=== PATIENT | male | born 1945 | race Caucasian/White ===

== ENCOUNTER 2018-10-22 21:01 | Emergency (ER) | payer OTHER, SELFPAY ==
[2018-10-22 21:05] VITALS: BP 191/107; PULSE 68; RESP 18; TEMP 36.8; O2SAT 100
[2018-10-22 21:38] VITALS: BP 174/99; PULSE 62; RESP 16; O2SAT 100
--- NOTE | 2018-10-23 06:53 | ED_ITS ---
HPI - URI/Sore Throat General Chief Complaint: Upper Respiratory Symptoms Stated Complaint: SOMETHING CAUGHT IN THROAT Time Seen by Provider: 10/22/18 21:03 Source: patient Mode of arrival: ambulatory Limitations: no limitations History of Present Illness HPI Narrative: 73-year-old male nonsmoker with benign medical history presents with a chief complaint of a suspected esophageal foreign body. He states he has a few times in the past had a piece of meat stuck in his throat and required surgery to ?fished out ?. He states he has had esophageal dilation twice in the past. He was eating chicken just prior to arrival when it got stuck and he and been unable to get any additional food or liquid down. He vomited a few times. His symptoms seem to of promptly resolved while walking into the department MD Complaint: sore throat Onset (ago): hour(s) Duration: constant and now resolved Severity: mild Relieving factors: nothing Exacerbating factors: nothing Able to tolerate fluids by mouth: No Associated symptoms: denies other symptoms Treatments prior to arrival: none Review of Systems Constitutional Denies chills, Denies fever(s), Denies lethargy and Denies weakness Eyes Denies change in vision, Denies eye discharge, Denies irritation and Denies loss of vision ENT Ears, Nose, Mouth, and Throat: Denies change in voice, Denies neck pain and Reports sore throat Cardiovascular Denies chest pain, Denies irregular heart rhythm, Denies lightheadedness, Denies palpitations, Denies dyspnea, Denies dyspnea on exertion and Denies orthopnea Respiratory Denies cough, Denies dyspnea, Denies dyspnea on exertion and Denies wheezing Gastrointestinal Gastrointestinal: Denies abdominal pain, Denies change in bowel habits, Denies diarrhea, Denies nausea and Denies vomiting Genitourinary Denies hematuria, Denies flank pain, Denies urinary incontinence and Denies urinary urgency Musculoskeletal Denies neck pain Integumentary/Breasts Denies pruritus, Denies erythema, Denies rash and Denies wounds Neurologic Denies confusion, Denies loss of vision and Denies weakness Psychiatric Denies anxiety, Denies confusion, Denies depression, Denies homicidal ideation and Denies suicidal ideation Endocrine Denies palpitations Hematologic/Lymphatic Denies easy bruising Allergic/Immunologic Denies wheezing PFSH Social History Smoking Status: Never smoker Social History Smoking Status: Never smoker Exam Narrative Exam Narrative: GEN: AOx3 and in mild distress EYES: Pupils are equal, round, and reactive to light and accommodation. Ext raoccular muscles are intact bilaterally. There is no subconjunctival hemorrhage or exudate. ENT: No obvious FB in throat on exam. No erythema or swelling. Managing secretions without difficulty CHEST: Lungs are clear to auscultation bilaterally and free of wheezes, rales, or rhonchi. Heart rate is regular rhythm, there are no murmurs, clicks, rubs, or gallops. There is no chest wall tenderness. ABD: Abdomen is soft and nontender. There is no guarding or rebound. Bowel sounds are normal in all 4 quadrants. There is no mass or organomegaly. EXT: Full painless ROM of all extremities with no loss of sensation or strength. SKIN: Warm, pink, and dry. No erythema or rash Initial Vital Signs Initial Vital Signs: Vital Signs Temperature 98.2 F 10/22/18 21:05 Pulse Rate 68 10/22/18 21:05 Respiratory Rate 18 10/22/18 21:05 Blood Pressure 191/107 H 10/22/18 21:05 Pulse Oximetry 100 10/22/18 21:05 Course Course Narrative: IV, glucagon ordered, but patient states his symptoms were completely resolved and he wished to go home Orders Ordered: Discontinued Medications Glucagon (Glucagen) 1 mg IV NOW ONE Stop: 10/22/18 21:17 Vital Signs - 8 hr 10/22/18 21:05 Temperature 98.2 F Pulse Rate 68 Respiratory Rate 18 Blood Pressure 191/107 H Pulse Oximetry 100 Discharge Plan Departure Patient Disposition: Home Clinical Impression: Esophageal foreign body Qualifiers: Encounter type: initial encounter Qualified Code(s): T18.108A - Unspecified foreign body in esophagus causing other injury, initial encounter Discharge Date/Time: 10/22/18 21:45 Interventions: ED Discharge Assessment Last Done: 10/22/18 21:38 Instructions: Steakhouse Syndrome Activity Restrictions/Additional Instructions: *You have been diagnosed with [esophageal foreign body resolved] *What to do: *Take medications as directed *Follow up with your primary care provider in 2-3 days, call for an appointment. Let them know you were seen in the Emergency Department and that we ask that you be seen in follow up *Return to ER if you should have any new, worsening or concerning symptoms Referrals: Todd Luna MD [Physician] -
== END 2018-10-22 21:45 | disposition home or self-care (01) ==
PROVIDERS: Emergency Provider Emergency Medicine
DX: T18.108A Unspecified foreign body in esophagus causing other injury, initial encounter (principal); Y93.89 Activity, other specified; Y92.89 Other specified places as the place of occurrence of the external cause; Y99.8 Other external cause status
CPT/HCPCS: 99282

== ENCOUNTER 2019-04-24 10:28 | Inpatient (IN) | payer OTHER, SELFPAY ==
[2019-04-24] VITALS (10 sets, daily range): BP systolic 135–188; BP diastolic 83–108; PULSE 64–80; RESP 14–18; TEMP 36.4–37.1; O2SAT 97–99; BMI 22.9
--- NOTE | 2019-04-24 10:59 | DI.CT.S_ITS ---
PROCEDURE: CT HEAD/BRAIN WO CON INDICATIONS: WEAKNESS TECHNIQUE: Noncontrast 4.5 mm thick angled axial sections acquired from the foramen magnum to the vertex, with coronal and sagittal reformats. For radiation dose reduction, the following was used: automated exposure control, adjustment of mA and/or kV according to patient size. COMPARISON: None. FINDINGS: Image quality: Diagnostic. CSF spaces: Basal cisterns are patent. No extra-axial fluid collections. Ventricles are prominent in size. Brain: No midline shift. No intracranial masses or hemorrhage. Fragoso-white matter interface is normal. Large confluent areas of low attenuation are seen within the periventricular and deep white matter of the supratentorial brain. Encephalomalacia involving the right basal ganglia is present. Skull and face: Calvarium and visualized facial bones are intact, without suspicious lesions. Sinuses: Visualized sinuses and mastoids are clear. IMPRESSION: 1. No acute intracranial hemorrhage. 2. Extensive chronic small vessel ischemic changes and mild parenchymal volume loss. Dictated by: Jamey Starr M.D. on 04/24/2019 at 10:15 Approved by: Jamey Starr M.D. on 04/24/2019 at 10:16
[2019-04-24 11:05] LABS: INR 1.1 (0.9-1.3); Prothrombin Time 13.1 SECONDS (10.1-12.7)
[2019-04-24 11:07] LABS: Add Manual Diff / Slide Review NO; Basophils Absolute Auto 0 /uL (0-100); Eosinophils Absolute Auto 100 /uL (0-450); Eosinophils Percent Auto 1.3 % (2-4); Hematocrit 42.8 % (41-53); Hemoglobin 14.9 g/dL (13.5-17.5); Lymphocytes Absolute Auto 800 /uL (1100-4500); Lymphocytes Percent Auto 18.5 % (25-40); Mean Corpuscular HGB Conc 34.7 % (30-36); Mean Corpuscular Hemoglobin 32.3 PG (26-34); Mean Corpuscular Volume 93.1 fL (80-100); Monocytes Absolute Auto 500 /uL (0-900); Monocytes Percent Auto 10.5 % (3-14); Neutrophils Absolute Auto 3100 /uL (1500-7000); Neutrophils Percent Auto 68.7 % (50-75); PTT Partial Thromboplastin Tim 28 SECONDS (26.4-36.2); Platelet Count 152 X10^3/uL (150-400); Red Cell Distribution Width 13.1 % (11.6-14.8); White Blood Cell Count 4.6 X10^3/uL (4.5-11.0)
[2019-04-24 11:09] LABS: Blood Urea Nitrogen 14 mg/dL (9-20); Calcium 8.9 mg/dL (8.4-10.2); Carbon Dioxide 32 mmol/L (22-32); Chloride 101 mmol/L (98-107); Estimated Glomerular Filt Rate > 60.0 mL/min (>60); Glucose 106 mg/dL (80-110); HEMOLYSIS < 15 (0-50); Potassium 4.2 mmol/L (3.4-5.1); Sodium 140 mmol/L (137-145)
[2019-04-24] MEDS: SODIUM CHLORIDE 0.9% 1,000 ML 150 ML IV ×2 (11:14→16:36)
[2019-04-24 11:20] LABS: Troponin I < 0.012 ng/mL (0.01-0.034)
--- NOTE | 2019-04-24 11:51 | ED.WEAKNESS ---
HPI - Weakness General Chief complaint: Weakness Stated complaint: Fall / Weakness Time Seen by Provider: 04/24/19 11:10 Source: patient and EMS Mode of arrival: EMS Limitations: no limitations History of Present Illness HPI Narrative: This is a 74-year-old male brought in for weakness. Patient had fall x2 last night. Daughter states and patient states that he seemed more weak last night. Had kind of some slow progression. Patient states he did notice sudden onset. He states his left leg does feel little bit heavier. He denies any weakness in his upper extremities. He denies any headache. He denies any injury from sliding. Denies hitting his head at any point. No chest pain, no shortness of breath, no nausea vomiting. Had some diarrhea about a month ago thought it was secondary to medications and stopped his omeprazole, tamsulosin and propranolol. Patient states he was taking propranolol he thinks for tremors. He has had normal bowel movements since. No recent rashes. He has a little bit of left facial droop in the upper and lower portion which family states occurred after he had significant swelling and shingles on that side several months ago. Patient has not had any changes to speech they haven't appreciate any slurred speech or difficulty getting his words out. He has had several episodes with increasingly worse short-term memory loss, he got lost several months ago, he has been noted to have a tremor and his daughter states he she has noticed and stumbling sometimes. And he has had fall about 2 months ago and maybe 1 in between. Has had head CT at some point after seeing Neurology and she believes they were told he may have had a prior stroke but they are unsure. He has had EGD for evaluation and were told that was okay on March 24. Daughter states there has been some discussion about Parkinson's disease and dementia. Patient lives with his daughter. Related Data Home Medications Medication Instructions Recorded Confirmed omeprazole 20 mg PO DAILY 04/24/19 04/24/19 propranolol 10 mg PO BID 04/24/19 04/24/19 tamsulosin 0.4 mg PO DAILY 04/24/19 04/24/19 Allergies Allergy/AdvReac Type Severity Reaction Status Date / Time antivenin,crotalidae Allergy Verified 04/24/19 10:48 polyvalent imm Review of Systems Review of Systems ROS Unobtainable: All systems reviewed & are unremarkable except as noted in HPI and below Patient History Medical History (Updated 04/24/19 @ 15:16 by Enedina Lord DO) GERD (gastroesophageal reflux disease) (Acute) Surgical History (Updated 04/24/19 @ 11:54 by Enedina Lord DO) History of esophagogastroduodenoscopy (EGD) (Acute) Social History household members: children Smoking Status: Former smoker alcohol intake: current Smoking Status: Former smoker Substance Use Type: does not use Exam Narrative Exam Narrative: GEN: well nourished, well appearing male, alert and oriented, patient appears to be in mild distress. Patient has flat affect. Answers questions appropriately but very slow to answer and short answers. HEENT: Atraumatic, pupils are equal round reactive to light, extraocular movements are intact, nares are clear, TMs are clear with no fluid, there is no conjunctival pallor. Throat is clear without any exudates, erythema, tonsillar enlargement or uvular deviation, patient does have some mild droop of the left upper face including the as well as lower face but when he smiles it appears to be equal in comparison to the right. HEART: Regular rate and rhythm without murmur, clicks, rubs. LUNGS:Lungs clear to auscultation, no wheezes, rales, crackles, chest moves symmetrically ABD:bowel sounds normal, soft, non-tender, no guarding, rebound, rigidity, no masses noted, no hepatosplenomegaly :No CVA tenderness BACK: No cervical, thoracic or lumbar vertebral point tenderness. Patient has decreased range of motion. 2+ dorsalis pedis bilaterally. Sensation intact bilateral lower extremities. MSCL: Non-tender, no muscle atrophy. NEURO:CN 2-12 intact, sensation normal. finger nose finger test normal, heel jacobson test normal on right, very mild difficulty on left, gait not tested. SKIN: no rash, no erythema noted. Initial Vital Signs Initial Vital Signs: Vital Signs Temperature 97.6 F 04/24/19 10:48 Pulse Rate 66 04/24/19 10:48 Respiratory Rate 14 04/24/19 10:48 Blood Pressure 185/95 H 04/24/19 10:48 Pulse Oximetry 99 04/24/19 10:48 Scores NIH Stroke Scale Level of Conciousness: Alert, keenly responsive Ask month/age: Answers both questions correctly. Open/close eyes, close hand: Performs both tasks correctly Best gaze horizontal: Normal Visual hilliard: No visual loss Facial palsy: Minor paralysis, flattened nasolabial fold, asymmetry on smiling (upper and lower face) Left arm drift: No drift for full 10 sec Right arm drift: No drift for full 10 sec Left leg drift: Drifts down, not to bed Right leg drift: No drift for full 10 sec Limb ataxia: Present in one limb (left foot) Sensory on face/arms/legs: Normal, no sensory loss Best language: No aphasia, normal Dysarthria: Normal Extinction or inattention: No abnormality Total NIH Stroke scale score: 3 Course Orders Ordered: ED Orders 04/24/19 10:37 EKG-12 Lead Routine 04/24/19 10:40 BNP [B Type Natriuretic Peptide] Stat Basic Metabolic Panel Stat Complete Blood Count AUTO DIFF Stat Partial Thromboplastin Time Stat Prothrombin Time INR Stat Troponin I Stat 04/24/19 10:59 CT head/brain wo con Stat 04/24/19 11:59 CT angio head and neck Stat 04/24/19 12:37 Urine Drug Screen, Rapid Stat Urine Microscopic Stat Sodium Chloride (Normal Saline 0.9%) 1,000 mls @ 150 mls/hr IV CONT ROHITH Last Admin: 04/24/19 16:36 Dose: 150 mls/hr Documented by: Infusion: 04/24/19 15:54 Dose: 0 mls/hr Documented by: Admin: 04/24/19 11:14 Dose: 150 mls/hr Documented by: PAUL Discontinued Medications Aspirin (Aspirin Chew) 324 mg PO NOW ONE Stop: 04/24/19 15:01 Last Admin: 04/24/19 15:57 Dose: 324 mg Documented by: IONA Vital Signs Vital signs: Vital Signs - 8 hr 04/24/19 11:15 04/24/19 11:30 04/24/19 12:30 Pulse Rate 66 65 64 Respiratory Rate 18 15 14 Blood Pressure [Left Arm] 176/92 H 170/90 H 168/88 H Pulse Oximetry 99 97 97 04/24/19 14:00 04/24/19 15:03 Pulse Rate 66 69 Respiratory Rate 18 16 Blood Pressure [Left Arm] 164/94 H 188/108 H Pulse Oximetry 99 99 MDM - Weakness Lab Data Attestation: I reviewed the patient's lab results. Result diagrams: 04/24/19 10:40 04/24/19 10:40 Labs: Lab Results 04/24/19 04/24/19 04/24/19 Range/Units 10:40 10:40 10:40 WBC 4.6 (4.5-11.0) X10^3/uL RBC 4.60 (4.5-5.9) X10^6/uL Hgb 14.9 (13.5-17.5) g/dL Hct 42.8 (41-53) % MCV 93.1 (80-100) fL MCH 32.3 (26-34) PG MCHC 34.7 (30-36) % RDW 13.1 (11.6-14.8) % Plt Count 152 (150-400) X10^3/uL Neut % (Auto) 68.7 (50-75) % Lymph % (Auto) 18.5 L (25-40) % [place] % (Auto) 10.5 (3-14) % Eos % (Auto) 1.3 L (2-4) % Baso % (Auto) 1.0 (0-2) % Neut # (Auto) 3100 (9339-7108) /uL Lymph # (Auto) 800 L (3651-6007) /uL [place] # (Auto) 500 (0-900) /uL Eos # (Auto) 100 (0-450) /uL Baso # (Auto) 0 (0-100) /uL PT 13.1 H (10.1-12.7) SECONDS INR 1.1 (0.9-1.3) APTT 28 (26.4-36.2) SECONDS Sodium 140 (137-145) mmol/L Potassium 4.2 (3.4-5.1) mmol/L Chloride 101 (98-107) mmol/L Carbon Dioxide 32 (22-32) mmol/L BUN 14 (9-20) mg/dL Creatinine 1.00 (0.66-1.25) mg/dL Estimated GFR > 60.0 (>60) mL/min BUN/Creatinine Ratio 14.0 (6-22) Glucose 106 (80-110) mg/dL Calcium 8.9 (8.4-10.2) mg/dL Troponin I < 0.012 (0.01-0.034) ng/mL B-Natriuretic Peptide (<100) Urine RBC (0-5/HPF) Urine WBC (0-5/HPF) Ur Squamous Epith Cells (0-5/HPF) Urine Bacteria (None) Urine Mucus (Negative) Ur Culture Indicated? U Opiates 300ng/mL cut (Negative) Ur Oxycodone Screen (Negative) Urine Methadone Screen (Negative) Ur Barbiturates Screen (Negative) U Tricyclic Antidepress (Negative) Ur Phencyclidine Scrn (Negative) Ur Amphetamines Screen (Negative) U Methamphetamines Scrn (Negative) Ur MDMA Scrn (Ecstasy) (Negative) U Benzodiazepines Scrn (Negative) Urine Cocaine Screen (Negative) U Marijuana (THC) Screen (Negative) 04/24/19 04/24/19 04/24/19 Range/Units 10:40 12:37 12:37 WBC (4.5-11.0) X10^3/uL RBC (4.5-5.9) X10^6/uL Hgb (13.5-17.5) g/dL Hct (41-53) % MCV (80-100) fL MCH (26-34) PG MCHC (30-36) % RDW (11.6-14.8) % Plt Count (150-400) X10^3/uL Neut % (Auto) (50-75) % Lymph % (Auto) (25-40) % [place] % (Auto) (3-14) % Eos % (Auto) (2-4) % Baso % (Auto) (0-2) % Neut # (Auto) (7695-0237) /uL Lymph # (Auto) (5436-0313) /uL [place] # (Auto) (0-900) /uL Eos # (Auto) (0-450) /uL Baso # (Auto) (0-100) /uL PT (10.1-12.7) SECONDS INR (0.9-1.3) APTT (26.4-36.2) SECONDS Sodium (137-145) mmol/L Potassium (3.4-5.1) mmol/L Chloride (98-107) mmol/L Carbon Dioxide (22-32) mmol/L BUN (9-20) mg/dL Creatinine (0.66-1.25) mg/dL Estimated GFR (>60) mL/min BUN/Creatinine Ratio (6-22) Glucose (80-110) mg/dL Calcium (8.4-10.2) mg/dL Troponin I (0.01-0.034) ng/mL B-Natriuretic Peptide < 100 (<100) Urine RBC 0-1/hpf (0-5/HPF) Urine WBC 0-1/hpf (0-5/HPF) Ur Squamous Epith Cells 0-1 /hpf (0-5/HPF) Urine Bacteria None seen (None) Urine Mucus 1+ H (Negative) Ur Culture Indicated? Cult not indicated U Opiates 300ng/mL cut Negative (Negative) Ur Oxycodone Screen Negative (Negative) Urine Methadone Screen Negative (Negative) Ur Barbiturates Screen Negative (Negative) U Tricyclic Antidepress Negative (Negative) Ur Phencyclidine Scrn Negative (Negative) Ur Amphetamines Screen Negative (Negative) U Methamphetamines Scrn Negative (Negative) Ur MDMA Scrn (Ecstasy) Negative (Negative) U Benzodiazepines Scrn Negative (Negative) Urine Cocaine Screen Negative (Negative) U Marijuana (THC) Screen Negative (Negative) Urine Dip Bedside Urine Glucose Negative Bedside Urine Bilirubin - Negative Bedside Urine Ketone - Negative Bedside Urine Occult Blood - Negative Bedside Urine Protein +/- 15 Bedside Urine Urobilinogen - Negative Bedside Urine Nitrite - Negative Bedside Urine Leukocytes - Negative Esterase Imaging Data CT scan - head: Radiologist Impression: [address] [address] [address] Scan Report Signed Patient: Tian Lobato R#: [id number] : [id number] Age/Sex: 74 / MDate of Service: 04/24/19 Loc: ED Accession Number: [id number] Procedure: CT head/brain wo con Ordering Provider: Enedina Lord D.O. PROCEDURE: CT HEAD/BRAIN WO CON INDICATIONS: WEAKNESS TECHNIQUE: Noncontrast 4.5 mm thick angled axial sections acquired from the foramen magnum to the vertex, with coronal and sagittal reformats. For radiation dose reduction, the following was used: automated exposure control, adjustment of mA and/or kV according to patient size. COMPARISON: None. FINDINGS: Image quality: Diagnostic. CSF spaces: Basal cisterns are patent. No extra-axial fluid collections. Ventricles are prominent in size. Brain: No midline shift. No intracranial masses or hemorrhage. Fragoso-white matter interface is normal. Large confluent areas of low attenuation are seen within the periventricular and deep white matter of the supratentorial brain. Encephalomalacia involving the right basal ganglia is present. Skull and face: Calvarium and visualized facial bones are intact, without suspicious lesions. Sinuses: Visualized sinuses and mastoids are clear. IMPRESSION: 1. No acute intracranial hemorrhage. 2. Extensive chronic small vessel ischemic changes and mild parenchymal volume loss. Dictated by: Jamey Starr M.D. on 04/24/2019 at 10:15 Approved by: Jamey Starr M.D. on 04/24/2019 at 10:16 ECG Data Attestation: I personally reviewed and interpreted this ECG as follows: Interpretation: Sinus rhythm rate of 67 P are 158 QRS of 90 and QTC of 410. No ST elevation depression noted. MDM Narrative Medical decision making narrative: Patient's CBC, coags and BMP and troponin show no major abnormalities. Urine does not show any obvious infection. Head CT showed no acute intracranial hemorrhage, extensive chronic small vessel ischemic changes. There's encephalomalacia involving the right basal ganglia present. Which patient's family had stated that they have been told that there were some changes before that may have been a stroke past imaging. CT of the head and neck show no acute process. Moderate chronic microvascular ischemic changes. No significant areas of stenosis and less than 50% stenosis of the ICAs bilaterally. When we attempt to stand or walk the patient he leans/falls significantly to the left. He has facial droop which is sounds chronic. Speaking with family and patient he has had symptoms for about 48 hours so as far outside the window for tPA or intervention. Spoke with Dr. jalloh and he accepts for observation for CVA. Patient given asa 324mg and MRI stroke ordered. Discharge Plan Departure Patient Disposition: Admitted as Observation Clinical Impression: CVA (cerebral vascular accident) Discharge Date/Time: 04/24/19 16:02 Admit Date/Time: 04/24/19 15:05 Admit Provider: Noble Saha
--- NOTE | 2019-04-24 11:59 | DI.CT.S_ITS ---
PROCEDURE: CT ANGIO HEAD AND NECK INDICATIONS: left ataxia, old TECHNIQUE: Pre-contrast 4.5 mm thick sections acquired from the foramen magnum to the vertex. After the administration of intravenous contrast, 1 mm thick sections acquired from the aortic arch through the [place] of [place]. Post-contrast 4.5 mm thick sections then re-acquired from the foramen magnum to the vertex. 3-dimensional [id number] (MIP) and/or volume rendering reformats were acquired of the central intracranial vasculature and neck separately. COMPARISON: [facility], CT, CT HEAD/BRAIN WO CON, 04/24/2019, 10:55. FINDINGS: Image quality: Excellent. BRAIN: The ventricular system and cortical sulci demonstrate atrophy, consistent for the patient's stated age. There are areas of hypodensity within the periventricular and subcortical white matter. There is no acute intra-or extra axial fluid collection. No acute hemorrhage, mass lesion or midline shift. Brainstem is unremarkable. Globes are symmetrical. Sinuses are aerated. Osseous structures are intact. HEAD CT ANGIOGRAPHY: Anterior circulation: Intracranial internal carotid arteries are normal in size and flow. The flow within the paired anterior cerebral arteries is normal and symmetric. The flow within the middle cerebral arteries is normal and symmetric. The anterior communicating artery is seen. No aneurysms are seen. Posterior circulation: Visualized portions of the vertebral arteries demonstrate normal caliber, and join to form a normal appearing basilar artery. Flow within the posterior cerebral arteries is normal and symmetric. No aneurysms are seen. NECK CT ANGIOGRAPHY: The origins of the left and right common and external carotid arteries demonstrate no areas of hemodynamically significant stenosis, vascular occlusion or aneurysmal dilation. Calcification is noted at the internal carotid origins bilaterally with less than 50% stenosis. Origins of the left and right vertebral arteries demonstrate no areas of hemodynamically significant stenosis, vascular occlusion or aneurysmal dilation. Aortic arch demonstrates conventional anatomy. Limited, visualized portions subclavian vasculature are unremarkable. IMPRESSION: 1. No acute intracranial process. 2. Moderate atrophy and chronic microvascular ischemic changes. 3. No areas of hemodynamically significant stenosis, vascular occlusion or aneurysmal dilation within the anterior or posterior circulation. 4. Less than 50% stenosis at the internal carotid arteries bilaterally. Any quantitative measurements of stenosis were performed using NASCET criteria. Dictated by: Farzaneh Tiwari M.D. on 04/24/2019 at 12:50 Approved by: Farzaneh Tiwari M.D. on 04/24/2019 at 13:21
[2019-04-24 12:38] LABS: Bacteria Urine None Seen
[2019-04-24 12:44] LABS: Ur Creatinine Normal (Normal); Ur Specific Gravity Normal (Normal); Urine Tetrahydrocannabinol Negative (Negative); Urine pH Normal (Normal)
[2019-04-24 12:45] LABS: UR Morphine/Opiate cutoff 300 Negative (Negative); Urine Amphetamines Negative (Negative); Urine Barbiturates Negative (Negative); Urine Benzodiazepines Negative (Negative); Urine Cocaine Negative (Negative); Urine MDMA Negative (Negative); Urine Methadone Negative (Negative); Urine Methamphetamines Negative (Negative); Urine Oxycodone Negative (Negative); Urine Phencyclidine Negative (Negative); Urine Tricyclic Antidepressant Negative (Negative)
[2019-04-24 12:47] LABS: RBC Urine 0-1/HPF (0-5/HPF); Squamous Epithelial Cell Urine 0-1 /HPF (0-5/HPF); WBC Urine 0-1/HPF (0-5/HPF)
[2019-04-24 12:48] LABS: Culture Indicated Urine Cult Not Indicated; Mucus Urine 1+ (Negative)
[2019-04-24 13:08] LABS: B Type Natriuretic Peptide < 100 (<100)
--- NOTE | 2019-04-24 14:24 | PC.NURSE ---
Patient was incontinent of urine and soaked his pants and bed. Lucina and I changed his bed sheets, cleaned him up, and put new dry clothes/briefs on him.
--- NOTE | 2019-04-24 15:12 | DI.MRI.S_ITS ---
PROCEDURE: MR STROKE Pre- and post-contrast brain MRI, non-contrast brain MR angiogram, pre- and postcontrast neck MR angiogram INDICATIONS: stroke TECHNIQUE: Brain: Noncontrast axial T1 spin echo, axial T2 fast spin echo, sagittal and axial FLAIR, coronal T2 fast spin echo, axial gradient echo, axial diffusion and ADC through the brain. After the administration of contrast, axial 3D VIBE of the cranial vasculature and brain. Brain MRA: Non-contrast 3-D time of flight MR angiogram, with multiple fwipenh-pvmheejqd-hgkuyxnulo (MIP) reformats performed. Neck MRA: Axial and sagittal TruFISP through the neck. Coronal dynamic MR angiogram during administration of contrast in the arterial and venous phases, with 3-dimenstional ishozgv-zgaehkwfk-ygssuvzsnz (MIP) reformats constructed from subtraction images. COMPARISON: None. FINDINGS: Image quality: Excellent. BRAIN: CSF spaces: Ventricles are normal in size and shape. Basal cisterns are patent. No extra-axial fluid collections. Brain: No intracranial bleeds or mass effects. Scattered small white matter changes, probably represent chronic microvascular ischemic disease, versus statistically less likely demyelination or other infectious, inflammatory, neurodegenerative etiology, technically nonspecific. Fragoso-white matter interface is normal. Diffusion weighted images show multiple areas of acute ischemia involving the anterior right frontal lobe Brainstem appears normal. Normal intravascular flow voids are present. No abnormal intracranial enhancement. Skull and face: Calvarial marrow signal is normal. Orbits appear normal. Sinuses: Sinuses and mastoids are clear. BRAIN MR ANGIOGRAM: Anterior circulation: Intracranial internal carotid arteries are normal in size and enhancement. The flow within the paired anterior cerebral arteries is normal and symmetric. The flow within the middle cerebral arteries is normal and symmetric. The anterior communicating artery is seen. No stenoses, occlusions, or aneurysms. Posterior circulation: The visualized portions of the vertebral arteries demonstrate normal caliber, and join to form a normal appearing basilar artery. The flow within the posterior cerebral arteries is normal and symmetric. No stenoses, occlusions, or aneurysms. NECK MR ANGIOGRAM: Carotids: Great vessels demonstrate a conventional anatomy as they arise from the aortic arch. The origins of the common carotid arteries appear patent. The calibers and courses of both common carotid arteries are normal. The bifurcation regions appear normal bilaterally. The internal carotid arteries demonstrate normal course and caliber. Posterior circulation: The origins of the vertebral arteries appear patent. More superior portions of both vertebral arteries demonstrate normal course and caliber, and join to form a normal appearing basilar artery. Miscellaneous: Subclavian arteries appear patent. Pre-contrast images through the neck show no soft tissue abnormalities. IMPRESSION: BRAIN MRI: Multifocal scattered small areas of acute ischemia involving the anterior right frontal lobe. Diffuse small white matter changes, probably represent chronic microvascular ischemic disease, versus statistically less likely demyelination or other infectious, inflammatory, neurodegenerative etiology, technically nonspecific. BRAIN MR ANGIOGRAM: No focal stenosis or occlusion NECK MR ANGIOGRAM: No hemodynamically significant ICA stenosis identified. Dictated by: Jero Osman M.D. on 04/24/2019 at 21:31 Approved by: Jero Osman M.D. on 04/24/2019 at 21:37
[2019-04-24] MEDS: ASPIRIN 81 MG CHEW TAB 324 MG PO (15:57)
--- NOTE | 2019-04-24 18:57 | P.HP_ITS ---
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 He states starting 3 weeks ago he noticed some blurry vision and went to see the eye doctor. 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 He denies any left eye pain. And states that his rash has almost resolved. Starting 2 weeks ago he noticed that he was becoming more clumsy and had some mild left-sided, primarily lower extremity weakness. Then 2 days ago he has been profoundly more weak, especially on the left side and he could not take care of himself any longer. He denies any fevers, chills, headache. He denies any trauma from falls including hitting his head. He has had no chest pain, shortness of breath, palpitations, or cough. He was started on proprano lol for tremors, however he developed diarrhea and has since stopped taking this. He states a few months ago he was driving and did not realize where he was. He ended up in the emergency room where they did an evaluation but did not find anything wrong at that time. In the ED, patient was hypertensive, but other vital signs were unremarkable. EKG shows normal sinus rhythm, rate 67, without evidence of active ischemia. CT head and CTA head and neck were unremarkable in the emergency room. Laboratory studies including CBC, coags, chemistries were all unremarkable. UA was negative for infection and urine drug screen was negative. Patient still had persistent symptoms of left-sided weakness, and he was admitted to Medicine for further evaluation of a likely stroke. Patient History Medical History (Updated 04/24/19 @ 15:16 by Enedina Lord DO) GERD (gastroesophageal reflux disease) (Acute) Surgical History (Updated 04/24/19 @ 11:54 by Enedina Lord DO) History of esophagogastroduodenoscopy (EGD) (Acute) Family & Social History Social History: household members children Prior Living Arrangements House Safety & Behavioral: Feels Safe in Current Yes Environment Been Physically Hurt or No Threatened By a Person Suicidal Ideation Description None Suicide Plan Description No Plan Tobacco & Substance use: Smoking Status Former smoker alcohol intake current alcohol intake frequency a few times a month Substance Use Type does not use Meds Home Medications and Allergies Home Medications Medication Instructions Recorded Confirmed Type omeprazole 20 mg PO DAILY 04/24/19 04/24/19 History propranolol 10 mg PO BID 04/24/19 04/24/19 History tamsulosin 0.4 mg PO DAILY 04/24/19 04/24/19 History Allergies Allergy/AdvReac Type Severity Reaction Status Date / Time antivenin,crotalidae Allergy Verified 04/24/19 10:48 polyvalent imm Review of Systems Review of Systems Narrative: All other systems reviewed with the patient and are negative unless otherwise stated. Exam Vital Signs (past 8 hours): - 04/24/19 11:15 04/24/19 11:30 04/24/19 12:30 Temperature Pulse Rate 66 65 64 Respiratory Rate 18 15 14 Blood Pressure Blood Pressure [Left Arm] 176/92 H 170/90 H 168/88 H Pulse Oximetry 99 97 97 04/24/19 14:00 04/24/19 15:03 04/24/19 16:00 Temperature Pulse Rate 66 69 73 Respiratory Rate 18 16 18 Blood Pressure Blood Pressure [Left Arm] 164/94 H 188/108 H 188/108 H Pulse Oximetry 99 99 98 04/24/19 16:15 Temperature 98.2 F Pulse Rate 80 Respiratory Rate 16 Blood Pressure 163/107 H Blood Pressure [Left Arm] Pulse Oximetry 98 Oxygen Delivery Method Room Air Oxygen Flow Rate 0 Narrative Exam Narrative: GENERAL APPEARANCE: Elderly male, tearful at the end of the interview when discussing surrogate decision maker. He is eating dinner, there is rice scattered over his blankets. SKIN: Inspection of the skin reveals no rashes, ulcerations or petechiae. HEENT: Minor rash surrounding his left eye, appears old and well healing. EOMI, PERRLA. Oral mucosa moist, no posterior pharyngeal erythema. NECK: Supple and symmetric. There was no thyroid enlargement, and no tenderness, or masses were felt. CHEST: Normal AP diameter and normal contour without any kyphoscoliosis. LUNGS: Auscultation of the lungs revealed no wheezes, rhonchi, or rales. CARDIOVASCULAR: There was a regular rate and rhythm without any murmurs, gallops, rubs. Peripheral pulses were 2+ and symmetric. ABDOMEN: Soft and nontender with normal bowel sounds. No ascites was noted. MUSCULOSKELETAL: There was no tenderness or effusions noted. Muscle tone was normal. EXTREMITIES: No cyanosis, clubbing or edema. NEUROLOGIC: Alert and oriented x 3. Mild cognitive impairment is evident. Neuro exam as documented below, stroke scale of 6. He does have a mild intention tremor on the right. Objective ECG Impression: Normal sinus rhythm, no evidence of active ischemia. Rate of 68. Imaging CT scan - head: Radiologist's impression: IMPRESSION: 1. No acute intracranial hemorrhage. 2. Extensive chronic small vessel ischemic changes and mild parenchymal volume loss. CTA head/neck: Radiologist's impression: 1. No acute intracranial process. 2. Moderate atrophy and chronic microvascular ischemic changes. 3. No areas of hemodynamically significant stenosis, vascular occlusion or aneurysmal dilation within the anterior or posterior circulation. 4. Less than 50% stenosis at the internal carotid arteries bilaterally. Labs Result Diagrams: 04/24/19 10:40 04/24/19 10:40 Labs: Laboratory Results - last 24 hr 04/24/19 04/24/19 04/24/19 10:40 10:40 10:40 WBC 4.6 RBC 4.60 Hgb 14.9 Hct 42.8 MCV 93.1 MCH 32.3 MCHC 34.7 RDW 13.1 Plt Count 152 Neut % (Auto) 68.7 Lymph % (Auto) 18.5 L [place] % (Auto) 10.5 Eos % (Auto) 1.3 L Baso % (Auto) 1.0 Neut # (Auto) 3100 Lymph # (Auto) 800 L [place] # (Auto) 500 Eos # (Auto) 100 Baso # (Auto) 0 PT 13.1 H INR 1.1 APTT 28 Sodium 140 Potassium 4.2 Chloride 101 Carbon Dioxide 32 BUN 14 Creatinine 1.00 Estimated GFR > 60.0 BUN/Creatinine Ratio 14.0 Glucose 106 Calcium 8.9 Troponin I < 0.012 B-Natriuretic Peptide Urine RBC Urine WBC Ur Squamous Epith Cells Urine Bacteria Urine Mucus Ur Culture Indicated? U Opiates 300ng/mL cut Ur Oxycodone Screen Urine Methadone Screen Ur Barbiturates Screen U Tricyclic Antidepress Ur Phencyclidine Scrn Ur Amphetamines Screen U Methamphetamines Scrn Ur MDMA Scrn (Ecstasy) U Benzodiazepines Scrn Urine Cocaine Screen U Marijuana (THC) Screen 04/24/19 04/24/19 04/24/19 10:40 12:37 12:37 WBC RBC Hgb Hct MCV MCH MCHC RDW Plt Count Neut % (Auto) Lymph % (Auto) [place] % (Auto) Eos % (Auto) Baso % (Auto) Neut # (Auto) Lymph # (Auto) [place] # (Auto) Eos # (Auto) Baso # (Auto) PT INR APTT Sodium Potassium Chloride Carbon Dioxide BUN Creatinine Estimated GFR BUN/Creatinine Ratio Glucose Calcium Troponin I B-Natriuretic Peptide < 100 Urine RBC 0-1/hpf Urine WBC 0-1/hpf Ur Squamous Epith Cells 0-1 /hpf Urine Bacteria None seen Urine Mucus 1+ H Ur Culture Indicated? 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 He is weak bilaterally but more so on the left, which he endorses over the past 2 days. Initial imaging negative, but MRI is pending. He is admitted to Medicine with likely CVA. 1. CVA, acute, present on admission -patient with symptoms starting 2 days ago acutely, but also had progressive imbalance starting 2 weeks ago. NIH stroke scale is 6. 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 head was negative, as was CTA of his head and neck. He has no known history of AFib and denies recent palpitations. EKG is normal sinus rhythm on admission. -MR stroke -continue neurological checks with NIH stroke scale -PT, OT, speech eval and treat -risk stratify with A1c, TSH, lipid panel -start ASA 81 mg daily, Lipitor 40 mg nightly. -continue telemetry 2. 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 His tremors mild on my exam. 3. BPH, chronic, without symptoms -continue home Flomax 4. GERD, chronic, stable, without symptoms -patient takes home omeprazole 20 mg, will continue Protonix 20 mg daily. Code: Discussed with patient, he wishes to be full code. He looks daughter is his surrogate decision maker if he is unable to make decisions. DVT: Heparin subcu Dispo: Admitted as inpatient as his stay is likely to exceed 2 midnights. Scores NIHSS Level of Conciousness: Alert, keenly responsive Ask month/age: Answers both questions correctly. Open/close eyes, close hand: Performs both tasks correctly Best gaze horizontal: Normal Visual hilliard: No visual loss Facial palsy: Minor paralysis, flattened nasolabial fold, asymmetry on smiling (complicated by recent zoster ophthalmaticus) Left arm drift: Drifts down, not to bed Right arm drift: No drift for full 10 sec Left leg drift: Some effort against gravity, cannot maintain, drifts down to bed Right leg drift: Some effort against gravity, cannot maintain, drifts down to bed Limb ataxia: Absent Sensory on face/arms/legs: Normal, no sensory loss Best language: No aphasia, normal Dysarthria: Normal Extinction or inattention: No abnormality Total NIH Stroke scale score: 6 Quality Stroke Contraindication Not Initiating IV-Tpa: Contraindicated Onset of Symptoms Date: 04/22/19 Symptom Onset Unknown: No VTE Deep Vein Thrombosis/Pulmonary Embolism Present on Admission: No
--- NOTE | 2019-04-24 19:23 | PC.NURSE ---
Patient is A&O x3, slow to answer most questions and has a bit of a flat affect. Patient was unable to help trans and a slidder board was used, pt tolerated well. Patient is very tearful upon arrival to floor and throughout nursing assessment. Pt reports he often walks dog at least once a day and works a lot outside, but has had increased falls the last few months, today being the worst of his weakness onset and fall. NIH screen done upon arrival and scored: 9. Patient has left sided facial droop, LE and LL ext. weakness. Pt is not using Left side of body but is able to slightly move LUE if asked. Unable to lift LLE off bed but was able to flex and extend foot. Pt was able to view NIH packet with nurse with no difficulty. VSS, 96% on RA. Call light w/in reach, bed in low pos. alarm active. Family at bedside visiting.
[2019-04-24] MEDS: HEPARIN 5,000 UNIT/ML VIAL 5000 UNIT SUBCUT (21:49)
[2019-04-24] MEDS: ATORVASTATIN 20 MG TABLET 40 MG PO (21:49)
[2019-04-25 00:10] VITALS: BMI 22.4
[2019-04-25] MEDS: SODIUM CHLORIDE 0.9% 1,000 ML 150 ML IV ×2 (03:08→10:25)
[2019-04-25 04:00] VITALS: BP 149/95; PULSE 62; RESP 18; TEMP 36.7; O2SAT 97
[2019-04-25 06:03] LABS: Add Manual Diff / Slide Review NO; Basophils Absolute Auto 0 /uL (0-100); Basophils Percent Auto 1.1 % (0-2); Eosinophils Absolute Auto 100 /uL (0-450); Eosinophils Percent Auto 2.9 % (2-4); Hemoglobin 13.9 g/dL (13.5-17.5); Lymphocytes Absolute Auto 900 /uL (1100-4500); Lymphocytes Percent Auto 25.6 % (25-40); Mean Corpuscular HGB Conc 34.8 % (30-36); Mean Corpuscular Hemoglobin 32.1 PG (26-34); Mean Corpuscular Volume 92.2 fL (80-100); Monocytes Absolute Auto 500 /uL (0-900); Monocytes Percent Auto 13.1 % (3-14); Neutrophils Absolute Auto 2000 /uL (1500-7000); Neutrophils Percent Auto 57.3 % (50-75); Platelet Count 141 X10^3/uL (150-400); Red Blood Cell Count 4.34 X10^6/uL (4.5-5.9); White Blood Cell Count 3.5 X10^3/uL (4.5-11.0)
[2019-04-25 06:08] LABS: Hemoglobin A1C% w Est Avg Glu 5.3 % (4.0-6.0)
[2019-04-25 06:12] LABS: BUN Creatinine Ratio 12.5 (6-22); Blood Urea Nitrogen 10 mg/dL (9-20); Calcium 8.2 mg/dL (8.4-10.2); Carbon Dioxide 27 mmol/L (22-32); Chloride 102 mmol/L (98-107); Cholesterol 154 mg/dL (140-199); Estimated Glomerular Filt Rate > 60.0 mL/min (>60); Glucose 99 mg/dL (80-110); HDL Cholesterol 35 mg/dL (40-60); HEMOLYSIS < 15 (0-50); LDL Cholesterol Calculated 106 mg/dL (<100); Magnesium 2.1 mg/dL (1.6-2.3); Potassium 3.4 mmol/L (3.4-5.1); Sodium 136 mmol/L (137-145); Triglycerides 67 mg/dL (35-150)
[2019-04-25] MEDS: PANTOPRAZOLE 20 MG TABLET PO (06:16)
[2019-04-25 06:41] LABS: TSH w/ Reflex to FT4 3.19 uIU/mL (0.47-4.68)
[2019-04-25 07:52] VITALS: BP 155/95; PULSE 66; RESP 16; TEMP 36.8; O2SAT 97
--- NOTE | 2019-04-25 09:34 | PC.NURSE ---
Addendum entered by Ana Paula Jorgensen R.N. 04/25/19 12:03: Patient was seen by [employer] SHARPSHOOTER, and she did not note any coughing or difficulty swallowing during her assessment. She recommended no changes to diet texture or liquids, but advised for meds to be given in carrier. Based on RN experience this morning, crushed in carrier will probably work best. Order entered for the same. Addendum entered by Ana Paula Jorgensen R.N. 04/25/19 10:09: Chelsey Goodman administered patient's meds this morning. She reported that patient had difficulty swallowing meds whole, and seemed to have a delayed cough after every sip of water. This narrative writer called JASMINE Green back and informed of the same. She said to make patient NPO for now and she will come in to see him early this afternoon. Will remove all food and fluids from patient's table and inform him of the plan for [employer] SHARPSHOOTER eval today. Original Note: Swallowing: Sitting 90 degrees in bed for meal. This narrative writer observed patient eating and drinking (granola w/ milk, yogurt, water/tea). No cough or other s/sx aspiration noted. Patient denies having any difficulty swallowing. This narrative writer spoke with JASMINE Green and informed of the same. Based on description of patient condition above, she will not see patient today but we can call and she will come in if patient condition changes.
[2019-04-25] MEDS: ASPIRIN EC 81 MG TABLET PO (09:57)
[2019-04-25] MEDS: TAMSULOSIN 0.4 MG CAPSULE PO (09:57)
[2019-04-25] MEDS: HEPARIN 5,000 UNIT/ML VIAL 5000 UNIT SUBCUT ×2 (09:57→20:42)
--- NOTE | 2019-04-25 10:46 | PT.IIE ---
Surgical History (Last Updated 04/24/19 @ 11:54 by Enedina Lord DO) History of esophagogastroduodenoscopy (EGD) (Acute) Medical History (Last Updated 04/24/19 @ 11:55 by Enedina Lord DO) GERD (gastroesophageal reflux disease) (Acute) Physical Therapy Inpatient Evaluation/Re-Eval M1 PT/OT-IP Prior Functional Status Start: 04/25/19 13:00 Freq: NEEDED Status: Active Protocol: Document 04/25/19 10:46 AB (Rec: 04/25/19 13:34 AB [id number]) Medical Review Prior Functional Status Medical History Reviewed Yes Communication requires increase time to answer questions and has difficulty following directions Mobility and Gait per daughter: pt is independent with all mobilities and ambulation without AD. pt also stated that he is still able to drive prior to hospitalization Social History Household Members children Living Arrangements House Number of Floors (Floors) 3 or More Floors Number of Stairs To Enter/Railing? has one step down without rails to enter; pt stays on the main level of the house Home Environment Standard Height Toilet,Tub/ Shower Home Equipment Front Wheel Walker,Hand Held Shower,Grab Bars In Shower M2 PT-IP Current Condition Start: 04/25/19 13:00 Freq: NEEDED Status: Active Protocol: Document 04/25/19 10:46 AB (Rec: 04/25/19 13:34 AB [id number]) Physical Therapy Current Condition Current Condition Evaluation Date 04/25/19 Treatment Diagnosis CVA L sided weakness; difficulty in walking Onset Date 05/21/18 Precautions Other Precautions Falls M3 PT-IP Subjective Start: 04/25/19 13:00 Freq: NEEDED Status: Active Protocol: Document 04/25/19 10:46 AB (Rec: 04/25/19 13:34 AB [id number]) Subjective Physical Therapy Visit Type Type Initial Evaluation Visit Start Time 10:46 Visit Stop Time 11:30 Total Visit Minutes 44 Number of STEEL SAMPLER Visits 0 Physical Therapy Visit Comments Patient Comments pt agreeable to do PT; daughter in room with pt Therapy Pain Assessment Pain Present Pain Present Denied Pain M4 PT-IP Mobility and Gait Start: 04/25/19 13:00 Freq: NEEDED Status: Active Protocol: Document 04/25/19 10:46 AB (Rec: 04/25/19 13:34 AB [id number]) PT-Bed Mobility Assessment Supine to Sit Supine to Sit Maximum Assistance,2 Person Assistance,Head of Bed Elevated Scooting Scooting to Edge of Bed Dependent PT-Transfer Assessment Sit to and From Stand Sit to and from Stand Maximum Assistance,2 Person Assistance,Use of Upper Extremities Equipment Transfer Assistive Device Gait Belt,Front Wheeled Walker Orthotic/Prosthetic Devices or Brace: No Transfers Transfer Destination Chair Transfer Technique Stand Step Pivot Transfer Ability Level of Assist Maximum Assistance,2 Person Assistance,Use of Upper Extremities Comments Mobility Comments completed supine to sit max A x 2 and max cues with HOB elevated. pt requires max A with sitting balance on EOB. has increase lateral flexion of head to the L. requires constant cues for midline awareness. pt completed sit to stand x 2 reps max A x 3 and max cues; increase trunk leaning to the L requiring max A x 2 for balance and another person to steady the FWW. pt completed step step pivot max A x 2-3 and max cues. requires A with weight shifting. positioned pt on the chair. Left pt with OT. PT-Balance Assessment Sitting Balance and Reactions Static Sitting Balance Ability Poor Dynamic Sitting Balance Ability Poor Standing Balance and Reactions Static Standing Balance Ability Poor Dynamic Standing Balance Ability Poor Device Used FWW M5 PT-IP Objective Assessments Start: 04/25/19 13:00 Freq: NEEDED Status: Active Protocol: Document 04/25/19 10:46 AB (Rec: 04/25/19 13:34 AB [id number]) Orientation Orientation/Cognition Level of Alertness Alert Orientation Name,Birthday,Month,Year,Place Comments alert with increase time needed to answer questions and is inconsistent with executions of instructions Gross Range of Motion Lower Extremity ROM Assessment Within Functional Limits Strength Lower Extremity Strength Assessment Bilaterally Impaired Comments Strength Comments RLE: 3+/5 LLE: 1/5 M6 PT-IP Treatment Start: 04/25/19 13:00 Freq: NEEDED Status: Active Protocol: Document 04/25/19 10:46 AB (Rec: 04/25/19 13:34 AB [id number]) Physical Therapy Treatment Education Education Provided Safety M7 PT-IP Assessment and Plan Start: 04/25/19 13:00 Freq: NEEDED Status: Active Protocol: Document 04/25/19 10:46 AB (Rec: 04/25/19 13:34 [id number]) PT Summary Assessment and Plan Potential Rehabilitation Potential Fair Status of Condition at Evaluation Evolving Summary Impairments Pain,ROM,Strength,Balance, Coordination,Sensation,Tone, Cognition,Bed Mobility, Transfers,Gait,Activity Tolerance Assessment Summary Pt requiring max A x 2 -3 with all mobilities and unable to ambulate at this time. pt also has difficulty in following directions. pt will benefit from either an acute rehab or SNF to improve strength and function. Goals Bed Mobility Goal Minimal Assistance Transfer Goal Maximal Assistance,Front Wheeled Walker Gait Goal Minimal Assistance,Front Wheel Walker Gait Distance 30 Other Goals improve sitting balance to F-/ min A Days to Meet Goals 10 Frequency of Treatment Frequency Of Treatment Twice a Day Treatment Plan Physical Therapy Treatment Plan Bed Mobility Training,Transfer Training,Gait Training, Therapeutic Exercise,Balance Retraining,Discharge Planning, Hot or Cold Pack,Neuromuscular Re-ed,Coordination Retraining ,Manual Therapy Other Recommendations and Next Treatment sitting balance; transfers; Focus ambulation when appropriate Recommendations To Nursing Amount of Assist Needed Mechanical Lift Discharge Recommendations PT Discharge Recommendations SNF Rehab,Acute Rehab
--- NOTE | 2019-04-25 11:40 | OT.IP.EVAL ---
Current Diagnoses Cerebral infarction, unspecified (04/24/19) Past Medical History (Last Updated 04/24/19 @ 11:55 by Enedina Lord DO) GERD (gastroesophageal reflux disease) (Acute) Surgical History (Last Updated 04/24/19 @ 11:54 by Enedina Lord DO) History of esophagogastroduodenoscopy (EGD) (Acute) Occupational Therapy Inpatient Evaluation/Re-Eval M1 PT/OT-IP Prior Functional Status Start: 04/25/19 13:00 Freq: NEEDED Status: Active Protocol: Document 04/25/19 14:02 CGR (Rec: 04/25/19 14:21 CGR [email or web address]) Medical Review Prior Functional Status Medical History Reviewed Yes Communication requires increase time to answer questions and has difficulty following directions Mobility and Gait per daughter: pt is independent with all mobilities and ambulation without AD. pt also stated that he is still able to drive prior to hospitalization Activities of Daily Living and IADL's Pt was Ind with all ADLs. Social History Household Members children Living Arrangements House Number of Floors (Floors) 3 or More Floors Number of Stairs To Enter/Railing? has one step down without rails to enter; pt stays on the main level of the house Home Environment Standard Height Toilet,Tub/ Shower Home Equipment Front Wheel Walker,Hand Held Shower,Grab Bars In Shower Employment Status Retired Additional Social History Comment Pt lives with the daugther, daughters fiance, grand children and 2 roommates. One of the roommates is an RN or retired RN. M1 PT/OT-IP Prior Functional Status Start: 04/25/19 13:29 Freq: NEEDED Status: Active Protocol: Document 04/25/19 14:02 CGR (Rec: 04/25/19 14:21 CGR [email or web address]) Medical Review Prior Functional Status Medical History Reviewed Yes Communication requires increase time to answer questions and has difficulty following directions Mobility and Gait per daughter: pt is independent with all mobilities and ambulation without AD. pt also stated that he is still able to drive prior to hospitalization Activities of Daily Living and IADL's Pt was Ind with all ADLs. Social History Household Members children Living Arrangements House Number of Floors (Floors) 3 or More Floors Number of Stairs To Enter/Railing? has one step down without rails to enter; pt stays on the main level of the house Home Environment Standard Height Toilet,Tub/ Shower Home Equipment Front Wheel Walker,Hand Held Shower,Grab Bars In Shower Employment Status Retired Additional Social History Comment Pt lives with the daugther, daughters fiance, grand children and 2 roommates. One of the roommates is an RN or retired RN. M2 OT-IP Current Condition Start: 04/25/19 13:29 Freq: Status: Active Protocol: Document 04/25/19 14:02 CGR (Rec: 04/25/19 14:21 CGR [email or web address]) Occupational Therapy Current Condition Current Condition Evaluation Date 04/25/19 Treatment Diagnosis Progressive L sided weakness. MRI shows multiple R sided infarct Diagnosis Onset Date 04/24/19 M3 OT- IP Subjective and Pain Start: 04/25/19 13:29 Freq: Status: Active Protocol: Document 04/25/19 14:02 CGR (Rec: 04/25/19 14:21 CGR [email or web address]) OT- Subjective Occupational Therapy Visit Type Type Initial Evaluation Visit Start Time 11:06 Visit Stop Time 11:40 Total Visit Minutes 34 Notes co-treat with P.T. OT Pain Assessment Pain When Pain Assessed At Rest Pain Present Pain Present Denied Pain M4 OT- IP ADL's Start: 04/25/19 13:29 Freq: Status: Active Protocol: Document 04/25/19 14:02 CGR (Rec: 04/25/19 14:21 CGR [email or web address]) OT [id number] Comments OT Self-Feeding Comments not meal time OT ADL-Grooming Comments OT Grooming Comments Not performed in this session OT ADL-Oral Care Comments Oral Care Comments Not performed in this session. OT ADL-Dressing Comments OT Dressing Comments Not performed in this session. OT ADL-Toileting Comments OT Toileting Comments Pt decliend need, Pt with brief donned OT ADL-Bathing Comments OT Bathing Comments Not performed in this session. M5 OT- IP IADL's Start: 04/25/19 13:29 Freq: Status: Active Protocol: Document 04/25/19 14:02 CGR (Rec: 04/25/19 14:21 CGR [email or web address]) OT-Instrumental Activities of Daily Living Deficits IADL Deficits Identified Deficits Home Safety Awareness Awareness of Need for Assistance at Home Decreased Awareness Ability to Problem Solve Emergency Unable to Problem Solve Situations M6 OT- IP Functional Cognition Start: 04/25/19 13:29 Freq: Status: Active Protocol: Document 04/25/19 14:02 CGR (Rec: 04/25/19 14:21 CGR [email or web address]) Cognitive Factors Limiting Selfcare Function Cognitive Ability Level of Alertness Alert,Confusional State Patient Orientation Name,Birthday,Month,Date,Year, Place,Situation Attention Span Ability Capable of Focused Attention, Unable to Sustain Attention Ability to Follow Commands Able to Follow One Step Commands with Increased Time, Able to Follow One Step Commands with Repetition Cognitive Comments Cognitive Assessment Comments Pt would benefit from formal cog assessment OT- Vision and Hearing OT- Hearing Assessment OT- Hearing Assessment WFL OT- Vision Assessment Visual Acuity Glasses All The Time Visual Attentiveness Impaired Occular Pursuits WFL Visual Vogel Impaired Diplopia Absent Visual Spacial Neglect Left Vision Assessment Comments Pt had difficulty following commands for vision testing. Pt has a possible L visual field cut but will require further assessment M7 OT- IP Mobility and Balance Start: 04/25/19 13:29 Freq: Status: Active Protocol: Document 04/25/19 14:02 CGR (Rec: 04/25/19 14:21 CGR [email or web address]) OT- Bed Mobility Assessment Rolling Type of Rolling Roll to Right Level of Assistance Maximum Assistance,2 Person Assistance,Head of Bed Elevated Supine to Sit Supine to Sit Assist Maximum Assistance,2 Person Assistance,Head of Bed Elevated Scooting Scooting to Edge of Bed Maximum Assistance,2 Person Assistance,Head of Bed Elevated,Bedrails OT-Transfer Assessment Sit to and From Stand Sit to and from Stand Maximum Assistance,2 Person Assistance Transfers Transfer Ability Maximum Assistance,2 Person Assistance Technique Transfer Destination Bed,Chair Transfer Technique Stand Step Pivot Devices Transfer Assistive Devices Bed Rail,Gait Belt,Front Wheeled Walker Comments Mobility Comments 3 person assist for sit to stand and transfer to chair. Pt with poor sitting balance but able to maintain standing once in standing. OT- Balance Assessment Sitting Balance and Reactions Static Sitting Balance Ability Poor M8 OT- IP Objective Assessments Start: 04/25/19 13:29 Freq: Status: Active Protocol: Document 04/25/19 14:02 CGR (Rec: 04/25/19 14:21 CGR [email or web address]) OT Gross Range of Motion Upper Extremity Range of Motion Assessment Within Functional Limits OT Strength Upper Extremity Strength Assessment Left Impaired Comments Strength Comments Pt has inconsistent movement to the LUE, grasp, wrist, and forearm movement but no active movement to elbow and shld. OT- Coordination Assessment Upper Extremity Finger to Nose Test Left UE Impaired Finger Tapping Test Left UE Impaired OT-Muscle Tone Assessment Muscle Tone WNL No Comments Muscle Tone Comments pt with mod spasticity to the LUE and min tone. OT Sensation Assessment Comments Summary Comments Pt states typical sensation to BLE. Edema Edema Absent M9 OT- IP Assessment and Plan Start: 04/25/19 13:29 Freq: Status: Active Protocol: Document 04/25/19 14:02 CGR (Rec: 04/25/19 14:21 CGR [email or web address]) OT Summary Assessment and Plan Potential Rehabilitation Potential Good Analytic Complexity at Evaluation High Summary OT Impairments Strength,Balance,Coordination, Tone,Functional Cognition, Functional Mobility,Self- Feeding,Grooming,Dressing, Toileting,Bathing,Toilet Transfers,Shower Transfers Progress Towards Goals Slow Progress due to Medical Issues,Slow Progress due to Cognition Assessment Summary Pt presents as a high complexity evaluation with significant declines noted to LUE strength, coordination, general endurance, cognition, sitting balance, vision, and standing balance. Pt will likely benefit from acute rehab given his declines. Recommend continuned OT services while hospitalized. Pt will likely benefit from co -treats d/t his high acuity level. Goals Self-Feeding Goal Independent Grooming Goal Independent Dressing Goal Independent Toileting Goal Independent Bathing Goal Independent Toilet Transfer Goal Independent Shower Transfer Goal Independent Days to Meet Goals 20 Frequency of Treatment Frequency Of Treatment Once a Day Treatment Plan OT Treatment Plan ADL Training,Functional Cognition Training,Functional Mobility,Neuromuscular Re- education,Therapeutic Exercises,Vision Retraining, Patient/Family Education, Discharge Planning Other Treatment Recommendations and Next Sitting balance. Treatment Focus Discharge Recommendations OT Discharge Recommendations Acute Rehab Home Equipment Needs TBD
--- NOTE | 2019-04-25 11:46 | PM.PN.1 ---
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 MRI stroke revealed multifocal scattered small areas of acute ischemia involving a large portion of the anterior right frontal lobe. He still has significant neurological deficits including left-sided weakness. It is unclear if his facial asymmetry is due to stroke or repeat since zoster infection. Patient denies any complaints today including pain, shortness of breath, nausea, vomiting, fever, chills. Exam Vital Signs (past 8 hours): - 04/25/19 04:00 04/25/19 07:52 Temperature 98.0 F 98.3 F Pulse Rate 62 66 Respiratory Rate 18 16 Blood Pressure 149/95 H 155/95 H Pulse Oximetry 97 97 Oxygen Delivery Method Room Air Oxygen Flow Rate 0 Narrative Exam Narrative: GENERAL APPEARANCE: Elderly male, slumped to the left, no acute distress. SKIN: Inspection of the skin reveals no rashes, ulcerations or petechiae. HEENT: Minor rash surrounding his left eye, appears old and well healing. EOMI, PERRLA. Oral mucosa moist, no posterior pharyngeal erythema. NECK: Supple and symmetric. There was no thyroid enlargement, and no tenderness, or masses were felt. CHEST: Normal AP diameter and normal contour without any kyphoscoliosis. LUNGS: Auscultation of the lungs revealed no wheezes, rhonchi, or rales. CARDIOVASCULAR: There was a regular rate and rhythm without any murmurs, gallops, rubs. Peripheral pulses were 2+ and symmetric. ABDOMEN: Soft and nontender with normal bowel sounds. No ascites was noted. MUSCULOSKELETAL: There was no tenderness or effusions noted. Muscle tone was normal. EXTREMITIES: No cyanosis, clubbing or edema. NEUROLOGIC: Alert and oriented x 3. Mild cognitive impairment. LUE +2-3/5 LLE +2/5 strength. RLE 4+/5. RUE +5/5. Significant stiffness in shoulders and hips as well. He does have a mild intention tremor on the right. Psych: flat affect, depressed, monotone speaking. Objective Labs Result Diagrams: 04/25/19 05:15 04/25/19 05:15 Labs: Laboratory Results - last 24 hr 04/24/19 04/24/19 04/24/19 10:40 12:37 12:37 WBC RBC Hgb Hct MCV MCH MCHC RDW Plt Count Neut % (Auto) Lymph % (Auto) Starr % (Auto) Eos % (Auto) Baso % (Auto) Neut # (Auto) Lymph # (Auto) Starr # (Auto) Eos # (Auto) Baso # (Auto) Sodium Potassium Chloride Carbon Dioxide BUN Creatinine Estimated GFR BUN/Creatinine Ratio Glucose Hemoglobin A1c Calcium Magnesium B-Natriuretic Peptide < 100 Triglycerides Cholesterol LDL Cholesterol, Calc HDL Cholesterol TSH Urine RBC 0-1/hpf Urine WBC 0-1/hpf Ur Squamous Epith Cells 0-1 /hpf Urine Bacteria None seen Urine Mucus 1+ H Ur Culture Indicated? Cult not indicated U Opiates 300ng/mL cut Negative Ur Oxycodone Screen Negative Urine Methadone Screen Negative Ur Barbiturates Screen Negative U Tricyclic Antidepress Negative Ur Phencyclidine Scrn Negative Ur Amphetamines Screen Negative U Methamphetamines Scrn Negative Ur MDMA Scrn (Ecstasy) Negative U Benzodiazepines Scrn Negative Urine Cocaine Screen Negative U Marijuana (THC) Screen Negative 04/25/19 04/25/19 04/25/19 05:15 05:15 05:15 WBC 3.5 L RBC 4.34 L Hgb 13.9 Hct 40.0 L MCV 92.2 MCH 32.1 MCHC 34.8 RDW 13.0 Plt Count 141 L Neut % (Auto) 57.3 Lymph % (Auto) 25.6 Starr % (Auto) 13.1 Eos % (Auto) 2.9 Baso % (Auto) 1.1 Neut # (Auto) 2000 Lymph # (Auto) 900 L Starr # (Auto) 500 Eos # (Auto) 100 Baso # (Auto) 0 Sodium 136 L Potassium 3.4 Chloride 102 Carbon Dioxide 27 BUN 10 Creatinine 0.80 Estimated GFR > 60.0 BUN/Creatinine Ratio 12.5 Glucose 99 Hemoglobin A1c 5.3 Calcium 8.2 L Magnesium 2.1 B-Natriuretic Peptide Triglycerides 67 Cholesterol 154 LDL Cholesterol, Calc 106 H HDL Cholesterol 35 L TSH Urine RBC Urine WBC Ur Squamous Epith Cells Urine Bacteria Urine Mucus Ur Culture Indicated? U Opiates 300ng/mL cut Ur Oxycodone Screen Urine Methadone Screen Ur Barbiturates Screen U Tricyclic Antidepress Ur Phencyclidine Scrn Ur Amphetamines Screen U Methamphetamines Scrn Ur MDMA Scrn (Ecstasy) U Benzodiazepines Scrn Urine Cocaine Screen U Marijuana (THC) Screen 04/25/19 05:15 WBC RBC Hgb Hct MCV MCH MCHC RDW Plt Count Neut % (Auto) Lymph % (Auto) Starr % (Auto) Eos % (Auto) Baso % (Auto) Neut # (Auto) Lymph # (Auto) Starr # (Auto) Eos # (Auto) Baso # (Auto) Sodium Potassium Chloride Carbon Dioxide BUN Creatinine Estimated GFR BUN/Creatinine Ratio Glucose Hemoglobin A1c Calcium Magnesium B-Natriuretic Peptide Triglycerides Cholesterol LDL Cholesterol, Calc HDL Cholesterol TSH 3.19 Urine RBC Urine WBC Ur Squamous Epith Cells Urine Bacteria Urine Mucus Ur Culture Indicated? 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 He is weak bilaterally but more so on the left, which he endorses over the past 2 days. Initial imaging negative, but MRI is pending. He is admitted to Medicine with likely CVA. 1. CVA, acute, present on admission -patient with symptoms starting 2 days ago acutely, but also had progressive imbalance starting 2 weeks ago. 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 head was negative, as was CTA of his head and neck. He has no known history of AFib and denies recent palpitations. EKG is normal sinus rhythm on admission. -MRI stroke revealed multifocal scattered small areas of acute ischemia involving a large portion of the anterior right frontal lobe. Concern for atrial fibrillation given appearance. -continue neurological checks with NIH stroke scale -PT, OT, speech eval and treat -A1c 5.3%, TC 154, LDL 106. TSH 3.19. -started on ASA 81 mg daily, Lipitor 40 mg nightly. -continue telemetry -obtain TTE, concern for afib and with extensiveness of infarcts concern there may be an atrial thrombus. 2. 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 His tremors mild on my exam. 3. BPH, chronic, without symptoms -continue home Flomax 4. GERD, chronic, stable, without symptoms -patient takes home omeprazole 20 mg, will continue Protonix 20 mg daily. 5. HTN, essential, present on admission - - will start lisinopril at low dose today given persistent HTN. Code: Discussed with patient, he wishes to be full code. He looks daughter is his surrogate decision maker if he is unable to make decisions. DVT: Heparin subcu Dispo: Admitted as inpatient as his stay is likely to exceed 2 midnights. Quality Stroke Contraindication Not Initiating IV-Tpa: Contraindicated Onset of Symptoms Date: 04/22/19 Symptom Onset Unknown: No VTE Deep Vein Thrombosis/Pulmonary Embolism Present on Admission: No
--- NOTE | 2019-04-25 11:49 | DI.ECHO.S_ITS ---
[facility]---------+ [facility] +---------+ : : [address] [place] : : : : [id number] : : : : Phone: [phone]+ Echocardiogram Report + + :Name: ISHAAN MCCAIN Study Date: 04/25/2019 Height: 69 in : :[facility] Exam Location: [place] Weight: 156 lb: : Gender: Male BSA: 1.9 m2 : :: 1945 Age: 74 yrs : :Reason For Study: CVA : : Performed By: Ema Radford : :Referring: SARAH MOSELEY : + + Interpretation Summary The left ventricle is normal in size, wall thickness, and systolic function without any focal wall motion abnormalities with the ejection fraction visually estimated to be 60-65%. The right ventricle is normal in size and function. Pulmonary artery pressures cannot be estimated because of the lack of a measurable TR jet velocity but the IVC suggests a CVP of around 3 mmHg. The left atrium is mildly dilated. There is no significant valvular heart disease. The aortic root and ascending aorta are mildly enlarged. Procedure: A two-dimensional transthoracic echocardiogram with color flow and Doppler was performed. The study quality was technically adequate. There is no prior echocardiogram noted for this patient. Patient was unaware, uncooperative, and had no mobility during exam causing difficulty in image acquisition. The patient was in normal sinus rhythm during the exam. The heart rate ranged between 54-66 bpm during the study. Left Ventricle: The left ventricle is normal in size, wall thickness, and systolic function without any focal wall motion abnormalities. The ejection fraction is estimated to be 60-65%. Diastolic function could not be accurately assessed due to contradictory data. Right Ventricle: The right ventricle is normal in size and function. Atria: The left atrium is mildly dilated. Right atrial size is normal. Chiari network (normal variant) is noted. There is no Doppler evidence for an interatrial shunt. Mitral Valve: The mitral valve leaflets appear borderline thickened, but open well. There is trace mitral regurgitation. Aortic Valve: The aortic valve is trileaflet. There is mild aortic valve sclerosis. The aortic valve opens well. There is no aortic valve stenosis. No aortic regurgitation is present. Tricuspid Valve: The tricuspid valve is normal in structure and function. There is trace tricuspid regurgitation. Pulmonary artery pressures cannot be estimated because of the lack of a measurable TR jet velocity but the IVC suggests a CVP of around 3 mmHg. Pulmonic Valve: The pulmonic valve is not well seen, but is grossly normal. There is trace pulmonic regurgitation. There is no significant valvular heart disease. Great Vessels: The aortic root is mildly dilated. The aortic root measures 4.0 cm in size (normal BSA to index). The ascending aorta is mildly enlarged. The aortic arch could not be visualized. The pulmonary artery is not well visualized, but is probably normal size. The IVC is of normal diameter and collapses greater than 50% with a sniff. This suggests a low right atrial pressure of 3 mm Hg. Pericardium/ Pleura There is no pericardial effusion. MMode/2D Measurements & Calculations LVIDd: 4.1 cm LVOT diam: 2.3 cm LVIDs: 2.8 cm Ao root diam: 4.0 cm FS: 32.5 % asc Aorta Diam: 3.3 cm EPSS: 0.74 cm IVSd: 1.0 cm LVPWd: 0.94 cm LV barr. diameter/BSA (cm/m^2): 2.2 LV sys. diameter/BSA (cm/m^2): 1.5 LA A2 area: 22.5 cm2 RA long axis: 4.7 cm LA A4 area: 19.0 cm2 RA area: 15.6 cm2 LA length (vol): 4.9 cm RA vol: 43.8 ml LA vol: 73.9 ml RA : 23.6 ml/m2 LA vol index: 39.8 ml/m2 TAPSE: 2.0 cm Doppler Measurements & Calculations Ao V2 max: 138.4 cm/sec LVOT Max Manjit: 101.6 cm/sec Ao V2 mean: 92.3 cm/sec LV V1 max P.1 mmHg Ao max P.7 mmHg LV V1 VTI: 22.5 cm Ao mean P.8 mmHg BRIANA(I,D): 3.5 cm2 Ao V2 VTI: 26.9 cm BRIANA(V,D): 3.0 cm2 sev ratio: 0.84 BRIANA indexed to BSA (cm^2/m^2): 1.9 MV E max manjit: 60.9 cm/sec PA V2 max: 72.3 cm/sec MV A max manjit: 65.3 cm/sec PA V2 mean: 49.2 cm/sec MV E/A: 0.93 PA mean P.1 mmHg Med Peak E' Manjit: 4.3 cm/sec PA pr(Accel): 25.8 mmHg E/E' med: 14.0 Lat Peak E' Manjit: 5.4 cm/sec E/E' lat: 11.3 E/e' average: 12.7 MV dec time: 0.30 sec [facility] 93.3 ml Reading Physician:PM
[2019-04-25 12:00] VITALS: BP 135/86; PULSE 79; RESP 16; TEMP 36.6; O2SAT 97
--- NOTE | 2019-04-25 12:19 | ST.IPCSEOM ---
Visit Care Team Role Provider Type Enedina Lord DO Emergency Provider Physician Specialty: Emergency Medicine Address: [address] [place] [address], [id number] Email: [email or web address] Noble Saha DO Admit Provider Physician Attending Provider Specialty: Internal Medicine Address: [address] [place] [address], [id number] Email: [email or web address] Past Medical History (Last Updated 04/24/19 @ 11:55 by Enedina Lord DO) GERD (gastroesophageal reflux disease) (Acute Medical) Speech-Language Pathology Swallow Evaluation RN CLINICAL RESEARCH Clinical Swallow Evaluation Start: 04/25/19 12:03 Freq: Status: Active Protocol: Document 04/25/19 12:03 TLC (Rec: 04/25/19 12:19 TLC [id number]) Clinical Swallow Evaluation Session Time Visit Start Time 11:45 Visit Stop Time 12:00 Total Visit Minutes [address] Saha Reason for Referral Coughing with meds/liquids Setting Assessment Location Acute Care Visit Type Note Type Initial Evaluation Next Note Type Next Note Type Treatment Note Patient Information History Patient was admitted for weakness and found to have small areas of acute ischemia in the right frontal lobe. Per nursing, patient consumed breakfast with out s/sx of aspiration, but began coughing during medication administration. Subjective Observations Patient was sitting up in chair in room with daughter present. He had a flat affect and inconsistently responded to me. When he did respond, his speech was intelligible and language was appropriate. Evaluation Liquids Trialed Ice Chips,Thin Solids Trialed Mechanical Soft Administration Type Self-Feeding Oral Impairment Mildly Impaired Oral Phase Comments Observed difficulty with motor planning for completing [facility] examination. Reduced lingual and mandibular range of motion making it difficult to visualize oral cavity. However, when presented with food, was observed to have increased movement and range of motion. Mastication of banana and lip seal for consumption of liquids through straw were functional. Pharyngeal Phase Comments Patient did not respond to two verbal cues for dry swallow. Unsure whether this was due to motor planning issues or difficulty with processing. Hyolaryngeal elevation was present on palpation during consumption of water. No signs of aspiration observed including coughing or throat clearing. Discussed use of carrier for medication, importance of upright positioning and taking meds one a time. Findings Impressions Patient presents as having slow processing speed with inconsistent responses to questions/commands and some difficulty following directions during [facility] exam, though this could be due to motor planning impairments . No signs of aphasia observed , as language was appropriate. Patient was unable to verbalize how he felt, but was oriented to place and year. He endorsed some mild confusion and memory loss at baseline. His daughter reports he was more responsive yesterday. Per MD reports, patient has had undiagnosed neurological impairments, potentially Parkinson's. Diet Recommendations Liquids Order Thin Diet Order Regular Medication Recommendations Whole in Carrier,One at a Time Additional Dietary Needs Chopped Food,1:1 Supervision Aspiration Precautions Recommended Precautions Upright at 90 Degrees,Small Bites/Sips Treatment Plan Placement Recommendations after Long-Term Facility Discharge Appropriate for Therapy Yes Therapy Recommendations Continue to monitor for safe swallowing, ongoing education as needed and ongoing assessment of speech/language/ cognition. Dysphagia Goals Given set-up assistance, Demetrio will consume the least restrictive diet safely without signs or symptoms of aspiration.
[2019-04-25 13:45] VITALS: BP 135/86; PULSE 79
[2019-04-25] MEDS: LISINOPRIL 5 MG TABLET PO (13:45)
--- NOTE | 2019-04-25 14:14 | CM.DANOTE ---
Addendum entered by DEBBI Sauceda 04/25/19 15:50: ADD: SW went back by pt's room to further discuss backup plan of SNF and facility preference with pt's Dtr but she was not bedside as she had to go strip picker her son. Plan: SW to follow in the morning to get back up plan SNF preference to make referral in case pt does not qualify for Acute Rehab. BF Original Note: Patient is a 74 year old male who was admitted on 04/24/19 for Fall/Weakness. Pt has [facility] AD[facility] and his PCP is not listed. EMR was reviewed. Per MD, pt with hx of neurological d.o. that is still being worked up by Neurologist in [place] and some new mild cognitive impairment. Pt's tests show CVA and persistent left sided weakness. Per MD, pt quite tearful and depressed about his new decrease in independence and cog impairment but currently declines antidepressant medications. Per PT/OT/ST, pt could benefit from rehab at d/c and determining Acute Inpt Rehab vs SNF. SW met bedside with pt and adult Dtr Melva and explained role and updated white board and they confirm that pt lives in [place] with his Dtr, grandson, and 2 roommates and is mostly independent with ADL's at baseline but recently pt's weakness and cog impairments have made his need for assist increase. Pt denies any hx of HH or SNF. SW discussed 2 possible options for rehab at d/c including SNF vs Acute Inpt Rehab. SW provided the SNF Choice List and also the [facility] Acute Inpt Rehab brochure at [facility] to review. SW discussed the difference between the two options and pt and Dtr will discuss further to determine preference but agreeable to SW making referral to [facility] Acute Rehab to determine if he meets criteria for their program. Dtr and pt aware that [facility] will need to auth rehab prior to acceptance. Echo arrived bedside and staff working on hoyering pt into bed for Echo and SW requested Dtr review the SNF list to determine preference in case Acute Rehab cannot accept. GUILLAUME called [facility] and [place] [facility] [place] with new referral and requested review and call back tomorrow Saturday if possible to determine if pt meets criteria for their program. SW faxed clinicals to Acute Rehab to review. Plan: SW to follow closely for review from Acute Rehab at [facility] to determine if they can accept and begin insurance auth. SW to follow for Dtr's SNF preference in case Acute Rehab not an option. If SNF, then [facility] needed and would benefit to start process tomorrow Saturday. DEBBI Sauceda Discharge Planning/Care Management CM Discharge Assessment Start: 04/25/19 14:09 Freq: Status: Active Protocol: Document 04/25/19 14:09 BF (Rec: 04/25/19 14:14 BF [id number]) Discharge Planning Assessment Assigned Mold Breaker DEBBI [facility] DPOA/Assigned Designee Name Dtr Melva Contact Information [phone] Advance Directives? No History Provided By Patient,Family Member,Medical Record Has Patient been admitted in last 30 No days? Prior Living Arrangements House Household Members children,other Type of transporation used prior to Relies on Others admit Comment Lives at home in [place] with Dtr, grandson, 2 roommates Independent with ADL's No Is patient alert and oriented? No: neurological do, mild cog impairment Needs Assistance With Managing Medications,Home Chores / Shopping Caregiver for Another No Patient/Family Preference [facility] Facility Comment SNF vs Acute Inpt Rehab Discharge Plan [facility] Facility Transportation Arrangement Provided by SNF facility or family pending on location of acceptance Referrals Initiated [facility] Additional Comment SNF and Acute Inpt Rehab If patient plan is SNF: Has PASSR been Yes completed? Medicare Choice List Provided Yes Whiteboard Updated in Patient Room with Yes name and ext. # of Mold Breaker Review Status In Process Please Provide Date Initial DC 04/25/19 Assessment Was Performed Next Review Type Continued Stay Review
[2019-04-25 16:10] VITALS: BP 136/82; PULSE 64; RESP 16; TEMP 36.8; O2SAT 97
--- NOTE | 2019-04-25 16:42 | PT.IPTN ---
Current Diagnoses Cerebral infarction, unspecified (04/24/19) Physical Therapy Treatment Note M2 PT-IP Current Condition Start: 04/25/19 13:00 Freq: NEEDED Status: Active Protocol: Document 04/25/19 10:46 AB (Rec: 04/25/19 13:34 AB [id number]) Physical Therapy Current Condition Current Condition Evaluation Date 04/25/19 Treatment Diagnosis CVA L sided weakness; difficulty in walking Onset Date 05/21/18 Precautions Other Precautions Falls M3 PT-IP Subjective Start: 04/25/19 13:00 Freq: NEEDED Status: Active Protocol: Document 04/25/19 16:42 AB (Rec: 04/25/19 18:06 AB [id number]) Subjective Physical Therapy Visit Type Type Treatment Note Visit Start Time 16:42 Visit Stop Time 17:04 Total Visit Minutes 22 Number of FOREIGN DIPLOMAT Visits 0 Physical Therapy Visit Comments Patient Comments pt agreeable to do PT M4 PT-IP Mobility and Gait Start: 04/25/19 13:00 Freq: NEEDED Status: Active Protocol: Document 04/25/19 10:46 AB (Rec: 04/25/19 13:34 AB [id number]) PT-Bed Mobility Assessment Supine to Sit Supine to Sit Maximum Assistance,2 Person Assistance,Head of Bed Elevated Scooting Scooting to Edge of Bed Dependent PT-Transfer Assessment Sit to and From Stand Sit to and from Stand Maximum Assistance,2 Person Assistance,Use of Upper Extremities Equipment Transfer Assistive Device Gait Belt,Front Wheeled Walker Orthotic/Prosthetic Devices or Brace: No Transfers Transfer Destination Chair Transfer Technique Stand Step Pivot Transfer Ability Level of Assist Maximum Assistance,2 Person Assistance,Use of Upper Extremities Comments Mobility Comments completed supine to sit max A x 2 and max cues with HOB elevated. pt requires max A with sitting balance on EOB. has increase lateral flexion of head to the L. requires constant cues for midline awareness. pt completed sit to stand x 2 reps max A x 3 and max cues; increase trunk leaning to the L requiring max A x 2 for balance and another person to steady the FWW. pt completed step step pivot max A x 2-3 and max cues. requires A with weight shifting. positioned pt on the chair. Left pt with OT. PT-Balance Assessment Sitting Balance and Reactions Static Sitting Balance Ability Poor Dynamic Sitting Balance Ability Poor Standing Balance and Reactions Static Standing Balance Ability Poor Dynamic Standing Balance Ability Poor Device Used FWW M5 PT-IP Objective Assessments Start: 04/25/19 13:00 Freq: NEEDED Status: Active Protocol: Document 04/25/19 10:46 AB (Rec: 04/25/19 13:34 AB [id number]) Orientation Orientation/Cognition Level of Alertness Alert Orientation Name,Birthday,Month,Year,Place Comments alert with increase time needed to answer questions and is inconsistent with executions of instructions Gross Range of Motion Lower Extremity ROM Assessment Within Functional Limits Strength Lower Extremity Strength Assessment Bilaterally Impaired Comments Strength Comments RLE: 3+/5 LLE: 1/5 M6 PT-IP Treatment Start: 04/25/19 13:00 Freq: NEEDED Status: Active Protocol: Document 04/25/19 16:42 AB (Rec: 04/25/19 18:06 AB [id number]) Physical Therapy Treatment Exercises Exercises Ankle Pumps,Quad Sets,Heel Slides Education Education Provided Safety Other Treatments Other Treatment Performed Activities conducted to increase R sided awareness: turning head to the R : object /color identification; reaching towards midline and to the R side. positioned pt in bed with NAC assisting as well. positioned pt for dinner. Left pt with nurse and NAC. M7 PT-IP Assessment and Plan Start: 04/25/19 13:00 Freq: NEEDED Status: Active Protocol: Document 04/25/19 16:42 AB (Rec: 04/25/19 18:06 AB [id number]) PT Summary Assessment and Plan Potential Rehabilitation Potential Fair Summary Progress Towards Goals Slow Progress due to Medical Issues Assessment Summary pt with R sided neglect and significant weakness on L side affecting mobility. pt will benefit from acute rehab/SNF to improve mobility and independence. Goals Bed Mobility Goal Minimal Assistance Transfer Goal Maximal Assistance,Front Wheeled Walker Gait Goal Minimal Assistance,Front Wheel Walker Gait Distance 30 Other Goals improve sitting balance to F-/ min A Days to Meet Goals 10 Frequency of Treatment Frequency Of Treatment Twice a Day Treatment Plan Physical Therapy Treatment Plan Bed Mobility Training,Transfer Training,Gait Training, Therapeutic Exercise,Balance Retraining,Discharge Planning, Hot or Cold Pack,Neuromuscular Re-ed,Coordination Retraining ,Manual Therapy Other Recommendations and Next Treatment sitting balance; transfers; Focus ambulation when appropriate Recommendations To Nursing Amount of Assist Needed Mechanical Lift Discharge Recommendations PT Discharge Recommendations SNF Rehab,Acute Rehab
[2019-04-25 20:00] VITALS: BP 127/71; PULSE 61; RESP 18; TEMP 36.6; O2SAT 98
[2019-04-25] MEDS: ATORVASTATIN 20 MG TABLET 40 MG PO (20:41)
[2019-04-26] VITALS (7 sets, daily range): BP systolic 113–156; BP diastolic 71–99; PULSE 61–71; RESP 16–19; TEMP 36.6–37.7; O2SAT 97–99
[2019-04-26] MEDS: SODIUM CHLORIDE 0.9% 1,000 ML 150 ML IV (00:47)
--- NOTE | 2019-04-26 03:02 | PC.NURSE ---
PHARMACIST'S AIDE note: used pillows to support both sides of patient and float patient, used the Taylor bed to tilt patient to the right side.
[2019-04-26 05:37] LABS: Add Manual Diff / Slide Review NO; Basophils Absolute Auto 0 /uL (0-100); Basophils Percent Auto 0.9 % (0-2); Eosinophils Absolute Auto 100 /uL (0-450); Eosinophils Percent Auto 2.1 % (2-4); Hematocrit 38.9 % (41-53); Hemoglobin 13.4 g/dL (13.5-17.5); Lymphocytes Absolute Auto 900 /uL (1100-4500); Lymphocytes Percent Auto 22.9 % (25-40); Mean Corpuscular HGB Conc 34.5 % (30-36); Mean Corpuscular Hemoglobin 32.1 PG (26-34); Mean Corpuscular Volume 92.9 fL (80-100); Monocytes Absolute Auto 400 /uL (0-900); Monocytes Percent Auto 10.4 % (3-14); Neutrophils Absolute Auto 2600 /uL (1500-7000); Neutrophils Percent Auto 63.7 % (50-75); Platelet Count 135 X10^3/uL (150-400); Red Blood Cell Count 4.19 X10^6/uL (4.5-5.9); Red Cell Distribution Width 13.1 % (11.6-14.8); White Blood Cell Count 4.1 X10^3/uL (4.5-11.0)
[2019-04-26 05:44] LABS: Blood Urea Nitrogen 8 mg/dL (9-20); Calcium 8.3 mg/dL (8.4-10.2); Carbon Dioxide 26 mmol/L (22-32); Chloride 105 mmol/L (98-107); Estimated Glomerular Filt Rate > 60.0 mL/min (>60); Glucose 100 mg/dL (80-110); HEMOLYSIS < 15 (0-50); Potassium 3.5 mmol/L (3.4-5.1); Sodium 136 mmol/L (137-145)
[2019-04-26] MEDS: PANTOPRAZOLE 20 MG TABLET PO (06:12)
[2019-04-26] MEDS: TAMSULOSIN 0.4 MG CAPSULE PO (08:43)
[2019-04-26] MEDS: ASPIRIN EC 81 MG TABLET PO (08:43)
[2019-04-26] MEDS: LISINOPRIL 5 MG TABLET PO (08:43)
[2019-04-26] MEDS: HEPARIN 5,000 UNIT/ML VIAL 5000 UNIT SUBCUT ×2 (08:43→20:32)
--- NOTE | 2019-04-26 09:01 | CM.DPC ---
Addendum entered by Rhoda Alvarado R.N. 04/26/19 16:11: [facility] contacted and left message with [place] ROD[place] Ring [phone] about getting authorization. LM with daughter to discuss SNF choice. CM department to follow up with [place] and patients Daughter in the AM 04/27/19 Rhoda Alvarado RN Original Note: DCP continued: EMR reviewed: CM/RN spoke with [facility] Re[facility] [phone] to check on referral placed on 04/25/2019. CM/RN was told that he looks good right now but they do need to see PT /OT notes from today 04/26/2019 and tomorrow 04/27/2019 that show improvement in function as well as OT notes that address ADL's. That way they can determine if he will be able to handle the three hours a day of therapy. [facility] also stated that they would like to see a Neurology consult if possible for the patient. CM/RN will relay message to team during AM rounds. CM/RN will also talk with patients daughter to determine Choice for SNF placement if [facility] cannot accept. RODNEY/RN will contact [facility] and start authorization for inpatient Rehab and SNF. Rhoda Alvarado RN.
--- NOTE | 2019-04-26 11:26 | PT.IPTN ---
Current Diagnoses Cerebral infarction, unspecified (04/24/19) Physical Therapy Treatment Note M2 PT-IP Current Condition Start: 04/25/19 13:00 Freq: NEEDED Status: Active Protocol: Document 04/25/19 10:46 AB (Rec: 04/25/19 13:34 AB [id number]) Physical Therapy Current Condition Current Condition Evaluation Date 04/25/19 Treatment Diagnosis CVA L sided weakness; difficulty in walking Onset Date 05/21/18 Precautions Other Precautions Falls M3 PT-IP Subjective Start: 04/25/19 13:00 Freq: NEEDED Status: Active Protocol: Document 04/26/19 11:26 CLB (Rec: 04/26/19 12:53 CLB [id number]) Subjective Physical Therapy Visit Type Type Treatment Note Visit Start Time 11:26 Visit Stop Time 12:08 Total Visit Minutes 42 Notes LUNCH WAGON OPERATOR present during tx. Number of KILN CAR REPAIRER Visits 1 Physical Therapy Visit Comments Patient Comments pt agreeable to do PT M4 PT-IP Mobility and Gait Start: 04/25/19 13:00 Freq: NEEDED Status: Active Protocol: Document 04/26/19 11:26 CLB (Rec: 04/26/19 12:53 CLB [id number]) PT-Bed Mobility Assessment Rolling Type of Rolling Log Rolling,Bilateral Level of Assist Maximal Assistance,1 Person Assistance Supine to Sit Supine to Sit Maximum Assistance,2 Person Assistance,Head of Bed Elevated Scooting Scooting to Edge of Bed Dependent PT-Transfer Assessment Comments Mobility Comments Pt able to assist with RUE during log roll, pt able to reach with RUE to grab bed rail and attempted to assist with rolling. Pt able to bend RLE but required max A bending LLE before log rolling side to side to change brief. Pt able to perform HS with RLE x10 but unable to perform HS with LLE without assist. Pt was able to reposition LUE by using his RUE when asked to do so. Pt able to lift RUE in shoulder flexion, pt able to reach across his body to touch items as requested of therapist. Pt required cues for midline posture during sitting on EOB and was able to lean forward to correct posterior lean but required Max A in sitting for left lateral lean. Pt able to sit on EOB ~5 minutes. Pt able to look to left with head turn but stopped at midline only moving eyes when asked to look to right side. Pt transferred to chair with keith lift due to lack of assist for safe transfer. Pt left in chair with pillows on left side to prevent left lateral lean, chair alarm on, call light within reach and LUNCH WAGON OPERATOR present in room. M5 PT-IP Objective Assessments Start: 04/25/19 13:00 Freq: NEEDED Status: Active Protocol: Document 04/25/19 10:46 AB (Rec: 04/25/19 13:34 AB [id number]) Orientation Orientation/Cognition Level of Alertness Alert Orientation Name,Birthday,Month,Year,Place Comments alert with increase time needed to answer questions and is inconsistent with executions of instructions Gross Range of Motion Lower Extremity ROM Assessment Within Functional Limits Strength Lower Extremity Strength Assessment Bilaterally Impaired Comments Strength Comments RLE: 3+/5 LLE: 1/5 M6 PT-IP Treatment Start: 04/25/19 13:00 Freq: NEEDED Status: Active Protocol: Document 04/26/19 11:26 CLB (Rec: 04/26/19 12:53 CLB [id number]) Physical Therapy Treatment Exercises Exercises Ankle Pumps,Heel Slides Education Education Provided Safety Other Treatments Other Treatment Performed Activities conducted to increase R sided awareness: turning head to the R : object /color identification; reaching towards midline and to the R side. M7 PT-IP Assessment and Plan Start: 04/25/19 13:00 Freq: NEEDED Status: Active Protocol: Document 04/26/19 11:26 CLB (Rec: 04/26/19 12:53 CLB [id number]) PT Summary Assessment and Plan Potential Rehabilitation Potential Fair Summary Impairments Pain,ROM,Strength,Balance, Coordination,Sensation,Tone, Cognition,Bed Mobility, Transfers,Gait,Activity Tolerance Progress Towards Goals Slow Progress due to Medical Issues Assessment Summary Pt with improved use of R side , pt able to use right hand to drink his tea and assisted LUE when cued to do so. (see mobility) Pt required Max A x2 for bed mobility and sitting on EOB. Pt will benefit from acute rehab/SNF to improve mobility and independence. Goals Bed Mobility Goal Minimal Assistance Transfer Goal Maximal Assistance,Front Wheeled Walker Gait Goal Minimal Assistance,Front Wheel Walker Gait Distance 30 Other Goals improve sitting balance to F-/ min A Days to Meet Goals 10 Frequency of Treatment Frequency Of Treatment Twice a Day Treatment Plan Physical Therapy Treatment Plan Bed Mobility Training,Transfer Training,Gait Training, Therapeutic Exercise,Balance Retraining,Discharge Planning, Hot or Cold Pack,Neuromuscular Re-ed,Coordination Retraining ,Manual Therapy Other Recommendations and Next Treatment sitting balance; transfers; Focus ambulation when appropriate Recommendations To Nursing Amount of Assist Needed Mechanical Lift Discharge Recommendations PT Discharge Recommendations SNF Rehab,Acute Rehab
--- NOTE | 2019-04-26 14:28 | PT.IPTN ---
Current Diagnoses Cerebral infarction, unspecified (04/24/19) Physical Therapy Treatment Note M2 PT-IP Current Condition Start: 04/25/19 13:00 Freq: NEEDED Status: Active Protocol: Document 04/25/19 10:46 AB (Rec: 04/25/19 13:34 AB [id number]) Physical Therapy Current Condition Current Condition Evaluation Date 04/25/19 Treatment Diagnosis CVA L sided weakness; difficulty in walking Onset Date 05/21/18 Precautions Other Precautions Falls M3 PT-IP Subjective Start: 04/25/19 13:00 Freq: NEEDED Status: Active Protocol: Document 04/26/19 14:28 CLB (Rec: 04/26/19 15:05 CLB [id number]) Subjective Physical Therapy Visit Type Type Treatment Note Visit Start Time 14:28 Visit Stop Time 14:52 Total Visit Minutes 24 Notes FORESTRY PILOT present during tx. Number of DIP FILLER Visits 2 Physical Therapy Visit Comments Patient Comments Pt states he needs to have a BM and want to go to the bathroom. M4 PT-IP Mobility and Gait Start: 04/25/19 13:00 Freq: NEEDED Status: Active Protocol: Document 04/26/19 14:28 CLB (Rec: 04/26/19 15:05 CLB [id number]) PT-Bed Mobility Assessment Rolling Type of Rolling Log Rolling,Bilateral Level of Assist Maximal Assistance,1 Person Assistance PT-Transfer Assessment Equipment Transfer Assistive Device Mechanical Lift Transfers Transfer Destination Bed,Bedside Commode Transfer Ability Level of Assist Maximum Assistance Comments Mobility Comments Pt transferred to BSC via mechanical lift. Pt required Max-Mod A for sitting balance while on BSC. Pt able to sit on BSC ~10 minutes with Max- Mod A and cues to place hand on bed beside him to assist with Balance. Pt able to hold up head in midline ~2 minutes before fatiguing and returned to lateral lean. Pt was Max A for log roll in bed to ulises brief and remove sling. Pt able to assist with placing right hand on bed rail and pulling. Pt left in bed with bed alarm on, call light within reach and all needs within reach. M5 PT-IP Objective Assessments Start: 04/25/19 13:00 Freq: NEEDED Status: Active Protocol: Document 04/25/19 10:46 AB (Rec: 04/25/19 13:34 AB [id number]) Orientation Orientation/Cognition Level of Alertness Alert Orientation Name,Birthday,Month,Year,Place Comments alert with increase time needed to answer questions and is inconsistent with executions of instructions Gross Range of Motion Lower Extremity ROM Assessment Within Functional Limits Strength Lower Extremity Strength Assessment Bilaterally Impaired Comments Strength Comments RLE: 3+/5 LLE: 1/5 M6 PT-IP Treatment Start: 04/25/19 13:00 Freq: NEEDED Status: Active Protocol: Document 04/26/19 14:28 CLB (Rec: 04/26/19 15:05 CLB [id number]) Physical Therapy Treatment Exercises Exercises Ankle Pumps,Quad Sets,Heel Slides M7 PT-IP Assessment and Plan Start: 04/25/19 13:00 Freq: NEEDED Status: Active Protocol: Document 04/26/19 14:28 CLB (Rec: 04/26/19 15:05 CLB [id number]) PT Summary Assessment and Plan Summary Impairments Pain,ROM,Strength,Balance, Coordination,Sensation,Tone, Cognition,Bed Mobility, Transfers,Gait,Activity Tolerance Progress Towards Goals Slow Progress due to Medical Issues Assessment Summary Pt transferred by mechanical lift to [facility] where pt sat ~10 minutes requiring cues for midline posture and cues for hand placement to assist pt with balance. (see mobility). Pt very sleepy this afternoon and was falling asleep during end of tx. Pt will benefit from acute rehab/SNF to improve mobility and independence. Goals Bed Mobility Goal Minimal Assistance Transfer Goal Maximal Assistance,Front Wheeled Walker Gait Goal Minimal Assistance,Front Wheel Walker Gait Distance 30 Other Goals improve sitting balance to F-/ min A Days to Meet Goals 10 Frequency of Treatment Frequency Of Treatment Twice a Day Treatment Plan Physical Therapy Treatment Plan Bed Mobility Training,Transfer Training,Gait Training, Therapeutic Exercise,Balance Retraining,Discharge Planning, Hot or Cold Pack,Neuromuscular Re-ed,Coordination Retraining ,Manual Therapy Other Recommendations and Next Treatment sitting balance; transfers; Focus ambulation when appropriate Recommendations To Nursing Amount of Assist Needed Mechanical Lift Discharge Recommendations PT Discharge Recommendations SNF Rehab,Acute Rehab
--- NOTE | 2019-04-26 14:49 | P.PN_ITS ---
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 MRI stroke revealed multifocal scattered small areas of acute ischemia involving a large portion of the anterior right frontal lobe. He still has significant neurological deficits including left-sided weakness. It is unclear if his facial asymmetry is due to stroke or repeat since zoster infection. Patient denies any complaints today including pain, shortness of breath, nausea, vomiting, fever, chills. Exam Vital Signs (past 8 hours): - 04/26/19 08:00 04/26/19 12:00 Temperature 98.7 F 97.8 F Pulse Rate 68 64 Respiratory Rate 18 18 Blood Pressure 154/99 H 119/71 Pulse Oximetry 97 98 Oxygen Delivery Method Room Air Oxygen Flow Rate 0 Narrative Exam Narrative: GENERAL APPEARANCE: Elderly male, slumped to the left, no acute distress. SKIN: Inspection of the skin reveals no rashes, ulcerations or petechiae. HEENT: Minor rash surrounding his left eye, appears old and well healing. EOMI, PERRLA. Oral mucosa moist, no posterior pharyngeal erythema. NECK: Supple and symmetric. There was no thyroid enlargement, and no tenderness, or masses were felt. CHEST: Normal AP diameter and normal contour without any kyphoscoliosis. LUNGS: Auscultation of the lungs revealed no wheezes, rhonchi, or rales. CARDIOVASCULAR: There was a regular rate and rhythm without any murmurs, gallops, rubs. Peripheral pulses were 2+ and symmetric. ABDOMEN: Soft and nontender with normal bowel sounds. No ascites was noted. MUSCULOSKELETAL: There was no tenderness or effusions noted. Muscle tone was normal. EXTREMITIES: No cyanosis, clubbing or edema. NEUROLOGIC: Alert and oriented x 3. Mild cognitive impairment. LUE +2-3/5 LLE +2/5 strength. RLE 4+/5. RUE +5/5. Significant stiffness in shoulders and hips as well. He does have a mild intention tremor on the right. Psych: flat affect, depressed, monotone speaking. Objective Labs Result Diagrams: 04/26/19 05:00 04/26/19 05:00 Labs: Laboratory Results - last 24 hr 04/26/19 04/26/19 05:00 05:00 WBC 4.1 L RBC 4.19 L Hgb 13.4 L Hct 38.9 L MCV 92.9 MCH 32.1 MCHC 34.5 RDW 13.1 Plt Count 135 L Neut % (Auto) 63.7 Lymph % (Auto) 22.9 L [place] % (Auto) 10.4 Eos % (Auto) 2.1 Baso % (Auto) 0.9 Neut # (Auto) 2600 Lymph # (Auto) 900 L [place] # (Auto) 400 Eos # (Auto) 100 Baso # (Auto) 0 Sodium 136 L Potassium 3.5 Chloride 105 Carbon Dioxide 26 BUN 8 L Creatinine 0.80 Estimated GFR > 60.0 BUN/Creatinine Ratio 10.0 Glucose 100 Calcium 8.3 L Magnesium 2.0 Assessment & Plan Assessment & Plan narrative: Tian Lobato is a 74-year-old male with past medical history of BPH, 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 He is weak bilaterally but more so on the left, which he endorses over the 2 days prior to admission. Initial imaging negative, but MRI showing acute infarct. He is admitted to Medicine with CVA. 1. CVA, acute, present on admission -patient with symptoms starting 2 days ago acutely, but also had progressive imbalance starting 2 weeks ago. 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 head was negative, as was CTA of his head and neck. He has no known history of AFib and denies recent palpitations. EKG is normal sinus rhythm on admission. -MRI stroke revealed multifocal scattered small areas of acute ischemia involving a large portion of the anterior right frontal lobe. Concern for atrial fibrillation given appearance. -continue neurological checks with NIH stroke scale -PT, OT, speech eval and treat -A1c 5.3%, TC 154, LDL 106. TSH 3.19. -started on ASA 81 mg daily, Lipitor 40 mg nightly. -continue telemetry, no evidence of afib so far (he does have possible short runs of NSVT vs afib but this is difficult to see given these appear to be in times of signficant artifact). If no afib, consider referral for holter as outpatient. -TTE unremarkable, normal ventricular function without wall motion abnormalities. LA dilitation present. No thrombus. 2. 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 -patient has not been taking his propranolol for tremor due to diarrhea. His tremors are mild on my exam and will continue to hold.. 3. BPH, chronic, without symptoms -continue home Flomax 4. GERD, chronic, stable, without symptoms -patient takes home omeprazole 20 mg, will continue Protonix 20 mg daily. 5. HTN, essential, present on admission - - started on low dose lisinopril with improvement in BP today. Code: Discussed with patient, he wishes to be full code. He looks daughter is his surrogate decision maker if he is unable to make decisions. DVT: Heparin subcu Dispo: Admitted as inpatient. He is pending SNF rehab vs acute rehab placement to which he can go once accepted. Quality Stroke Contraindication Not Initiating IV-Tpa: Contraindicated Onset of Symptoms Date: 04/22/19 Symptom Onset Unknown: No VTE Deep Vein Thrombosis/Pulmonary Embolism Present on Admission: No
[2019-04-26] MEDS: ATORVASTATIN 20 MG TABLET 40 MG PO (20:32)
[2019-04-26] MEDS: SODIUM CHLORIDE 0.9% FLUSH 10 ML IV (20:33)
[2019-04-27] VITALS (8 sets, daily range): BP systolic 111–164; BP diastolic 69–94; PULSE 65–81; RESP 16–20; TEMP 36.2–37.7; O2SAT 94–97
--- NOTE | 2019-04-27 00:01 | PC.NURSE ---
PARK RANGER Note: Using Taylor bed, tilted patient 5 degrees to right side.
[2019-04-27] MEDS: ACETAMINOPHEN 325 MG TABLET 650 MG PO ×2 (00:10→08:26)
--- NOTE | 2019-04-27 03:13 | PC.NURSE ---
FISH CLEANER MACHINE TENDER position note: put pillows underneath both sides of patient to float his coccyx. Relieving pressure off bottom and heels. Patient in a supine position. Call light within reach, bed alarm on.
[2019-04-27 05:25] LABS: Add Manual Diff / Slide Review NO; Basophils Absolute Auto 0 /uL (0-100); Basophils Percent Auto 0.9 % (0-2); Eosinophils Absolute Auto 100 /uL (0-450); Eosinophils Percent Auto 1.8 % (2-4); Hematocrit 38.1 % (41-53); Hemoglobin 13.5 g/dL (13.5-17.5); Lymphocytes Absolute Auto 1000 /uL (1100-4500); Lymphocytes Percent Auto 24.1 % (25-40); Mean Corpuscular HGB Conc 35.5 % (30-36); Mean Corpuscular Hemoglobin 32.4 PG (26-34); Mean Corpuscular Volume 91.4 fL (80-100); Monocytes Absolute Auto 400 /uL (0-900); Monocytes Percent Auto 9.9 % (3-14); Neutrophils Absolute Auto 2600 /uL (1500-7000); Neutrophils Percent Auto 63.3 % (50-75); Platelet Count 143 X10^3/uL (150-400); Red Blood Cell Count 4.17 X10^6/uL (4.5-5.9); Red Cell Distribution Width 12.8 % (11.6-14.8); White Blood Cell Count 4.1 X10^3/uL (4.5-11.0)
[2019-04-27 05:48] LABS: Blood Urea Nitrogen 9 mg/dL (9-20); Calcium 8.4 mg/dL (8.4-10.2); Carbon Dioxide 26 mmol/L (22-32); Chloride 104 mmol/L (98-107); Estimated Glomerular Filt Rate > 60.0 mL/min (>60); Glucose 98 mg/dL (80-110); HEMOLYSIS < 15 (0-50); Potassium 3.4 mmol/L (3.4-5.1); Sodium 136 mmol/L (137-145)
[2019-04-27] MEDS: PANTOPRAZOLE 20 MG TABLET PO (06:44)
[2019-04-27] MEDS: TAMSULOSIN 0.4 MG CAPSULE PO (08:26)
[2019-04-27] MEDS: HEPARIN 5,000 UNIT/ML VIAL 5000 UNIT SUBCUT ×2 (08:26→21:17)
[2019-04-27] MEDS: ASPIRIN EC 81 MG TABLET PO (08:26)
[2019-04-27] MEDS: LISINOPRIL 5 MG TABLET PO (08:26)
--- NOTE | 2019-04-27 08:55 | OT.IP.TRT ---
Current Diagnoses Cerebral infarction, unspecified (04/24/19) Occupational Therapy Treatment Note M2 OT-IP Current Condition Start: 04/25/19 13:29 Freq: Status: Active Protocol: Document 04/25/19 14:02 [facility] (Rec: 04/25/19 14:21 [facility] [email or web address]) Occupational Therapy Current Condition Current Condition Evaluation Date 04/25/19 Treatment Diagnosis Progressive L sided weakness. MRI shows multiple R sided infarct Diagnosis Onset Date 04/24/19 M3 OT- IP Subjective and Pain Start: 04/25/19 13:29 Freq: Status: Active Protocol: Document 04/27/19 10:16 [facility] (Rec: 04/27/19 11:04 [facility] [email or web address]) OT- Subjective Occupational Therapy Visit Type Type Treatment Note Visit Start Time 08:55 Visit Stop Time 10:05 Total Visit Minutes 70 Occupational Therapy Visit Comments Patient Comments Pt agreeable to do therapy and at times emotional. Patient/Caregiver Goals Pt wanting to get better and motivated to try to go to acute rehab. OT Pain Assessment Pain When Pain Assessed At Rest Pain Present Pain Present Denied Pain M4 OT- IP ADL's Start: 04/25/19 13:29 Freq: Status: Active Protocol: Document 04/27/19 10:16 [facility] (Rec: 04/27/19 11:04 [facility] [email or web address]) OT SFF-[id number]-[id number] General Evaluation Self-Feeding Ability Minimal Assistance,Total Assistance Areas Needing Assistance Opening Containers Devices Self-Feeding Devices Adapted Utensil,Nonslip Pad Comments OT Self-Feeding Comments Pt needing assist for set-up. Pt total assist to help incorporate left hand to hold bowls of food. Called the kitchen to request larger handled utensils to increase ease from hand to mouth with right hand. At times pt would stop in between trying to get the spoon to his mouth and when asked why he stopped, pt would states having trouble to control his movements or agreed having trouble to initiate his movements. OT ADL-Grooming General Evaluation Grooming Ability Minimal Assistance,Total Assistance Areas Needing Assistance Retrieving/Set-up of Grooming Items,Face Washing Comments OT Grooming Comments Having to place wash cloth in left hand and needing [place] assist to help wash his hands and face. Wash cloth in right hand , needing tactile cues to touch his left ear so able to reach with right hand to wash his left ear. OT ADL-Oral Care Comments Oral Care Comments Not performed in this session. OT ADL-Dressing General Eval Upper Body Dressing Ability Maximum Assistance Lower Body Dressing Ability Total Assistance Comments OT Dressing Comments Total assist for all LB dressing needs. UB dressing pt able to assist to help lift LUE up with right hand to help to initiate to get into the sleeve on the the right arm. Pt needing initial tactile and placement on right hand on left hand to initiate to help get the sleeve on the gown up and off his left arm. OT ADL-Toileting Comments OT Toileting Comments Pt needing brief change and dependent for all toileting needs while in bed. OT ADL-Bathing Comments OT Bathing Comments Aid assist to sponge bath pt in bed, pt assist to wash his face. M5 OT- IP IADL's Start: 04/25/19 13:29 Freq: Status: Active Protocol: Document 04/25/19 14:02 [facility] (Rec: 04/25/19 14:21 [facility] [email or web address]) OT-Instrumental Activities of Daily Living Deficits IADL Deficits Identified Deficits Home Safety Awareness Awareness of Need for Assistance at Home Decreased Awareness Ability to Problem Solve Emergency Unable to Problem Solve Situations M6 OT- IP Functional Cognition Start: 04/25/19 13:29 Freq: Status: Active Protocol: Document 04/27/19 10:16 [facility] (Rec: 04/27/19 11:04 [facility] [email or web address]) Cognitive Factors Limiting Selfcare Function Cognitive Ability Level of Alertness Alert,Drowsy Attention Span Ability Capable of Focused Attention, Capable of Sustained Attention Ability to Follow Commands Able to Follow One Step Commands with Increased Time, Able to Follow One Step Commands with Repetition Problem Solving Ability Unable to Identify Errors, Needs Assist to Identify Solutions Cognitive Comments Cognitive Assessment Comments Pt has difficulty to initiate his movements. When COMMERCIAL ARTIST suggested pt to have a neck pillow able to tell nursing aid who to call, where to look , and what color the pillow was. Pt not able to initiate conversation and needing to be asked questions, but able to answer appropriately. OT- Vision and Hearing OT- Vision Assessment Vision Assessment Comments Pt able to scan to the left to read name tag on therapist. However when trying to scan to for the water bottle located on the left unable to see. Pt able to accurately scan and turn his eyes to the right to count how many boxes of cereal and banana were on the counter. Pt still tends to keep his neck turned and flexed to the left. M7 OT- IP Mobility and Balance Start: 04/25/19 13:29 Freq: Status: Active Protocol: Document 04/27/19 10:16 [facility] (Rec: 04/27/19 11:04 [facility] [email or web address]) OT- Bed Mobility Assessment Rolling Type of Rolling Log Rolling Level of Assistance Maximum Assistance,1 Person Assistance,Head of Bed Elevated Supine to Sit Supine to Sit Assist Maximum Assistance,2 Person Assistance,Head of Bed Elevated Scooting Scooting to Edge of Bed Maximum Assistance,2 Person Assistance OT-Transfer Assessment Sit to and From Stand Sit to and from Stand Maximum Assistance,2 Person Assistance Transfers Transfer Ability Maximum Assistance,2 Person Assistance Technique Transfer Destination Bed,Chair Transfer Technique Squat Pivot Comments Mobility Comments Pt poor sitting balance and needing MAX A x1 for LUE control and MODX1 for his trunk. Pt needing MAX A X 2 to stand , once standing pt able to get weight through his LLE with assist for balance and to block his left knee. Pt not able to take a step at this time. Therefore able to squat pivot pt to the right and pt able to assist to hold to armrest of the recliner during the transfer. OT- Balance Assessment Sitting Balance and Reactions Static Sitting Balance Ability Poor Dynamic Sitting Balance Ability Poor Standing Balance and Reactions Static Standing Balance Ability Poor M8 OT- IP Objective Assessments Start: 04/25/19 13:29 Freq: Status: Active Protocol: Document 04/27/19 10:16 [facility] (Rec: 04/27/19 11:04 [facility] [email or web address]) OT Strength Upper Extremity Strength Assessment Left Impaired Comments Strength Comments Today, pt only noted trace movement with LUE. However when therapist able to position LUE on the side of the bed while sitting able to feel weight bearing through his LUE. OT-Muscle Tone Assessment Muscle Tone WNL No Comments Muscle Tone Comments pt with mod spasticity to the LUE and min tone. M9 OT- IP Assessment and Plan Start: 04/25/19 13:29 Freq: Status: Active Protocol: Document 04/27/19 10:16 [facility] (Rec: 04/27/19 11:04 [facility] [email or web address]) OT Summary Assessment and Plan Potential Rehabilitation Potential Good Analytic Complexity at Evaluation High Summary OT Impairments Strength,Balance,Coordination, Tone,Functional Cognition, Functional Mobility,Self- Feeding,Grooming,Dressing, Toileting,Bathing,Toilet Transfers,Shower Transfers Progress Towards Goals Slow Progress due to Medical Issues,Slow Progress due to Cognition Assessment Summary Pt slow to process and intiate but very cooperative to participate in therapy today. Pt appears to have move active movement especially during automatic movements. Pt would benefit from acute rehab to work on visual deficits, sitting/standing balance, incorporation use of LUE/ LLE for ADl, IADl , and functional mobility needs. Goals Self-Feeding Goal Independent Grooming Goal Independent Dressing Goal Independent Toileting Goal Independent Bathing Goal Independent Toilet Transfer Goal Independent Shower Transfer Goal Independent Days to Meet Goals 19 Frequency of Treatment Frequency Of Treatment Once a Day Treatment Plan OT Treatment Plan ADL Training,Functional Cognition Training,Functional Mobility,Neuromuscular Re- education,Therapeutic Exercises,Vision Retraining, Patient/Family Education, Discharge Planning Other Treatment Recommendations and Next Incorporation of LUE for Treatment Focus sitting balance and grooming and eating needs. Cogn. assessment. Discharge Recommendations OT Discharge Recommendations Acute Rehab Home Equipment Needs TBD
--- NOTE | 2019-04-27 08:55 | OT.IP.TRT ---
Current Diagnoses Cerebral infarction, unspecified (04/24/19) Occupational Therapy Treatment Note M2 OT-IP Current Condition Start: 04/25/19 13:29 Freq: Status: Active Protocol: Document 04/25/19 14:02 [facility] (Rec: 04/25/19 14:21 [facility]GR [email or web address]) Occupational Therapy Current Condition Current Condition Evaluation Date 04/25/19 Treatment Diagnosis Progressive L sided weakness. MRI shows multiple R sided infarct Diagnosis Onset Date 04/24/19 M3 OT- IP Subjective and Pain Start: 04/25/19 13:29 Freq: Status: Active Protocol: Document 04/27/19 10:16 [facility] (Rec: 04/27/19 11:04 [facility] [email or web address]) OT- Subjective Occupational Therapy Visit Type Type Treatment Note Visit Start Time 08:55 Visit Stop Time 10:05 Total Visit Minutes 70 Occupational Therapy Visit Comments Patient Comments Pt agreeable to do therapy and at times emotional. Patient/Caregiver Goals Pt wanting to get better and motivated to try to go to acute rehab. OT Pain Assessment Pain When Pain Assessed At Rest Pain Present Pain Present Denied Pain M4 OT- IP ADL's Start: 04/25/19 13:29 Freq: Status: Active Protocol: Document 04/27/19 10:16 [facility] (Rec: 04/27/19 11:04 [facility] [email or web address]) OT [id number] General Evaluation Self-Feeding Ability Minimal Assistance,Total Assistance Areas Needing Assistance Opening Containers Devices Self-Feeding Devices Adapted Utensil,Nonslip Pad Comments OT Self-Feeding Comments Pt needing assist for set-up. Pt total assist to help incorporate left hand to hold bowls of food. Called the kitchen to request larger handled utensils to increase ease from hand to mouth with right hand. At times pt would stop in between trying to get the spoon to his mouth and when asked why he stopped, pt would states having trouble to control his movement or agreed having trouble to initiate his movements. OT ADL-Grooming General Evaluation Grooming Ability Minimal Assistance,Total Assistance Areas Needing Assistance Retrieving/Set-up of Grooming Items,Face Washing Comments OT Grooming Comments Having to place wash cloth in left hand and needing [place] assist to help wash his hands and face. Wash cloth in right hand , needing tactile cues to wash his left ear. OT ADL-Oral Care Comments Oral Care Comments Not performed in this session. OT ADL-Dressing General Eval Upper Body Dressing Ability Maximum Assistance Lower Body Dressing Ability Total Assistance Comments OT Dressing Comments Total assist for all LB dressing needs. UB dressing pt able to assist to help lift LUE up with right hand to help to initiate to get into the sleeve on the the right arm. Pt needing initial tactile and placement on right hand on left hand to initiate to help get the sleeve on the gown up and off his left arm. OT ADL-Toileting Comments OT Toileting Comments Pt needing brief change and dependent for all toileting needs while in bed. OT ADL-Bathing Comments OT Bathing Comments Aid assist to sponge bath pt in bed, pt assist to wash his face. M5 OT- IP IADL's Start: 04/25/19 13:29 Freq: Status: Active Protocol: Document 04/25/19 14:02 [facility] (Rec: 04/25/19 14:21 [facility] [email or web address]) OT-Instrumental Activities of Daily Living Deficits IADL Deficits Identified Deficits Home Safety Awareness Awareness of Need for Assistance at Home Decreased Awareness Ability to Problem Solve Emergency Unable to Problem Solve Situations M6 OT- IP Functional Cognition Start: 04/25/19 13:29 Freq: Status: Active Protocol: Document 04/27/19 10:16 [facility] (Rec: 04/27/19 11:04 [facility] [email or web address]) Cognitive Factors Limiting Selfcare Function Cognitive Ability Level of Alertness Alert,Drowsy Attention Span Ability Capable of Focused Attention, Capable of Sustained Attention Ability to Follow Commands Able to Follow One Step Commands with Increased Time, Able to Follow One Step Commands with Repetition Problem Solving Ability Unable to Identify Errors, Needs Assist to Identify Solutions Cognitive Comments Cognitive Assessment Comments Pt has difficulty to initiate his movements. When MIDDLE SCHOOL DIRECTOR suggested pt to have a neck pillow able to tell nursing aid who to call, where to look , and what color the pillow was. OT- Vision and Hearing OT- Vision Assessment Vision Assessment Comments Pt able to scan to the left to read name tag on therapist. However when trying to scan to for the water bottle located on the left unable to see. Pt able to accurately scan and turn his eyes to the right to count how many boxes of cereal and banana were on the counter. Pt still tends to keep his neck turned and flexed to the left. M7 OT- IP Mobility and Balance Start: 04/25/19 13:29 Freq: Status: Active Protocol: Document 04/27/19 10:16 [facility] (Rec: 04/27/19 11:04 [facility] [email or web address]) OT- Bed Mobility Assessment Rolling Type of Rolling Log Rolling Level of Assistance Maximum Assistance,1 Person Assistance,Head of Bed Elevated Supine to Sit Supine to Sit Assist Maximum Assistance,2 Person Assistance,Head of Bed Elevated Scooting Scooting to Edge of Bed Maximum Assistance,2 Person Assistance OT-Transfer Assessment Sit to and From Stand Sit to and from Stand Maximum Assistance,2 Person Assistance Transfers Transfer Ability Maximum Assistance,2 Person Assistance Technique Transfer Destination Bed,Chair Transfer Technique Squat Pivot Comments Mobility Comments Pt poor sitting balance and needing MAX A x1 for LUE control and MODX1 for his trunk. Pt needing MAX A X 2 to stand , once standing pt able to get weight through his LLE with assist for balance and to block his left knee. Pt not able to take a step at this time. therefore able to squat pivot pt to the right and pt able to assist to hold to armrest of the recliner during the transfer. OT- Balance Assessment Sitting Balance and Reactions Static Sitting Balance Ability Poor Dynamic Sitting Balance Ability Poor Standing Balance and Reactions Static Standing Balance Ability Poor M8 OT- IP Objective Assessments Start: 04/25/19 13:29 Freq: Status: Active Protocol: Document 04/27/19 10:16 [facility] (Rec: 04/27/19 11:04 [facility] [email or web address]) OT Strength Upper Extremity Strength Assessment Left Impaired Comments Strength Comments Today, pt only noted trace movement with LUE. However when therapist able to position LUE while sitting able to feel weight through his LUE. OT-Muscle Tone Assessment Muscle Tone WNL No Comments Muscle Tone Comments pt with mod spasticity to the LUE and min tone. M9 OT- IP Assessment and Plan Start: 04/25/19 13:29 Freq: Status: Active Protocol: Document 04/27/19 10:16 [facility] (Rec: 04/27/19 11:04 [facility] [email or web address]) OT Summary Assessment and Plan Potential Rehabilitation Potential Good Analytic Complexity at Evaluation High Summary OT Impairments Strength,Balance,Coordination, Tone,Functional Cognition, Functional Mobility,Self- Feeding,Grooming,Dressing, Toileting,Bathing,Toilet Transfers,Shower Transfers Progress Towards Goals Slow Progress due to Medical Issues,Slow Progress due to Cognition Assessment Summary Pt slow to process and initiate but very cooperative to participate in therapy today. Pt appears to have move active movement especially during automatic movements. Pt would benefit from acute rehab to work on visual deficits, sitting/standing balance, incorporation use of LUE/ LLE for fro ADl, IADl , and functional mobility needs. Goals Self-Feeding Goal Independent Grooming Goal Independent Dressing Goal Independent Toileting Goal Independent Bathing Goal Independent Toilet Transfer Goal Independent Shower Transfer Goal Independent Days to Meet Goals 19 Frequency of Treatmentt twice Treatment Plan OT Treatment Plan ADL Training,Functional Cognition Training,Functional Mobility,Neuromuscular Re- education,Therapeutic Exercises,Vision Retraining, Patient/Family Education, Discharge Planning Other Treatment Recommendations and Next Incorporation of LUE for Treatment Focus sitting balance and grooming and eating needs. Cogn. assessment. Discharge Recommendations OT Discharge Recommendations Acute Rehab Home Equipment Needs TBD
--- NOTE | 2019-04-27 09:20 | PT.IPTN ---
Current Diagnoses Cerebral infarction, unspecified (04/24/19) Physical Therapy Treatment Note M2 PT-IP Current Condition Start: 04/25/19 13:00 Freq: NEEDED Status: Active Protocol: Document 04/25/19 10:46 AB (Rec: 04/25/19 13:34 AB [id number]) Physical Therapy Current Condition Current Condition Evaluation Date 04/25/19 Treatment Diagnosis CVA L sided weakness; difficulty in walking Onset Date 05/21/18 Precautions Other Precautions Falls M3 PT-IP Subjective Start: 04/25/19 13:00 Freq: NEEDED Status: Active Protocol: Document 04/27/19 09:20 CLB (Rec: 04/27/19 11:12 CLB [id number]) Subjective Physical Therapy Visit Type Type Treatment Note Visit Start Time 09:20 Visit Stop Time 10:04 Total Visit Minutes 44 Notes Co-treat with OT. Number of INSURANCE CLAIMS REPRESENTATIVE Visits 3 Physical Therapy Visit Comments Patient Comments Pt agreeable to do therapy. Patient Goals To get better and go to acute rehab. M4 PT-IP Mobility and Gait Start: 04/25/19 13:00 Freq: NEEDED Status: Active Protocol: Document 04/27/19 09:20 CLB (Rec: 04/27/19 11:12 CLB [id number]) PT-Bed Mobility Assessment Rolling Type of Rolling Log Rolling,Bilateral Level of Assist Maximal Assistance,1 Person Assistance Supine to Sit Supine to Sit Maximum Assistance,2 Person Assistance Scooting Scooting to Edge of Bed Dependent PT-Transfer Assessment Sit to and From Stand Sit to and from Stand Maximum Assistance,2 Person Assistance Equipment Transfer Assistive Device Gait Belt Orthotic/Prosthetic Devices or Brace: No Transfers Transfer Destination Chair Transfer Technique Squat Pivot Transfer Ability Level of Assist Maximum Assistance,2 Person Assistance Comments Mobility Comments Pt required Max A with log roll and able to reach with RUE for bed rail after cues. Pt had difficulty with HS of RLE and required AA with HS of LLE. Pt was able to use RUE to assist LUE into arm of gown . Pt required Max A x2 for supine to sit and scooting to EOB, pt then sat for sitting balance ~3 minutes with Max A and cues to reach and lean with RUE on bed and assist with LUE. Pt required assist with balance due to left lateral and anterior lean with cues to look out window and from side to side. Pt required Max A x2 for sit-stand from raised bed and was able to bear weight through LLE as therapist guarded knee. Pt was unable to initiate step with RLE for stand pivot transfer and pt was assisted back to EOB. Pt was able to reach back for bed with RUE with cueing and required Max A x2 to sit. Pt required Max A x2 for squat pivot transfer but with cues was able to reach with right hand to arm of chair to assist with guidance to chair. Left pt in chair with all needs within reach. M5 PT-IP Objective Assessments Start: 04/25/19 13:00 Freq: NEEDED Status: Active Protocol: Document 04/25/19 10:46 AB (Rec: 04/25/19 13:34 AB [id number]) Orientation Orientation/Cognition Level of Alertness Alert Orientation Name,Birthday,Month,Year,Place Comments alert with increase time needed to answer questions and is inconsistent with executions of instructions Gross Range of Motion Lower Extremity ROM Assessment Within Functional Limits Strength Lower Extremity Strength Assessment Bilaterally Impaired Comments Strength Comments RLE: 3+/5 LLE: 1/5 M6 PT-IP Treatment Start: 04/25/19 13:00 Freq: NEEDED Status: Active Protocol: Document 04/27/19 09:20 CLB (Rec: 04/27/19 11:12 CLB [id number]) Physical Therapy Treatment Exercises Exercises Ankle Pumps,Heel Slides Other Treatments Other Treatment Performed Activities conducted to increase R sided awareness: turning head to the R : object /color identification; reaching towards midline and to the R side. Today pt was able to turn head to right and left when asked. M7 PT-IP Assessment and Plan Start: 04/25/19 13:00 Freq: NEEDED Status: Active Protocol: Document 04/27/19 09:20 CLB (Rec: 04/27/19 11:12 CLB [id number]) PT Summary Assessment and Plan Summary Impairments Pain,ROM,Strength,Balance, Coordination,Sensation,Tone, Cognition,Bed Mobility, Transfers,Gait,Activity Tolerance Progress Towards Goals Slow Progress due to Medical Issues Assessment Summary Pt continues to require Max A x2 for all mobility and transfers. Pt has difficulty with motor planning and requires extra time to complete tasks. Pt able to use RUE to assist with log roll, sitting balance and transfer when cued. (see mobility section) Pt would benefit from acute rehab to gain functional mobility. Goals Bed Mobility Goal Minimal Assistance Transfer Goal Maximal Assistance,Front Wheeled Walker Gait Goal Minimal Assistance,Front Wheel Walker Gait Distance 30 Other Goals improve sitting balance to F-/ min A Days to Meet Goals 10 Frequency of Treatment Frequency Of Treatment Twice a Day Treatment Plan Physical Therapy Treatment Plan Bed Mobility Training,Transfer Training,Gait Training, Therapeutic Exercise,Balance Retraining,Discharge Planning, Hot or Cold Pack,Neuromuscular Re-ed,Coordination Retraining ,Manual Therapy Other Recommendations and Next Treatment sitting balance; transfers; Focus ambulation when appropriate Recommendations To Nursing Amount of Assist Needed Mechanical Lift Discharge Recommendations PT Discharge Recommendations SNF Rehab,Acute Rehab Other Discharge Recommendations Acute Rehab
--- NOTE | 2019-04-27 10:30 | ST.IPDYTX ---
TRACK VEHICLE REPAIRER Dysphagia Treatment TRACK VEHICLE REPAIRER Dysphagia Treatment Start: 04/25/19 12:03 Freq: Status: Active Protocol: Document 04/27/19 14:34 TLC (Rec: 04/27/19 14:36 TLC [id number]) Dysphagia Treatment Session Time Visit Start Time 10:15 Visit Stop Time 10:30 Total Visit Minutes 15 Visit Information Visit Number 2 Setting Assessment Location Acute Care Visit Type Note Type Treatment Note Next Note Type Next Note Type Treatment Note Patient Information Identification Type Name Subjective Observations Patient reclined in chair in room following PT/OT session. Eyes closed, but awoke to my voice. No family present in room. Treatment Liquids Trialed Thin Administration Type Self-Feeding Oral Strategies Upright at 90 degrees,Lingual Sweep,Alternate Liquids/Solids Treatment Activities Verbal education regarding use of tongue sweep and liquid wash for left sided pocketing as noted by OT due to left neglect. Patient continues to present with motor planning/initiation difficulty. For example, when asked to swallow saliva on command, he was unable to do so, but had no difficulty swallowing reflexively when presented with water. When asked to take a sip of water, he needed extra verbal and tactile cueing to fruit or nut picker his arm and reach for the cup. He recounted having difficulty with meds this morning stating sometimes his mouth gets dry. He reports no difficulty taking meds with water. No solids trialed due to fatigue. Assessment Patient Response to Treatment Good Rehab Potential Good Assessment of Improvement Patient demonstrates signs of motor planning impairment. When asked about this, patient states his neurologist has told him the command center of his brain isn't working properly. Patient has undiagnosed neurological impairment. His speech and language are appropriate, though responses are inconsistent. At the end of the session, patient was able to verbally recall recommendations for implementing tongue sweep in left cheek during meals indicating good short term recall. A cognitive screen may be indicated for further evaluation. Diet Recommendations Recommendations Continue Current Diet Medication Recommendations One at a Time Comments with water/juice for swallow initiation Additional Dietary Needs 1:1 Supervision,Encourage to Self-Feed,Reminders to Use Strategies Aspiration Precautions Recommended Precautions Upright at 90 Degrees, Alternate Liquids/Solids,Small Bites/Sips,Lingual Sweep Treatment Plan Placement Recommendation after Discharge Inpatient Rehab Facility Appropriate for Continued Therapy Yes Therapy Recommendations Consider cognitive screen, ongoing dysphagia management including assessment of recall and compliance with strategies discussed today. Dysphagia Goals Given set-up assistance, Demetrio will implement compensatory strategies and consume the least restrictive diet safely without signs or symptoms of aspiration.
--- NOTE | 2019-04-27 11:33 | CM.DPC ---
Addendum entered by DEBBI Sauceda 04/27/19 14:24: ADD: SW called Trupti at [facility] and she states that she just got confirmation that pt is Denied for Acute Rehab but approved for SNF. Trupti at [facility] plans to call Dtr to update and aware that pt likely ready for d/c tomorrow. SW called Melva at [facility] and updated that [facility] via voicemail. SW made referral to [facility] for review as Dtr had mentioned it may be easier to have rehab in town near their home while waiting to confirm SNF preference when Dtr calls or arrives. PASRR needed for SNF, due to triage needs unable to complete today. Plan: SW to follow closely to further discuss d/c plan with pt and Dtr present to inform them [facility] denied Acute rehab but approved SNF and confirm [facility] is their preference. [facility] currently reviewing. DEBBI Sauceda Addendum entered by DEBBI Sauceda 04/27/19 14:00: ADD: Return call from Melva at [facility] stating that she is somewhat doubtful their physician will accept but she is hoping to get an answer by end of SW shift today so appropriate plans can be set up for the pt. SW still waiting for approval/denial from [facility] regarding Acute Rehab. GUILLAUME attempted to meet with pt and Dtr bedside to set up back up plan of SNF and pt sleeping and not alert enough to be in charge of d/c planning discussion and Dtr not bedside. GUILLAUME called Dtr and left msg requesting call back or if bedside this afternoon to discuss update on Acute Rehab vs SNF preference for backup. BF Original Note: [facility]CP SNF vs Acute Inpt Rehab Per MD, pt remaining stable and will need rehab at d/c. Per PT/OT, pt has made some progress and was able to stand today and still feel pt would benefit from Acute Inpt Rehab at d/c. GUILLAUME called [facility] and Trupti Loomis is his assigned CM for determining rehab auth. GUILLAUME faxed updated clinicals from pt's stay including PT/OT note from this morning and requested review for Acute Inpt Rehab. Trupti states she will send it to their review team for Acute Rehab and is hopeful to get an answer in the next hour or two and states that if he does not qualify for Acute Rehab then he definitely meets criteria for SNF auth. SW called [facility] ([phone]) and left msg requesting review of faxed updated PT/OT notes from yesterday and this morning to determine if they can accept and updated them that [facility] is reviewing for Acute Rehab auth. SW requested call back after review. Plan: SW to follow closely for Acute Rehab [facility] and [facility] review to determine if Acute Rehab an option at d/c. Pt will be auth'd for SNF if Acute Rehab not an option. SW to follow with updating family after lunch when hopefully known if Acute Rehab an option. DEBBI Sauceda
--- NOTE | 2019-04-27 14:35 | PT.IPTN ---
Current Diagnoses Cerebral infarction, unspecified (04/24/19) Physical Therapy Treatment Note M2 PT-IP Current Condition Start: 04/25/19 13:00 Freq: NEEDED Status: Active Protocol: Document 04/25/19 10:46 AB (Rec: 04/25/19 13:34 AB [id number]) Physical Therapy Current Condition Current Condition Evaluation Date 04/25/19 Treatment Diagnosis CVA L sided weakness; difficulty in walking Onset Date 05/21/18 Precautions Other Precautions Falls M3 PT-IP Subjective Start: 04/25/19 13:00 Freq: NEEDED Status: Active Protocol: Document 04/27/19 14:35 CLB (Rec: 04/27/19 15:24 CLB [id number]) Subjective Physical Therapy Visit Type Type Treatment Note Visit Start Time 14:35 Visit Stop Time 15:01 Total Visit Minutes 26 Number of NARCOTICS AGENT Visits 4 Physical Therapy Visit Comments Patient Comments Pt agreeable to do therapy. M4 PT-IP Mobility and Gait Start: 04/25/19 13:00 Freq: NEEDED Status: Active Protocol: Document 04/27/19 14:35 CLB (Rec: 04/27/19 15:24 CLB [id number]) PT-Bed Mobility Assessment Sit to Supine Sit to Supine Maximum Assistance,2 Person Assistance Scooting Scooting to Edge of Bed Dependent PT-Transfer Assessment Sit to and From Stand Sit to and from Stand Maximum Assistance,2 Person Assistance Equipment Transfer Assistive Device Gait Belt,Platform Walker Orthotic/Prosthetic Devices or Brace: No Transfers Transfer Destination Bed,Chair Transfer Technique Squat Pivot Transfer Ability Level of Assist Maximum Assistance,2 Person Assistance Comments Mobility Comments Pt moved in chair to in front of counter for use of mirror. Pt used Lana walker to assist pt in standing. Pt required Max A x2 to sit-stand and Max A x3 with guarding of bilateral knees in standing due to knees buckling. Pt was able to stand for 2 1/2 minutes with cues for midline posture and holding head up as well as looking right and left. Pt required Max A x2 stand to sit. Pt transferred from chair to bed with squat pivot transfer x2 and Max A x2 sit-supine. Pt left in bed with call light by right hand and bed alarm on. Informed nursing pt was in need of brief change. M5 PT-IP Objective Assessments Start: 01/04/20 13:00 Freq: NEEDED Status: Active Protocol: Document 04/25/19 10:46 AB (Rec: 04/25/19 13:34 AB [id number]) Orientation Orientation/Cognition Level of Alertness Alert Orientation Name,Birthday,Month,Year,Place Comments alert with increase time needed to answer questions and is inconsistent with executions of instructions Gross Range of Motion Lower Extremity ROM Assessment Within Functional Limits Strength Lower Extremity Strength Assessment Bilaterally Impaired Comments Strength Comments RLE: 3+/5 LLE: 1/5 M6 PT-IP Treatment Start: 04/25/19 13:00 Freq: NEEDED Status: Active Protocol: Document 04/27/19 09:20 CLB (Rec: 04/27/19 11:12 CLB [id number]) Physical Therapy Treatment Exercises Exercises Ankle Pumps,Heel Slides Other Treatments Other Treatment Performed Activities conducted to increase R sided awareness: turning head to the R : object /color identification; reaching towards midline and to the R side. Today pt was able to turn head to right and left when asked. M7 PT-IP Assessment and Plan Start: 04/25/19 13:00 Freq: NEEDED Status: Active Protocol: Document 04/27/19 14:35 CLB (Rec: 04/27/19 15:24 CLB [id number]) PT Summary Assessment and Plan Summary Impairments Pain,ROM,Strength,Balance, Coordination,Sensation,Tone, Cognition,Bed Mobility, Transfers,Gait,Activity Tolerance Progress Towards Goals Slow Progress due to Medical Issues Assessment Summary Pt with increased difficulty with right sided weakness of RLE and required tactile cues to move RUE when verbal cues could not be followed. Pt continues to require Max A x2 for all transfers and bed mobility. Goals Bed Mobility Goal Minimal Assistance Transfer Goal Maximal Assistance,Front Wheeled Walker Gait Goal Minimal Assistance,Front Wheel Walker Gait Distance 30 Other Goals improve sitting balance to F-/ min A Days to Meet Goals 10 Frequency of Treatment Frequency Of Treatment Twice a Day Treatment Plan Physical Therapy Treatment Plan Bed Mobility Training,Transfer Training,Gait Training, Therapeutic Exercise,Balance Retraining,Discharge Planning, Hot or Cold Pack,Neuromuscular Re-ed,Coordination Retraining ,Manual Therapy Other Recommendations and Next Treatment sitting balance; transfers; Focus ambulation when appropriate Recommendations To Nursing Amount of Assist Needed Mechanical Lift Discharge Recommendations PT Discharge Recommendations SNF Rehab,Acute Rehab Other Discharge Recommendations Acute Rehab
--- NOTE | 2019-04-27 15:00 | OT.IP.TRT ---
Current Diagnoses Cerebral infarction, unspecified (04/24/19) Occupational Therapy Treatment Note M2 OT-IP Current Condition Start: 04/25/19 13:29 Freq: Status: Active Protocol: Document 04/25/19 14:02 CGR (Rec: 04/25/19 14:21 CGR [id number]) Occupational Therapy Current Condition Current Condition Evaluation Date 04/25/19 Treatment Diagnosis Progressive L sided weakness. MRI shows multiple R sided infarct Diagnosis Onset Date 04/24/19 M3 OT- IP Subjective and Pain Start: 04/25/19 13:29 Freq: Status: Active Protocol: Document 04/27/19 15:38 [facility] (Rec: 04/27/19 15:50 [facility] [id number]) OT- Subjective Occupational Therapy Visit Type Type Treatment Note Visit Start Time 14:20 Visit Stop Time 15:00 Total Visit Minutes 40 Occupational Therapy Visit Comments Patient Comments Pt decreased affect but agreeable to do therapy. OT Pain Assessment Pain When Pain Assessed At Rest Pain Present Pain Present Denied Pain M4 OT- IP ADL's Start: 04/25/19 13:29 Freq: Status: Active Protocol: Document 04/27/19 15:38 [facility] (Rec: 04/27/19 15:50 [facility] [id number]) OT [id number]-[id number] Comments OT Self-Feeding Comments Pt states noted increased ease to use larger handled utensil to eat with. Pt still needing cues for initiation and recommend 1:1 assist as pt tires not able to feed himself and needing assist. In addition pt needing cue to check his mouth for pocketing needs and to be sure pt sitting upright to 90 degrees while eating. M5 OT- IP IADL's Start: 04/25/19 13:29 Freq: Status: Active Protocol: Document 04/25/19 14:02 CGR (Rec: 04/25/19 14:21 CGR [id number]) OT-Instrumental Activities of Daily Living Deficits IADL Deficits Identified Deficits Home Safety Awareness Awareness of Need for Assistance at Home Decreased Awareness Ability to Problem Solve Emergency Unable to Problem Solve Situations M6 OT- IP Functional Cognition Start: 04/25/19 13:29 Freq: Status: Active Protocol: Document 04/27/19 10:16 [facility] (Rec: 04/27/19 11:04 [facility] [id number]) Cognitive Factors Limiting Selfcare Function Cognitive Ability Level of Alertness Alert,Drowsy Attention Span Ability Capable of Focused Attention, Capable of Sustained Attention Ability to Follow Commands Able to Follow One Step Commands with Increased Time, Able to Follow One Step Commands with Repetition Problem Solving Ability Unable to Identify Errors, Needs Assist to Identify Solutions Cognitive Comments Cognitive Assessment Comments Pt has difficulty to initiate his movements. When BUILDINGS AND GROUNDS DIRECTOR suggested pt to have a neck pillow able to tell nursing aid who to call, where to look , and what color the pillow was. OT- Vision and Hearing OT- Vision Assessment Vision Assessment Comments Pt able to scan to the left to read name tag on therapist. However when trying to scan to for the water bottle located on the left unable to see. Pt able to accurately scan and turn his eyes to the right to count how many boxes of cereal and banana were on the counter. Pt still tends to keep his neck turned and flexed to the left. M7 OT- IP Mobility and Balance Start: 04/25/19 13:29 Freq: Status: Active Protocol: Document 04/27/19 15:38 [facility] (Rec: 04/27/19 15:50 [facility] [id number]) OT- Bed Mobility Assessment Scooting Scooting to Edge of Bed Maximum Assistance,2 Person Assistance OT-Transfer Assessment Sit to and From Stand Sit to and from Stand Maximum Assistance,2 Person Assistance Transfers Transfer Ability Maximum Assistance,2 Person Assistance Technique Transfer Destination Bed,Chair Transfer Technique Squat Pivot Comments Mobility Comments MAX A X3 to elizabeth walker in front of the mirror to work on trunk control and weight bearing on his legs. Pt needing MAX A X 3 assist to block his legs, assist to help move LUE , and to keep his head up.. Pt able to stand for 2-1/2 minutes with MAX A X 3. MAX A X 2 to squat pivot back to the bed from the recliner. M8 OT- IP Objective Assessments Start: 04/25/19 13:29 Freq: Status: Active Protocol: Document 04/27/19 10:16 [facility] (Rec: 04/27/19 11:04 [facility] [id number]) OT Strength Upper Extremity Strength Assessment Left Impaired Comments Strength Comments Today, pt only noted trace movement with LUE. However when therapist able to position LUE while sitting able to feel weight through his LUE. OT-Muscle Tone Assessment Muscle Tone WNL No Comments Muscle Tone Comments pt with mod spasticity to the LUE and min tone. M9 OT- IP Assessment and Plan Start: 04/25/19 13:29 Freq: Status: Active Protocol: Document 04/27/19 15:38 [facility] (Rec: 04/27/19 15:50 [facility] [id number]) OT Summary Assessment and Plan Potential Rehabilitation Potential Fair Analytic Complexity at Evaluation High Summary OT Impairments Strength,Balance,Coordination, Tone,Functional Cognition, Functional Mobility,Self- Feeding,Grooming,Dressing, Toileting,Bathing,Toilet Transfers,Shower Transfers Progress Towards Goals Slow Progress due to Activity Tolerance,Slow Progress due to Cognition Assessment Summary Pt noted this afternoon needing more assist to initiate movement with RUE and needing tactile cues to help him to initiate to reach out for a tissue. Pt has flat affect, needing encouragement during therapy session. At this time, as pt tiring easily may not be able to tolerate acute rehab physically , however from a mental stand point would strongly benefit from acute rehab if able to increase amount of time seen over the week. Goals Self-Feeding Goal Standby Assistance Grooming Goal Standby Assistance Dressing Goal Moderate Assistance Toileting Goal Moderate Assistance Bathing Goal Moderate Assistance Toilet Transfer Goal Minimal Assistance Shower Transfer Goal Moderate Assistance Days to Meet Goals 18 Frequency of Treatment Frequency Of Treatment Once a Day Treatment Plan OT Treatment Plan ADL Training,Functional Cognition Training,Functional Mobility,Neuromuscular Re- education,Therapeutic Exercises,Vision Retraining, Patient/Family Education, Discharge Planning Other Treatment Recommendations and Next Incorporation of LUE for Treatment Focus sitting balance and grooming and eating needs. Cogn. assessment. Discharge Recommendations OT Discharge Recommendations SNF Rehab,Acute Rehab Home Equipment Needs TBD
--- NOTE | 2019-04-27 18:40 | P.PN_ITS ---
Subjective Subjective Date Patient Seen: 04/27/19 Interval history: Patient is a 74-year-old male who was admitted to the hospital for progressive neurological condition found to have an acute stroke. Patient is awaiting rehab transfer. We are waiting confirmation from [facility] regarding transfer. Exam Vital Signs (past 8 hours): - 04/27/19 12:00 04/27/19 16:03 Temperature 97.8 F 99.3 F Pulse Rate 65 65 Respiratory Rate 16 20 Blood Pressure 150/84 H 111/69 Pulse Oximetry 94 95 Oxygen Delivery Method Room Air Oxygen Flow Rate 0 Narrative Exam Narrative: Pleasant male resting comfortably in no obvious distress Lungs: Clear to auscultation Cardiac exam: Regular rate rhythm normal S1-S2 Abdomen: Soft nontender nondistended Extremities: No edema Objective Labs Result Diagrams: 04/27/19 05:05 04/27/19 05:05 Labs: Laboratory Results - last 24 hr 04/27/19 04/27/19 05:05 05:05 WBC 4.1 L RBC 4.17 L Hgb 13.5 Hct 38.1 L MCV 91.4 MCH 32.4 MCHC 35.5 RDW 12.8 Plt Count 143 L Neut % (Auto) 63.3 Lymph % (Auto) 24.1 L [place] % (Auto) 9.9 Eos % (Auto) 1.8 L Baso % (Auto) 0.9 Neut # (Auto) 2600 Lymph # (Auto) 1000 L Charlotte # (Auto) 400 Eos # (Auto) 100 Baso # (Auto) 0 Sodium 136 L Potassium 3.4 Chloride 104 Carbon Dioxide 26 BUN 9 Creatinine 0.90 Estimated GFR > 60.0 BUN/Creatinine Ratio 10.0 Glucose 98 Calcium 8.4 Magnesium 2.0 Assessment & Plan Assessment & Plan narrative: CVA, acute, present on admission -patient with symptoms starting 2 days ago acutely, but also had progressive imbalance starting 2 weeks ago. 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 head was negative, as was CTA of his head and neck. He has no known history of AFib and denies recent palpitations. EKG is normal sinus rhythm on admission. -MRI stroke revealed multifocal scattered small areas of acute ischemia involving a large portion of the anterior right frontal lobe. Concern for atrial fibrillation given appearance. -continue neurological checks with NIH stroke scale -PT, OT, speech eval and treat - -started on ASA 81 mg daily, Lipitor 40 mg nightly. -continue telemetry, no evidence of afib so far (he does have possible short runs of NSVT vs afib but this is difficult to see given these appear to be in times of signficant artifact). If no afib, consider referral for holter as outpatient. -TTE unremarkable, normal ventricular function without wall motion abnorma lities. LA dilitation present. No thrombus. -given no etiology of stress patient would benefit from an outpatient event monitor looking for intermittent paroxysmal atrial fibrillation 2. 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 -patient has not been taking his propranolol for tremor due to diarrhea. His tremors are mild on my exam and will continue to hold.. 3. BPH, chronic, without symptoms -continue home Flomax 4. GERD, chronic, stable, without symptoms -patient takes home omeprazole 20 mg, will continue Protonix 20 mg daily. 5. HTN, essential, present on admission - - started on low dose lisinopril with improvement in BP today. Code: Discussed with patient, he wishes to be full code. He looks daughter is his surrogate decision maker if he is unable to make decisions. Awaiting placement at acute rehab in the morning DVT: Heparin subcu Dispo: Admitted as inpatient. He is pending SNF rehab vs acute rehab placement to which he can go once accepted. Quality Quality Stroke Contraindication Not Initiating IV-Tpa: Contraindicated Onset of Symptoms Date: 04/22/19 Symptom Onset Unknown: No VTE Deep Vein Thrombosis/Pulmonary Embolism Present on Admission: No
[2019-04-27] MEDS: ATORVASTATIN 20 MG TABLET 40 MG PO (21:17)
--- NOTE | 2019-04-27 22:57 | PC.NURSE ---
SHIFT Neuro status very difficult to assess. Complete about half of the NIH scale before refusing to open his eyes or answer any more questions. When pt. verbalizes, his speech is clear and coherent. However, much of the time he is verbally unresponsive. Sometimes he follows commands, other times he stares at me without responding, still other times I can barely get him to open his eyes. Left biltateral extremities completely flaccid. Right side weak. Visual field intact EXCEPT does not follow object to left.Rapid neuro decline as compared to admission, or even yesterday. Flat affect. Denies pain. Dinner set up, pt. fed self with right hand. Repositioned [id number] by SUPERVISOR PLATE PASTING throughout shift.
[2019-04-28 03:00] VITALS: BP 162/90; PULSE 69; RESP 18; TEMP 36.8; O2SAT 95
[2019-04-28] MEDS: TAMSULOSIN 0.4 MG CAPSULE PO (09:56)
[2019-04-28] MEDS: LISINOPRIL 5 MG TABLET PO (09:56)
[2019-04-28] MEDS: HEPARIN 5,000 UNIT/ML VIAL 5000 UNIT SUBCUT (09:56)
[2019-04-28] MEDS: ASPIRIN EC 81 MG TABLET PO (09:56)
--- NOTE | 2019-04-28 10:23 | ST.IPDYTX ---
COMMISSIONED FIRE OFFICER Dysphagia Treatment COMMISSIONED FIRE OFFICER Dysphagia Treatment Start: 04/25/19 12:03 Freq: Status: Active Protocol: Document 04/28/19 10:13 TLC (Rec: 04/28/19 10:22 TLC [id number]) Dysphagia Treatment Session Time Visit Start Time 09:45 Visit Stop Time 10:05 Total Visit Minutes 20 Visit Information Visit Number 3 Setting Assessment Location Acute Care Visit Type Note Type Treatment Note Next Note Type Next Note Type Treatment Note Patient Information Identification Type Name Subjective Observations Patient sitting up in bed with breakfast tray present, self- feeding yogurt, fruit, eggs and jordanian muffin. No family present in room. Treatment Liquids Trialed Thin Solids Trialed Regular Administration Type Self-Feeding Oral Strategies Upright at 90 degrees,Lingual Sweep,Alternate Liquids/Solids Treatment Activities Patient did not recall our conversation yesterday, but once reminded, was able to independently implement tongue sweep and liquid wash to clear mild oral residue. Patient requires extra time for meals due to suspected motor planning/difficulty with initiation. He was observed to pause mid-bite needing a verbal cue to swallow. He asked for a kleenex and held it up to his nose for 2+ minutes, but did not blow his nose despite prompts. He consumed a regular diet and thin liquids without overt signs of aspiration; however, 1:1 supervision with cues/ prompts is recommended due to motor planning difficulty. Assessment Patient Response to Treatment Good Rehab Potential Fair Assessment of Improvement Ongoing difficulty with motor planning for purposeful movements such as eating, blowing nose. Responses to questions are inconsistent, but appropriate when given with no evidence of comprehension deficits. Diet Recommendations Recommendations Continue Current Diet Medication Recommendations One at a Time Comments with water/juice for swallow initiation Additional Dietary Needs 1:1 Supervision,Encourage to Self-Feed,Reminders to Use Strategies Aspiration Precautions Recommended Precautions Upright at 90 Degrees, Alternate Liquids/Solids,Small Bites/Sips,Lingual Sweep Treatment Plan Placement Recommendation after Discharge [facility] Facility Appropriate for Continued Therapy Yes Therapy Recommendations Consider cognitive screen, ongoing dysphagia management including assessment of recall and compliance with strategies discussed today. Dysphagia Goals Given set-up assistance, Demetrio will implement compensatory strategies and consume the least restrictive diet safely without signs or symptoms of aspiration.
[2019-04-28 10:30] VITALS: BP 125/77; PULSE 68; RESP 18; TEMP 36.6; O2SAT 96
--- NOTE | 2019-04-28 11:48 | CM.DANOTE ---
DCP/continued: Reviewed chart. Patient denied for inpatient rehabilitation services. However, [facility] has authorized a SNF. Spoke with Dr. Stuart in AM rounds and she anticipates that patient will be medically stable for discharge today. Placed call to September at [facility] and she confirms that they do have bed. Also contacted [facility] and they confirm that patient has been approved for SNF level. Placed call to daughter Melva to discuss plan. She too aware and agreeable for patient to go to [facility]. She is aware that inpatient acute rehabilitation denied. Asked BOTTOM SPRAYER/Radha to finalize discharge. PASRR completed and medical necessity form for ambulance signed by TOOL GRINDER SET UP OPERATOR GEAR and provider. P: [facility] today. supervisor production managing scheduled for 3:00pm via non urgent ambulance. Radha to fax orders to [facility] and scan both PASRR and ambulance form. DEBBI Ronquillo
[2019-04-28 11:58] VITALS: BMI 22.3
--- NOTE | 2019-04-28 12:03 | DIET.PN ---
Dietary Progress Note Assessment: 74y M admitted for acute stroke c inability to use L side bilaterally referred to nutrition r/t stress and being recently . HT: 177.8cm WT: 70.5kg UBW: 68kg on 10/22/18 per [facility] records BMI: 22.3 Nutrition Diagnosis: risk of inadequate oral intake r/t dx (stroke resulting in motor planning difficulty) aeb SLT assessment reccs 1:1 cueing for self feeding, pt BMI is borderline low for age (22.3), pt in need of acute rehabbing at outside facility. Interventions: 1. Recc 1:1 cueing while self feeding meals r/t motor planning difficulty (per SLT report) 2. Recc ONS ensure once daily to support intake r/t borderline BMI, difficulty self feeding. Diet Order: heart healthy- regular/thin EER: 2000kcal, 70g Pro (1g/kg per elder), 2.1 L fluids Monitoring/Evaluations: Pt going to SNF today.
--- NOTE | 2019-04-28 12:07 | OT.IP.TRT ---
Current Diagnoses Cerebral infarction, unspecified (04/24/19) Occupational Therapy Treatment Note M2 OT-IP Current Condition Start: 04/25/19 13:29 Freq: Status: Active Protocol: Document 04/25/19 14:02 CGR (Rec: 04/25/19 14:21 CGR [email or web address]) Occupational Therapy Current Condition Current Condition Evaluation Date 04/25/19 Treatment Diagnosis Progressive L sided weakness. MRI shows multiple R sided infarct Diagnosis Onset Date 04/24/19 M3 OT- IP Subjective and Pain Start: 04/25/19 13:29 Freq: Status: Active Protocol: Document 04/28/19 12:55 CCC (Rec: 04/28/19 13:19 CCC [email or web address]) OT- Subjective Occupational Therapy Visit Type Type Treatment Note Visit Start Time 12:07 Visit Stop Time 12:52 Total Visit Minutes 70 Notes Pt also seen from 900-925 for self feeding. Occupational Therapy Visit Comments Patient Comments Pt when asked nodding that he needed to be changed. M4 OT- IP ADL's Start: 04/25/19 13:29 Freq: Status: Active Protocol: Document 04/28/19 12:55 CCC (Rec: 04/28/19 13:19 CCC [email or web address]) OT [id number]-[id number] General Evaluation Self-Feeding Ability Minimal Assistance,Total Assistance Areas Needing Assistance Loading Utensil,Opening Containers Devices Self-Feeding Devices Adapted Utensil,Nonslip Pad Comments OT Self-Feeding Comments Today pt needing assist to help load the utensil for right hand. Pt not able to assist with LUE for any needs for self feeding unless therapist giving him 100%. OT ADL-Grooming Comments OT Grooming Comments Pt able to wash his face after set-up of wash cloth placed in his right hand. OT ADL-Dressing General Eval Lower Body Dressing Ability Total Assistance Areas Needing Assistance Underpants/Brief,Socks OT ADL-Toileting General Evaluation Toileting Ability Total Assistance Areas Needing Assistance Manage Clothing,Perform Perineal Hygiene M5 OT- IP IADL's Start: 04/25/19 13:29 Freq: Status: Active Protocol: Document 04/25/19 14:02 CGR (Rec: 04/25/19 14:21 CGR [email or web address]) OT-Instrumental Activities of Daily Living Deficits IADL Deficits Identified Deficits Home Safety Awareness Awareness of Need for Assistance at Home Decreased Awareness Ability to Problem Solve Emergency Unable to Problem Solve Situations M6 OT- IP Functional Cognition Start: 04/25/19 13:29 Freq: Status: Active Protocol: Document 04/28/19 12:55 [facility] (Rec: 04/28/19 13:19 [facility] [email or web address]) Cognitive Factors Limiting Selfcare Function Cognitive Ability Level of Alertness Drowsy Patient Orientation Name Attention Span Ability Unable to Focus,Unable to Sustain Attention Ability to Follow Commands Able to Follow One Step Commands with Increased Time, Able to Follow One Step Commands with Repetition Problem Solving Ability Unable to Identify Errors, Needs Assist to Identify Solutions Cognitive Comments Cognitive Assessment Comments Pt very drowsy today. Nursing aid states pt not alert now and agreed best for pt not to eat at this time if not able stay awake. M7 OT- IP Mobility and Balance Start: 04/25/19 13:29 Freq: Status: Active Protocol: Document 04/28/19 12:55 [facility] (Rec: 04/28/19 13:19 [facility] [email or web address]) OT- Bed Mobility Assessment Rolling Type of Rolling Log Rolling Level of Assistance Maximum Assistance,2 Person Assistance Supine to Sit Supine to Sit Assist Maximum Assistance,2 Person Assistance,Head of Bed Elevated Scooting Scooting to Edge of Bed Maximum Assistance,2 Person Assistance OT-Transfer Assessment Transfers Transfer Ability Maximum Assistance,2 Person Assistance Technique Transfer Destination Bed,Chair Transfer Technique Squat Pivot Comments Mobility Comments MAX A X 2 squat pivot transfer to the right with FAMILY MANAGER. OT- Balance Assessment Sitting Balance and Reactions Static Sitting Balance Ability Poor Dynamic Sitting Balance Ability Poor Comments Other Balance Tests/Deviations/Treatment Worked on trunk control and : sitting balance and MAX A X1 for left UE management for weight bearing and FAMILY MANAGER also needing to assist for balance. Pt able to self adjust himself in small increments but having to have FAMILY MANAGER assist for balance. M8 OT- IP Objective Assessments Start: 04/25/19 13:29 Freq: Status: Active Protocol: Document 04/27/19 10:16 [facility] (Rec: 04/27/19 11:04 [facility] [email or web address]) OT Strength Upper Extremity Strength Assessment Left Impaired Comments Strength Comments Today, pt only noted trace movement with LUE. However when therapist able to position LUE while sitting able to feel weight through his LUE. OT-Muscle Tone Assessment Muscle Tone WNL No Comments Muscle Tone Comments pt with mod spasticity to the LUE and min tone. M9 OT- IP Assessment and Plan Start: 04/25/19 13:29 Freq: Status: Active Protocol: Document 04/28/19 12:55 [facility] (Rec: 04/28/19 13:19 [facility] [email or web address]) OT Summary Assessment and Plan Potential Rehabilitation Potential Fair Analytic Complexity at Evaluation High Summary OT Impairments Strength,Balance,Coordination, Tone,Functional Cognition, Functional Mobility,Self- Feeding,Grooming,Dressing, Toileting,Bathing,Toilet Transfers,Shower Transfers Progress Towards Goals Slow Progress due to Activity Tolerance,Slow Progress due to Cognition Assessment Summary Pt to be going to skilled rehab today. Goals Self-Feeding Goal Standby Assistance Grooming Goal Standby Assistance Dressing Goal Moderate Assistance Toileting Goal Moderate Assistance Bathing Goal Moderate Assistance Toilet Transfer Goal Minimal Assistance Shower Transfer Goal Moderate Assistance Days to Meet Goals 17 Frequency of Treatment Frequency Of Treatment Once a Day Treatment Plan OT Treatment Plan ADL Training,Functional Cognition Training,Functional Mobility,Neuromuscular Re- education,Therapeutic Exercises,Vision Retraining, Patient/Family Education, Discharge Planning Discharge Recommendations OT Discharge Recommendations SNF Rehab Home Equipment Needs TBD
--- NOTE | 2019-04-28 12:07 | PT.IPTN ---
Current Diagnoses Cerebral infarction, unspecified (04/24/19) Physical Therapy Treatment Note M2 PT-IP Current Condition Start: 04/25/19 13:00 Freq: NEEDED Status: Active Protocol: Document 04/25/19 10:46 AB (Rec: 04/25/19 13:34 AB [id number]) Physical Therapy Current Condition Current Condition Evaluation Date 04/25/19 Treatment Diagnosis CVA L sided weakness; difficulty in walking Onset Date 05/21/18 Precautions Other Precautions Falls M3 PT-IP Subjective Start: 04/25/19 13:00 Freq: NEEDED Status: Active Protocol: Document 04/28/19 12:07 CLB (Rec: 04/28/19 15:16 CLB [id number]) Subjective Physical Therapy Visit Type Type Treatment Note Visit Start Time 12:07 Visit Stop Time 12:52 Total Visit Minutes 45 Notes Co-treat with OT Number of PLODDER OPERATOR Visits 5 Physical Therapy Visit Comments Patient Comments Pt agreeable to do therapy. M4 PT-IP Mobility and Gait Start: 04/25/19 13:00 Freq: NEEDED Status: Active Protocol: Document 04/28/19 12:07 CLB (Rec: 04/28/19 15:16 CLB [id number]) PT-Bed Mobility Assessment Rolling Type of Rolling Log Rolling,Bilateral Level of Assist Maximal Assistance,2 Person Assistance Supine to Sit Supine to Sit Maximum Assistance,2 Person Assistance Scooting Scooting to Edge of Bed Dependent PT-Transfer Assessment Transfers Transfer Destination Bed,Chair Transfer Technique Squat Pivot Transfer Ability Level of Assist Maximum Assistance,2 Person Assistance Comments Mobility Comments Pt required Max A for log roll for breif change. Pt was able to reach ith right arm and hold rail with right hand to assist with roll to left. Pt sat on EOB with cues for midline posture with verbal and tactile cues. Pt had difficulty today raising head to look up and remained in flexed position until actively assisted into neutral position. Pt was able to move right hand upon cuing to place it on bed next to him. Pt required assist with LUE to position on bed. OT positioned behind pt to stretch shoulders and assist with upright posture. Pt was then transferred with squat pivot transfer to chair Max A x2. Left pt in chair with call light and all needs within reach. M5 PT-IP Objective Assessments Start: 04/25/19 13:00 Freq: NEEDED Status: Active Protocol: Document 04/25/19 10:46 AB (Rec: 04/25/19 13:34 AB [id number]) Orientation Orientation/Cognition Level of Alertness Alert Orientation Name,Birthday,Month,Year,Place Comments alert with increase time needed to answer questions and is inconsistent with executions of instructions Gross Range of Motion Lower Extremity ROM Assessment Within Functional Limits Strength Lower Extremity Strength Assessment Bilaterally Impaired Comments Strength Comments RLE: 3+/5 LLE: 1/5 M6 PT-IP Treatment Start: 04/25/19 13:00 Freq: NEEDED Status: Active Protocol: Document 04/28/19 12:07 CLB (Rec: 04/28/19 15:16 CLB [id number]) Physical Therapy Treatment Exercises Exercises Heel Slides M7 PT-IP Assessment and Plan Start: 04/25/19 13:00 Freq: NEEDED Status: Active Protocol: Document 04/28/19 12:07 CLB (Rec: 04/28/19 15:16 CLB [id number]) PT Summary Assessment and Plan Summary Progress Towards Goals Slow Progress due to Medical Issues Assessment Summary Pt with decreased activity tolerance today. Pt was unable to lift head with cues and head remained in flexed position. Pt required Max A x2 for sitting on EOB and for squat pivot transfer to chair. Goals Bed Mobility Goal Minimal Assistance Transfer Goal Maximal Assistance,Front Wheeled Walker Gait Goal Minimal Assistance,Front Wheel Walker Gait Distance 30 Other Goals improve sitting balance to F-/ min A Days to Meet Goals 10 Frequency of Treatment Frequency Of Treatment Twice a Day Treatment Plan Physical Therapy Treatment Plan Bed Mobility Training,Transfer Training,Gait Training, Therapeutic Exercise,Balance Retraining,Discharge Planning, Hot or Cold Pack,Neuromuscular Re-ed,Coordination Retraining ,Manual Therapy Other Recommendations and Next Treatment sitting balance; transfers; Focus ambulation when appropriate Recommendations To Nursing Amount of Assist Needed Mechanical Lift Discharge Recommendations PT Discharge Recommendations SNF Rehab,Acute Rehab Other Discharge Recommendations Acute Rehab
[2019-04-28 12:50] VITALS: BP 125/77; PULSE 68; RESP 18; TEMP 36.6; O2SAT 96
--- NOTE | 2019-04-28 15:23 | PC.NURSE ---
Day shift: Pt left unit at approx 1515 via BLS on transport stretcher. Pt Guillaume lifted into place. Paperwork for SNF with BLS people. Pt's brief changed prior to transfer.
--- NOTE | 2019-04-28 18:09 | P.DS_ITS ---
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 He states starting 3 weeks ago he noticed some blurry vision and went to see the eye doctor. 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 He denies any left eye pain. And states that his rash has almost resolved. Starting 2 weeks ago he noticed that he was becoming more clumsy and had some mild left-sided, primarily lower extremity weakness. Then 2 days ago he has been profoundly more weak, especially on the left side and he could not take care of himself any longer. He denies any fevers, chills, headache. He denies any trauma from falls including hitting his head. He has had no chest pain, shortness of breath, palpitations, or cough. He was started on propranolol for tremors, however he developed diarrhea and has since stopped taking this. He states a few months ago he was driving and did not realize wher e he was. He ended up in the emergency room where they did an evaluation but did not find anything wrong at that time. In the ED, patient was hypertensive, but other vital signs were unremarkable. EKG shows normal sinus rhythm, rate 67, without evidence of active ischemia. CT head and CTA head and neck were unremarkable in the emergency room. Laboratory studies including CBC, coags, chemistries were all unremarkable. UA was negative for infection and urine drug screen was negative. Patient still had persistent symptoms of left-sided weakness, and he was admitted to Medicine for further evaluation of a likely stroke. Discharge Providers Provider Date of admission: 04/24/19 15:05 Discharge Date: 04/28/19 Consults: 04/24/19 17:12 Consult to Dietitian, Adult Routine Comment: Reason For Exam: acute stress; recently 04/24/19 19:37 Consult to Occupational Therapy Evaluate & Treat Comment: Physician Instructions: Evaluate and treat Consult to Physical Therapy Evaluate & Treat Comment: Physician Instructions: Evaluate and Treat 01/03/20 19:44 Consult to Speech Therapy Evaluate & Treat Comment: CVA, recent zoster infection Physician Instructions: Evaluate and treat Discharge provider: Katlyn Stuart MD Summary Hospital Course Discharge Diagnosis: 1. 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 Hypertension 3. BPH 4. GERD 5. Progressive neurological illness etiology unclear 6. 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 He underwent MRI of the brain which showed multiple infarcts involving the right frontal area. MRI findings are as foll ows; Multifocal scattered small areas of acute ischemia involving the anterior right frontal lobe. Diffuse small white matter changes, probably represent chronic microvascular ischemic disease, versus statistically less likely demyelination or other infectious, inflammatory, neurodegenerative etiology, technically nonspecific. Patient had an echocardiogram which showed no evidence of embolic focus Patient was seen and evaluated by PT and OT. He was significantly debilitated given his left arm and left leg weakness. He required significant assistance with PT and OT. He was initially evaluated for possible rehab stay. However was felt that the patient would be more appropriate for subacute rehab. The patient was started on an aspirin, statin, there was concern raised regarding possible atrial fibrillation however there was no evidence of AFib on telemetry. Patient was deemed appropriate for discharge. Arrangements were made for him to discharge to [facility] for ongoing rehabilitation. Status at Discharge Cognitive/behavioral status at discharge: confused Functional status at discharge: uses cane/walker Overall status at discharge: patient is not back to baseline Time Spent with Patient Time spent: Less than 30 minutes Time spent discussing smoking cessation with patient: 3 to 10 minutes Exam Vital Signs (past 8 hours): - 04/28/19 10:30 04/28/19 12:50 Temperature 97.8 F 97.8 F Pulse Rate 68 68 Respiratory Rate 18 18 Blood Pressure 125/77 125/77 Pulse Oximetry 96 96 Oxygen Delivery Method Room Air Oxygen Flow Rate 0 Narrative Exam Narrative: Pleasant male lying in bed minimally responsive but awake and alert HEENT normocephalic atraumatic, sclerae anicteric, oropharynx is clear neck is supple Lungs: Clear to auscultation Cardiac exam: Regular rate and rhythm normal S1-S2 Abdomen: Soft nontender nondistended Extremities: No edema Neuro exam: Patient is slow to respond he does not follow commands when asked to raise his eyebrows are stick out his tongue. He has flaccid paresis in the left upper extremity, he does not move lower the left or right lower extremity his reflexes are decreased. His sensation appears to be intact Objective Labs Result Diagrams: 04/27/19 05:05 04/27/19 05:05 Discharge Plan Discharge Plan Patient Disposition: SNF Transfer to: [facility] Discharge orders & Medications Prescriptions: New atorvastatin [Lipitor] 20 mg Tablet 40 mg PO BEDTIME 30 Days RF: 0 aspirin 81 mg Tablet,Delayed Release (Dr/Ec) 81 mg PO DAILY 30 Days RF: 0 lisinopril 5 mg Tablet 5 mg PO DAILY 30 Days RF: 0 Continued omeprazole 20 mg Capsule,Delayed Release(Dr/Ec) 20 mg PO DAILY RF: 0 propranolol 10 mg Tablet 10 mg PO BID RF: 0 tamsulosin 0.4 mg Capsule 0.4 mg PO DAILY RF: 0 Diet/Activity/Treatments Diet: Low-sodium and Low-cholesterol Liquid consistency: Normal/Thin Food texture: Regular Activity: as tolerated Special Rehabilitation Services Reason for rehabilitation: Therapy following stroke Rehab type: Physical therapy, Occupational therapy and Speech therapy Visit Report/Discharge Packet Visit Report Forms: Patient Portal/API Discharges patient from system. Discharge Date/Time: 04/28/19 15:20 Quality Stroke Contraindication Not Initiating IV-Tpa: Contraindicated Onset of Symptoms Date: 04/22/19 Symptom Onset Unknown: No VTE Deep Vein Thrombosis/Pulmonary Embolism Present on Admission: No
== END 2019-04-28 15:20 | DRG 65 ==
LOC: ED 11:10 → AC 15:15
PROVIDERS: Admitting Provider Internal Medicine; Emergency Provider Emergency Medicine; Visit Provider Internal Medicine
DX: I63.9 Cerebral infarction, unspecified (principal); G81.94 Hemiplegia, unspecified affecting left nondominant side; B02.21 Postherpetic geniculate ganglionitis; F03.90 Unspecified dementia, unspecified severity, without behavioral disturbance, psychotic disturbance, mood disturbance, and anxiety; R29.706 NIHSS score 6; R29.90 Unspecified symptoms and signs involving the nervous system; N40.0 Benign prostatic hyperplasia without lower urinary tract symptoms; K21.9 Gastro-esophageal reflux disease without esophagitis; I10 Essential (primary) hypertension; R25.1 Tremor, unspecified; W19.XXXA Unspecified fall, initial encounter; Z87.891 Personal history of nicotine dependence; Z86.19 Personal history of other infectious and parasitic diseases
CPT/HCPCS: 36415; 70450; 70496; 70498; 70548; 70553; 80048; 80061; 80305; 81003; 81015; 83036; 83735; 83880; 84443; 84484; 85025; 85610; 85730; 92526; 92610; 93005; 93306; 94762; 96360; 96361; 97110; 97162; 97167; 97530; 97535; 99285; J1644; Q9967

== ENCOUNTER 2019-05-20 16:24 | Emergency (ER) | payer OTHER, SELFPAY ==
--- NOTE | 2019-05-20 16:36 | DI.CT.S_ITS ---
PROCEDURE: CT HEAD/BRAIN WO CON INDICATIONS: fall/anticoagulants TECHNIQUE: Noncontrast 4.5 mm thick angled axial sections acquired from the foramen magnum to the vertex, with coronal and sagittal reformats. For radiation dose reduction, the following was used: automated exposure control, adjustment of mA and/or kV according to patient size. COMPARISON: [facility], CT, CT HEAD/BRAIN WO CON, 04/24/2019, 10:55. FINDINGS: Image quality: Excellent. CSF spaces: Basal cisterns are patent. No extra-axial fluid collections. Ventricles are normal in size and shape. Brain: No midline shift. No intracranial masses or hemorrhage. No new area of hypodensity in a large vascular distribution. Extensive periventricular hypodensity consistent with chronic microvascular ischemic change is similar to the prior exam. Small infarcts in the right frontal lobe seen on recent MRI. Skull and face: Calvarium and visualized facial bones are intact, without suspicious lesions. Sinuses: Visualized sinuses and mastoids are clear. IMPRESSION: 1. No acute intracranial hemorrhage. 2. No new infarct in the short-term interval. Extensive chronic microvascular ischemic disease appear similar to recent head CT. Recent MRI demonstrates infarcts in the right frontal lobe. If new focal neurologic symptoms repeat MRI could be performed for further evaluation. Comment: Findings were discussed with Brien Vora at the time of dictation. Dictated by: Brayden Chairez M.D. on 05/20/2019 at 17:32 Approved by: Brayden Chairez M.D. on 05/20/2019 at 17:39
--- NOTE | 2019-05-20 16:37 | DI.CT.S_ITS ---
PROCEDURE: CT CERVICAL SPINE WO CON INDICATIONS: fall TECHNIQUE: Noncontrast 3 mm thick sections acquired from the skull base to the T4 level. Sagittal and coronal reformats were then constructed. For radiation dose reduction, the following was used: automated exposure control, adjustment of mA and/or kV according to patient size. COMPARISON: None. FINDINGS: Image quality: Excellent. Bones: No fractures or dislocations. Visualized superior ribs are intact. Moderate degenerative change in the cervical spine. Osteopenia. Soft tissues: Prevertebral soft tissues are normal in thickness. No paravertebral hematomas. No apical pneumothoraces. Moderate bilateral ICA atherosclerotic calcification. Thyroid gland is unremarkable. IMPRESSION: No acute osseous abnormality. Moderate degenerative change in the cervical spine. Moderate calcified atherosclerotic plaque in the bilateral carotid bulbs. Dictated by: Brayden Chairez M.D. on 05/20/2019 at 17:39 Approved by: Brayden Chairez M.D. on 05/20/2019 at 17:43
--- NOTE | 2019-05-20 18:00 | ED.TRAUMA ---
HPI - Trauma General Chief Complaint: Trauma Stated Complaint: GLF, laceration to his head Time Seen by Provider: 05/20/19 18:00 Source: patient and family Mode of arrival: Wheelchair Limitations: physical limitation History of Present Illness HPI narrative: This is a 74-year-old male who comes to the emergency department after falling from his wheelchair. Patient states that he was reaching for his remote and fell forward landing on his wrists and forehead. Patient denies any loss of consciousness denies any headache. He does have an abrasion on the left side of his forehead. He describes some mild pain in his right wrist. He also describes some pain in his left elbow but states that that was present before and he thinks it is secondary to his recent stroke and not being able to move his arm regularly. Patient has not had any other prior trauma. Patient denies any neck pain, no nausea or vomiting. He denies any other pain or injury elsewhere. 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 He is on aspirin. He was on other thinners recently but these were DC to after he was discharged from the hospital. Patient denies other complaints at this time. Related Data Home Medications Medication Instructions Recorded Confirmed omeprazole 20 mg PO DAILY 04/24/19 04/24/19 propranolol 10 mg PO BID 04/24/19 04/24/19 tamsulosin 0.4 mg PO DAILY 04/24/19 04/24/19 Previous Rx's Medication Instructions Recorded aspirin 81 mg PO DAILY 30 Days tab 04/28/19 atorvastatin [Lipitor] 40 mg PO BEDTIME 30 Days tab 04/28/19 lisinopril 5 mg PO DAILY 30 Days tab 04/28/19 Allergies Allergy/AdvReac Type Severity Reaction Status Date / Time antivenin,crotalidae Allergy Verified 04/24/19 10:48 polyvalent imm Review of Systems Review of Systems ROS Unobtainable: All systems reviewed & are unremarkable except as noted in HPI and below Patient History Medical History GERD (gastroesophageal reflux disease) (Acute) Surgical History History of esophagogastroduodenoscopy (EGD) (Acute) Social History household members: children and other Smoking Status: Former smoker alcohol intake: current Smoking Status: Former smoker alcohol intake frequency: a few times a month Substance Use Type: does not use Exam Narrative Exam Narrative: GEN: Patient appears in mild distress. Alert and oriented. HEAD: Patient has a 2 x 4 cm abrasion on the left forehead/scalp, no raccoon/Smith sign. NECK: Nontender, painless range of motion, trachea midline Negative for Nexus criteria, there is no line tenderness, distracting injury, altered mental status, no new neuro deficit, recent EtOH. EYES: PERRLA, EOMI ENT: External inspection normal, trachea is midline, TM's are normal no hemotypanum, Nares are clear, no septal hematoma, no dental or oral injury, airway is normal and with normal occlusion, No bony tenderness RESP: Chest is nontender and has symmetric movement, no ecchymosis, breath sounds are normal no crackles, wheezes or rales CVS: Heart sounds are normal, no murmur noted, No JVD. ABG/GI: Nontender, soft, normal bowel sounds, no distention, no organomegaly, pelvic rock is negative NEURO: Oriented AOx3, neuro is grossly intact on right, patient has hemiparesis on the left upper and lower extremity, sensation is intact, cranial nerves II through XII are intact, GCS is 15 PSYCH: Normal mood and affect SKIN: Intact, warm and dry, no crepitus and without decubitus BACK: No CVA tenderness, no vertebral tenderness, no step-off's, no crepitus EXT: Atraumatic, wrist is non-tender to touch with full range of motion, normal sensation, left elbow is non-tender, no pain with passive ROM, no ecchymosis, erythema or other skin changes, hips are nontender, no pedal edema, normal color and temperature, normal range of motion of extremities with normal tendon exam, 2+ pulses in all four extremities Initial Vital Signs Initial Vital Signs: Vital Signs Pulse Rate 61 05/20/19 18:23 Respiratory Rate 16 05/20/19 18:23 Blood Pressure 135/84 05/20/19 18:23 Pulse Oximetry 94 05/20/19 18:23 Scores GCS Scottie coma scale eye opening: Spontaneous Scottie coma scale verbal response: Orientated [place] coma scale motor response: Obey commands Scottie coma scale total score: 15 Course Orders Ordered: ED Orders 05/20/19 16:36 CT head/brain wo con Stat 05/20/19 16:37 CT cervical spine wo con Stat Vital Signs Vital signs: Vital Signs - 8 hr 05/20/19 18:23 Pulse Rate 61 Respiratory Rate 16 Blood Pressure [Left Arm] 135/84 Pulse Oximetry 94 MDM - Trauma Imaging Data CT scan - head: Radiologist's Impression: no acute intracranial hemorrhage. No new infar[place] [address] CT Scan Report Signed Patient: Tian Lobato JMR#: [id number] : 7Acct:[id number] Age/Sex: 74 / MDate of Service: 05/20/19 Loc: ED Accession Number: [id number] Procedure: CT head/brain wo con Ordering Provider: Brien Vora MD PROCEDURE: CT HEAD/BRAIN WO CON INDICATIONS: fall/anticoagulants TECHNIQUE: Noncontrast 4.5 mm thick angled axial sections acquired from the foramen magnum to the vertex, with coronal and sagittal reformats. For radiation dose reduction, the following was used: automated exposure control, adjustment of mA and/or kV according to patient size. COMPARISON: [facility], CT, CT HEAD/BRAIN WO CON, 04/24/2019, 10:55. FINDINGS: Image quality: Excellent. CSF spaces: Basal cisterns are patent. No extra-axial fluid collections. Ventricles are normal in size and shape. Brain: No midline shift. No intracranial masses or hemorrhage. No new area of hypodensity in a large vascular distribution. Extensive periventricular hypodensity consistent with chronic microvascular ischemic change is similar to the prior exam. Small infarcts in the right frontal lobe seen on recent MRI. Skull and face: Calvarium and visualized facial bones are intact, without suspicious lesions. Sinuses: Visualized sinuses and mastoids are clear. IMPRESSION: 1. No acute intracranial hemorrhage. 2. No new infarct in the short-term interval. Extensive chronic microvascular ischemic disease appear similar to recent head CT. Recent MRI demonstrates infarcts in the right frontal lobe. If new focal neurologic symptoms repeat MRI could be performed for further evaluation. Comment: Findings were discussed with Brien Vora at the time of dictation. Dictated by: Brayden Chairez M.D. on 05/20/2019 at 17:32 Approved by: Brayden Chairez M.D. on 05/20/2019 at 17:39 CT - cervical spine: Radiologist's Impression: [address] [address] [address] Scan Report Signed Patient: Tian Lobato JMR#: [id number] : 7Acct:[id number] Age/Sex: 74 / MDate of Service: 05/20/19 Loc: ED Accession Number: [id number] Procedure: CT cervical spine wo con Ordering Provider: Brien Vora MD PROCEDURE: CT CERVICAL SPINE WO CON INDICATIONS: fall TECHNIQUE: Noncontrast 3 mm thick sections acquired from the skull base to the T4 level. Sagittal and coronal reformats were then constructed. For radiation dose reduction, the following was used: automated exposure control, adjustment of mA and/or kV according to patient size. COMPARISON: None. FINDINGS: Image quality: Excellent. Bones: No fractures or dislocations. Visualized superior ribs are intact. Moderate degenerative change in the cervical spine. Osteopenia. Soft tissues: Prevertebral soft tissues are normal in thickness. No paravertebral hematomas. No apical pneumothoraces. Moderate bilateral ICA atherosclerotic calcification. Thyroid gland is unremarkable. IMPRESSION: No acute osseous abnormality. Moderate degenerative change in the cervical spine. Moderate calcified atherosclerotic plaque in the bilateral carotid bulbs. Dictated by: Brayden Chairez M.D. on 05/20/2019 at 17:39 Approved by: Brayden Chairez M.D. on 05/20/2019 at 17:43 [facility] Narrative Medical decision making narrative: Patient had ground level fall from his wheelchair. Patient recalls event without loss of consciousness. Patient does have an abrasion on the forehead. He does take aspirin 81 mg daily. Was called as modified trauma. Initially there was some confusion if patient may be on additional thinners but after receiving a for complete medication list appears he is only taking aspirin. Head CT and C-spine were ordered and are found to be negative. Patient denies any pain. He does not have any new neurologic deficits, patient does have a left-sided hemiparesis from recent stroke no new deficits. Discharge Plan Departure Patient Disposition: Home Clinical Impression: Abrasion of scalp, Fall Discharge Date/Time: 05/20/19 18:50 Instructions: DI for Abrasion Activity Restrictions/Additional Instructions: Follow-up with primary care in the next 2-3 days for any additional questions. You may continue home medications as prescribed. Wound Care: Keep wound(s) clean and dry. Wash daily with soap and water only. Do not use over the counter products (alcohol or peroxide)on the wounds unless instructed by a physician. If wound condition worsens (increased/expanding redness, developing fluid blisters, or worsening pain), either contact your doctor for an urgent re-assessment , or return to the Emergency Department. Return to the Emergency Department for any new or worsening symptoms. Return if fever greater than 100.4 Fahrenheit, increased swelling, increasing pain or worsening symptoms such as increased discharge or spreading redness. New altered mental status, confusion, new weakness, numbness, difficulty with speech, sudden severe headaches, persistent vomiting or other new or concerning symptoms. Prescriptions: No Action omeprazole 20 mg Capsule,Delayed Release(Dr/Ec) 20 mg PO DAILY RF: 0 propranolol 10 mg Tablet 10 mg PO BID RF: 0 tamsulosin 0.4 mg Capsule 0.4 mg PO DAILY RF: 0 atorvastatin [Lipitor] 20 mg Tablet 40 mg PO BEDTIME 30 Days RF: 0 aspirin 81 mg Tablet,Delayed Release (Dr/Ec) 81 mg PO DAILY 30 Days RF: 0 lisinopril 5 mg Tablet 5 mg PO DAILY 30 Days RF: 0
[2019-05-20 18:23] VITALS: BP 135/84; PULSE 61; RESP 16; O2SAT 94
--- NOTE | 2019-05-20 20:25 | PC.NURSE ---
[facility] called to have discharge packet faxed to them [phone]
== END 2019-05-20 18:50 | disposition home or self-care (01) ==
PROVIDERS: Emergency Provider Emergency Medicine
DX: S00.01XA Abrasion of scalp, initial encounter (principal); W18.30XA Fall on same level, unspecified, initial encounter; Z79.82 Long term (current) use of aspirin
CPT/HCPCS: 70450; 72125; 99284

== ENCOUNTER → 2019-09-18 07:27 | Outpatient (ROUT) | payer OTHER, SELFPAY ==
[2019-09-18 08:02] LABS: Add Manual Diff / Slide Review NO; Basophils Absolute Auto 0 /uL (0-100); Eosinophils Absolute Auto 400 /uL (0-450); Hematocrit 36.5 % (41-53); Hemoglobin 13.1 g/dL (13.5-17.5); Lymphocytes Absolute Auto 1100 /uL (1100-4500); Lymphocytes Percent Auto 22.4 % (25-40); Mean Corpuscular Hemoglobin 33.9 PG (26-34); Mean Corpuscular Volume 94.3 fL (80-100); Monocytes Absolute Auto 500 /uL (0-900); Monocytes Percent Auto 9.7 % (3-14); Neutrophils Absolute Auto 2800 /uL (1500-7000); Neutrophils Percent Auto 58.9 % (50-75); Platelet Count 170 X10^3/uL (150-400); Red Blood Cell Count 3.87 X10^6/uL (4.5-5.9); Red Cell Distribution Width 13.6 % (11.6-14.8); White Blood Cell Count 4.8 X10^3/uL (4.5-11.0)
[2019-09-18 08:26] LABS: Alanine Aminotransferase 25 IU/L (<50); Albumin 3.6 g/dL (3.5-5.0); Albumin Globulin Ratio 1.2 (1.0-2.8); Alkaline Phosphatase 74 U/L (38-126); Aspartate Aminotransferase 23 IU/L (17-59); BUN Creatinine Ratio 17.5 (6-22); Bilirubin Total 0.7 mg/dL (0.2-1.3); Blood Urea Nitrogen 14 mg/dL (9-20); Calcium 9.4 mg/dL (8.4-10.2); Carbon Dioxide 31 mmol/L (22-32); Chloride 102 mmol/L (98-107); Estimated Glomerular Filt Rate > 60.0 mL/min (>60); Glucose 91 mg/dL (80-110); HEMOLYSIS < 15 (0-50); Potassium 3.7 mmol/L (3.4-5.1); Sodium 139 mmol/L (137-145); Total Protein 6.6 g/dL (6.3-8.2)
[2019-09-18 09:10] LABS: Vitamin B12 365 pg/mL (239-931)
== END ==
PROVIDERS: Visit Provider Nurse Practitioner Family
DX: I10 Essential (primary) hypertension (principal); R41.89 Other symptoms and signs involving cognitive functions and awareness
CPT/HCPCS: 36415; 80053; 82607; 85025

== ENCOUNTER 2019-10-11 05:00 | Emergency (ER) | payer OTHER, SELFPAY ==
[2019-10-11] VITALS (11 sets, daily range): BP systolic 136–193; BP diastolic 81–111; PULSE 86–103; RESP 13–21; TEMP 37; O2SAT 86–98
--- NOTE | 2019-10-11 05:12 | DI.CT.S_ITS ---
PROCEDURE: CT HEAD/BRAIN WO CON INDICATIONS: altered, persistent seizure TECHNIQUE: Noncontrast 4.5 mm thick angled axial sections acquired from the foramen magnum to the vertex, with coronal and sagittal reformats. For radiation dose reduction, the following was used: automated exposure control, adjustment of mA and/or kV according to patient size. COMPARISON: [facility], CT, CT HEAD/BRAIN WO CON, 05/20/2019, 17:17. FINDINGS: Image quality: Diagnostic. CSF spaces: Basal cisterns are patent. No extra-axial fluid collections. Ventricles are normal in size and shape. Brain: No midline shift. No intracranial masses or hemorrhage. Fragoso-white matter interface is normal. Encephalomalacia involving the right frontal lobe is identified, which is new since the previous examination. Additional areas of confluent low attenuation are seen within the periventricular and deep white matter of the supratentorial brain. An old area of ischemia involving the right basal ganglia with associated encephalomalacia is evident, unchanged. Skull and face: Calvarium and visualized facial bones are intact, without suspicious lesions. Sinuses: Visualized sinuses and mastoids are clear. IMPRESSION: 1. No acute intracranial hemorrhage. 2. Right frontal lobe encephalomalacia suggestive of a previous area of ischemia/infarction, which is new since the prior study. 3. Extensive chronic small vessel ischemic changes are similar to the previous study. Note: The preliminary report provided by [facility] is concordant with the final report. Dictated by: Jamey Starr M.D. on 10/11/2019 at 7:54 Approved by: Jamey Starr M.D. on 10/11/2019 at 7:55
--- NOTE | 2019-10-11 05:17 | ED_ITS ---
HPI - Altered Mental Status <Milan Mujica DO - Last Filed: 10/12/19 02:27> General Chief Complaint: Seizure Stated Complaint: seizure Time Seen by Provider: 10/11/19 05:02 Source: EMS Mode of arrival: EMS Limitations: no limitations History of Present Illness HPI narrative: 74-year-old male former smoker with history of seizure, GERD, Parkinson's presents by EMS for what sounds like persisting seizure-like activity. He was last seen at his baseline about 2 hours ago and found by staff to be seizing. He was demonstrating left sided seizure like activity for 10 minutes without resolution and EMS arrived to find him the same. IV was placed and he was given Versed with some improvement. He did vomit once and there is some suspicion of aspiration. Patient is DNR with limited intervention. He's had no recent trauma or fever per nursing staff. No change in medications, diet, or activity. After versed he had oxygen levels decrease to 80s and was placed on nasal cannula. MD complaint: altered mental status Onset (ago): minute(s) Timing confirmed by: caregiver Severity: severe Consistency of symptoms: constant Context: seizure disorder Treatments prior to arrival: glucose and oxygen Related Data Home Medications Medication Instructions Recorded Confirmed omeprazole 20 mg PO DAILY 04/24/19 04/24/19 propranolol 10 mg PO BID 04/24/19 04/24/19 tamsulosin 0.4 mg PO DAILY 04/24/19 04/24/19 Previous Rx's Medication Instructions Recorded levetiracetam [Keppra] 500 mg PO Q12H #30 tab 10/11/19 Allergies Allergy/AdvReac Type Severity Reaction Status Date / Time antivenin,crotalidae Allergy Verified 04/24/19 10:48 polyvalent imm Review of Systems <Milan Mujica DO - Last Filed: 10/12/19 02:27> Review of Systems ROS Unobtainable: Unobtainable due to mental status/LOC Patient History <Milan Mujica DO - Last Filed: 10/12/19 02:27> Medical History GERD (gastroesophageal reflux disease) (Acute) Surgical History History of esophagogastroduodenoscopy (EGD) (Acute) Social History household members: children and other Smoking Status: Former smoker alcohol intake: current Smoking Status: Former smoker alcohol intake frequency: a few times a month Substance Use Type: does not use Exam <Milan Mujica DO - Last Filed: 10/12/19 02:27> Narrative Exam Narrative: GENERAL: [74] year old patient appears stated age. Well- nourished, well-developed patient, in severe distress. Unresponsive, vomit on shirt. HEAD: Atraumatic. Normocephalic. EYES: Pupils equal round and reactive. Largely fixed gaze to left with some nystagmus ENT: Nose without bleeding, purulent drainage. Throat without erythema, tonsillar hypertrophy or exudate. Airway patent. NECK: Trachea midline. Non tender CARDIOVASCULAR: Regular rate and rhythm without murmurs, gallops, or rubs. RESPIRATORY: Clear to auscultation. Breath sounds equal bilaterally. No wheezes, rales, or rhonchi. GASTROINTESTINAL: Abdomen soft, non-tender, nondistended. EXTREMITIES: No edema or joint tenderness. BACK: Nontender without deformity or crepitance. No flank tenderness. NEURO: Unresponsive. Left facial droop. SKIN: No rash or erythema of visible areas Initial Vital Signs Initial Vital Signs: Vital Signs Temperature 98.6 F 10/11/19 05:02 Pulse Rate 103 H 10/11/19 05:02 Respiratory Rate 10/11/19 05:02 Blood Pressure 136/81 10/11/19 05:02 Pulse Oximetry 86 L 10/11/19 05:02 <Brien Vora MD - Last Filed: 10/12/19 07:57> Initial Vital Signs Initial Vital Signs: Vital Signs Temperature 98.6 F 10/11/19 05:02 Pulse Rate 103 H 10/11/19 05:02 Respiratory Rate 10/11/19 05:02 Blood Pressure 136/81 10/11/19 05:02 Pulse Oximetry 86 L 10/11/19 05:02 Scores <Milan Mujica DO - Last Filed: 10/12/19 02:27> GCS Scottie coma scale eye opening: None [place] coma scale verbal response: None [place] coma scale motor response: None [place] coma scale total score: 3 NIH Stroke Scale Level of Conciousness: Responds only with reflex motor or autonomic effects, unresponsive Ask month/age: Answers neither question correctly, aphasic, stuporous, coma Open/close eyes, close hand: Performs neither task correctly Best gaze horizontal: Forced deviation or total gaze paresis not overcome Visual hilliard: Bilateral hemianopia, blind Facial palsy: Partial paralysis, total or near total paralysis of lower face Left arm drift: No movement Right arm drift: No movement Left leg drift: No movement Right leg drift: No movement Limb ataxia: Amputation, joint fusion Sensory on face/arms/legs: Severe to total sensory loss, not aware of touch, coma, quadriplegic Best language: Mute, global aphasia Dysarthria: Severe, unintelligible Extinction or inattention: Profound cristina-inattention. Does not recognize own hand, one side Total NIH Stroke scale score: 39 Course <Milan Mujica DO - Last Filed: 10/12/19 02:27> Orders Ordered: Discontinued Medications Sodium Chloride (Normal Saline 0.9%) 1,000 mls @ 150 mls/hr IV CONT ROHITH Last Admin: 10/11/19 06:26 Dose: 150 mls/hr Documented by: HANH Levetiracetam 1,000 mg/ Sodium (Chloride) 110 mls @ 440 mls/hr IV NOW ONE Stop: 10/11/19 08:37 Last Infusion: 10/11/19 09:35 Dose: 0 mls/hr Documented by: Admin: 10/11/19 09:07 Dose: 440 mls/hr Documented by: GREG Reevaluation(s) Reevaluation #1: patient very slowly improving alertness. Eyes now open, will respond. Guarding airway without trouble. Vital Signs Vital signs: Vital Signs - 8 hr 10/11/19 05:02 10/11/19 06:18 Temperature 98.6 F Pulse Rate 103 H 86 Respiratory Rate 19 21 Blood Pressure 136/81 Blood Pressure [Right Arm] 141/87 H Pulse Oximetry 86 L 90 L <Brien Vora MD - Last Filed: 10/12/19 07:57> Orders Ordered: Discontinued Medications Sodium Chloride (Normal Saline 0.9%) 1,000 mls @ 150 mls/hr IV CONT ROHITH Last Admin: 06/21/20 06:26 Dose: 150 mls/hr Documented by: HANH Levetiracetam 1,000 mg/ Sodium (Chloride) 110 mls @ 440 mls/hr IV NOW ONE Stop: 10/11/19 08:37 Last Infusion: 10/11/19 09:35 Dose: 0 mls/hr Documented by: Admin: 10/11/19 09:07 Dose: 440 mls/hr Documented by: GREG Vital Signs Vital signs: Vital Signs - 8 hr 10/11/19 05:02 10/11/19 06:18 Temperature 98.6 F Pulse Rate 103 H 86 Respiratory Rate 19 21 Blood Pressure 136/81 Blood Pressure [Right Arm] 141/87 H Pulse Oximetry 86 L 90 L MDM - Altered Mental Status <Milan Mujica DO - Last Filed: 10/12/19 02:27> Lab Data Result diagrams: 10/11/19 05:15 10/11/19 05:15 Labs: Lab Results 10/11/19 10/11/19 10/11/19 Range/Units 05:15 05:15 05:15 WBC 10.9 (4.5-11.0) X10^3/uL RBC 4.63 (4.5-5.9) X10^6/uL Hgb 15.3 (13.5-17.5) g/dL Hct 43.9 (41-53) % MCV 94.9 (80-100) fL MCH 33.1 (26-34) PG MCHC 34.9 (30-36) % RDW 13.0 (11.6-14.8) % Plt Count 192 (150-400) X10^3/uL Neut % (Auto) 85.0 H (50-75) % Lymph % (Auto) 8.0 L (25-40) % [place] % (Auto) 5.7 (3-14) % Eos % (Auto) 0.6 L (2-4) % Baso % (Auto) 0.7 (0-2) % Neut # (Auto) 9200 H (7259-2481) /uL Lymph # (Auto) 900 L (2059-8876) /uL [place] # (Auto) 600 (0-900) /uL Eos # (Auto) 100 (0-450) /uL Baso # (Auto) 100 (0-100) /uL PT 12.8 H (10.1-12.7) SECONDS INR 1.1 (0.9-1.3) APTT 28 (26.4-36.2) SECONDS Sodium 139 (137-145) mmol/L Potassium 4.2 (3.4-5.1) mmol/L Chloride 103 (98-107) mmol/L Carbon Dioxide 28 (22-32) mmol/L BUN 13 (9-20) mg/dL Creatinine 0.70 (0.66-1.25) mg/dL Estimated GFR > 60.0 (>60) mL/min BUN/Creatinine Ratio 18.6 (6-22) Glucose 114 H (80-110) mg/dL Lactate (0.7-2.1) mmol/L Calcium 10.0 (8.4-10.2) mg/dL Total Bilirubin 1.0 (0.2-1.3) mg/dL AST 28 (17-59) IU/L ALT 26 (<50) IU/L Alkaline Phosphatase 100 (38-126) U/L Total Protein 7.7 (6.3-8.2) g/dL Albumin 4.5 (3.5-5.0) g/dL Globulin 3.2 (1.7-4.1) g/dL Albumin/Globulin Ratio 1.4 (1.0-2.8) TSH (0.47-4.68) uIU/mL Prolactin 23.6 H (3.7-17.9) ng/mL Urine Color Urine Appearance Urine pH (4.5-8.0) Ur Specific [place] (1.000-1.035) Urine Protein (Negative) Urine Glucose (UA) (Negative) g/dL Urine Ketones (NEGATIVE) Urine Occult Blood (Negative) Urine Nitrate (Negative) Urine Bilirubin (NEGATIVE) Urine Urobilinogen (0.2) E.U./dL Ur Leukocyte Esterase (NEGATIVE) Urine RBC (0-5/HPF) Urine WBC (0-5/HPF) Urine Bacteria (None) Urine Mucus (Negative) Ur Culture Indicated? Salicylates < 1.0 (<20) mg/dL U Opiates 300ng/mL cut (Negative) Ur Oxycodone Screen (Negative) Urine Methadone Screen (Negative) Acetaminophen < 10 L (10-30) ug/mL Ur Barbiturates Screen (Negative) U Tricyclic Antidepress (Negative) Ur Phencyclidine Scrn (Negative) Ur Amphetamines Screen (Negative) U Methamphetamines Scrn (Negative) Ur MDMA Scrn (Ecstasy) (Negative) U Benzodiazepines Scrn (Negative) Urine Cocaine Screen (Negative) U Marijuana (THC) Screen (Negative) Ethyl Alcohol < 10 ( - 10) mg/dL 10/11/19 10/11/19 10/11/19 Range/Units 05:15 05:30 05:30 WBC (4.5-11.0) X10^3/uL RBC (4.5-5.9) X10^6/uL Hgb (13.5-17.5) g/dL Hct (41-53) % MCV (80-100) fL MCH (26-34) PG MCHC (30-36) % RDW (11.6-14.8) % Plt Count (150-400) X10^3/uL Neut % (Auto) (50-75) % Lymph % (Auto) (25-40) % [place] % (Auto) (3-14) % Eos % (Auto) (2-4) % Baso % (Auto) (0-2) % Neut # (Auto) (2479-1746) /uL Lymph # (Auto) (5443-3737) /uL [place] # (Auto) (0-900) /uL Eos # (Auto) (0-450) /uL Baso # (Auto) (0-100) /uL PT (10.1-12.7) SECONDS INR (0.9-1.3) APTT (26.4-36.2) SECONDS Sodium (137-145) mmol/L Potassium (3.4-5.1) mmol/L Chloride (98-107) mmol/L Carbon Dioxide (22-32) mmol/L BUN (9-20) mg/dL Creatinine (0.66-1.25) mg/dL Estimated GFR (>60) mL/min BUN/Creatinine Ratio (6-22) Glucose (80-110) mg/dL Lactate (0.7-2.1) mmol/L Calcium (8.4-10.2) mg/dL Total Bilirubin (0.2-1.3) mg/dL AST (17-59) IU/L ALT (<50) IU/L Alkaline Phosphatase (38-126) U/L Total Protein (6.3-8.2) g/dL Albumin (3.5-5.0) g/dL Globulin (1.7-4.1) g/dL Albumin/Globulin Ratio (1.0-2.8) TSH 5.28 H (0.47-4.68) uIU/mL Prolactin (3.7-17.9) ng/mL Urine Color Yellow Urine Appearance Clear Urine pH 6.5 (4.5-8.0) Ur Specific [place] 1.020 (1.000-1.035) Urine Protein 1+ H (Negative) Urine Glucose (UA) Negative (Negative) g/dL Urine Ketones 1+ H (NEGATIVE) Urine Occult Blood 1+ H (Negative) Urine Nitrate Negative (Negative) Urine Bilirubin Negative (NEGATIVE) Urine Urobilinogen 0.2 (0.2) E.U./dL Ur Leukocyte Esterase Negative (NEGATIVE) Urine RBC 1-5/hpf (0-5/HPF) Urine WBC 0-1/hpf (0-5/HPF) Urine Bacteria None seen (None) Urine Mucus 1+ H (Negative) Ur Culture Indicated? Cult not indicated Salicylates (<20) mg/dL U Opiates 300ng/mL cut Negative (Negative) Ur Oxycodone Screen Negative (Negative) Urine Methadone Screen Negative (Negative) Acetaminophen (10-30) ug/mL Ur Barbiturates Screen Negative (Negative) U Tricyclic Antidepress Negative (Negative) Ur Phencyclidine Scrn Negative (Negative) Ur Amphetamines Screen Negative (Negative) U Methamphetamines Scrn Negative (Negative) Ur MDMA Scrn (Ecstasy) Negative (Negative) U Benzodiazepines Scrn Positive H (Negative) Urine Cocaine Screen Negative (Negative) U Marijuana (THC) Screen Negative (Negative) Ethyl Alcohol ( - 10) mg/dL 10/11/19 Range/Units 05:35 WBC (4.5-11.0) X10^3/uL RBC (4.5-5.9) X10^6/uL Hgb (13.5-17.5) g/dL Hct (41-53) % MCV (80-100) fL MCH (26-34) PG MCHC (30-36) % RDW (11.6-14.8) % Plt Count (150-400) X10^3/uL Neut % (Auto) (50-75) % Lymph % (Auto) (25-40) % [place] % (Auto) (3-14) % Eos % (Auto) (2-4) % Baso % (Auto) (0-2) % Neut # (Auto) (1827-2964) /uL Lymph # (Auto) (6832-9510) /uL [place] # (Auto) (0-900) /uL Eos # (Auto) (0-450) /uL Baso # (Auto) (0-100) /uL PT (10.1-12.7) SECONDS INR (0.9-1.3) APTT (26.4-36.2) SECONDS Sodium (137-145) mmol/L Potassium (3.4-5.1) mmol/L Chloride (98-107) mmol/L Carbon Dioxide (22-32) mmol/L BUN (9-20) mg/dL Creatinine (0.66-1.25) mg/dL Estimated GFR (>60) mL/min BUN/Creatinine Ratio (6-22) Glucose (80-110) mg/dL Lactate 1.5 (0.7-2.1) mmol/L Calcium (8.4-10.2) mg/dL Total Bilirubin (0.2-1.3) mg/dL AST (17-59) IU/L ALT (<50) IU/L Alkaline Phosphatase (38-126) U/L Total Protein (6.3-8.2) g/dL Albumin (3.5-5.0) g/dL Globulin (1.7-4.1) g/dL Albumin/Globulin Ratio (1.0-2.8) TSH (0.47-4.68) uIU/mL Prolactin (3.7-17.9) ng/mL Urine Color Urine Appearance Urine pH (4.5-8.0) Ur Specific [place] (1.000-1.035) Urine Protein (Negative) Urine Glucose (UA) (Negative) g/dL Urine Ketones (NEGATIVE) Urine Occult Blood (Negative) Urine Nitrate (Negative) Urine Bilirubin (NEGATIVE) Urine Urobilinogen (0.2) E.U./dL Ur Leukocyte Esterase (NEGATIVE) Urine RBC (0-5/HPF) Urine WBC (0-5/HPF) Urine Bacteria (None) Urine Mucus (Negative) Ur Culture Indicated? Salicylates (<20) mg/dL U Opiates 300ng/mL cut (Negative) Ur Oxycodone Screen (Negative) Urine Methadone Screen (Negative) Acetaminophen (10-30) ug/mL Ur Barbiturates Screen (Negative) U Tricyclic Antidepress (Negative) Ur Phencyclidine Scrn (Negative) Ur Amphetamines Screen (Negative) U Methamphetamines Scrn (Negative) Ur MDMA Scrn (Ecstasy) (Negative) U Benzodiazepines Scrn (Negative) Urine Cocaine Screen (Negative) U Marijuana (THC) Screen (Negative) Ethyl Alcohol ( - 10) mg/dL Point of Care Testing Glucose POC [address] scan - head: Radiologist's Impression: No acute intracranial abnormality <Brien Vora MD - Last Filed: 10/12/19 07:57> Lab Data Labs: Lab Results 10/11/19 10/11/19 10/11/19 Range/Units 05:15 05:15 05:15 WBC 10.9 (4.5-11.0) X10^3/uL RBC 4.63 (4.5-5.9) X10^6/uL Hgb 15.3 (13.5-17.5) g/dL Hct 43.9 (41-53) % MCV 94.9 (80-100) fL MCH 33.1 (26-34) PG MCHC 34.9 (30-36) % RDW 13.0 (11.6-14.8) % Plt Count 192 (150-400) X10^3/uL Neut % (Auto) 85.0 H (50-75) % Lymph % (Auto) 8.0 L (25-40) % [place] % (Auto) 5.7 (3-14) % Eos % (Auto) 0.6 L (2-4) % Baso % (Auto) 0.7 (0-2) % Neut # (Auto) 9200 H (4170-3604) /uL Lymph # (Auto) 900 L (0630-2365) /uL [place] # (Auto) 600 (0-900) /uL Eos # (Auto) 100 (0-450) /uL Baso # (Auto) 100 (0-100) /uL PT 12.8 H (10.1-12.7) SECONDS INR 1.1 (0.9-1.3) APTT 28 (26.4-36.2) SECONDS Sodium 139 (137-145) mmol/L Potassium 4.2 (3.4-5.1) mmol/L Chloride 103 (98-107) mmol/L Carbon Dioxide 28 (22-32) mmol/L BUN 13 (9-20) mg/dL Creatinine 0.70 (0.66-1.25) mg/dL Estimated GFR > 60.0 (>60) mL/min BUN/Creatinine Ratio 18.6 (6-22) Glucose 114 H (80-110) mg/dL Lactate (0.7-2.1) mmol/L Calcium 10.0 (8.4-10.2) mg/dL Total Bilirubin 1.0 (0.2-1.3) mg/dL AST 28 (17-59) IU/L ALT 26 (<50) IU/L Alkaline Phosphatase 100 (38-126) U/L Total Protein 7.7 (6.3-8.2) g/dL Albumin 4.5 (3.5-5.0) g/dL Globulin 3.2 (1.7-4.1) g/dL Albumin/Globulin Ratio 1.4 (1.0-2.8) TSH (0.47-4.68) uIU/mL Prolactin 23.6 H (3.7-17.9) ng/mL Urine Color Urine Appearance Urine pH (4.5-8.0) Ur Specific [place] (1.000-1.035) Urine Protein (Negative) Urine Glucose (UA) (Negative) g/dL Urine Ketones (NEGATIVE) Urine Occult Blood (Negative) Urine Nitrate (Negative) Urine Bilirubin (NEGATIVE) Urine Urobilinogen (0.2) E.U./dL Ur Leukocyte Esterase (NEGATIVE) Urine RBC (0-5/HPF) Urine WBC (0-5/HPF) Urine Bacteria (None) Urine Mucus (Negative) Ur Culture Indicated? Salicylates < 1.0 (<20) mg/dL U Opiates 300ng/mL cut (Negative) Ur Oxycodone Screen (Negative) Urine Methadone Screen (Negative) Acetaminophen < 10 L (10-30) ug/mL Ur Barbiturates Screen (Negative) U Tricyclic Antidepress (Negative) Ur Phencyclidine Scrn (Negative) Ur Amphetamines Screen (Negative) U Methamphetamines Scrn (Negative) Ur MDMA Scrn (Ecstasy) (Negative) U Benzodiazepines Scrn (Negative) Urine Cocaine Screen (Negative) U Marijuana (THC) Screen (Negative) Ethyl Alcohol < 10 ( - 10) mg/dL 10/11/19 10/11/19 10/11/19 Range/Units 05:15 05:30 05:30 WBC (4.5-11.0) X10^3/uL RBC (4.5-5.9) X10^6/uL Hgb (13.5-17.5) g/dL Hct (41-53) % MCV (80-100) fL MCH (26-34) PG MCHC (30-36) % RDW (11.6-14.8) % Plt Count (150-400) X10^3/uL Neut % (Auto) (50-75) % Lymph % (Auto) (25-40) % [place] % (Auto) (3-14) % Eos % (Auto) (2-4) % Baso % (Auto) (0-2) % Neut # (Auto) (6906-7129) /uL Lymph # (Auto) (0541-0924) /uL [place] # (Auto) (0-900) /uL Eos # (Auto) (0-450) /uL Baso # (Auto) (0-100) /uL PT (10.1-12.7) SECONDS INR (0.9-1.3) APTT (26.4-36.2) SECONDS Sodium (137-145) mmol/L Potassium (3.4-5.1) mmol/L Chloride (98-107) mmol/L Carbon Dioxide (22-32) mmol/L BUN (9-20) mg/dL Creatinine (0.66-1.25) mg/dL Estimated GFR (>60) mL/min BUN/Creatinine Ratio (6-22) Glucose (80-110) mg/dL Lactate (0.7-2.1) mmol/L Calcium (8.4-10.2) mg/dL Total Bilirubin (0.2-1.3) mg/dL AST (17-59) IU/L ALT (<50) IU/L Alkaline Phosphatase (38-126) U/L Total Protein (6.3-8.2) g/dL Albumin (3.5-5.0) g/dL Globulin (1.7-4.1) g/dL Albumin/Globulin Ratio (1.0-2.8) TSH 5.28 H (0.47-4.68) uIU/mL Prolactin (3.7-17.9) ng/mL Urine Color Yellow Urine Appearance Clear Urine pH 6.5 (4.5-8.0) Ur Specific [place] 1.020 (1.000-1.035) Urine Protein 1+ H (Negative) Urine Glucose (UA) Negative (Negative) g/dL Urine Ketones 1+ H (NEGATIVE) Urine Occult Blood 1+ H (Negative) Urine Nitrate Negative (Negative) Urine Bilirubin Negative (NEGATIVE) Urine Urobilinogen 0.2 (0.2) E.U./dL Ur Leukocyte Esterase Negative (NEGATIVE) Urine RBC 1-5/hpf (0-5/HPF) Urine WBC 0-1/hpf (0-5/HPF) Urine Bacteria None seen (None) Urine Mucus 1+ H (Negative) Ur Culture Indicated? Cult not indicated Salicylates (<20) mg/dL U Opiates 300ng/mL cut Negative (Negative) Ur Oxycodone Screen Negative (Negative) Urine Methadone Screen Negative (Negative) Acetaminophen (10-30) ug/mL Ur Barbiturates Screen Negative (Negative) U Tricyclic Antidepress Negative (Negative) Ur Phencyclidine Scrn Negative (Negative) Ur Amphetamines Screen Negative (Negative) U Methamphetamines Scrn Negative (Negative) Ur MDMA Scrn (Ecstasy) Negative (Negative) U Benzodiazepines Scrn Positive H (Negative) Urine Cocaine Screen Negative (Negative) U Marijuana (THC) Screen Negative (Negative) Ethyl Alcohol ( - 10) mg/dL 10/11/19 Range/Units 05:35 WBC (4.5-11.0) X10^3/uL RBC (4.5-5.9) X10^6/uL Hgb (13.5-17.5) g/dL Hct (41-53) % MCV (80-100) fL MCH (26-34) PG MCHC (30-36) % RDW (11.6-14.8) % Plt Count (150-400) X10^3/uL Neut % (Auto) (50-75) % Lymph % (Auto) (25-40) % [place] % (Auto) (3-14) % Eos % (Auto) (2-4) % Baso % (Auto) (0-2) % Neut # (Auto) (3142-4432) /uL Lymph # (Auto) (1371-1828) /uL [place] # (Auto) (0-900) /uL Eos # (Auto) (0-450) /uL Baso # (Auto) (0-100) /uL PT (10.1-12.7) SECONDS INR (0.9-1.3) APTT (26.4-36.2) SECONDS Sodium (137-145) mmol/L Potassium (3.4-5.1) mmol/L Chloride (98-107) mmol/L Carbon Dioxide (22-32) mmol/L BUN (9-20) mg/dL Creatinine (0.66-1.25) mg/dL Estimated GFR (>60) mL/min BUN/Creatinine Ratio (6-22) Glucose (80-110) mg/dL Lactate 1.5 (0.7-2.1) mmol/L Calcium (8.4-10.2) mg/dL Total Bilirubin (0.2-1.3) mg/dL AST (17-59) IU/L ALT (<50) IU/L Alkaline Phosphatase (38-126) U/L Total Protein (6.3-8.2) g/dL Albumin (3.5-5.0) g/dL Globulin (1.7-4.1) g/dL Albumin/Globulin Ratio (1.0-2.8) TSH (0.47-4.68) uIU/mL Prolactin (3.7-17.9) ng/mL Urine Color Urine Appearance Urine pH (4.5-8.0) Ur Specific [place] (1.000-1.035) Urine Protein (Negative) Urine Glucose (UA) (Negative) g/dL Urine Ketones (NEGATIVE) Urine Occult Blood (Negative) Urine Nitrate (Negative) Urine Bilirubin (NEGATIVE) Urine Urobilinogen (0.2) E.U./dL Ur Leukocyte Esterase (NEGATIVE) Urine RBC (0-5/HPF) Urine WBC (0-5/HPF) Urine Bacteria (None) Urine Mucus (Negative) Ur Culture Indicated? Salicylates (<20) mg/dL U Opiates 300ng/mL cut (Negative) Ur Oxycodone Screen (Negative) Urine Methadone Screen (Negative) Acetaminophen (10-30) ug/mL Ur Barbiturates Screen (Negative) U Tricyclic Antidepress (Negative) Ur Phencyclidine Scrn (Negative) Ur Amphetamines Screen (Negative) U Methamphetamines Scrn (Negative) Ur MDMA Scrn (Ecstasy) (Negative) U Benzodiazepines Scrn (Negative) Urine Cocaine Screen (Negative) U Marijuana (THC) Screen (Negative) Ethyl Alcohol ( - 10) mg/dL Point of Care Testing Glucose POC 105 Discharge Plan Departure Patient Disposition: Home Clinical Impression: Generalized seizure Discharge Date/Time: 10/11/19 12:10 Instructions: DI for Seizure Disorder -- Adult Activity Restrictions/Additional Instructions: *You have been diagnosed with [breakthrough seizure] *What to do: *Take medications as directed *Follow up with your primary care provider in 2-3 days, call for an appointment. Let them know you were seen in the Emergency Department and that we ask that you be seen in follow up *Return to ER if you should have any new, worsening or concerning symptoms For 4 year seizures take Keppra 500 mg twice a day. Prescriptions: New levetiracetam [Keppra] 500 mg tablet 500 mg PO Q12H Qty: 30 RF: 1 No Action omeprazole 20 mg Capsule,Delayed Release(Dr/Ec) 20 mg PO DAILY RF: 0 propranolol 10 mg Tablet 10 mg PO BID RF: 0 tamsulosin 0.4 mg Capsule 0.4 mg PO DAILY RF: 0 <Brien Vora MD - Last Filed: 10/12/19 07:57> [facility]: Report was received from at 0710. Dr. Mujica states that the patient is a do not resuscitate limited interventions. Dr. Mujica mention that the patient was seen node and minimally responsive and thought that this was all secondary to a postictal state. At this time the patient is awake and asking for something to drink. Review of the patient's record reveals an INR of 1.1 a glucose of 114, normal electrolytes lactate 1.5, normal liver function tests, prolactin is elevated 23.6, TSH elevated at 5.28, normal urinalysis normal CT of the his head which does not reveal any acute hemorrhage and in normal chest x-ray. The plan is to discharge the patient back to his residence and [facility]. 0837: The patient is here with his son. His son is unaware that he has had seizures before. To his knowledge this is the 1st seizure that he has had. His son states that he is not on any anticonvulsant medications to his knowledge. Review of the patient's medical records reveals that the patient is on baclofen 10 mg half a tablet b.i.d. for muscle spasms gabapentin 100 mg q.a.m.. There are no other recorded anticonvulsants. The son states that he is more sleepy than normal. He he states that normally he is awake and able to talk and c onverse. The patient however was asking for water to drink and has been answering questions. He has a little bit a quivering of his lips. The patient has dry blood on his lips and has a bite chet to the right tip of his tongue consistent with a seizure. Pupils are equal round and reactive. Lungs are clear and symmetrical. Heart is regular rhythm and rate without murmur. Abdomen is soft and nontender. In the field the patient received 5 mg of Versed. The patient will be administered a loading dose of Keppra 1 g IV and then the patient will be placed on oral Keppra to prevent seizures. The plan is to discharge the patient back to his residence.
[2019-10-11 05:23] LABS: Add Manual Diff / Slide Review NO; Basophils Absolute Auto 100 /uL (0-100); Basophils Percent Auto 0.7 % (0-2); Eosinophils Absolute Auto 100 /uL (0-450); Eosinophils Percent Auto 0.6 % (2-4); Hematocrit 43.9 % (41-53); Hemoglobin 15.3 g/dL (13.5-17.5); Lymphocytes Absolute Auto 900 /uL (1100-4500); Mean Corpuscular HGB Conc 34.9 % (30-36); Mean Corpuscular Hemoglobin 33.1 PG (26-34); Mean Corpuscular Volume 94.9 fL (80-100); Monocytes Absolute Auto 600 /uL (0-900); Monocytes Percent Auto 5.7 % (3-14); Neutrophils Absolute Auto 9200 /uL (1500-7000); Platelet Count 192 X10^3/uL (150-400); Red Blood Cell Count 4.63 X10^6/uL (4.5-5.9); White Blood Cell Count 10.9 X10^3/uL (4.5-11.0)
[2019-10-11 05:25] LABS: INR 1.1 (0.9-1.3); Prothrombin Time 12.8 SECONDS (10.1-12.7)
[2019-10-11 05:28] LABS: PTT Partial Thromboplastin Tim 28 SECONDS (26.4-36.2)
[2019-10-11 05:30] LABS: Acetaminophen < 10 ug/mL (10-30); Alanine Aminotransferase 26 IU/L (<50); Albumin 4.5 g/dL (3.5-5.0); Albumin Globulin Ratio 1.4 (1.0-2.8); Alkaline Phosphatase 100 U/L (38-126); Aspartate Aminotransferase 28 IU/L (17-59); BUN Creatinine Ratio 18.6 (6-22); Blood Urea Nitrogen 13 mg/dL (9-20); Carbon Dioxide 28 mmol/L (22-32); Chloride 103 mmol/L (98-107); Estimated Glomerular Filt Rate > 60.0 mL/min (>60); Ethanol (ETOH) < 10 mg/dL; Globulin 3.2 g/dL (1.7-4.1); Glucose 114 mg/dL (80-110); HEMOLYSIS 18 (0-50); Potassium 4.2 mmol/L (3.4-5.1); Salicylate < 1.0 mg/dL (<20); Sodium 139 mmol/L (137-145); Total Protein 7.7 g/dL (6.3-8.2)
[2019-10-11 05:37] LABS: Bacteria Urine None Seen
[2019-10-11 05:39] LABS: Appearance Urine UA CLEAR; Bilirubin Urine UA NEGATIVE (NEGATIVE); Color Urine UA YELLOW; Glucose Urine UA NEGATIVE (Negative); Ketones Urine UA 1+ (NEGATIVE); Leukocyte Esterase Urine UA NEGATIVE (NEGATIVE); Nitrite Urine UA NEGATIVE (Negative); Occult Blood Urine UA 1+ (Negative); Protein Urine UA 1+ (Negative); Urobilinogen Urine UA 0.2 E.U./dL (0.2); pH Urine UA 6.5 (4.5-8.0)
[2019-10-11 05:46] LABS: Prolactin 23.6 ng/mL (3.7-17.9)
[2019-10-11 05:47] LABS: Ur Creatinine 20 (Normal); Urine pH 6.5 (Normal)
[2019-10-11 05:48] LABS: UR Morphine/Opiate cutoff 300 Negative (Negative); Urine Amphetamines Negative (Negative); Urine Barbiturates Negative (Negative); Urine Benzodiazepines Positive (Negative); Urine Cocaine Negative (Negative); Urine MDMA Negative (Negative); Urine Methadone Negative (Negative); Urine Methamphetamines Negative (Negative); Urine Oxycodone Negative (Negative); Urine Phencyclidine Negative (Negative); Urine Tetrahydrocannabinol Negative (Negative); Urine Tricyclic Antidepressant Negative (Negative)
[2019-10-11 05:52] LABS: Lactate (Lactic Acid) 1.5 mmol/L (0.7-2.1)
[2019-10-11 06:04] LABS: Culture Indicated Urine Cult Not Indicated; Mucus Urine 1+ (Negative); RBC Urine 1-5/HPF (0-5/HPF); WBC Urine 0-1/HPF (0-5/HPF)
[2019-10-11 06:08] LABS: Thyroid Stimulating Hormone 5.28 uIU/mL (0.47-4.68)
--- NOTE | 2019-10-11 06:13 | PC.NURSE ---
Pt is now waking up. When asked how he is doing, pt stated, sleepy.
[2019-10-11] MEDS: SODIUM CHLORIDE 0.9% 1,000 ML 150 ML IV (06:26)
--- NOTE | 2019-10-11 06:35 | DI.RAD.S_ITS ---
PROCEDURE: XR CHEST 1V INDICATIONS: hypoxia, possible aspiration TECHNIQUE: One view of the chest was acquired. COMPARISON: None. FINDINGS: Surgical changes and devices: None. Lungs and pleura: The vague areas of increased density within the medial right lung base and the infrahilar region on the left is evident. There is no effusion or pneumothorax appreciated. Mediastinum: Mediastinal contours appear normal. Heart size is normal. Bones and chest wall: No suspicious bony lesions. Overlying soft tissues appear unremarkable. IMPRESSION: Mild bibasilar airspace disease may represent atelectasis or pneumonia. Superimposed aspiration is difficult to exclude. Dictated by: Jamey Starr M.D. on 10/11/2019 at 7:56 Approved by: Jamey Starr M.D. on 10/11/2019 at 7:57
[2019-10-11] MEDS: levETIRAcetam 1,000 MG in SODIUM CHLORIDE 0.9% 100 ML 440 ML IV (09:07)
== END 2019-10-11 12:10 | disposition home or self-care (01) ==
PROVIDERS: Emergency Provider Emergency Medicine
DX: R56.9 Unspecified convulsions (principal); K21.9 Gastro-esophageal reflux disease without esophagitis; G20 Parkinson's disease; R11.10 Vomiting, unspecified
CPT/HCPCS: 36415; 51701; 70450; 71045; 80053; 80305; 80320; 80329; 81001; 82962; 83605; 84146; 84443; 85025; 85610; 85730; 93005; 96365; 99285; G0480; J1953

== ENCOUNTER 2019-10-12 18:34 | Inpatient (IN) | payer OTHER, SELFPAY ==
[2019-10-12] VITALS (7 sets, daily range): BP systolic 161–178; BP diastolic 96–112; PULSE 71–79; RESP 16–22; TEMP 37.5–38.5; O2SAT 93–95
--- NOTE | 2019-10-12 18:46 | ED_ITS ---
HPI - General Adult General Chief complaint: Fever Stated complaint: altered mental status, fever to 103 Time Seen by Provider: 10/12/19 18:40 Source: family and EMS Mode of arrival: EMS Limitations: altered mental status History of Present Illness HPI narrative: Patient is a 74-year-old male. 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 Comes from [facility] living. Is on anticoagulation. Was seen here in the emergency department approximately 36 hours ago after having what appeared to be seizure-like activity. He does have a history of seizures but at that time was not on any anti seizure medications. Was given Keppra. Was discharged home. According to that note was concerned about potential aspiration. She reported by EMS that they were called secondary to altered mental status and also a fever. There was no reported seizure-like activity during this time. Unable to get any HPI from the patient. Related Data Home Medications Medication Instructions Recorded Confirmed omeprazole 20 mg PO DAILY 04/24/19 04/24/19 propranolol 10 mg PO BID 04/24/19 04/24/19 tamsulosin 0.4 mg PO DAILY 04/24/19 04/24/19 Previous Rx's Medication Instructions Recorded levetiracetam [Keppra] 500 mg PO Q12H #30 tab 10/11/19 Allergies Allergy/AdvReac Type Severity Reaction Status Date / Time antivenin,crotalidae Allergy Verified 10/12/19 19:41 polyvalent imm Review of Systems Review of Systems ROS Unobtainable: Unobtainable due to mental status/LOC Patient History Medical History BPH (benign prostatic hyperplasia) (Acute) CVA (cerebral vascular accident) (Inactive) Generalized seizure (Inactive) GERD (gastroesophageal reflux disease) (Acute) Paroxysmal atrial fibrillation (Acute) Surgical History History of esophagogastroduodenoscopy (EGD) (Acute) Social History household members: children and other Smoking Status: Former smoker alcohol intake: current Smoking Status: Former smoker alcohol intake frequency: a few times a month Substance Use Type: does not use Exam Initial Vital Signs Initial Vital Signs: Vital Signs Temperature 101.2 F H 10/12/19 18:36 Pulse Rate 76 10/12/19 18:36 Respiratory Rate 20 10/12/19 18:36 Blood Pressure 174/104 H 10/12/19 18:36 Pulse Oximetry 93 10/12/19 18:36 Const General: comfortable and diaphoretic Limitations: altered mental status [facility] Head: normal to inspection and normocephalic Nose: external nose normal Eyes Pupils: PERRL Resp Effort & Inspection: normal respiratory effort Auscultation: clear to auscultation bilaterally Cardio Rate: regular rate Rhythm: regular rhythm Pulses: radial pulses present GI Inspection: non-distended Palpation: soft Skin General: no rashes or lesions noted Lesions: no lesions Rashes: no rashes Neuro General: patient awake Other: The patient can squeeze with his right hand. Does make the effort doing a thumbs up maneuver with his right hand. Has minimal if any movement/squeeze with his left hand however his daughter bedside states this is potentially baseline for him. He does wiggle toes on both of his feet. Unable to lift his legs up off the bed. Extrem General: normal to inspection and capillary refill normal Psych Appearance: well kempt Scores GCS Scottie coma scale eye opening: Spontaneous Scottie coma scale verbal response: None Scottie coma scale motor response: Obey commands [place] coma scale total score: 11 Course Orders Ordered: ED Orders 10/12/19 18:50 Ammonia (NH3) Stat Blood Culture Stat Complete Blood Count AUTO DIFF Stat Ethanol (ETOH) Stat Lactate (Lactic Acid) Stat Lipase Stat Procalcitonin Stat Prolactin Stat 10/12/19 19:04 CT head/brain wo con Stat 10/12/19 19:05 XR chest 1V Stat Acetaminophen (Tylenol) 650 mg FL Q4HR PRN PRN Reason: Fever/Mild Pain (1-3) Bisacodyl (Dulcolax) 10 mg FL DAILY PRN PRN Reason: Constipation Last Admin: 10/12/19 22:29 Dose: 10 mg Documented by: CWHITE Enoxaparin Sodium (Lovenox) 40 mg SUBCUT DAILY ROHITH Sodium Chloride (Normal Saline 0.9%) 1,000 mls @ 150 mls/hr IV CONT ROHITH Last Admin: 10/12/19 22:10 Dose: 100 mls/hr Documented by: JULIANTE Piperacillin/Tazobactam/Dextrose (Zosyn) 3.375 gm in 50 mls @ 100 mls/hr IV Q6H [facility] Levetiracetam 500 mg/ Sodium (Chloride) 105 mls @ 420 mls/hr IV Q12HR [facility] Last Infusion: 10/12/19 23:42 Dose: 0 mls/hr Documented by: Admin: 10/12/19 22:48 Dose: 420 mls/hr Documented by: ADELA Lorazepam (Ativan) 1 mg IV PRN PRN PRN Reason: Seizure Activity Metoprolol Tartrate (Lopressor) 5 mg IV Q6H [facility] Last Admin: 10/12/19 22:10 Dose: 5 mg Documented by: ADELA Naloxone HCl (Narcan) 0.2 mg IV Q2MIN PRN PRN Reason: Opiate Reversal Ondansetron HCl (Zofran) 4 mg IV Q8HR PRN PRN Reason: Nausea And Vomiting Pantoprazole Sodium (Protonix) 20 mg IV DAILY [facility] Propranolol HCl (Inderal) 10 mg PO BID [facility] Last Admin: 10/12/19 22:16 Dose: Not Given Documented by: ADELA Tamsulosin HCl (Flomax) 0.4 mg PO DAILY [facility] Discontinued Medications Acetaminophen (Tylenol) 650 mg FL NOW ONE Stop: 10/12/19 19:14 Last Admin: 10/12/19 19:40 Dose: 650 mg Documented by: IONA Sodium Chloride (Normal Saline 0.9%) 1,000 mls @ 100 mls/hr IV CONT [facility] Last Infusion: 10/12/19 21:00 Dose: 0 mls/hr Documented by: Admin: 10/12/19 19:41 Dose: 100 mls/hr Documented by: IONA Piperacillin/Tazobactam/Dextrose (Zosyn) 4.5 gm in 100 mls @ 200 mls/hr IV NOW ONE Stop: 10/12/19 20:02 Last Infusion: 10/12/19 20:32 Dose: 0 mls/hr Documented by: Admin: 10/12/19 19:40 Dose: 200 mls/hr Documented by: IONA Labetalol HCl (Trandate) 10 mg IV Q4HR PRN PRN Reason: Hypertension Vital Signs Vital signs: Vital Signs - 8 hr 10/12/19 18:36 10/12/19 18:57 10/12/19 19:34 Temperature 101.2 F H Pulse Rate 76 79 74 Respiratory Rate 20 22 20 Blood Pressure 174/104 H Blood Pressure [Right Arm] 177/112 H 178/108 H Pulse Oximetry 93 93 95 10/12/19 19:40 Temperature 101.3 F H Pulse Rate Respiratory Rate Blood Pressure Blood Pressure [Right Arm] Pulse Oximetry Medical Decision Making Lab Data Lab results reviewed: Yes I reviewed the patient's lab results. Result diagrams: 10/12/19 18:50 10/12/19 18:50 Labs: Lab Results 10/12/19 10/12/19 10/12/19 Range/Units 18:50 18:50 18:50 WBC 9.6 (4.5-11.0) X10^3/uL RBC 4.13 L (4.5-5.9) X10^6/uL Hgb 13.9 (13.5-17.5) g/dL Hct 38.6 L (41-53) % MCV 93.6 (80-100) fL MCH 33.6 (26-34) PG MCHC 35.9 (30-36) % RDW 13.0 (11.6-14.8) % Plt Count 173 (150-400) X10^3/uL Neut % (Auto) 85.2 H (50-75) % Lymph % (Auto) 8.5 L (25-40) % Dodge % (Auto) 6.1 (3-14) % Eos % (Auto) 0.0 L (2-4) % Baso % (Auto) 0.2 (0-2) % Neut # (Auto) 8200 H (4719-4116) /uL Lymph # (Auto) 800 L (6727-9840) /uL Dodge # (Auto) 600 (0-900) /uL Eos # (Auto) 0 (0-450) /uL Baso # (Auto) 0 (0-100) /uL Sodium (137-145) mmol/L Potassium (3.4-5.1) mmol/L Chloride (98-107) mmol/L Carbon Dioxide (22-32) mmol/L BUN (9-20) mg/dL Creatinine (0.66-1.25) mg/dL Estimated GFR (>60) mL/min BUN/Creatinine Ratio (6-22) Glucose (80-110) mg/dL Lactate 1.1 (0.7-2.1) mmol/L Calcium (8.4-10.2) mg/dL Ammonia (9-30) umol/L Lipase (23-300) U/L Procalcitonin 7.62 H (<0.5) ng/mL Prolactin (3.7-17.9) ng/mL Ethyl Alcohol ( - 10) mg/dL 10/12/19 10/12/19 10/12/19 Range/Units 18:50 18:50 18:50 WBC (4.5-11.0) X10^3/uL RBC (4.5-5.9) X10^6/uL Hgb (13.5-17.5) g/dL Hct (41-53) % MCV (80-100) fL MCH (26-34) PG MCHC (30-36) % RDW (11.6-14.8) % Plt Count (150-400) X10^3/uL Neut % (Auto) (50-75) % Lymph % (Auto) (25-40) % Dodge % (Auto) (3-14) % Eos % (Auto) (2-4) % Baso % (Auto) (0-2) % Neut # (Auto) (9389-0714) /uL Lymph # (Auto) (7105-9260) /uL Dodge # (Auto) (0-900) /uL Eos # (Auto) (0-450) /uL Baso # (Auto) (0-100) /uL Sodium 137 (137-145) mmol/L Potassium 3.6 (3.4-5.1) mmol/L Chloride 103 (98-107) mmol/L Carbon Dioxide 24 (22-32) mmol/L BUN 24 H (9-20) mg/dL Creatinine 0.75 (0.66-1.25) mg/dL Estimated GFR > 60.0 (>60) mL/min BUN/Creatinine Ratio 32.0 H (6-22) Glucose 132 H (80-110) mg/dL Lactate (0.7-2.1) mmol/L Calcium 10.0 (8.4-10.2) mg/dL Ammonia 9 (9-30) umol/L Lipase 26 (23-300) U/L Procalcitonin (<0.5) ng/mL Prolactin 13.6 (3.7-17.9) ng/mL Ethyl Alcohol < 10 ( - 10) mg/dL Imaging Data CT scan - head: Radiologist's Impression: [address] [address] [address] Scan Report Signed Patient: Tian Lobato FOSTERR#: [id number] : [id number]:[id number] Age/Sex: 74 / MDate of Service: 10/12/19 Loc: ED Accession Number: [id number] Procedure: CT head/brain wo con Ordering Provider: Dereje Camp D.O. PROCEDURE: CT HEAD/BRAIN WO CON INDICATIONS: Altered mental status TECHNIQUE: Noncontrast 4.5 mm thick angled axial sections acquired from the foramen magnum to the vertex, with coronal and sagittal reformats. For radiation dose reduction, the following was used: automated exposure control, adjustment of mA and/or kV according to patient size. COMPARISON: [facility], CT, CT HEAD/BRAIN WO CON, 10/11/2019, 5:22. FINDINGS: Image quality: Excellent. CSF spaces: Basal cisterns are patent. No extra-axial fluid collections. The ventricles are symmetric in size and shape. Brain: No intracranial bleeds or masses. There is cerebral volume loss for age, with resultant ventricular and sulcal prominence. There are periventricular and deep white matter chronic small vessel ischemic changes. There is intracranial internal carotid artery atherosclerosis. Skull and face: Calvarium and visualized facial bones appear intact, without suspicious lesions. Sinuses: Visualized sinuses and mastoids are clear. IMPRESSION: 1. No acute intracranial process. No interval change. 2. Moderate to severe atrophy and chronic microvascular ischemic changes. Dictated by: Farzaneh Tiwari M.D. on 10/12/2019 at 19:44 Approved by: Farzaneh Tiwari M.D. on 10/12/2019 at 19:46 Chest x-ray: Radiologist's Impression: [address] [address] XRay Report Signed Patient: Joy Lobatoyessica MONCADA#: [id number] : 7Acct:[id number] Age/Sex: 74 / MDate of Service: 10/12/19 Loc: ED Accession Number: [id number] Procedure: XR chest 1V Ordering Provider: Dereje Camp D.O. PROCEDURE: XR CHEST 1V INDICATIONS: Evaluate for pneumonia TECHNIQUE: One view of the chest was acquired. COMPARISON: [facility], , XR CHEST 1V, 10/11/2019, 7:00. FINDINGS: Surgical changes and devices: None. Lungs and pleura: Lungs are clear. No pleural effusions or pneumothorax. Mediastinum: Mediastinal contours appear normal. Heart size is normal. Bones and chest wall: No suspicious bony lesions. Overlying soft tissues appear unremarkable. IMPRESSION: No acute pulmonary process. Dictated by: Farzaneh Tiwari M.D. on 10/12/2019 at 19:54 Approved by: Farzaneh Tiwari M.D. on 10/12/2019 at 19:55 MDM Narrative Medical decision making narrative: Patient is febrile, normal white blood cell count however does have an elevated procalcitonin. Do have suspicion for aspiration pneumonia given the reports from his note during his prior ED stay. Was given antibiotics. Had a discussion with the patient's daughter who is his power traffic law attorney at bedside. States the patient would be okay with CT scans to evaluate for potential causes and also okay with antibiotics and fluids. She did agree that he would not want any cardiopulmonary resuscitation. Patient did not speak during his time here in the ER. He was following commands would squeeze with his right upper extremity. Discussed the case with BRYON Estrella the [facility] provider. Will admit for further evaluation and treatment. Discussed admission with the patient's daughter. She expressed understanding and agreement. Discharge Plan Departure Patient Disposition: Admitted As Inpatient Clinical Impression: Altered mental status Qualifiers: Altered mental status type: unspecified Qualified Code(s): R41.82 - Altered mental status, unspecified Fever Qualifiers: Fever type: unspecified Qualified Code(s): R50.9 - Fever, unspecified Discharge Date/Time: 10/12/19 21:00 Admit Date/Time: 10/12/19 20:16 Admit Provider: Noble Estrella
--- NOTE | 2019-10-12 18:52 | PC.NURSE ---
patient in room with daughter Melva at bedside talking to Dr. Rich. Pt is unable to verbalize questions. He is diaphoretic. He responds to verbal commands and can shake his yes or no. He has left sided weakness. He is able to move his eyes around the room and tracts appropriately.
--- NOTE | 2019-10-12 19:04 | DI.CT.S_ITS ---
PROCEDURE: CT HEAD/BRAIN WO CON INDICATIONS: Altered mental status TECHNIQUE: Noncontrast 4.5 mm thick angled axial sections acquired from the foramen magnum to the vertex, with coronal and sagittal reformats. For radiation dose reduction, the following was used: automated exposure control, adjustment of mA and/or kV according to patient size. COMPARISON: [facility], CT, CT HEAD/BRAIN WO CON, 10/11/2019, 5:22. FINDINGS: Image quality: Excellent. CSF spaces: Basal cisterns are patent. No extra-axial fluid collections. The ventricles are symmetric in size and shape. Brain: No intracranial bleeds or masses. There is cerebral volume loss for age, with resultant ventricular and sulcal prominence. There are periventricular and deep white matter chronic small vessel ischemic changes. There is intracranial internal carotid artery atherosclerosis. Skull and face: Calvarium and visualized facial bones appear intact, without suspicious lesions. Sinuses: Visualized sinuses and mastoids are clear. IMPRESSION: 1. No acute intracranial process. No interval change. 2. Moderate to severe atrophy and chronic microvascular ischemic changes. Dictated by: Farzaneh Tiwari M.D. on 10/12/2019 at 19:44 Approved by: Farzaneh Tiwari M.D. on 10/12/2019 at 19:46
--- NOTE | 2019-10-12 19:05 | DI.RAD.S_ITS ---
PROCEDURE: XR CHEST 1V INDICATIONS: Evaluate for pneumonia TECHNIQUE: One view of the chest was acquired. COMPARISON: [facility], CR, XR CHEST 1V, 10/11/2019, 7:00. FINDINGS: Surgical changes and devices: None. Lungs and pleura: Lungs are clear. No pleural effusions or pneumothorax. Mediastinum: Mediastinal contours appear normal. Heart size is normal. Bones and chest wall: No suspicious bony lesions. Overlying soft tissues appear unremarkable. IMPRESSION: No acute pulmonary process. Dictated by: Farzaneh Tiwari M.D. on 10/12/2019 at 19:54 Approved by: Farzaneh Tiwari M.D. on 10/12/2019 at 19:55
[2019-10-12 19:14] LABS: Add Manual Diff / Slide Review NO; Basophils Absolute Auto 0 /uL (0-100); Basophils Percent Auto 0.2 % (0-2); Eosinophils Absolute Auto 0 /uL (0-450); Hematocrit 38.6 % (41-53); Hemoglobin 13.9 g/dL (13.5-17.5); Lymphocytes Absolute Auto 800 /uL (1100-4500); Lymphocytes Percent Auto 8.5 % (25-40); Mean Corpuscular HGB Conc 35.9 % (30-36); Mean Corpuscular Hemoglobin 33.6 PG (26-34); Mean Corpuscular Volume 93.6 fL (80-100); Monocytes Absolute Auto 600 /uL (0-900); Monocytes Percent Auto 6.1 % (3-14); Neutrophils Absolute Auto 8200 /uL (1500-7000); Neutrophils Percent Auto 85.2 % (50-75); Platelet Count 173 X10^3/uL (150-400); Red Blood Cell Count 4.13 X10^6/uL (4.5-5.9); White Blood Cell Count 9.6 X10^3/uL (4.5-11.0)
[2019-10-12 19:20] LABS: Ammonia (NH3) 9 umol/L (9-30); Lactate (Lactic Acid) 1.1 mmol/L (0.7-2.1)
[2019-10-12 19:21] LABS: Ethanol (ETOH) < 10 mg/dL; Lipase 26 U/L (23-300)
--- NOTE | 2019-10-12 19:35 | PC.NURSE ---
patient was swabbed for covid and began to cough. He had vomit on his chin and gurgles were heard. His 02 sat dropped to 85%. His mouth was suctioned and he was cleaned up. His 02 saturation raised up to 93 on room air immediately.
[2019-10-12 19:38] LABS: Prolactin 13.6 ng/mL (3.7-17.9)
[2019-10-12 19:40] LABS: Procalcitonin 7.62 ng/mL (<0.5)
[2019-10-12] MEDS: ACETAMINOPHEN 650 MG SUPP PR (19:40)
[2019-10-12] MEDS: PIPERACILLIN-TAZO 4.5 GM/100 ML FROZ.PIGGY IV (19:40)
[2019-10-12] MEDS: SODIUM CHLORIDE 0.9% 1,000 ML 100 ML IV ×2 (19:41→22:10)
--- NOTE | 2019-10-12 19:57 | PC.NURSE ---
condom cath placed to obtain urine sample. Pt tolerated well
--- NOTE | 2019-10-12 20:50 | PC.NURSE ---
Pt is unable to answer safety questions. Daughter stated he verbalized feelings of safety at senior living facility.
--- NOTE | 2019-10-12 21:00 | P.HP_ITS ---
History of Present Illness History of Present Illness Date Patient Seen: 10/12/19 Time Patient Seen: 21:20 Chief complaint: altered mental status, fever to 103 Narrative: Mr. Tian Lobato is a 74-year-old male with a history significant for atrial fibrillation, right frontal CVA (05/11/2019), CVA and progressive neurological disorder consistent Parkinson's and history of [place] syndrome presents to the emergency department via EMS from half-way facility with the patient is residing post stroke for altered mental status and fever. The patient was seen in the ER on 10/11/2019 for witnessed persistent seizure activity at which time he did vomit and that was noticed there was suspicion for aspiration. This appears to have been a first-time seizure with no prior record seizure disorder or anticonvulsant medication. Patient was star trip on Keppra. The patient returned to baseline mentation which is conversant and discharged back to his care facility. Today the patient was to be altered, nonverbal and febrile and return to the ER for further evaluation. The patient is unable to provide subjective information and is found to be not is baseline per the daughter at the bedside in the emergency department. Upon arrival to the ER the patient is febrile with temperature of 11.3?, heart rate 71, blood pressure 175/102, respirations 16 saturating 95% on room air. A chest x-rays obtained which finds no acute cardiopulmonary processes. A CT of the head is obtained which finds no acute intracranial processes, no interval changes from CT 1 day ago, moderate to severe atrophy with chronic microvascular ischemic changes. Patient has a white count of 9.6 with increased neutrophils at 85.2%, hemoglobin of 13.9 hematocrit of 38.6 and platelets 172. Has lactic acid 1.1, ammonia of 9, lipase of 26 and a procalcitonin elevated at 7.62 and a normal prolactin at 13.6. While in the ED the patient had emesis with Covert swab followed by transient desaturation to 85% improved with suctioning. While in the ER the patient received Tylenol 650 mg p.r. in Zosyn 3.375 g IV following blood cultures. The patient is admitted to medicine service for altered mental status and aspiration pneumonia. Patient History Medical History (Updated 10/12/19 @ 21:11 by GUSTAVO Eisenberg) BPH (benign prostatic hyperplasia) (Acute) CVA (cerebral vascular accident) (Inactive) Generalized seizure (Inactive) GERD (gastroesophageal reflux disease) (Acute) Paroxysmal atrial fibrillation (Acute) Surgical History History of esophagogastroduodenoscopy (EGD) (Acute) Family & Social History Social History: household members children,other Safety & Behavioral: Feels Safe in Current Yes Environment Been Physically Hurt or No Threatened By a Person Tobacco & Substance use: Smoking Status Former smoker alcohol intake current alcohol intake frequency a few times a month Substance Use Type does not use Meds Home Medications and Allergies Home Medications Medication Instructions Recorded Confirmed Type omeprazole 20 mg PO DAILY 04/24/19 04/24/19 History propranolol 10 mg PO BID 04/24/19 04/24/19 History tamsulosin 0.4 mg PO DAILY 04/24/19 04/24/19 History levetiracetam [Keppra] 500 mg PO Q12H #30 tab 10/11/19 Rx Allergies Allergy/AdvReac Type Severity Reaction Status Date / Time antivenin,crotalidae Allergy Verified 10/12/19 19:41 polyvalent imm Review of Systems Review of Systems Narrative: The patient is nonverbal and unable to contribute to the medical record. ROS: Yes unobtainable due to mental status Exam Vital Signs (past 8 hours): - 10/12/19 18:36 10/12/19 18:57 10/12/19 19:34 Temperature 101.2 F H Pulse Rate 76 79 74 Respiratory Rate 20 22 20 Blood Pressure 174/104 H Blood Pressure [Right Arm] 177/112 H 178/108 H Pulse Oximetry 93 93 95 10/12/19 19:40 10/12/19 20:37 Temperature 101.3 F H Pulse Rate 71 Respiratory Rate 16 Blood Pressure Blood Pressure [Right Arm] 175/102 H Pulse Oximetry 95 Oxygen Delivery Method Room Air Narrative Exam Narrative: GENERAL APPEARANCE: well developed, cachectic appearing male who is nonverbal but respond to simple questions with head nod. HEENT: Left facial droop, PERRLA, conjunctiva clear, gaze tracts bilaterally without nystagmus, mucous membranes are moist and pink NECK/THYROID: Decreased range of motion, no JVD, no carotid bruit, no thyromegaly, trachea midline. LYMPH NODES: no cervical or supraclavicular lymphadenopathy. SKIN: [place], warm and dry, poor skin turgor, no visible lesions or rashes. HEART: regular rate and rhythm, S1-S2, no murmur, no rubs or gallops, 1+ dorsalis pedis pulses no edema LUNGS: Breath sounds with left basilar crackles, no coarseness or wheezing, no cough present CHEST: Symmetrical movement, no accessory muscle use, shallow tidal volume. ABDOMEN: Soft, no distention, no abdominal tenderness, no organomegaly, no flank or suprapubic tenderness, active bowel tones. EXTREMITIES: Left hemiparesis, non rhythmic twitching movements of the left arm, minimal movement of estremities 1/5 only on the right hand, left foot drop, decreased ROM left arm. NEUROLOGIC: Awake, non verbal, will barely nod head in response to questions, non rhythmic twitching possible spasticity of left arm, no nystagmus. PSYCH: unable to assess. Objective Labs Result Diagrams: 10/12/19 18:50 Labs: Laboratory Results - last 24 hr 10/12/19 10/12/19 10/12/19 18:50 18:50 18:50 WBC 9.6 RBC 4.13 L Hgb 13.9 Hct 38.6 L MCV 93.6 MCH 33.6 MCHC 35.9 RDW 13.0 Plt Count 173 Neut % (Auto) 85.2 H Lymph % (Auto) 8.5 L [place] % (Auto) 6.1 Eos % (Auto) 0.0 L Baso % (Auto) 0.2 Neut # (Auto) 8200 H Lymph # (Auto) 800 L [place] # (Auto) 600 Eos # (Auto) 0 Baso # (Auto) 0 Lactate 1.1 Ammonia Lipase Procalcitonin 7.62 H Prolactin Ethyl Alcohol 10/12/19 10/12/19 18:50 18:50 WBC RBC Hgb Hct MCV MCH MCHC RDW Plt Count Neut % (Auto) Lymph % (Auto) [place] % (Auto) Eos % (Auto) Baso % (Auto) Neut # (Auto) Lymph # (Auto) [place] # (Auto) Eos # (Auto) Baso # (Auto) Lactate Ammonia 9 Lipase 26 Procalcitonin Prolactin 13.6 Ethyl Alcohol < 10 Assessment & Plan Assessment & Plan narrative: 1. Metabolic encephalopathy, present on admission, active. -Patient founded a half-way facility with altered mental status and fever, he had a witnessed seizure yesterday, none in evidence today. -CT of the head finds no acute intracranial processes and no interval change from exam yesterday. Notes made of moderate to severe atrophy and chronic microvascular ischemic changes. -altered mental status appears multifactorial related to infection from aspiration pneumonia as well as dehydration. -Will treat underlying etiologies as below. 2. Left lower lobe aspiration pneumonia, present on admission, active. -patient had a persistent seizure yesterday during which time he vomited and concern was expressed related to aspiration at that time but no further complications noted the patient was returned to the half-way facility. -patient is found be febrile today with temperature 101.3?, white count of 9.6 with elevated neutrophils 85.2%. Procalcitonin elevated at 7.62 and a lactic acid of 1.1. Chest x-ray is unremarkable in the setting of dehydration. -in the ER the patient is given Tylenol 650 mg p.r. for fever -ordered Zosyn 3.375 g IV every 6 hours, 1st dose administered in the ER. -will follow-up procalcitonin and CBC. 3. Acute dehydration, present on admission, active. -on exam the patient appears dry with poor skin turgor and dry skin. -patient with an increased BUN at 24 with a creatinine 0.75 and a BUN creatinine ratio of 32.0. -in the ER the patient was receiving normal saline 100 cc/hour. Will increase normal saline to 150 cc/hour. 4. Seizure disorder, present on admission, stable. -patient had a witnessed seizure and was started on Keppra in the ER yesterday, he was discharged on Keppra 500 mg p.o. twice daily. -patient is currently not not able to take p.o. meds, will continue Keppra 500 mg IV every 12 hours. 5. Paroxysmal atrial fibrillation, in sinus rhythm, chronic, chronic, stable. -patient with regular heart rhythm and denies chest pain with had not. -patient is taking propranolol 10 mg by mouth twice daily. -ordered metoprolol 5 mg IV every 6 hours until taking oral medications. 6. BPH, chronic, stable Will continue tamsulosin 0.4 mg the patient is again taking PO's. Isolation: Droplet pending COVID-19 screening VTE prophylaxis: Bilateral SCDs, enoxaparin IV fluids: Normal saline 150 cc/hour. Diet: NPO, pending speech evaluation Code status: DO NOT RESUSCITATE/LIMITED INTERVENTIONS, patient's daughter is surrogate decision maker and agrees to IV fluids and antibiotics. The patient is admitted to the hospital with metabolic encephalopathy secondary to aspiration pneumonia and dehydration with a newly diagnosed seizure disorder requiring administration of IV anticonvulsants. The patient is admitted as an inpatient with expected length of stay to be greater than 2 midnights. COVID-19 COVID-19 status: Result pending Result date/Date tested (Pos, Neg/Pending): 10/12/19
[2019-10-12] MEDS: METOPROLOL TARTRATE 5 MG/5 ML INJ IV (22:10)
[2019-10-12] MEDS: BISACODYL 10 MG SUPP PR (22:29)
[2019-10-12] MEDS: levETIRAcetam 500 MG in SODIUM CHLORIDE 0.9% 100 ML 420 ML IV (22:48)
[2019-10-12 22:57] LABS: Blood Urea Nitrogen 24 mg/dL (9-20); Carbon Dioxide 24 mmol/L (22-32); Chloride 103 mmol/L (98-107); Estimated Glomerular Filt Rate > 60.0 mL/min (>60); Glucose 132 mg/dL (80-110); HEMOLYSIS < 15 (0-50); Potassium 3.6 mmol/L (3.4-5.1); Sodium 137 mmol/L (137-145)
[2019-10-13] VITALS (12 sets, daily range): BP systolic 138–190; BP diastolic 81–105; PULSE 58–79; RESP 13–19; TEMP 36.8–37.7; O2SAT 94–96
[2019-10-13] MEDS: levETIRAcetam 500 MG in SODIUM CHLORIDE 0.9% 100 ML 420 ML IV ×2 (00:38→12:02)
[2019-10-13] MEDS: PIPERACILLIN-TAZO 3.375 GM/50 ML FROZ.PIGGY IV ×4 (02:06→19:16)
[2019-10-13] MEDS: METOPROLOL TARTRATE 5 MG/5 ML INJ IV (03:17)
[2019-10-13 04:57] LABS: Add Manual Diff / Slide Review NO; Basophils Absolute Auto 0 /uL (0-100); Basophils Percent Auto 0.4 % (0-2); Eosinophils Absolute Auto 0 /uL (0-450); Eosinophils Percent Auto 0.1 % (2-4); Hematocrit 36.8 % (41-53); Hemoglobin 12.9 g/dL (13.5-17.5); Lymphocytes Absolute Auto 1200 /uL (1100-4500); Lymphocytes Percent Auto 12.1 % (25-40); Mean Corpuscular HGB Conc 35.1 % (30-36); Mean Corpuscular Hemoglobin 33.1 PG (26-34); Mean Corpuscular Volume 94.4 fL (80-100); Monocytes Absolute Auto 900 /uL (0-900); Monocytes Percent Auto 9.7 % (3-14); Neutrophils Absolute Auto 7400 /uL (1500-7000); Neutrophils Percent Auto 77.7 % (50-75); Platelet Count 168 X10^3/uL (150-400); White Blood Cell Count 9.6 X10^3/uL (4.5-11.0)
[2019-10-13 05:03] LABS: Blood Urea Nitrogen 27 mg/dL (9-20); Calcium 9.4 mg/dL (8.4-10.2); Carbon Dioxide 27 mmol/L (22-32); Chloride 104 mmol/L (98-107); Estimated Glomerular Filt Rate > 60.0 mL/min (>60); Glucose 112 mg/dL (80-110); HEMOLYSIS < 15 (0-50); Magnesium 2.2 mg/dL (1.6-2.3); Potassium 3.4 mmol/L (3.4-5.1); Sodium 138 mmol/L (137-145)
--- NOTE | 2019-10-13 05:15 | PC.NURSE ---
Pt non verbal but nods or shakes head to questions. Pt has no complaints and denies pain. Condom cath in place to receive UA as ordered. Removed at 0500 after pt voided. SR on tele.
[2019-10-13] MEDS: POTASSIUM CHLORIDE 40 MEQ in SODIUM CHLORIDE 0.9% 500 ML 130 ML IV (05:58)
[2019-10-13 06:36] LABS: Procalcitonin 7.18 ng/mL (<0.5)
[2019-10-13] MEDS: PANTOPRAZOLE 40 MG VIAL 20 MG IV (07:50)
[2019-10-13] MEDS: ENOXAPARIN 40 MG/0.4 ML SYRINGE SUBCUT (07:51)
[2019-10-13] MEDS: TAMSULOSIN 0.4 MG CAPSULE PO (09:15)
[2019-10-13] MEDS: PROPRANOLOL 10 MG TABLET PO ×2 (09:15→20:54)
--- NOTE | 2019-10-13 10:53 | PT.IIE ---
Surgical History (Last Reviewed 10/12/19 @ 21:01 by GUSTAVO Eisenberg) History of esophagogastroduodenoscopy (EGD) (Acute) Medical History (Last Updated 10/13/19 @ 09:45 by Jero Gibson RN) BPH (benign prostatic hyperplasia) (Acute) CVA (cerebral vascular accident) (Inactive) Degenerative disease of nervous system (Acute) Dementia without behavioral disturbance (Acute) Dysphagia, oropharyngeal (Acute) Generalized seizure (Inactive) GERD (gastroesophageal reflux disease) (Acute) Hemiplegia affecting left nondominant side (Acute) Major depressive disorder with single episode (Acute) Paroxysmal atrial fibrillation (Acute) Postherpetic geniculate ganglionitis (Acute) Tremor (Acute) Physical Therapy Inpatient Evaluation/Re-Eval M1 PT/OT-IP Prior Functional Status Start: 10/13/19 10:43 Freq: NEEDED Status: Active Protocol: Document 10/13/19 10:43 [facility] (Rec: 10/13/19 10:53 [facility] [id number]) Medical Review Prior Functional Status Medical History Reviewed Yes Mobility and Gait Pt is transfered by keith lift . Activities of Daily Living and IADL's requires assist for dressing, bathing, and grooming. He gets hoyered to his w/c for meals d/t aspiration risk and can feed himself. Prior Functional Level (Other details) All info per call to [facility] after treating pt as pt answered some questions w/yes/ no when asked but was not able to give clear history. Social History Household Members children,other Living Arrangements Skilled Nurse Facility M2 PT-IP Current Condition Start: 10/13/19 10:43 Freq: NEEDED Status: Active Protocol: Document 10/13/19 10:43 [facility] (Rec: 10/13/19 10:53 [facility] [id number]) Physical Therapy Current Condition Current Condition Evaluation Date 10/13/19 Treatment Diagnosis aspiration PNA, seizure disorder M3 PT-IP Subjective Start: 10/13/19 10:43 Freq: NEEDED Status: Active Protocol: Document 10/13/19 10:43 [facility] (Rec: 10/13/19 10:53 [facility] [id number]) Subjective Physical Therapy Visit Type Type Initial Evaluation Visit Start Time 10:12 Visit Stop Time 10:40 Total Visit Minutes 28 Number of CAR REPAIR SUPERVISOR Visits 0 Physical Therapy Visit Comments Patient Comments Pt agreeable to get up M4 PT-IP Mobility and Gait Start: 10/13/19 10:43 Freq: NEEDED Status: Active Protocol: Document 10/13/19 10:43 [facility] (Rec: 10/13/19 10:53 [facility] [id number]) PT-Bed Mobility Assessment Supine to Sit Supine to Sit Maximum Assistance,Head of Bed Elevated Scooting Scooting to Edge of Bed Dependent PT-Transfer Assessment Transfers Transfer Destination Chair Transfer Technique Mechanical Lift Comments Mobility Comments Pt did supine to sit where he helped some with R LE to get to EOB and then required max A to get seated EOB and dependent for scootign to EOB and max A required to sit EOB even with attempted set up for RUE helping to stabilize. He sat EOB max A about 5 min then was set up in keith with PT and RN and transfered to chair and left in reclined position with pillows B sides to help keep him upright and a pillow under his kneew ith call light in lap. PT-Balance Assessment Sitting Balance and Reactions Static Sitting Balance Ability Poor Dynamic Sitting Balance Ability Poor M5 PT-IP Objective Assessments Start: 10/13/19 10:43 Freq: NEEDED Status: Active Protocol: Document 10/13/19 10:43 [facility] (Rec: 10/13/19 10:53 [facility] [id number]) Orientation Orientation/Cognition Level of Alertness Confusional State Language Function Ability Expressive Aphasia Safety Awareness Decreased Safety Awareness Strength Upper Extremity Strength Assessment Bilaterally Impaired Shoulder R grossly 3/5 UE ; L no movement able Lower Extremity Strength Assessment Bilaterally Impaired Hip R grossly 3/5 LE ; L no movement able Muscle Tone Muscle Tone WNL Yes M7 PT-IP Assessment and Plan Start: 10/13/19 10:43 Freq: NEEDED Status: Active Protocol: Document 10/13/19 10:43 [facility] (Rec: 10/13/19 10:53 [facility] [id number]) PT Summary Assessment and Plan Potential Rehabilitation Potential Poor Status of Condition at Evaluation Evolving Summary Impairments ROM,Strength,Balance,Bed Mobility,Transfers,Gait, Activity Tolerance Assessment Summary Pt presents with aspiration PNA and seizure disorder and was agreeable to get up. He was unable to give a full histroy and was unable to assist much with supine to sit and was dependent for scooting to EOB and max A to sit EOB. He required keith lift to get to chair and after discussing with SNF pt lives at, he does not require PT as he is at his baseline. DC PT. Frequency of Treatment Frequency Of Treatment Discharge Recommendations To Nursing Amount of Assist Needed Mechanical Lift Discharge Recommendations PT Discharge Recommendations Home with Assistance Other Discharge Recommendations Return to [facility] with assistance
[2019-10-13] MEDS: SODIUM CHLORIDE 0.9% 1,000 ML 100 ML IV (11:18)
--- NOTE | 2019-10-13 11:59 | CM.DANOTE ---
Discharge Planning/Care Management DCP: assessment: case received, EMR reviewed. Discussed in Team Rounds. (held outside the pt's room as he is on Specialized precautions. COVID-19 test is pending /taken 10/11) Pt is a 74 year old male who admitted last night to care of hospitalist team. 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 Hospitalist GUSTAVO Estrella put in a palliative care consult to Caryl Black and have followed up with an email to her as advised by Tomas Chaudhary. Dr. Saha is here today and will be following pt through Sunday 10/15. He stated he would like to hold off for now on the palliative consult as he has reviewed pt's POLST form, which has very clear Limited Intervention directives as well as DNAR orders and he wishes to have a better sense of the overall case. Have spoken now with Neha/liaison officer for [facility]. 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 They will need to assess pt closer to d/c as per their protocol and may need updated COVID dependent on when pt will be ready for d/c. His baseline abilities are limited: see template below. He has aphasia and some cognitive impairment at baseline. POA is daughter Melva Lobato/[place]: [phone] and paperwork for same is faxed over by [facility] and placed into hard copy chart/red folder Copy of POLST is also there. Have left a vm now for Melva to introduce self and DCP team role and request for a callback to the [phone] line. P: DCP team will be following as POC unfolds to assist with d/c issues and options. CM Discharge Assessment Start: 10/13/19 11:56 Freq: Status: Active Protocol: Document 10/13/19 11:56 ITV (Rec: 10/13/19 11:59 ITV [id number]) Discharge Planning Assessment Advance Directives? Yes Advance Directives on File Yes History Provided By Medical Record Prior Living Arrangements Assisted Living Type of transporation used prior to Relies on Others admit Facility Name Admitted From: [facility] Independent with ADL's No Is patient alert and oriented? No DME Already Rented / Owned Wheelchair,Other Comment is a keith lift transfer at [facility]. is hoyered into a w/c for activity and meals as is unsafe to eat unless upright. Review Status In Process
[2019-10-13] MEDS: lisinopriL 5 MG TABLET PO (12:02)
--- NOTE | 2019-10-13 12:08 | PM.PN.1 ---
Subjective Subjective Date Patient Seen: 10/13/19 Time Patient Seen: 08:45 Interval history: Mr. 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 He was febrile last night to 101. His blood pressure is slightly elevated today and he will be restarted on his home medications. He was started on Zosyn for concern for possible aspiration after seizure episode. His chest x-ray was negative on admission. He appears to be improving and did speak with the nurse today, but he did not answer any of my questions with verbal responses on my exam. He nods no when asked if he has any discomfort or pain. Exam Vital Signs (past 8 hours): - 10/13/19 08:00 10/13/19 11:28 Temperature 99.2 F 99.2 F Pulse Rate 69 58 L Respiratory Rate 13 16 Blood Pressure 176/99 H 177/105 H Pulse Oximetry 94 96 Oxygen Delivery Method Room Air Oxygen Flow Rate 0 Narrative Exam Narrative: GENERAL APPEARANCE: well developed, cachectic appearing male who is nonverbal but respond to simple questions with head nod. HEENT: Left facial droop, PERRLA, conjunctiva clear, gaze tracts bilaterally without nystagmus, mucous membranes are moist and pink NECK/THYROID: Decreased range of motion, no JVD, no carotid bruit, no thyromegaly, trachea midline. LYMPH NODES: no cervical or supraclavicular lymphadenopathy. SKIN: [place], warm and dry, poor skin turgor, no visible lesions or rashes. HEART: regular rate and rhythm, S1-S2, no murmur, no rubs or gallops, 1+ dorsalis pedis pulses no edema LUNGS: Breath sounds with left basilar crackles, no coarseness or wheezing, no cough present CHEST: Symmetrical movement, no accessory muscle use, shallow tidal volume. ABDOMEN: Soft, no distention, no abdominal tenderness, no organomegaly, no flank or suprapubic tenderness, active bowel tones. 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 NEUROLOGIC: Awake, did not speak but nurse reports he did to her, leans to the left, non rhythmic twitching possible spasticity of left arm, no nystagmus. PSYCH: unable to assess. Objective Labs Result Diagrams: 10/13/19 04:25 10/13/19 04:25 Labs: Laboratory Results - last 24 hr 10/12/19 10/12/19 10/12/19 18:50 18:50 18:50 WBC 9.6 RBC 4.13 L Hgb 13.9 Hct 38.6 L MCV 93.6 MCH 33.6 MCHC 35.9 RDW 13.0 Plt Count 173 Neut % (Auto) 85.2 H Lymph % (Auto) 8.5 L [place] % (Auto) 6.1 Eos % (Auto) 0.0 L Baso % (Auto) 0.2 Neut # (Auto) 8200 H Lymph # (Auto) 800 L [place] # (Auto) 600 Eos # (Auto) 0 Baso # (Auto) 0 Sodium Potassium Chloride Carbon Dioxide BUN Creatinine Estimated GFR BUN/Creatinine Ratio Glucose Lactate 1.1 Calcium Magnesium Ammonia Lipase Procalcitonin 7.62 H Prolactin Nasal Screen MRSA (PCR) Ethyl Alcohol 10/12/19 10/12/19 10/12/19 18:50 18:50 18:50 WBC RBC Hgb Hct MCV MCH MCHC RDW Plt Count Neut % (Auto) Lymph % (Auto) [place] % (Auto) Eos % (Auto) Baso % (Auto) Neut # (Auto) Lymph # (Auto) [place] # (Auto) Eos # (Auto) Baso # (Auto) Sodium 137 Potassium 3.6 Chloride 103 Carbon Dioxide 24 BUN 24 H Creatinine 0.75 Estimated GFR > 60.0 BUN/Creatinine Ratio 32.0 H Glucose 132 H Lactate Calcium 10.0 Magnesium Ammonia 9 Lipase 26 Procalcitonin Prolactin 13.6 Nasal Screen MRSA (PCR) Ethyl Alcohol < 10 10/12/19 10/13/19 10/13/19 21:45 04:25 04:25 WBC 9.6 RBC 3.90 L Hgb 12.9 L Hct 36.8 L MCV 94.4 MCH 33.1 MCHC 35.1 RDW 13.0 Plt Count 168 Neut % (Auto) 77.7 H Lymph % (Auto) 12.1 L [place] % (Auto) 9.7 Eos % (Auto) 0.1 L Baso % (Auto) 0.4 Neut # (Auto) 7400 H Lymph # (Auto) 1200 [place] # (Auto) 900 Eos # (Auto) 0 Baso # (Auto) 0 Sodium 138 Potassium 3.4 Chloride 104 Carbon Dioxide 27 BUN 27 H Creatinine 0.90 Estimated GFR > 60.0 BUN/Creatinine Ratio 30.0 H Glucose 112 H Lactate Calcium 9.4 Magnesium 2.2 Ammonia Lipase Procalcitonin Prolactin Nasal Screen MRSA (PCR) Negative for mrsa Ethyl Alcohol 10/13/19 04:25 WBC RBC Hgb Hct MCV MCH MCHC RDW Plt Count Neut % (Auto) Lymph % (Auto) [place] % (Auto) Eos % (Auto) Baso % (Auto) Neut # (Auto) Lymph # (Auto) [place] # (Auto) Eos # (Auto) Baso # (Auto) Sodium Potassium Chloride Carbon Dioxide BUN Creatinine Estimated GFR BUN/Creatinine Ratio Glucose Lactate Calcium Magnesium Ammonia Lipase Procalcitonin 7.18 H Prolactin Nasal Screen MRSA (PCR) Ethyl Alcohol Assessment & Plan Assessment & Plan narrative: Mr. 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 1. Metabolic encephalopathy, present on admission, active. -Patient founded a senior living facility with altered mental status and fever, he had a witnessed seizure yesterday, none in evidence today. -CT of the head finds no acute intracranial processes and no interval change from exam yesterday. Notes made of moderate to severe atrophy and chronic microvascular ischemic changes. -altered mental status appears multifactorial related to infection from aspiration pneumonia as well as dehydration and may be more lethargic after anti-epileptic medication was started. -Will treat underlying etiologies as below. 2. Likely aspiration aspiration pneumonia, present on admission, active. -patient had a persistent seizure yesterday during which time he vomited and concern was expressed related to aspiration at that time but no further complications noted the patient was returned to the senior living facility. -patient is found be febrile today with temperature 101.3?, white count of 9.6 with elevated neutrophils 85.2%. Procalcitonin elevated at 7.62 and a lactic acid of 1.1. Chest x-ray is unremarkable in the setting of dehydration. -in the ER the patient is given Tylenol 650 mg p.r. for fever, will continue as needed. -ordered Zosyn 3.375 g IV every 6 hours, 1st dose administered in the ER. -continue to follow CBC, procalcitonin -Patient is on a modified diet currently per speech therapy. 3. Acute dehydration, present on admission, active. -on exam the patient appears dry with poor skin turgor and dry skin. -patient with an increased BUN at 24 with a creatinine 0.75 and a BUN creatinine ratio of 32.0. -patient now hypertensive after fluid 4. Seizure disorder, present on admission, stable. -patient had a witnessed seizure and was started on Keppra in the ER yesterday, he was discharged on Keppra 500 mg p.o. twice daily. -patient is currently not not able to take p.o. meds, will continue Keppra 500 mg IV every 12 hours. 5. Paroxysmal atrial fibrillation, in sinus rhythm, chronic, chronic, stable. -patient with regular heart rhythm and denies chest pain with had not. -patient is taking propranolol 10 mg by mouth twice daily. -continue home lisinopril 5 mg starting today. 6. BPH, chronic, stable Will continue tamsulosin 0.4 mg the patient is again taking PO's. 7. oral thrushj - clotrimazole troches, if unable to tolerate switch to diflucan. Isolation: Droplet pending COVID-19 screening VTE prophylaxis: Bilateral SCDs, enoxaparin IV fluids: Decrease to 50 cc today. Diet: Diet per speech therapy. Code status: DO NOT RESUSCITATE/LIMITED INTERVENTIONS, patient's daughter is surrogate decision maker and agrees to IV fluids and antibiotics. Dispo: anticipate dischage in the next 1-2 days if he continues to improve. COVID-19 COVID-19 status: Result pending Quality VTE Deep Vein Thrombosis/Pulmonary Embolism Present on Admission: No
--- NOTE | 2019-10-13 12:56 | ST.IPCSEOM ---
Visit Care Team Role Provider Type GUSTAVO Vargas Primary Care Provider Non-Staff Specialty: Medical Address: [address] [place] [address], [id number] Fax: Email: GUSTAVO Glass Other Providers Advanced Switchboard Inspector Specialty: Family Practice Address: [address] [place] [address], [phone] Email: [email or web address] DO Emergency Provider Physician Referring Provider Specialty: Emergency Medicine Address: [address] [place] [address], [id number] Email: [email or web address] Admit Provider Physician Attending Provider Specialty: Internal Medicine Address: [address] [place] [address], [id number] Email: [email or web address] Past Medical History (Last Updated 10/13/19 @ 09:45 by Jero Gibson RN) BPH (benign prostatic hyperplasia) (Acute Medical) CVA (cerebral vascular accident) (Inactive Medical) Right frontal lobe Degenerative disease of nervous system (Acute Medical) Dementia without behavioral disturbance (Acute Medical) Dysphagia, oropharyngeal (Acute Medical) Generalized seizure (Inactive Medical) GERD (gastroesophageal reflux disease) (Acute Medical) Hemiplegia affecting left nondominant side (Acute Medical) Major depressive disorder with single episode (Acute Medical) Paroxysmal atrial fibrillation (Acute Medical) Postherpetic geniculate ganglionitis (Acute Medical) Tremor (Acute Medical) Speech-Language Pathology Swallow Evaluation MANAGING EDITOR Clinical Swallow Evaluation Start: 10/13/19 12:29 Freq: Status: Active Protocol: Document 10/13/19 12:30 LNK (Rec: 10/13/19 12:55 LNK [id number]) Clinical Swallow Evaluation Session Time Visit Start Time 08:45 Visit Stop Time 09:30 Total Visit Minutes 45 Visit Information Visit Number [address] Saha Reason for Referral swallow evaluation Setting Assessment Location Acute Care Visit Type Note Type Initial Evaluation Next Note Type Next Note Type Re-Evaluation Patient Information History Mr. 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 He presented to the emergency department via EMS from assisted living facility for altered mental status and fever. He was febrile on admission to [facility]. His blood pressure is slightly elevated today and he will be restarted on his home medications. He was started on Zosyn for concern for possible aspiration after seizure episode. His chest x-ray was negative on admission. Subjective Observations Pt was in bed awake. His head was turned to his left and he has difficulty moving his head. Pt was positioned for swallow evaluation. Evaluation Liquids Trialed Ice Chips,Thin Solids Trialed Puree Administration Type Tea Spoon,Straw,Dependent Feeding Oral Phase Comments OM skills observed to be limited in ROM and volitional movements were minimal. Reflexively, when presented with a spoon he was able to open his mouth and clear a spoon without difficulty. OM exam noted Thrush throughout his mouth. Pt was able to adequately chew ice cubes; however he was unable to swallow his medication whole in carrier. AP propulsion appeared to be minimal for any texture. Pureed/applesauce was swallowed without obvious oral stasis. Pharyngeal Phase Comments With large bolus size, pt was observed to cough several times. Additionally, with thin liquids via straw, he was observed to cough. Cough was immediate with O2 sats remaining at 98% on room air. Hyolaryngeal elevation was prompt with good ROM. Unable to determine wet voicing otr not. Pt was able to whisper yeah x1 clearly. Findings Dysphagia Type oral/pharyngeal Rehabilitation Potential Good Impressions Pt presented with oral dysphagia secondary to thrush. When asked if his mouth hurts, he nodded. He was able to swallow thin liquids in small amounts as well as chew ice chips. Puree texture was safely swallowed. He was unable to swallow medications in a carrier. Suspect difficulty with A-P propulsion of advanced textures. Larger bolus size with solids and liquids resulted in choke/ cough. Recommend puree solids and thin liquids/ice chips be presented in small amounts ( spoon only). Medications to be crushed in a carrier. ST to follow while inpatient status. Diet Recommendations Liquids Order Ice Chips Only Diet Order Dysphagia Blenderized Medication Recommendations Crushed in Carrier Additional Dietary Needs Single Sips,No Straws,1:1 Assistance Aspiration Precautions Recommended Precautions Upright at 90 Degrees,Small Bites/Sips,Liquids from Spoon Treatment Plan Placement Recommendations after Residential Facility Discharge Appropriate for Therapy Yes Therapy Recommendations Dysphagia therapy with diet advance as tolerated Dysphagia Goals Pt will safely tolerate the least restrictive diet to meet hydration and nutritional needs without s/sx aspiration
--- NOTE | 2019-10-13 13:06 | OT.IP.EVAL ---
Past Medical History (Last Updated 10/13/19 @ 09:45 by Jero Gibson RN) BPH (benign prostatic hyperplasia) (Acute) CVA (cerebral vascular accident) (Inactive) Degenerative disease of nervous system (Acute) Dementia without behavioral disturbance (Acute) Dysphagia, oropharyngeal (Acute) Generalized seizure (Inactive) GERD (gastroesophageal reflux disease) (Acute) Hemiplegia affecting left nondominant side (Acute) Major depressive disorder with single episode (Acute) Paroxysmal atrial fibrillation (Acute) Postherpetic geniculate ganglionitis (Acute) Tremor (Acute) Surgical History (Last Reviewed 10/12/19 @ 21:01 by GUSTAVO Eisenberg) History of esophagogastroduodenoscopy (EGD) (Acute) Occupational Therapy Inpatient Evaluation/Re-Eval M1 PT/OT-IP Prior Functional Status Start: 10/13/19 10:43 Freq: NEEDED Status: Active Protocol: Document 10/13/19 10:43 [facility] (Rec: 10/13/19 10:53 [facility] [id number]) Medical Review Prior Functional Status Medical History Reviewed Yes Mobility and Gait Pt is transfered by keith lift . Activities of Daily Living and IADL's requires assist for dressing, bathing, and grooming. He gets hoyered to his w/c for meals d/t aspiration risk and can feed himself. Prior Functional Level (Other details) All info per call to [facility] after treating pt as pt answered some questions w/yes/ no when asked but was not able to give clear history. Social History Household Members children,other Living Arrangements Skilled Nurse Facility M3 OT- IP Subjective and Pain Start: 10/13/19 13:14 Freq: Status: Active Protocol: Document 10/13/19 14:34 [facility] (Rec: 10/13/19 14:53 [facility] [id number]) OT- Subjective Occupational Therapy Visit Type Type Initial Evaluation Visit Start Time 12:23 Visit Stop Time 13:06 Total Visit Minutes 43 Occupational Therapy Visit Comments Patient Comments Pt's nurse just leaving and lunch try in the room and OT eval mainly to access self- feeding needs. Patient/Caregiver Goals Pt did not state. OT Pain Assessment Pain When Pain Assessed At Rest Pain Present Pain Present Denied Pain M4 OT- IP ADL's Start: 10/13/19 13:14 Freq: Status: Active Protocol: Document 10/13/19 14:34 [facility] (Rec: 10/13/19 14:53 [facility] [id number]) OT PTP-Btdf-Lzuzous General Evaluation Self-Feeding Ability Maximum Assistance Areas Needing Assistance Bringing Utensil to Mouth, Cutting Food,Drinking From Cup /Glass,Loading Utensil,Opening Containers Devices Self-Feeding Devices Adapted Utensil,Nonslip Pad Comments OT Self-Feeding Comments Pt not able to properly use right hand to scoop his food onto the spoon and bring to his mouth. Pt at times having trouble to guide the water bottle to his mouth. Pt needing cues to slow due , swallow, needing 1:1 assist for self feeding at this time due to weakness, decreased safety awareness , and initiation. OT ADL-Grooming General Evaluation Grooming Ability Total Assistance Comments OT Grooming Comments Per Assistive Living pt was dependent. OT ADL-Oral Care Comments Oral Care Comments Per Assistive Living pt was dependent. OT ADL-Dressing Comments OT Dressing Comments Per Assistive Living pt was dependent. OT ADL-Toileting Comments OT Toileting Comments Per Assistive Living pt was dependent. OT ADL-Bathing Comments OT Bathing Comments Per Assistive Living pt was dependent. M5 OT- IP IADL's Start: 10/13/19 13:14 Freq: Status: Active Protocol: Document 10/13/19 14:34 [facility] (Rec: 10/13/19 14:53 [facility] [id number]) OT-Instrumental Activities of Daily Living Medication Management Medication Management Caregiver Administers Money Management Money Management Caregiver Provides Assistance Meal Preparation Meal Preparation Caregiver Provides Assist Sales And Marketing Associate Sales And Marketing Associate Caregiver Provides Assist Driving Driving Caregiver Provides Assist M6 OT- IP Functional Cognition Start: 10/13/19 13:14 Freq: Status: Active Protocol: Document 10/13/19 14:34 [facility] (Rec: 10/13/19 14:53 [facility] [id number]) Cognitive Factors Limiting Selfcare Function Cognitive Ability Level of Alertness Alert,Drowsy Patient Orientation Name Attention Span Ability Capable of Focused Attention, Unable to Sustain Attention Ability to Follow Commands Able to Follow One Step Commands with Increased Time, Able to Follow One Step Commands with Repetition Memory Description Short Term Impaired Safety Awareness Underestimates Need for Assistance Problem Solving Ability Unable to Identify Errors, Needs Assist to Identify Solutions Cognitive Comments Cognitive Assessment Comments Pt needing simple concrete cues to follow during meal time. Pt having trouble to initiate to swallow at times and holding water in his mouth . Pt at times needing extra time to respond to questions. Pt however able to recognize his daughter outside of the room. M7 OT- IP Mobility and Balance Start: 10/13/19 13:14 Freq: Status: Active Protocol: Document 10/13/19 14:34 [facility] (Rec: 10/13/19 14:53 [facility] [id number]) OT-Transfer Assessment Transfers Transfer Ability Total Assistance Comments Mobility Comments Per facility, pt use of keith lift for all mobility needs. OT- Balance Assessment Sitting Balance and Reactions Static Sitting Balance Ability Poor Dynamic Sitting Balance Ability Poor M8 OT- IP Objective Assessments Start: 10/13/19 13:14 Freq: Status: Active Protocol: Document 10/13/19 14:34 [facility] (Rec: 10/13/19 14:53 [facility] [id number]) OT Gross Range of Motion Upper Extremity Range of Motion Assessment Bilaterally Impaired OT Strength Upper Extremity Strength Assessment Bilaterally Impaired Comments Strength Comments LUE 0/5, RUE 3/5 M9 OT- IP Assessment and Plan Start: 10/13/19 13:14 Freq: Status: Active Protocol: Document 10/13/19 14:34 [facility] (Rec: 10/13/19 14:53 [facility] [id number]) OT Summary Assessment and Plan Potential Rehabilitation Potential Fair Analytic Complexity at Evaluation Low Summary OT Impairments Strength,Balance,Coordination, Functional Cognition, Functional Mobility,Self- Feeding Progress Towards Goals Slow Progress due to Medical Issues,Slow Progress due to Activity Tolerance Assessment Summary Pt low complexity and here due to recent aspiration PNA and prior was mostly dependent for all needs except for self feeding. Assistive Living used a keith lift for all transfers for the pt. Staff at [facility] states he could eat after set-up and used regular utensil, regular plate with occasional need for scoop plate. At this time pt needs 1:1 assist for self -feeding and can benefit from OT to work on towards increasing his independence to try to get back to be able to feed himself again independent after set-up. Goals Self-Feeding Goal Standby Assistance Days to Meet Goals 15 Frequency of Treatment Frequency Of Treatment Once a Day Treatment Plan OT Treatment Plan ADL Training,Functional Cognition Training,Patient/ Family Education,Discharge Planning Discharge Recommendations OT Discharge Recommendations Home with 24/7 Assist,Home Health Other Discharge Recommendations Home back to [facility] and home health. Transportation Needs at Discharge Wheelchair/Cabulance
[2019-10-13] MEDS: CLOTRIMAZOLE TROCHE 10 MG PO ×3 (13:13→21:26)
[2019-10-13 15:11] LABS: COVID19 -Nasal RAPID Negative (Negative)
[2019-10-13 15:14] LABS: Bacteria Urine None Seen
[2019-10-13 15:15] LABS: Appearance Urine UA CLEAR; Bilirubin Urine UA NEGATIVE (NEGATIVE); Color Urine UA YELLOW; Glucose Urine UA NEGATIVE (Negative); Ketones Urine UA NEGATIVE (NEGATIVE); Leukocyte Esterase Urine UA NEGATIVE (NEGATIVE); Nitrite Urine UA NEGATIVE (Negative); Occult Blood Urine UA TRACE-LYSED (Negative); Protein Urine UA 1+ (Negative); Urobilinogen Urine UA 0.2 E.U./dL (0.2); pH Urine UA 5.5 (4.5-8.0)
[2019-10-13 15:21] LABS: Culture Indicated Urine Cult Not Indicated; RBC Urine 0-1/HPF (0-5/HPF); WBC Urine 0-1/HPF (0-5/HPF)
[2019-10-13] MEDS: HYDRALAZINE 10 MG TABLET PO (15:56)
[2019-10-13] MEDS: SODIUM CHLORIDE 0.9% FLUSH 10 ML IV (21:07)
[2019-10-14] MEDS: levETIRAcetam 500 MG in SODIUM CHLORIDE 0.9% 100 ML 420 ML IV (00:30)
--- NOTE | 2019-10-14 01:49 | PC.NURSE ---
Sawmill Hand Note: 0025: Awake, resting in bed. Turned and repositioned. Vital signs stable. IVs in place in rt forearm and rt forearm. Remains on heart monitor. Pt is able to readily nod yes or no with his head but verbal response is delayed. He is alert, oriented at this time.
[2019-10-14] MEDS: PIPERACILLIN-TAZO 3.375 GM/50 ML FROZ.PIGGY IV ×2 (02:10→08:12)
[2019-10-14 03:32] VITALS: BP 171/92; PULSE 56; RESP 18; O2SAT 94
[2019-10-14] MEDS: SODIUM CHLORIDE 0.9% 1,000 ML 50 ML IV (05:13)
[2019-10-14] MEDS: CLOTRIMAZOLE TROCHE 10 MG PO ×2 (05:13→09:56)
--- NOTE | 2019-10-14 06:10 | PC.NURSE ---
SAMPLE MAKER HAND note: patient was turned. We floated patient's backside between two pillows.
[2019-10-14 08:00] VITALS: BP 170/89; PULSE 50; RESP 17; TEMP 37.2; O2SAT 94
[2019-10-14] MEDS: TAMSULOSIN 0.4 MG CAPSULE PO (08:12)
[2019-10-14] MEDS: lisinopriL 5 MG TABLET PO (08:12)
[2019-10-14] MEDS: ENOXAPARIN 40 MG/0.4 ML SYRINGE SUBCUT (08:13)
[2019-10-14] MEDS: PANTOPRAZOLE 40 MG VIAL 20 MG IV (08:13)
[2019-10-14] MEDS: PROPRANOLOL 10 MG TABLET PO (09:56)
--- NOTE | 2019-10-14 10:13 | CM.DPC ---
Addendum entered by Ml Hall R.N. 10/14/19 13:04: Have discharge orders on patient. Dr. Saha will put in recommendations on discharge summary for patient to have P.T, O.T, and speech therapy at facility. Printed out med list, and had him sign, and have scripts. Faxed over med sheets, prescriptions, DC summary, COVID results, and included H&P. relay shop supervisor time is 1445. Addendum entered by Ml Hall R.N. 10/14/19 12:41: Melva came by to see patient. Confirmed that they can accept patient back today. She received COVID results. They can order picker/assembler patient at 1445. Gave phone number and name of nurse for report, and gave to RN Jero. Will let Dr. Saha know, that he can put in orders. Spoke to patient's daughter, Melva, and she will be here shortly to see patient before he goes back to [facility]. [facility] will pick him up in his own wheel-chair. Addendum entered by Ml Hall R.N. 10/14/19 10:39: Faxed over COVID results from 10-11, to [facility], per Melva's request. Original Note: DCP Cont: Discussed patient during team rounds. He is more alert today, he is a hoier at baseline, as is noted. Dr. Saha stated that patient could possibly go today. Went ahead and called Melva at [facility], and gave her an updated. She was inquiring upon his last COVID. He has his COVID done on 10/11, at 1900, which was negative. Stated, this should be ok, if he goes today. She is planning on coming over at approximately noon to evaluate him. Updated nurse, James. P: DCP to follow. Will collaborate with Melva from [facility] today. If accepted, will send over signed med orders, and will update patient's daughter, Melva. Ml Hall RN/Mixer Blender
--- NOTE | 2019-10-14 11:37 | ST.IPDYTX ---
Visit Care Team Role Provider Type GUSTAVO Vargas Primary Care Provider Non-Staff Specialty: Medical Address: [address] [place] [address], [phone] Fax: Email: GUSTAVO Glass Other Providers Advanced Sales And Service Associate Specialty: Family Practice Address: [address] [place] [address], [id number] Email: [email or web address] DO Emergency Provider Physician Referring Provider Specialty: Emergency Medicine Address: [address] [place] [address], [id number] Email: [email or web address] Admit Provider Physician Attending Provider Specialty: Internal Medicine Address: [address] [place] [address], [id number] Email: [email or web address] [email or web address] REPRESENTATIVE Dysphagia Treatment SALES SOLUTIONS REPRESENTATIVE Dysphagia Treatment Start: 10/13/19 12:29 Freq: Status: Active Protocol: Document 10/14/19 10:24 [facility] (Rec: 10/14/19 10:30 [facility] [id number]) Dysphagia Treatment Session Time Visit Start Time 09:35 Visit Stop Time 10:17 Total Visit Minutes 42 Setting Assessment Location Acute Care Visit Type Note Type Treatment Note Next Note Type Next Note Type Treatment Note Patient Information Identification Type Name,ID Card Subjective Observations The pt was awake and reclined in his chair, listing somewhat to right side upon SALES SOLUTIONS REPRESENTATIVE arrival. He was minimally but appropriately conversant throughout the treatment. When asked what first name he preferred to be called, the pt became weepy as he provided different names he is called by different people. Per Nsg, the pt has been occasionally emotional, apparently missing seeing family. He was repositioned to center and upright to chair. Per Nsg, he has tolerated meds whole in carrier and occasional sips of thin water from cup without overt s/sx of aspiration. Treatment Liquids Trialed Thin Solids Trialed Puree,Dysphagia Mechanical Administration Type Tea Spoon,Cup Single Sip, Controlled Cup Sip,Self- Feeding,Dependent Feeding Oral Strategies Upright at 90 degrees,Double Swallow,Controlled Bite/Sip Size Pharyngeal Strategies Sitting Upright (90 deg), Double Swallow,Small Bites and Sips,Alternate Liquids/Solids Treatment Activities Oral exam - Pt continues with oral thrush, being treated medicinally. Pt denied pain in mouth or with oral intake. Assessed pt's swallow with thin liquid by tsp and controlled cup sips, applesauce with and without cracker added, diced fruit one piece at a time, and small tablet whole in applesauce. Oral Phase: Good oral acceptance from spoon and cup. Slow but rotary mastication. Slow bolus prep, a/p propulsion, and swallow trigger, particularly with solids. Suspect escape of solids to pharynx prior to swallow. No oral stasis observed. Pharyngeal Phase: Immediate strong cough with thin liquids from cup in 3/4 trials. No overt s/sx of aspiration with tsp trials of thin liquid, all solid trials, and tablet in applesauce. Wet vocal quality observed x1 after swallow of diced fruit. Pt inconsistently followed instructions for double swallow. He denied difficulty to perform volitional swallow but exhibited either no laryngeal activation or shallow laryngeal pumping when promted to dry swallow. Suspect pharyngeal residue is present post-swallow. Pt benefited from double swallow when able to perform. No other overt s/sx of aspiration were observed. Pt requested water sips after solids, which appeared to help clear pharyngeal residue. Assessment Patient Response to Treatment Good Rehab Potential Good Assessment of Improvement The pt exhibits mildly improved swallow function and safety. Able to tolerate dysphagia mechanical texture and small tablets whole in carrier without overt s/sx of aspiration. Frequent coughing occurred with cup sips of thin liquid; however, no overt s/ sx of aspiration were observed with thin liquid via tsp. The pt continues with generalized weakness, resulting in slowed oral motor movements and swallow trigger and reduced control of liquid boluses >tsp. Suspect early escape to pharynx prior to swallow trigger, as well as pharyngeal residue, which increase the pt's risk of aspiration. Recommend continuing with small amounts of thin liquid at a time; upgrade diet to dysphagia mechanical texture and meds as tolerated in carrier. The pt was able to self-feed cup sips with very slow movements. Will require 1 :1 assistance for liquids via tsp. Encourage self-feeding of solids, with assistance provided as needed. Diet Recommendations Recommendations Upgrade Diet Order Liquids Order Thin Diet Order Dysphagia Mechanical Comments Liquids by tsp only. Meds as tolerated in carrier Additional Dietary Needs No Straws,1:1 Supervision,1:1 Assistance,Encourage to Self- Feed Aspiration Precautions Recommended Precautions Upright at 90 Degrees, Alternate Liquids/Solids,Small Bites/Sips,Double Swallow Treatment Plan Placement Recommendation after Discharge Longterm Facility Appropriate for Continued Therapy Yes: Continue through hospital stay Therapy Recommendations Ongoing assessment with diet modifications as indicated. Training of compensatory swallow strategies. Pt education of aspiration risks/ precautions. Dysphagia Goals 1. Pt will perform safe swallow strategies with v/v cues as needed to reduce risk of aspiration. 2. Pt will tolerate least restrictive diet to meet his nutrition and hydration needs.
[2019-10-14 12:00] VITALS: BP 125/80; PULSE 56; RESP 17; TEMP 37.1; O2SAT 97
--- NOTE | 2019-10-14 12:42 | DIET.PN ---
Dietary Progress Note Request by nursing for cold yogurt smoothie for pt to consume c spoon per SLT to help c px associated c mouth thrush.
--- NOTE | 2019-10-14 12:44 | PM.DS.1 ---
History of Present Illness History of Present Illness Date Patient Seen: 10/14/19 Time Patient Seen: 12:44 Chief complaint: altered mental status, fever to 103 Narrative: As per GUSTAVO Eisenberg: Mr. 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 The patient was seen in the ER on 10/11/2019 for witnessed persistent seizure activity at which time he did vomit and that was noticed there was suspicion for aspiration. This appears to have been a first-time seizure with no prior record seizure disorder or anticonvulsant medication. Patient was started on Keppra. The patient returned to baseline mentation which is conversant and discharged back to his care facility. Today the patient was to be altered, nonverbal and febrile and return to the ER for further evaluation. The patient is unable to provide subjective information and is found to be not is baseline per the daughter at the bedside in the emergency department. Upon arrival to the ER the patient is febrile with temperature of 11.3?, heart rate 71, blood pressure 175/102, respirations 16 saturating 95% on room air. A chest x-rays obtained which finds no acute cardiopulmonary processes. A CT of the head is obtained which finds no acute intracranial processes, no interval changes from CT 1 day ago, moderate to severe atrophy with chronic microvascular ischemic changes. Patient has a white count of 9.6 with increased neutrophils at 85.2%, hemoglobin of 13.9 hematocrit of 38.6 and platelets 172. Has lactic acid 1.1, ammonia of 9, lipase of 26 and a procalcitonin elevated at 7.62 and a normal prolactin at 13.6. While in the ED the patient had emesis with Covert swab followed by transient desaturation to 85% improved with suctioning. While in the ER the patient received Tylenol 650 mg p.r. in Zosyn 3.375 g IV following blood cultures. The patient is admitted to medicine service for altered mental status and aspiration pneumonia. Discharge Providers Provider Date of admission: 10/12/19 20:16 Discharge Date: 10/14/19 Primary care physician: GUSTAVO Vargas Consults: 10/12/19 20:45 Consult to Discharge Planning Routine Comment: Consult to Occupational Therapy Evaluate & Treat Comment: AMS, aspiration, hx cva, hemiperesis Physician Instructions: Evaluate and treat 10/12/19 20:46 Consult to Physical Therapy Evaluate & Treat Comment: AMS, aspiration, hx cva, hemiperesis Physician Instructions: Evaluate and Treat 10/12/19 20:49 Consult to Speech Therapy Evaluate & Treat Comment: Physician Instructions: Evaluate and treat 10/12/19 21:07 Consult to Speech Therapy Evaluate & Treat Comment: AMS, aspiration post seizure, history CVA Physician Instructions: Evaluate and treat 10/13/19 05:11 Consult to Palliative Care Routine Comment: Consulting Provider: Caryl Black Discharge provider: Noble Saha DO Summary Hospital Course Discharge Diagnosis: Please see hospital course by problem list noted below. Hospital Course: Mr. 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 He was admitted with a metabolic encephalopathy secondary to likely aspiration pneumonia. He improved with antibiotics. He was initially NPO, but improved with speech therapy as his mental status improved with antibiotics. He should continue speech therapy as an outpatient and should have continued swallow evaluations. He is stable for discharge back to his assisted living facility today. 1. Metabolic encephalopathy, present on admission, resolved. -Patient found at assisted living facility with altered mental status and fever, he had a witnessed seizure day prior to admission, no seizures while admitted. -CT of the head found no acute intracranial processes and no interval change. Notes made of moderate to severe atrophy and chronic microvascular ischemic changes. -altered mental status appears multifactorial related to infection from aspiration pneumonia as well as dehydration and may be more lethargic after anti-epileptic medication was started. -patient on day of discharge had seemingly returned to baseline after treatments noted below. 2. Likely aspiration aspiration pneumonia, present on admission, active. -patient had a persistent seizure during which time he vomited and concern was expressed related to aspiration at that time but no further complications noted the patient was returned to the long-term facility. -patient was found be febrile with temperature 101.3?, white count of 9.6 with elevated neutrophils 85.2%. Procalcitonin elevated at 7.62 and a lactic acid of 1.1. Chest x-ray is unremarkable in the setting of dehydration. -ordered Zosyn 3.375 g IV every 6 hours, 1st dose administered in the ER and was continued until discharge. He should complete 5 additional days of augmentin as an outpatient. -Patient is on a modified diet currently per speech therapy, continue speech therapy as an outpatient. 3. Acute dehydration, present on admission, resolved. -patient was adequately rehydrated with IVF. He can now tolerate oral intake. 4. Seizure disorder, present on admission, stable. -patient had a witnessed seizure and was started on Keppra in the ER as noted above, he was discharged on Keppra 500 mg p.o. twice daily. No evidence of seizure while here and will continue this as an outpatient. 5. Paroxysmal atrial fibrillation, in sinus rhythm, chronic, chronic, stable. -patient with regular heart rhythm and denies chest pain. -patient is taking propranolol 10 mg by mouth twice daily. -continue home lisinopril 5 mg. May need to adjust as an outpatient. 6. BPH, chronic, stable Will continue tamsulosin 0.4 mg the patient is again taking PO's. 7. oral thrush - continue clotrimazole troches for an additional 10 days. Time Spent with Patient Time spent: Greater than 30 minutes Exam Vital Signs (past 8 hours): - 10/14/19 08:00 10/14/19 12:00 Temperature 99.0 F 98.8 F Pulse Rate 50 L 56 L Respiratory Rate 17 17 Blood Pressure 170/89 H 125/80 Pulse Oximetry 94 97 Oxygen Delivery Method Room Air Oxygen Flow Rate 0 Narrative Exam Narrative: GENERAL APPEARANCE: well developed, chronically ill appearing male, sitting upright in bedside chair. HEENT: Left facial droop, PERRLA, conjunctiva clear, without nystagmus, mucous membranes are moist and pink NECK/THYROID: Decreased range of motion, no JVD, no carotid bruit, no thyromegaly, trachea midline. LYMPH NODES: no cervical or supraclavicular lymphadenopathy. SKIN: [place], warm and dry, poor skin turgor, no visible lesions or rashes. HEART: regular rate and rhythm, S1-S2, no murmur, no rubs or gallops. LUNGS: Breath sounds clear to auscultation bilaterally, no coarseness or wheezing, no cough present CHEST: Symmetrical movement, no accessory muscle use, shallow tidal volume. ABDOMEN: Soft, no distention, no abdominal tenderness, no organomegaly, no flank or suprapubic tenderness, active bowel tones. EXTREMITIES: Left hemiparesis, non rhythmic twitching movements of the left arm, improved orientation & mobility specialist strength in right hand, left foot drop, decreased ROM left arm. NEUROLOGIC: Awake, oriented to person and place, sensation intact to light touch bilaterally, motor deficits as noted above. Objective Labs Result Diagrams: 10/13/19 04:25 10/13/19 04:25 Labs: Laboratory Results - last 24 hr 10/12/19 10/12/19 10/13/19 19:06 19:06 14:50 Urine Color Yellow Urine Appearance Clear Urine pH 5.5 Ur Specific [place] 1.020 Urine Protein 1+ H Urine Glucose (UA) Negative Urine Ketones Negative Urine Occult Blood Trace-lysed Urine Nitrate Negative Urine Bilirubin Negative Urine Urobilinogen 0.2 Ur Leukocyte Esterase Negative Urine RBC 0-1/hpf Urine WBC 0-1/hpf Urine Bacteria None seen Ur Culture Indicated? Cult not indicated COVID-19 PCR Cancelled Negative Discharge Plan Discharge Plan Patient Disposition: Assisted Living Transfer to: [facility] Discharge comment: You were admitted to the hospital with a change in mental status, likely due to a pneumonia. You improved with antibiotics and will continue another 5 days of antibiotics at your assisted living facility. You had some difficulty with swallowing possibly due to thrush. You should continue to have continued speech evaluations and diet is as listed below. Discharge orders & Medications Discharge Orders: Discharge (Order); Ordered 10/14/19 Ordered By: Noble Saha Prescriptions: New clotrimazole 10 mg Trey 10 mg PO 5XD 10 Days Qty: 50 RF: 0 amoxicillin-pot clavulanate 875-125 mg tablet 1 tab PO BID 7 Days Qty: 14 RF: 0 Continued atorvastatin 40 mg tablet 40 mg PO BEDTIME RF: 0 acetaminophen 325 mg Tablet 650 mg PO BID RF: 0 acetaminophen 325 mg Tablet 650 mg PO Q4H PRN (Reason: pain) RF: 0 acetaminophen 650 mg Suppository 650 mg ID Q4H PRN (Reason: fever) RF: 0 baclofen 10 mg tablet 5 mg PO BID RF: 0 aspirin 81 mg Tablet,Chewable 81 mg PO DAILY RF: 0 lisinopril 5 mg tablet 5 mg PO Q12H RF: 0 gabapentin 100 mg capsule 100 mg PO DAILY RF: 0 escitalopram oxalate 10 mg tablet 10 mg PO DAILY RF: 0 lidocaine HCl [Aspercreme (lidocaine)] 4 % Cream 1 applic TOPICAL BID RF: 0 omeprazole 20 mg Capsule,Delayed Release(Dr/Ec) 20 mg PO DAILY RF: 0 propranolol 10 mg Tablet 10 mg PO BID RF: 0 tamsulosin 0.4 mg Capsule 0.4 mg PO DAILY RF: 0 levetiracetam [Keppra] 500 mg tablet 500 mg PO Q12H Qty: 30 RF: 1 Follow up/Referrals: Karen Hallman ARNP [Primary Care Provider] - Discharge Health Status Health Concerns: Aspiration pneumonia dysphagia, oral thrush. Precautions: [place] Diet/Activity/Treatments Diet: Diet as Tolerated Liquid consistency: Normal/Thin Diet comment: Dysphagia mechanical diet per speech recommendations. Activity: As tolerated Special Rehabilitation Services Rehab type: Physical therapy, Occupational therapy and Speech therapy Visit Report/Discharge Packet Visit Report Forms: Patient Portal/API, Stroke Signs & Symptoms Discharge Data Primary Care Provider: Karen Hallman Quality VTE Deep Vein Thrombosis/Pulmonary Embolism Present on Admission: No
--- NOTE | 2019-10-14 13:56 | PC.NURSE ---
Addendum entered by Jero Gibson R.N. 10/14/19 14:51: Hoyered up to pt's own w/c with 2PA. Pt left with [facility] staff in no acute distress with dc packet. There were no belongings in room with pt. Addendum entered by Jero Gibson R.N. 10/14/19 14:40: 1415- Reviewed dc packet with pt and daughter. Provided dc teaching regarding dx, medications, plan of care. They verbalize understanding. Original Note: Report called to Sarah nurse at [facility] [phone]. Plan is for pt to dc back at 1636. Daughter in visiting at bedside updated on plan.
== END 2019-10-14 14:51 | DRG 177 ==
LOC: ED 19:12 → AC 20:17 → ICU 21:27
PROVIDERS: Internal Medicine; Admitting Provider Nurse Practitioner Adult Health; Emergency Provider Emergency Medicine; PCP Nurse Practitioner Family; Referring Provider Emergency Medicine; Visit Provider Nurse Practitioner Adult Health
DX: J69.0 Pneumonitis due to inhalation of food and vomit (principal); G93.41 Metabolic encephalopathy; R40.2212 Coma scale, best verbal response, none, at arrival to emergency department; B37.0 Candidal stomatitis; I69.954 Hemiplegia and hemiparesis following unspecified cerebrovascular disease affecting left non-dominant side; E86.0 Dehydration; G40.909 Epilepsy, unspecified, not intractable, without status epilepticus; I48.0 Paroxysmal atrial fibrillation; R40.2362 Coma scale, best motor response, obeys commands, at arrival to emergency department; R40.2142 Coma scale, eyes open, spontaneous, at arrival to emergency department; G20 Parkinson's disease; N40.0 Benign prostatic hyperplasia without lower urinary tract symptoms; K21.9 Gastro-esophageal reflux disease without esophagitis; Z87.891 Personal history of nicotine dependence; Z66 Do not resuscitate; Z03.818 Encounter for observation for suspected exposure to other biological agents ruled out; R11.10 Vomiting, unspecified
CPT/HCPCS: 36415; 51701; 70450; 71045; 80048; 80053; 80305; 80320; 80329; 81001; 82140; 82962; 83605; 83690; 83735; 84145; 84146; 84443; 85025; 85610; 85730; 87040; 87635; 87797; 92526; 92610; 93005; 94762; 96365; 97162; 97165; 99285; C9113; G0480; J1650; J1953; J2543; J3480

== ENCOUNTER → 2019-10-19 07:05 | Outpatient (ROUT) | payer OTHER, SELFPAY ==
[2019-10-19 07:51] LABS: Add Manual Diff / Slide Review NO; Basophils Absolute Auto 0 /uL (0-100); Basophils Percent Auto 0.5 % (0-2); Eosinophils Absolute Auto 500 /uL (0-450); Hematocrit 37.7 % (41-53); Hemoglobin 13.4 g/dL (13.5-17.5); Lymphocytes Absolute Auto 1300 /uL (1100-4500); Lymphocytes Percent Auto 21.6 % (25-40); Mean Corpuscular HGB Conc 35.6 % (30-36); Mean Corpuscular Hemoglobin 33.2 PG (26-34); Mean Corpuscular Volume 93.2 fL (80-100); Monocytes Absolute Auto 500 /uL (0-900); Monocytes Percent Auto 8.8 % (3-14); Neutrophils Absolute Auto 3600 /uL (1500-7000); Neutrophils Percent Auto 61.1 % (50-75); Platelet Count 218 X10^3/uL (150-400); Red Blood Cell Count 4.04 X10^6/uL (4.5-5.9); Red Cell Distribution Width 12.8 % (11.6-14.8); White Blood Cell Count 5.9 X10^3/uL (4.5-11.0)
[2019-10-19 08:11] LABS: BUN Creatinine Ratio 21.1 (6-22); Blood Urea Nitrogen 15 mg/dL (9-20); Carbon Dioxide 34 mmol/L (22-32); Chloride 103 mmol/L (98-107); Estimated Glomerular Filt Rate > 60.0 mL/min (>60); Glucose 94 mg/dL (80-110); HEMOLYSIS < 15 (0-50); Potassium 2.9 mmol/L (3.4-5.1); Sodium 139 mmol/L (137-145)
== END ==
PROVIDERS: PCP Nurse Practitioner Family; Visit Provider Nurse Practitioner Family
DX: J69.0 Pneumonitis due to inhalation of food and vomit (principal)
CPT/HCPCS: 36415; 80048; 85025

== ENCOUNTER → 2019-10-23 09:43 | Outpatient (ROUT) | payer OTHER, SELFPAY ==
[2019-10-23 10:34] LABS: HEMOLYSIS < 15 (0-50); Potassium 3.3 mmol/L (3.4-5.1)
== END ==
PROVIDERS: PCP Nurse Practitioner Family; Visit Provider Nurse Practitioner Family
DX: E87.6 Hypokalemia (principal)
CPT/HCPCS: 36415; 84132

== ENCOUNTER → 2019-11-02 07:11 | Outpatient (ROUT) | payer OTHER, SELFPAY ==
[2019-11-02 07:57] LABS: HEMOLYSIS < 15 (0-50); Potassium 3.7 mmol/L (3.4-5.1)
== END ==
PROVIDERS: PCP Nurse Practitioner Family; Visit Provider Registered Nurse
DX: E87.6 Hypokalemia (principal)
CPT/HCPCS: 36415; 84132

== ENCOUNTER → 2019-11-16 06:57 | Outpatient (ROUT) | payer OTHER, SELFPAY ==
[2019-11-16 07:21] LABS: Add Manual Diff / Slide Review NO; Basophils Absolute Auto 0 /uL (0-100); Basophils Percent Auto 0.7 % (0-2); Eosinophils Absolute Auto 200 /uL (0-450); Eosinophils Percent Auto 3.5 % (2-4); Hematocrit 37.7 % (41-53); Hemoglobin 13.2 g/dL (13.5-17.5); Lymphocytes Absolute Auto 1400 /uL (1100-4500); Lymphocytes Percent Auto 24.7 % (25-40); Mean Corpuscular Hemoglobin 32.4 PG (26-34); Mean Corpuscular Volume 92.6 fL (80-100); Monocytes Absolute Auto 500 /uL (0-900); Monocytes Percent Auto 8.8 % (3-14); Neutrophils Absolute Auto 3500 /uL (1500-7000); Neutrophils Percent Auto 62.3 % (50-75); Platelet Count 161 X10^3/uL (150-400); Red Blood Cell Count 4.07 X10^6/uL (4.5-5.9); White Blood Cell Count 5.6 X10^3/uL (4.5-11.0)
[2019-11-16 07:34] LABS: BUN Creatinine Ratio 23.6 (6-22); Blood Urea Nitrogen 17 mg/dL (9-20); Calcium 9.4 mg/dL (8.4-10.2); Carbon Dioxide 28 mmol/L (22-32); Chloride 103 mmol/L (98-107); Estimated Glomerular Filt Rate > 60.0 mL/min (>60); Glucose 97 mg/dL (80-110); HEMOLYSIS < 15 (0-50); Potassium 3.4 mmol/L (3.4-5.1); Sodium 137 mmol/L (137-145)
== END ==
PROVIDERS: PCP Nurse Practitioner Family; Visit Provider Nurse Practitioner Family
DX: R53.83 Other fatigue (principal); E87.6 Hypokalemia
CPT/HCPCS: 36415; 80048; 85025

== ENCOUNTER → 2019-11-18 07:20 | Outpatient (ROUT) | payer OTHER, SELFPAY ==
[2019-11-18 07:52] LABS: Add Manual Diff / Slide Review NO; Basophils Absolute Auto 100 /uL (0-100); Eosinophils Absolute Auto 300 /uL (0-450); Eosinophils Percent Auto 6.5 % (2-4); Hematocrit 36.5 % (41-53); Hemoglobin 12.7 g/dL (13.5-17.5); Lymphocytes Absolute Auto 1200 /uL (1100-4500); Lymphocytes Percent Auto 22.8 % (25-40); Mean Corpuscular HGB Conc 34.7 % (30-36); Mean Corpuscular Hemoglobin 32.6 PG (26-34); Monocytes Absolute Auto 500 /uL (0-900); Monocytes Percent Auto 10.1 % (3-14); Neutrophils Absolute Auto 3100 /uL (1500-7000); Neutrophils Percent Auto 59.6 % (50-75); Platelet Count 169 X10^3/uL (150-400); Red Blood Cell Count 3.88 X10^6/uL (4.5-5.9); Red Cell Distribution Width 13.3 % (11.6-14.8); White Blood Cell Count 5.3 X10^3/uL (4.5-11.0)
[2019-11-18 08:07] LABS: Alanine Aminotransferase 25 IU/L (<50); Albumin 3.7 g/dL (3.5-5.0); Albumin Globulin Ratio 1.2 (1.0-2.8); Alkaline Phosphatase 84 U/L (38-126); Aspartate Aminotransferase 21 IU/L (17-59); BUN Creatinine Ratio 24.1 (6-22); Bilirubin Total 0.8 mg/dL (0.2-1.3); Blood Urea Nitrogen 20 mg/dL (9-20); Calcium 9.4 mg/dL (8.4-10.2); Carbon Dioxide 31 mmol/L (22-32); Chloride 102 mmol/L (98-107); Estimated Glomerular Filt Rate > 60.0 mL/min (>60); Glucose 96 mg/dL (80-110); HEMOLYSIS < 15 (0-50); Potassium 3.7 mmol/L (3.4-5.1); Sodium 137 mmol/L (137-145); Total Protein 6.7 g/dL (6.3-8.2)
[2019-11-18 08:19] LABS: Prolactin 14.7 ng/mL (3.7-17.9)
== END ==
PROVIDERS: PCP Nurse Practitioner Family; Visit Provider Nurse Practitioner Family
DX: R56.9 Unspecified convulsions (principal)
CPT/HCPCS: 36415; 80053; 84146; 85025

== ENCOUNTER → 2020-06-08 07:31 | Outpatient (ROUT) | payer OTHER, SELFPAY ==
[2020-06-08 08:27] LABS: Add Manual Diff / Slide Review NO; Basophils Absolute Auto 100 /uL (0-100); Basophils Percent Auto 1.4 % (0-2); Eosinophils Absolute Auto 200 /uL (0-450); Eosinophils Percent Auto 4.8 % (2-4); Hematocrit 36.9 % (41-53); Hemoglobin 12.5 g/dL (13.5-17.5); Lymphocytes Absolute Auto 1200 /uL (1100-4500); Lymphocytes Percent Auto 30.1 % (25-40); Mean Corpuscular HGB Conc 33.9 % (30-36); Mean Corpuscular Volume 94.4 fL (80-100); Monocytes Absolute Auto 400 /uL (0-900); Monocytes Percent Auto 9.6 % (3-14); Neutrophils Absolute Auto 2200 /uL (1500-7000); Neutrophils Percent Auto 54.1 % (50-75); Platelet Count 190 X10^3/uL (150-400); Red Blood Cell Count 3.91 X10^6/uL (4.5-5.9); White Blood Cell Count 4.1 X10^3/uL (4.5-11.0)
[2020-06-08 08:49] LABS: BUN Creatinine Ratio 14.3 (6-22); Blood Urea Nitrogen 11 mg/dL (9-20); Calcium 8.6 mg/dL (8.4-10.2); Carbon Dioxide 34 mmol/L (22-32); Chloride 102 mmol/L (98-107); Estimated Glomerular Filt Rate > 60.0 mL/min (>60); Glucose 89 mg/dL (80-110); HEMOLYSIS < 15 (0-50); Potassium 3.8 mmol/L (3.4-5.1); Sodium 138 mmol/L (137-145)
== END ==
PROVIDERS: PCP Nurse Practitioner Family; Visit Provider Nurse Practitioner Family
DX: G20 Parkinson's disease (principal); Z79.899 Other long term (current) drug therapy
CPT/HCPCS: 36415; 80048; 85025

== ENCOUNTER 2020-07-22 23:43 | Observation (INO) | payer OTHER, SELFPAY ==
[2020-07-22 23:45] VITALS: BP 146/94; PULSE 90; RESP 18; TEMP 37.3; O2SAT 94; BMI 20.7
--- NOTE | 2020-07-22 23:53 | DI.RAD.S_ITS ---
PROCEDURE: XR CHEST 1V INDICATIONS: neck/shoulder pain TECHNIQUE: One view of the chest was acquired. COMPARISON: [facility], CR, XR CHEST 1V, 10/12/2019, 18:58. FINDINGS: Surgical changes and devices: None. Lungs and pleura: Lungs are clear. No pleural effusions or pneumothorax. Mediastinum: Mediastinal contours appear normal. Heart size is normal. Bones and chest wall: No suspicious bony lesions. Overlying soft tissues appear unremarkable. IMPRESSION: No acute cardiopulmonary abnormality. Dictated by: Chaitanya Gatica M.D. on 07/22/2020 at 23:31 Approved by: Chaitanya Gatica M.D. on 07/22/2020 at 23:32
[2020-07-23] VITALS (17 sets, daily range): BP systolic 127–175; BP diastolic 82–105; PULSE 63–87; RESP 13–23; TEMP 36.7–36.9; O2SAT 95–97; BMI 20.7
[2020-07-23 00:26] LABS: Add Manual Diff / Slide Review NO; Basophils Absolute Auto 100 /uL (0-100); Basophils Percent Auto 1.5 % (0-2); Eosinophils Absolute Auto 200 /uL (0-450); Eosinophils Percent Auto 4.1 % (2-4); Hematocrit 41.5 % (41-53); Hemoglobin 13.7 g/dL (13.5-17.5); Lymphocytes Absolute Auto 1500 /uL (1100-4500); Lymphocytes Percent Auto 31.5 % (25-40); Mean Corpuscular HGB Conc 32.9 % (30-36); Mean Corpuscular Hemoglobin 31.5 PG (26-34); Mean Corpuscular Volume 95.6 fL (80-100); Monocytes Absolute Auto 400 /uL (0-900); Monocytes Percent Auto 8.7 % (3-14); Neutrophils Absolute Auto 2500 /uL (1500-7000); Neutrophils Percent Auto 54.2 % (50-75); Platelet Count 221 X10^3/uL (150-400); Red Blood Cell Count 4.34 X10^6/uL (4.5-5.9); Red Cell Distribution Width 13.4 % (11.6-14.8); White Blood Cell Count 4.6 X10^3/uL (4.5-11.0)
[2020-07-23 00:27] LABS: INR 1.3 (0.9-1.3); Prothrombin Time 15.3 SECONDS (10.1-12.7)
[2020-07-23 00:30] LABS: PTT Partial Thromboplastin Tim 31 SECONDS (26.4-36.2)
[2020-07-23 00:31] LABS: Alanine Aminotransferase 19 IU/L (<50); Albumin Globulin Ratio 1.3 (1.0-2.8); Alkaline Phosphatase 101 U/L (38-126); Aspartate Aminotransferase 22 IU/L (17-59); BUN Creatinine Ratio 18.3 (6-22); Bilirubin Total 0.3 mg/dL (0.2-1.3); Blood Urea Nitrogen 15 mg/dL (9-20); Calcium 9.2 mg/dL (8.4-10.2); Carbon Dioxide 23 mmol/L (22-32); Chloride 105 mmol/L (98-107); Creatine Kinase 69 U/L (55-170); Estimated Glomerular Filt Rate > 60.0 mL/min (>60); Globulin 3.2 g/dL (1.7-4.1); Glucose 105 mg/dL (80-110); HEMOLYSIS < 15 (0-50); Lipase 412 U/L (23-300); Potassium 3.8 mmol/L (3.4-5.1); Sodium 140 mmol/L (137-145); Total Protein 7.2 g/dL (6.3-8.2)
[2020-07-23 00:41] LABS: NT-proBNP (BNP-Adult 18+) 39 pg/mL (<125)
[2020-07-23 00:43] LABS: Troponin I < 0.012 ng/mL (0.01-0.034)
[2020-07-23] MEDS: SODIUM CHLORIDE 0.9% 1,000 ML 150 ML IV (01:00)
--- NOTE | 2020-07-23 01:32 | ED.EXTPRO ---
HPI - Extremity Problem General Chief complaint: Extremity Problem,Nontraumatic Stated complaint: Neck/shoulder pain Time Seen by Provider: 07/22/20 23:52 Source: patient and EMS Mode of arrival: EMS Limitations: no limitations History of Present Illness HPI Narrative: This is a 75-year-old male who comes to the emergency department for neck/shoulder pain. Patient states he felt like there was a spasm in his neck into his trapezius area. He states that has since resolved. He relates that he recently carried a large iron safe up a hill. He states this safe was transferred to an airplane and had been sold the [place]. Patient currently lives at a care facility and does not live independently. Patient denies any trauma. He states this was a week ago and may have caused his symptoms. He does note that there is a small wound on his right anterior chest. He states that the area got pain sure there was a small pimple or lesion that initially started it. He denies any fevers or chills. He denies any chest pain or pressure. He denies any pain in his neck or back at this time. He denies any nausea, no vomiting, no other GI or urinary symptoms. He denies any numbness, tingling or weakness down his extremities. 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 Hypertension and dyslipidemia. Per report from EMS at the care facility patient contacted them that he was hurting, they state that he threw his head back and was shaking his arms and legs but was alert and conversant with them throughout the entire episode. Patient's symptoms had resolved when EMS was present. He has been asymptomatic since. Related Data Home Medications Medication Instructions Recorded Confirmed omeprazole 20 mg PO DAILY 04/24/19 10/13/19 propranolol 10 mg PO BID 04/24/19 10/13/19 tamsulosin 0.4 mg PO DAILY 04/24/19 10/13/19 acetaminophen 650 mg PO BID 10/13/19 10/13/19 acetaminophen 650 mg PO Q4H PRN 10/13/19 10/13/19 acetaminophen 650 mg MA Q4H PRN 10/13/19 10/13/19 aspirin 81 mg PO DAILY 10/13/19 10/13/19 atorvastatin 40 mg PO BEDTIME 10/13/19 10/13/19 baclofen 5 mg PO BID 10/13/19 10/13/19 escitalopram oxalate 10 mg PO DAILY 10/13/19 10/13/19 gabapentin 100 mg PO DAILY 10/13/19 10/13/19 lidocaine HCl [Aspercreme 1 applic TOPICAL BID 10/13/19 10/13/19 (lidocaine HCl)] lisinopril 5 mg PO Q12H 10/13/19 10/13/19 Previous Rx's Medication Instructions Recorded levetiracetam [Keppra] 500 mg PO Q12H #30 tab 10/11/19 Allergies Allergy/AdvReac Type Severity Reaction Status Date / Time antivenin,crotalidae Allergy Verified 10/12/19 19:41 polyvalent imm Review of Systems Review of Systems ROS Unobtainable: All systems reviewed & are unremarkable except as noted in HPI and below 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 HEENT: Atraumatic, pupils are equal round reactive to light, extraocular movements are intact, nares are clear, Throat is clear without any exudates, erythema, tonsillar enlargement or uvular deviation, no cervical tenderness. No spasm, full range of motion. HEART: Regular rate and rhythm without murmur, clicks, rubs. No carotid bruits, pulses are equal in upper and lower extremities LUNGS:Lungs clear to auscultation, no wheezes, rales, crackles, chest moves symmetrically ABD:bowel sounds normal, soft, non-tender, no guarding, rebound, rigidity, no masses noted, no hepatosplenomegaly, no bruit or pulsatile mass. :No CVA tenderness MSCL: Non-tender, no edema bilateral lower extremities. 2+ pulses b/l lower extremities. NEURO:CN 2-12 intact, sensation normal Initial Vital Signs Initial Vital Signs: Vital Signs Temperature 99.1 F 07/22/20 23:45 Pulse Rate 90 07/22/20 23:45 Respiratory Rate 18 07/22/20 23:45 Blood Pressure 146/94 H 07/22/20 23:45 Pulse Oximetry 94 07/22/20 23:45 Course Orders Ordered: ED Orders 07/22/20 23:52 NT-proBNP (BNP-Adult 18+) Stat Partial Thromboplastin Time Stat Prothrombin Time INR Stat 07/22/20 23:53 XR chest 1V Stat Complete Blood Count AUTO DIFF Stat Comprehensive Metabolic Panel Stat Lipase Stat Troponin & CK Cardiac Panel Stat EKG-12 Lead Stat 07/23/20 02:21 EKG-12 Lead Stat 07/23/20 02:25 Wound Culture and Gram Stain Stat 07/23/20 02:27 Troponin I Stat 07/23/20 03:38 COVID19 - ADMIT (SPEECH THERAPY DIRECTOR swab/PCR) Stat Al Hydrox/Mg Hydrox/Simethicone (Mag Hydrox/Alum/Simeth 30 Ml Udc) 30 ml PO Q6HR PRN PRN Reason: Dyspepsia Sodium Chloride (Normal Saline 0.9%) 1,000 mls @ 150 mls/hr IV CONT ROHITH Last Admin: 07/23/20 01:00 Dose: 150 mls/hr Documented by: KGALLAG Ibuprofen (Ibuprofen 600 Mg Tablet) 600 mg PO Q6HR PRN PRN Reason: Fever/Mild Pain (1-3) Morphine Sulfate (Morphine 2 Mg/Ml Inj) 2 mg IV Q5MIN PRN PRN Reason: Chest Pain Naloxone HCl (Naloxone 0.4 Mg/Ml Vial) 0.2 mg IV Q2MIN PRN PRN Reason: Opiate Reversal Nitroglycerin (Nitroglycerin 0.4 Mg Sl Tab) 0.4 mg SL [id number] PRN PRN Reason: Chest Pain Sennosides (Sennosides 8.6 Mg Tablet) 17.2 mg PO BEDTIME [facility] Sodium Chloride (Sodium Chloride 0.9% Flush) 10 ml IV PRN PRN PRN Reason: Flush Sodium Chloride (Sodium Chloride 0.9% Flush) 10 ml IV BID ROHITH Discontinued Medications Aspirin (Aspirin 81 Mg Chew Tab) 324 mg PO NOW ONE Stop: 07/23/20 03:17 Last Admin: 07/23/20 03:40 Dose: 324 mg Documented by: DINAH Trimethoprim/Sulfamethoxazole (Trimeth/Sulfa 160/800 (Ds) Tablet) 1 tab PO NOW ONE Stop: 07/23/20 02:22 Last Admin: 07/23/20 02:25 Dose: 1 tab Documented by: DINAH Consultations Consultation #1: Dr. Melton, discussed patient's troponin has trended upwards. It is not positive but is 3 times greater normal. No acute EKG changes patient is currently asymptomatic. He was given aspirin here in the department. All plan for CR troponins, echo and if patient has increasing troponin dry eyes, become symptomatic he request for call back. If troponin does not continue to increase or there are no major changes he would recommend discharge on follow-up outpatient. We discussed that it is unclear if patient is physically capable of stress testing, he might be a candidate for chemical but was unclear what the current goals of care are and patient has multiple medical co-morbidities. Consultation #2: . Her reviewed patient's chart and we discussed plan for this evening. She agrees with plan from Cardiology. She does have contact information for patient's GEOVANNI Rosas his daughter at [phone] and [phone]. Patient also has a sister Xenia her number is [phone]. Staff had attempted to contact family with no callback. Consultation #3: BRYON Cheng, accepts for observation with telemetry for possible chest pain observation. Patient troponin is rising although not positive and he has not had continued symptoms with no new EKG changes. Vitals stable and physical exam reveals small 1cm skin lesion with discharge and placed on oral antibiotics. Vital Signs Vital signs: Vital Signs - 8 hr 07/22/20 23:45 07/23/20 00:00 07/23/20 00:15 Temperature 99.1 F Pulse Rate 90 87 80 Respiratory Rate 18 18 16 Blood Pressure 146/94 H 140/91 H 146/94 H Pulse Oximetry 94 95 95 07/23/20 00:30 07/23/20 01:00 07/23/20 01:30 Temperature Pulse Rate 78 73 81 Respiratory Rate 16 16 16 Blood Pressure 143/90 H 146/86 H 174/87 H Pulse Oximetry 96 96 96 07/23/20 02:00 07/23/20 02:30 07/23/20 03:00 Temperature Pulse Rate 71 73 71 Respiratory Rate 16 20 14 Blood Pressure 157/89 H 175/92 H 163/92 H Pulse Oximetry 96 96 96 07/23/20 03:30 07/23/20 04:00 Temperature Pulse Rate 73 70 Respiratory Rate 13 19 Blood Pressure 155/89 H 167/86 H Pulse Oximetry 97 95 MDM - Extremity (Nontraumatic) Lab Data Attestation: I reviewed the patient's lab results. Result diagrams: 07/23/20 00:10 07/23/20 00:10 Labs: Lab Results 07/23/20 07/23/20 07/23/20 Range/Units 00:10 00:10 00:10 WBC 4.6 (4.5-11.0) X10^3/uL RBC 4.34 L (4.5-5.9) X10^6/uL Hgb 13.7 (13.5-17.5) g/dL Hct 41.5 (41-53) % MCV 95.6 (80-100) fL MCH 31.5 (26-34) PG MCHC 32.9 (30-36) % RDW 13.4 (11.6-14.8) % Plt Count 221 (150-400) X10^3/uL Neut % (Auto) 54.2 (50-75) % Lymph % (Auto) 31.5 (25-40) % Caroline % (Auto) 8.7 (3-14) % Eos % (Auto) 4.1 H (2-4) % Baso % (Auto) 1.5 (0-2) % Neut # (Auto) 2500 (6399-8820) /uL Lymph # (Auto) 1500 (3431-7354) /uL Caroline # (Auto) 400 (0-900) /uL Eos # (Auto) 200 (0-450) /uL Baso # (Auto) 100 (0-100) /uL PT 15.3 H (10.1-12.7) SECONDS INR 1.3 (0.9-1.3) APTT 31 (26.4-36.2) SECONDS Sodium (137-145) mmol/L Potassium (3.4-5.1) mmol/L Chloride (98-107) mmol/L Carbon Dioxide (22-32) mmol/L BUN (9-20) mg/dL Creatinine (0.66-1.25) mg/dL Estimated GFR (>60) mL/min BUN/Creatinine Ratio (6-22) Glucose (80-110) mg/dL Calcium (8.4-10.2) mg/dL Total Bilirubin (0.2-1.3) mg/dL AST (17-59) IU/L ALT (<50) IU/L Alkaline Phosphatase (38-126) U/L Total Creatine Kinase (55-170) U/L CK-MB (CK-2) CK-MB (CK-2) Rel Index Troponin I (0.01-0.034) ng/mL NT-Pro-B Natriuret Pep 39 (<125) pg/mL Total Protein (6.3-8.2) g/dL Albumin (3.5-5.0) g/dL Globulin (1.7-4.1) g/dL Albumin/Globulin Ratio (1.0-2.8) Lipase (23-300) U/L SARS-CoV-2 (PCR) (Negative) 07/23/20 07/23/20 07/23/20 Range/Units 00:10 02:27 03:38 WBC (4.5-11.0) X10^3/uL RBC (4.5-5.9) X10^6/uL Hgb (13.5-17.5) g/dL Hct (41-53) % MCV (80-100) fL MCH (26-34) PG MCHC (30-36) % RDW (11.6-14.8) % Plt Count (150-400) X10^3/uL Neut % (Auto) (50-75) % Lymph % (Auto) (25-40) % Caroline % (Auto) (3-14) % Eos % (Auto) (2-4) % Baso % (Auto) (0-2) % Neut # (Auto) (3428-6940) /uL Lymph # (Auto) (3551-9735) /uL Caroline # (Auto) (0-900) /uL Eos # (Auto) (0-450) /uL Baso # (Auto) (0-100) /uL PT (10.1-12.7) SECONDS INR (0.9-1.3) APTT (26.4-36.2) SECONDS Sodium 140 (137-145) mmol/L Potassium 3.8 (3.4-5.1) mmol/L Chloride 105 (98-107) mmol/L Carbon Dioxide 23 (22-32) mmol/L BUN 15 (9-20) mg/dL Creatinine 0.82 (0.66-1.25) mg/dL Estimated GFR > 60.0 (>60) mL/min BUN/Creatinine Ratio 18.3 (6-22) Glucose 105 (80-110) mg/dL Calcium 9.2 (8.4-10.2) mg/dL Total Bilirubin 0.3 (0.2-1.3) mg/dL AST 22 (17-59) IU/L ALT 19 (<50) IU/L Alkaline Phosphatase 101 (38-126) U/L Total Creatine Kinase 69 (55-170) U/L CK-MB (CK-2) TNP CK-MB (CK-2) Rel Index TNP Troponin I < 0.012 0.039 H (0.01-0.034) ng/mL NT-Pro-B Natriuret Pep (<125) pg/mL Total Protein 7.2 (6.3-8.2) g/dL Albumin 4.0 (3.5-5.0) g/dL Globulin 3.2 (1.7-4.1) g/dL Albumin/Globulin Ratio 1.3 (1.0-2.8) Lipase 412 H (23-300) U/L SARS-CoV-2 (PCR) Negative (Negative) Imaging Data Chest x-ray: Radiologist's Impression: [address] [id number] ReportSigned Patient: Tian Rosas ANTWAN#: [id number]: 1945cct:[id number]/Sex: 75 / MDate of Service: 07/22/20Loc: EDAccession Number: [id number] Procedure: XR chest 1V Ordering Provider: Enedina Lord D.O. PROCEDURE: XR CHEST 1V INDICATIONS: neck/shoulder pain TECHNIQUE: One view of the chest was acquired. COMPARISON: [facility], CR, XR CHEST 1V, 10/12/2019, 18:58. FINDINGS: Surgical changes and devices: None. Lungs and pleura: Lungs are clear. No pleural effusions or pneumothorax. Mediastinum: Mediastinal contours appear normal. Heart size is normal. Bones and chest wall: No suspicious bony lesions. Overlying soft tissues appear unremarkable. IMPRESSION: No acute cardiopulmonary abnormality. Dictated by: Chaitanya Gatica M.D. on 07/22/2020 at 23:31 Approved by: Chaitanya Gatica M.D. on 07/22/2020 at 23:32 ECG Data Attestation EKG: I personally reviewed and interpreted this ECG as follows: Prior ECG tracings: available for review Interpretation: Sinus rhythm rate 83 MA 156 QRS 82 and QTC of 470. No acute ST-elevation depression noted. Patient has prior for comparison from 10/11/19 which appears similar. EKG#2. NSR, rate of 69, MA interval of 162, QRS 88 QTC of 426. No acute ST changes appreciated. Patient's EKG appears similar to prior from earlier this evening. [facility] Narrative Medical decision making narrative: 75-year-old male with complaint of neck pain patient is asymptomatic upon arrival. He has not had any additional symptoms while here. Initial EKG troponin were negative. Patient's other lab work does not reveal a cause of his symptoms this evening. His troponin on repeat was trending upwards and in the indeterminate range. Patient's chest x-ray was negative. He has had stable vitals in the department. He does have a small lesion on his anterior chest that had some purulent drainage. This was cleansed patient was put on oral antibiotic but is an unlikely cause of his symptoms today. Patient case was discussed with cardiology who recommends serial enzymes and echo. They do not recommend Lovenox for anticoagulation beyond aspirin at this time. Patient is currently on Eliquis. His pulsed form is DNR with limited intervention. I did discuss case with his physician Dr. Beckford and family had attempted but unsuccessful contact. Daughter Melva is POA per Dr. Beckford. Patient remains asymptomatic in department and accepted by hospitalist for observation tele. Discharge Plan Departure Patient Disposition: Admitted as Observation Clinical Impression: Atypical chest pain Admit Date/Time: 07/23/20 04:46 Admit Provider: Lydia Cheng
[2020-07-23] MEDS: TRIMETH/SULFA 160/800 (DS) TABLET 1 TAB PO (02:25)
[2020-07-23 03:08] LABS: Troponin I 0.039 ng/mL (0.01-0.034)
[2020-07-23] MEDS: ASPIRIN 81 MG CHEW TAB 324 MG PO (03:40)
[2020-07-23 04:27] LABS: COVID19 - ADMIT (NP swab/PCR) Negative (Negative)
--- NOTE | 2020-07-23 05:08 | P.HP_ITS ---
History of Present Illness History of Present Illness Date Patient Seen: 07/23/20 Time Patient Seen: 05:28 Chief complaint: Neck/shoulder pain Narrative: Patient is a 75-year-old male Tian Lobato who presented to the ED with a chief compliant of neck pain radiating into the right shoulder. Per report from EMS at the care facility patient contacted them that he was hurting, EMS was advised by the facility staff that they witnessed the patient throwing his head back, shaking his arms and legs but was alert and conversant with them throughout the entire episode. Patient's symptoms had resolved when EMS arrived at the facility. The patient has been asymptomatic ever since. Patient states he felt like there was a spasm in his neck into his trapezius area. His symptoms has resolved by the time he was in the ED, and now on the floor for admit. He related a story to Dr. Lord in the ED that he recently carried a large iron safe up a hill. He states this safe was transferred to an airplane and had been sold the [employer] as a reason for his right neck and shoulder pain . Patient currently lives at a care facility and does not live in [facility]. Patient denies any trauma. He does note that there is a small wound on his right upper anterior chest and had been draining prior and that the area got painful and thinks there was a small pimple or lesion that initially started it. ED ordered culture and Gram stain from lesion. He denies any fevers, nausea, vomiting, urinary urgency, frequency, dysuria, incontinence, bodyaches, chills, chest pain, pressure, or shortness of breath. He denies any pain in his neck or back at this time. He denies any numbness, tingling or weakness down his extremities. Patient is a poor historian. 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 Patient's vitals upon admit temp 99.1?, BP 167/86, HR 70, RR 19, 95% O2 saturation on room air. Patient's labs: CBC and CMP were within normal limits, troponin #1-0.012, #2-0.039, lipase 412, chest x-ray showed no acute cardiopulmonary abnormalities. Patient's last echo 04/25/2019 ejection fraction 60-65%, CVP approximately around through 3 mmHg, aortic root mildly dilated. Last MRI 04/24/2019. Patient admitted for chest pain rule out AR. EKG:Sinus rhythm rate 83 IN 156 QRS 82 and QTC of 470. No acute ST-elevation depression noted. Patient has prior for comparison from 10/11/19 which appears similar. EKG#2. NSR, rate of 69, IN interval of 162, QRS 88 QTC of 426. No acute ST changes appreciated. Patient's EKG appears similar to prior from earlier this evening. ED Consultation; Dr. Lord #1: Dr. Melton, discussed patient's troponin has trended upwards. It is not positive but is 3 times greater normal. No acute EKG changes patient is currently asymptomatic. He was given aspirin here in the department. All plan for CR troponins, echo and if patient has increasing troponin dry eyes, become symptomatic he request for call back. If troponin does not continue to increase or there are no major changes he would recommend discharge on follow-up outpatient. We discussed that it is unclear if patient is physically capable of stress testing, he might be a candidate for chemical but was unclear what the current goals of care are and patient has multiple medical co-morbidities. Consultation #2: . Her reviewed patient's chart and we discussed plan for this evening. She agrees with plan from Cardiology. She does have contact information for patient's GEOVANNI Lobato his daughter at [phone] and [phone]. Patient also has a sister Xenia her number is [phone]. Staff had attempted to contact family with no callback. 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 Paroxysmal atrial fibrillation Postherpetic geniculate ganglionitis Tremor Surgical History History of esophagogastroduodenoscopy (EGD) Family & Social History Social History: household members children,other lives in a residential facility Safety & Behavioral: Feels Safe in Current Yes Environment Been Physically Hurt or No Threatened By a Person Tobacco & Substance use: Smoking Status Former smoker alcohol intake current alcohol intake frequency a few times a month Substance Use Type does not use Meds Home Medications and Allergies Home Medications Medication Instructions Recorded Confirmed Type acetaminophen 650 mg PO BID 10/13/19 07/23/20 History aspirin 81 mg PO DAILY 10/13/19 07/23/20 History atorvastatin 40 mg PO BEDTIME 10/13/19 07/23/20 History lidocaine HCl [Aspercreme 1 applic TOPICAL BID 10/13/19 07/23/20 History (lidocaine HCl)] apixaban [Eliquis] 5 mg PO BID 07/23/20 07/23/20 History carbidopa-levodopa 1 tab PO TID 07/23/20 07/23/20 History ceramides 1,3,6-II [CeraVe] 1 applic TOPICAL BID 07/23/20 07/23/20 History diphenhydramine HCl 25 mg PO Q6H PRN 07/23/20 07/23/20 History donepezil 10 mg PO DAILY 07/23/20 07/23/20 History ketoconazole 1 applic TOPICAL 2XW PRN 07/23/20 07/23/20 History lorazepam 0.5 mg PO DAILY PRN 07/23/20 07/23/20 History Allergies Allergy/AdvReac Type Severity Reaction Status Date / Time antivenin,crotalidae Allergy Verified 10/12/19 19:41 polyvalent imm Review of Systems Review of Systems ROS: Yes All systems reviewed with the patient and are negative except as otherwise documented and unobtainable due to mental status (Patient did deny any pain or discomfort, consider patient a poor historian.) Exam Vital Signs (past 8 hours): - 07/22/20 23:45 07/23/20 00:00 07/23/20 00:15 Temperature 99.1 F Pulse Rate 90 87 80 Respiratory Rate 18 18 16 Blood Pressure 146/94 H 140/91 H 146/94 H Pulse Oximetry 94 95 95 07/23/20 00:30 07/23/20 01:00 07/23/20 01:30 Temperature Pulse Rate 78 73 81 Respiratory Rate 16 16 16 Blood Pressure 143/90 H 146/86 H 174/87 H Pulse Oximetry 96 96 96 07/23/20 02:00 07/23/20 02:30 07/23/20 03:00 Temperature Pulse Rate 71 73 71 Respiratory Rate 16 20 14 Blood Pressure 157/89 H 175/92 H 163/92 H Pulse Oximetry 96 96 96 07/23/20 03:30 07/23/20 04:00 Temperature Pulse Rate 73 70 Respiratory Rate 13 19 Blood Pressure 155/89 H 167/86 H Pulse Oximetry 97 95 Oxygen Delivery Method Room Air Narrative Exam Narrative: General: Patient is a well-developed, average-nourished male in no distress at this time. HEENT: Normocephalic, atraumatic, extraocular muscles intact, oral pharynx is clear and mucous membranes are moist. Neck is supple and symmetric, trachea is midline, no adenopathy, no thyroid enlargement, nontender, no masses palpated. Negative for JVD Chest: Normal AP diameter and contour without kyphoscoliosis, no nasal flaring, retractions, or tachypneic labored Lungs: Auscultation of all lung hilliard are clear without adventitious sounds, wheezes, rhonchi, or rales. Cardio: regular rate and rhythm without murmur, rubs, or gallops, no carotid bruit, no cardiac pulsations present. Abdomen: Soft nontender, negative for organomegaly, or masses. Bowel sounds are present in all 4 quadrants without guarding or rebound, no CVA tenderness. Musculoskeletal: Muscle strength and tone are equal within normal limits, no deformity, crepitus, effusions, cyanosis, clubbing or edema present. Full range of motion intact radial and pedal pulses are normal. Skin: small wound to upper right anterior chest, dressing intact without erythema, inflammation, warmth or signs of infection. Neuro: Alert and orientated x3, strength is +5/5 in all extremities, sensation to touch intact, no gross deficits noted of cranial nerves. Psych: Patient has a well-kept appearance, flat affect, patient a poor historian, unsure of patient's cognitive baseline. Objective Labs Result Diagrams: 07/23/20 00:10 07/23/20 00:10 Labs: Laboratory Results - last 24 hr 07/23/20 07/23/20 07/23/20 00:10 00:10 00:10 WBC 4.6 RBC 4.34 L Hgb 13.7 Hct 41.5 MCV 95.6 MCH 31.5 MCHC 32.9 RDW 13.4 Plt Count 221 Neut % (Auto) 54.2 Lymph % (Auto) 31.5 [place] % (Auto) 8.7 Eos % (Auto) 4.1 H Baso % (Auto) 1.5 Neut # (Auto) 2500 Lymph # (Auto) 1500 [place] # (Auto) 400 Eos # (Auto) 200 Baso # (Auto) 100 PT 15.3 H INR 1.3 APTT 31 Sodium Potassium Chloride Carbon Dioxide BUN Creatinine Estimated GFR BUN/Creatinine Ratio Glucose Calcium Total Bilirubin AST ALT Alkaline Phosphatase Total Creatine Kinase CK-MB (CK-2) CK-MB (CK-2) Rel Index Troponin I NT-Pro-B Natriuret Pep 39 Total Protein Albumin Globulin Albumin/Globulin Ratio Lipase SARS-CoV-2 (PCR) 07/23/20 07/23/20 07/23/20 00:10 02:27 03:38 WBC RBC Hgb Hct MCV MCH MCHC RDW Plt Count Neut % (Auto) Lymph % (Auto) [place] % (Auto) Eos % (Auto) Baso % (Auto) Neut # (Auto) Lymph # (Auto) [place] # (Auto) Eos # (Auto) Baso # (Auto) PT INR APTT Sodium 140 Potassium 3.8 Chloride 105 Carbon Dioxide 23 BUN 15 Creatinine 0.82 Estimated GFR > 60.0 BUN/Creatinine Ratio 18.3 Glucose 105 Calcium 9.2 Total Bilirubin 0.3 AST 22 ALT 19 Alkaline Phosphatase 101 Total Creatine Kinase 69 CK-MB (CK-2) TNP CK-MB (CK-2) Rel Index TNP Troponin I < 0.012 0.039 H NT-Pro-B Natriuret Pep Total Protein 7.2 Albumin 4.0 Globulin 3.2 Albumin/Globulin Ratio 1.3 Lipase 412 H SARS-CoV-2 (PCR) Negative Assessment & Plan Assessment & Plan narrative: 1. atypical chest pain,acute, not present on admission, stable -Monitor for hypertensive emergencies with acute end-organ damage, ventricular tachycardia, unstable SVT, hypertension, angina or AR, heart failure, renal function. 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 Patient's vitals upon admit temp 99.1?, BP 167/86, HR 70, RR 19, 95% O2 saturation on room air. Patient's labs: CBC and CMP were within normal limits, troponin #1-0.012, #2-0.039, lipase 412, chest x-ray showed no acute cardiopulmonary abnormalities. Patient's last echo 04/25/2019 ejection fraction 60-65%, CVP approximately around through 3 mmHg, aortic root mildly dilated. Last MRI 04/24/2019. Patient admitted for chest pain rule out AR. EKG:Sinus rhythm rate 83 IN 156 QRS 82 and QTC of 470. No acute ST-elevation depression noted. Patient has prior for comparison from 10/11/19 which appears similar. EKG#2. NSR, rate of 69, IN interval of 162, QRS 88 QTC of 426. No acute ST ch anges appreciated. Patient's EKG appears similar to prior from earlier this evening. -Fabian Vasc score: 3 (5.9%), heart score:5 -ED Consultation; Dr. Lord #1: Dr. Melton, discussed patient's troponin has trended upwards. It is not positive but is 3 times greater normal. No acute EKG changes patient is currently asymptomatic. He was given aspirin here in the department. All plan for CR troponins, echo and if patient has increasing troponin dry eyes, become symptomatic he request for call back. If troponin does not continue to increase or there are no major changes he would recommend discharge on follow-up outpatient. We discussed that it is unclear if patient is physically capable of stress testing, he might be a candidate for chemical but was unclear what the current goals of care are and patient has multiple medical co-morbidities. Consultation #2: . Her reviewed patient's chart and we discussed plan for this evening. She agrees with plan from Cardiology. She does have contact information for patient's JOEA Melva Lobato his daughter at [phone] and [phone]. Patient also has a sister Xenia her number is [phone]. Staff had attempted to contact family with no callback -Continuous tele monitoring and order echo for tomorrow, vital signs q.4 hours, intake and output monitored Q shift, weight measure daily, diet:heart healthy, IV:Hep Lock -Serial troponins 1 Q 6 hours x3, proBNP, CBC, electrolytes, UA and chest x-ray (Completed) -sublingual nitro glycerin 0.4 mg as needed for chest pain, aspirin 325 mg -In the event of persistent unrelenting chest pain: Order CTA or V/Q scan or CT. Metoprolol 5 mg IV or Cardizem 5 mg to 10 mg IV Q 15 minutes, Beta-constantino, nitrates, MS, will not provide DVT/VTE prophylaxis or Plavix-per Dr. Summers c ardiology recommendation. -notify Cardiology for consult if troponins continue to increase - Goals: reducing blood pressure over 24-48 hours, not more than 25-30% in the 1st 24 hours. O2 to keep O2 sats greater than 92% potassium > 4 and Mag > 2 2. Wound, right upper anterior chest, acute, present on admission -culture taken in ER-results pending 3. Seizure disorder, not present on admission, stable. - will continue Keppra 4. Paroxysmal atrial fibrillation, in sinus rhythm, chronic, not present on admission, stable. -patient with regular heart rhythm and denies chest pain with had not. -continue patients propranolol. 5.. BPH, chronic, stable, not present on admission -continue tamsulosin 0.4 mg the patient is again taking PO's. COVID PCR: Negative VTE prophylaxis: Bilateral SCDs only, no medication per Dr. Summers food technology teacher Surrogate decision maker: Daughter Melva Lobato Code status: DO NOT RESUSCITATE/LIMITED INTERVENTIONS, patient's daughter is surrogate decision maker and agrees to IV fluids and antibiotics. Scores GCS [place] coma scale eye opening: Spontaneous [place] coma scale verbal response: Orientated [place]ie coma scale motor response: Obey commands [place] coma scale total score: 15 CHADS-VASc Congestive heart failure: no Hypertension: yes Age 75 years or older: no Diabetes mellitus: no Stroke, TIA, or TE: yes Vascular disease: no Age 65 to 74 years: yes Sex category (female): Male CHADS-VASc Score: 4 Wells' Criteria for PE Clinical signs and symptoms of DVT: No PE is #1 Dx or equally likely: No Heart rate > 100: No Immobilization at least 3 days or surg in previous 4 weeks: No History of PE or DVT: No Hemoptysis: No Malignancy w/Treatment within 6 months or palliative: No Wells' PE Score total: 0
--- NOTE | 2020-07-23 05:09 | DI.ECHO.S_ITS ---
[facility] +---------+ : : [address] : [address] [address] : : : : [id number] : : : : Phone: [phone] Echocardiogram Report + + :Name: ISHAAN MCCAIN Study Date: 07/23/2020 Height: 69 in : :[facility] ReadingLocation: Weight: 140 lb : : Gender: Male BSA: 1.8 m2 : :: 1945 Age: 75 yrs BP: 168/103 mmHg: :Reason For Study: CHEST PAIN, ELEVATED TROPONIN : :Ordering Physician: DENILSON, : :LISSETTE Performed By: Elmira Chaudhary : :Referring: LISSETTE OREILLY : + + Interpretation Summary Normal sinus rhythm. Elevated blood pressure. Left ventricle demonstrates normal size and mild concentric left ventricular hypertrophy. Normal wall motion and left ventricular systolic function. Ejection fraction is 60-65%. Normal chamber sizes. No valvular abnormalities. Compared to prior study April 25, 2019 no significant changes have occurred. Procedure: A two-dimensional transthoracic echocardiogram with color flow and Doppler was performed. The study quality was technically adequate. There is no prior echocardiogram noted for this patient. The patient was in sinus bradycardia with heart rates between 59-65 bpm during the exam. Left Ventricle: The left ventricle is normal in size. There is mild concentric left ventricular hypertrophy. The ejection fraction is estimated to be 60-65%. Diastolic parameters suggest a relaxation abnormality of the left ventricle, consistent with probable normal filling pressures. Right Ventricle: The right ventricle is normal in size and function. Atria: The left atrial size is normal. Right atrial size is normal. There is no Doppler evidence for an interatrial shunt. Mitral Valve: The mitral valve is normal in structure and function. There is trace mitral regurgitation. Aortic Valve: The aortic valve is trileaflet. The aortic valve is mildly calcified. There is no aortic valve stenosis. No aortic regurgitation is present. Tricuspid Valve: The tricuspid valve is normal in structure and function. There is trace tricuspid regurgitation. Pulmonary artery pressures cannot be estimated because of the lack of a measurable TR jet velocity but the IVC suggests a CVP of around 3 mmHg. Pulmonic Valve: The pulmonic valve leaflets are thin and pliable; valve motion is normal. There is no pulmonic valvular regurgitation. Great Vessels: The aortic root is normal size. The ascending aorta is mildly enlarged. The IVC is of normal diameter and collapses greater than 50% with a sniff. This suggests a low right atrial pressure of 3 mm Hg. Pericardium/ Pleura There is no pericardial effusion. There is no pleural effusion. MMode/2D Measurements & Calculations LVIDd: 3.9 cm LVOT diam: 2.1 cm LVIDs: 2.5 cm Ao root diam: 3.8 cm FS: 35.3 % asc Aorta Diam: 3.6 cm EPSS: 0.81 cm IVSd: 1.3 cm LVPWd: 1.1 cm LV barr. diameter/BSA (cm/m^2): 2.2 LV sys. diameter/BSA (cm/m^2): 1.4 LA A2 area: 18.2 cm2 RA long axis: 4.9 cm LA A4 area: 15.4 cm2 RA area: 14.3 cm2 LA length (vol): 4.9 cm RA vol: 36.0 ml LA vol: 48.0 ml RA : 20.3 ml/m2 LA vol index: 27.1 ml/m2 IVC diam: 1.4 cm RVD1 (basal): 3.8 cm TAPSE: 2.4 cm Doppler Measurements & Calculations Ao V2 max: 146.6 cm/sec LVOT Max Manjit: 93.5 cm/sec Ao V2 mean: 103.1 cm/sec LV V1 max P.5 mmHg Ao max P.6 mmHg LV V1 VTI: 20.4 cm Ao mean P.7 mmHg BRIANA(I,D): 2.4 cm2 Ao V2 VTI: 28.2 cm BRIANA(V,D): 2.1 cm2 sev ratio: 0.72 BRIANA indexed to BSA (cm^2/m^2): 1.4 MV E max manjit: 53.3 cm/sec PA V2 max: 89.7 cm/sec MV A max manjit: 75.1 cm/sec PA V2 mean: 56.5 cm/sec MV E/A: 0.71 PA mean P.5 mmHg Med Peak E' Manjit: 3.9 cm/sec PA pr(Accel): 24.2 mmHg E/E' med: 13.7 Lat Peak E' Manjit: 4.1 cm/sec E/E' lat: 13.1 E/e' average: 13.4 MV dec time: 0.33 sec SV(LVOT): 67.7 ml Electronically signed by: Anuja Wade M.D. on Reading Physician:07/23/2020 06:59 PM
[2020-07-23 05:43] LABS: Amylase 95 U/L (30-110); Magnesium 2.1 mg/dL (1.6-2.3)
[2020-07-23 06:31] LABS: Cholesterol 120 mg/dL (140-199); HDL Cholesterol 37 mg/dL (40-60); LDL Cholesterol Calculated 69 mg/dL (<100); Triglycerides 70 mg/dL (35-150)
[2020-07-23 06:41] LABS: NT-proBNP (BNP-Adult 18+) 46 pg/mL (<125); Troponin I 0.063 ng/mL (0.01-0.034)
[2020-07-23] MEDS: PROPRANOLOL 10 MG TABLET 5 MG PO (06:48)
--- NOTE | 2020-07-23 07:05 | PC.ADMIT ---
0530 patient admitted to room 224 per stretcher from ER. States he came in because he was having neck pain. Is oriented except to age, day of week/month. Is slightly [place]IE[place] and states he has a hearing aid but does not have it with. States he wears glasses but does not have them with. Breath sounds CTA with RA sat of 95%. HRR but has elevated BP of 168/103 so BODY SHOP FLOORPERSON was informed and Propranolol ordered and given. Telemetry reading was SR. Denies nausea. States he is incontinent of B&B. Slightly pink in bilateral groins but no open areas noted. Has dressing to open area with surrounding redness (entire area is approx dime size) which was cultured in ER and gram stain is showing gm + cocci and gm + rods; B[employer] SHOP FLOORPERSON made aware and patient placed on contact isolation. 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 Reports he is nonambulatory but does sit up in chair. Attempted to help patient sit up in bed but has difficulty maintaining upright position. Also has difficulty turning in bed without assistance. Denies pain at present time. Bilateral calf SCD's were applied. Fall risk score is high (patient reports falling out of wheelchair about 3 weeks ago) and bed alarm is activated. Oriented to call light and bed controls. [address] Admission Note: The patient,Tian Rosas,75 y/o, was given written information regarding hospital policies, unit procedures and contact persons. Patient's smoking status: Former smoker. Vital Signs - 8 hr 07/22/20 23:45 07/23/20 00:00 07/23/20 00:15 Temperature 99.1 F Pulse Rate 90 87 80 Respiratory Rate 18 18 16 Blood Pressure 146/94 H 140/91 H 146/94 H Pulse Oximetry 94 95 95 07/23/20 00:30 07/23/20 01:00 07/23/20 01:30 Temperature Pulse Rate 78 73 81 Respiratory Rate 16 16 16 Blood Pressure 143/90 H 146/86 H 174/87 H Pulse Oximetry 96 96 96 07/23/20 02:00 07/23/20 02:30 07/23/20 03:00 Temperature Pulse Rate 71 73 71 Respiratory Rate 16 20 14 Blood Pressure 157/89 H 175/92 H 163/92 H Pulse Oximetry 96 96 96 07/23/20 03:30 07/23/20 04:00 07/23/20 04:30 Temperature Pulse Rate 73 70 72 Respiratory Rate 13 19 23 Blood Pressure 155/89 H 167/86 H 168/88 H Pulse Oximetry 97 95 96 07/23/20 05:00 07/23/20 05:30 07/23/20 05:47 Temperature 98.4 F Pulse Rate 69 63 Respiratory Rate 14 18 Blood Pressure 174/97 H 168/103 H Pulse Oximetry 96 95 97
[2020-07-23] MEDS: ASPIRIN 81 MG CHEW TAB PO (09:00)
[2020-07-23] MEDS: CARBIDOPA-LEVODOPA 25/100 TABLET 1 EACH PO ×2 (09:00→14:30)
[2020-07-23] MEDS: APIXABAN 5 MG TABLET PO (09:00)
[2020-07-23] MEDS: SODIUM CHLORIDE 0.9% FLUSH 10 ML IV (09:00)
--- NOTE | 2020-07-23 12:35 | PT-IP ANOTE ---
PT eval received. EMR reviewed: pt is a resident of [facility] and is a keith lift transfer to w/c and needs assistance with all tasks. talked to Nurse regarding d/c. OT informed hospitalist during rounds and agreed to d/c eval orders.
--- NOTE | 2020-07-23 12:36 | OT.IPNOTE ---
Chart reviewed after receiving OT eval orders. Pts baseline per chart is needing assist to dependent for all self care except eating. Per nursing, pt is feeding self at this time. No further OT needs as pt is at his baseline for ADLs. Notified MD of plan to d/c order without full eval.
[2020-07-23 13:02] LABS: Troponin I 0.032 ng/mL (0.01-0.034)
--- NOTE | 2020-07-23 13:25 | PM.DS.1 ---
History of Present Illness History of Present Illness Date Patient Seen: 07/23/20 Time Patient Seen: 13:25 Chief complaint: Neck/shoulder pain Narrative: Per Lydia Cheng, SERVICE DELIVERY MANAGEMENT CONSULTANT-: Patient is a 75-year-old male Tian Lobato who presented to the ED with a chief compliant of neck pain radiating into the right shoulder. Per report from EMS at the care facility patient contacted them that he was hurting, EMS was advised by the facility staff that they witnessed the patient throwing his head back, shaking his arms and legs but was alert and conversant with them throughout the entire episode. Patient's symptoms had resolved when EMS arrived at the facility. The patient has been asymptomatic ever since. Patient states he felt like there was a spasm in his neck into his trapezius area. His symptoms has resolved by the time he was in the ED, and now on the floor for admit. He related a story to Dr. Lord in the ED that he recently carried a large iron safe up a hill. He states this safe was transferred to an airplane and had been sold the [employer] as a reason for his right neck and shoulder pain . Patient currently lives at a care facility and does not live independently. Patient denies any trauma. He does note that there is a small wound on his right upper anterior chest and had been draining prior and that the area got painful and thinks there was a small pimple or lesion that initially started it. ED ordered culture and Gram stain from lesion. He denies any fevers, nausea, vomiting, urinary urgency, frequency, dysuria, incontinence, bodyaches, chills, chest pain, pressure, or shortness of breath. He denies any pain in his neck or back at this time. He denies any numbness, tingling or weakness down his extremities. Patient is a poor historian. 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 Patient's vitals upon admit temp 99.1?, BP 167/86, HR 70, RR 19, 95% O2 saturation on room air. Patient's labs: CBC and CMP were within normal limits, troponin #1-0.012, #2-0.039, lipase 412, chest x-ray showed no acute cardiopulmonary abnormalities. Patient's last echo 04/25/2019 ejection fraction 60-65%, CVP approximately around through 3 mmHg, aortic root mildly dilated. Last MRI 04/24/2019. Patient admitted for chest pain rule out TX. EKG:Sinus rhythm rate 83 [place] 156 QRS 82 and QTC of 470. No acute ST-elevation depression noted. Patient has prior for comparison from 10/11/19 which appears similar. EKG#2. NSR, rate of 69, [place] interval of 162, QRS 88 QTC of 426. No acute ST changes appreciated. Patient's EKG appears similar to prior from earlier this evening. ED Consultation; Dr. Lord #1: Dr. Melton, discussed patient's troponin has trended upwards. It is not positive but is 3 times greater normal. No acute EKG changes patient is currently asymptomatic. He was given aspirin here in the department. All plan for CR troponins, echo and if patient has increasing troponin dry eyes, become symptomatic he request for call back. If troponin does not continue to increase or there are no major changes he would recommend discharge on follow-up outpatient. We discussed that it is unclear if patient is physically capable of stress testing, he might be a candidate for chemical but was unclear what the current goals of care are and patient has multiple medical co-morbidities. Consultation #2: . Her reviewed patient's chart and we discussed plan for this evening. She agrees with plan from Cardiology. She does have contact information for patient's GEOVANNI Lobato his daughter at [phone] and [phone]. Patient also has a sister Xenia her number is [phone]. Staff had attempted to contact family with no callback. Discharge Providers Provider Date of admission: 07/23/20 04:46 Discharge Date: 07/23/20 Primary care physician: GUSTAVO Vargas Consults: 07/23/20 05:15 Consult to Occupational Therapy Evaluate & Treat Comment: Physician Instructions: Evaluate and treat Consult to Physical Therapy Evaluate & Treat Comment: Physician Instructions: Evaluate and Treat Discharge provider: Noble Saha DO Summary Hospital Course Discharge Diagnosis: 1. atypical chest pain,acute, not present on admission, stable 2. Bacterial Wound, right upper anterior chest, acute, present on admission 3. Seizure disorder, not present on admission, stable. 4. Paroxysmal atrial fibrillation, in sinus rhythm, chronic, not present on admission, stable. 5.. BPH, chronic, stable, not present on admission Hospital Course: Mr. 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 This was likely musculoskeletal in nature based on presenting history. The patient had borderline elevated troponins but an unremarkable EKG. Troponin ultimately peaked at 0.063 and then down trended. Echocardiogram was repeated as per recommendations from Cardiology whom was consulted in the emergency room. He was also noted to have a small right upper anterior chest wound which is currently growing Gram-positive cocci after culture was sent from the ER. He will be discharged on a short course of antibiotics for this anterior chest wound. He is on MRSA precautions because of the Gram Positive Cocci, pending final speciation and sensitivity. Exam Vital Signs (past 8 hours): - 07/23/20 05:30 07/23/20 05:47 07/23/20 07:22 Temperature 98.4 F 98.1 F Pulse Rate 63 69 Respiratory Rate 18 14 Blood Pressure 168/103 H 159/105 H Pulse Oximetry 95 97 96 07/23/20 09:12 07/23/20 11:20 Temperature 98.3 F Pulse Rate 66 Respiratory Rate 16 Blood Pressure 127/82 Pulse Oximetry 96 95 Oxygen Delivery Method Room Air Oxygen Flow Rate 0 Narrative Exam Narrative: General: Patient is a well-developed, average-nourished male in no distress at this time. HEENT: Normocephalic, atraumatic, extraocular muscles intact, oral pharynx is clear and mucous membranes are moist. Neck is supple and symmetric, trachea is midline, no adenopathy, no thyroid enlargement, nontender, no masses palpated. Negative for JVD Chest: Normal AP diameter and contour without kyphoscoliosis. Lungs: Auscultation of all lung hilliard are clear without adventitious sounds, wheezes, rhonchi, or rales. Cardio: regular rate and rhythm without murmur, rubs, or gallops, no carotid bruit, no cardiac pulsations present. Abdomen: Soft nontender, negative for organomegaly, or masses. Bowel sounds are present in all 4 quadrants without guarding or rebound, no CVA tenderness. Musculoskeletal: Muscle strength and tone are equal within normal limits, no deformity, crepitus, effusions, cyanosis, clubbing or edema present. Full range of motion intact radial and pedal pulses are normal. Skin: small wound to upper right anterior chest, dressing intact without erythema, inflammation, warmth. Neuro: Alert and orientated x3, strength is +5/5 in all extremities, sensation to touch intact, no gross deficits noted of cranial nerves. Psych: Patient has a well-kept appearance, flat affect, cooperative, stable behavior. Objective Labs Result Diagrams: 07/23/20 00:10 07/23/20 00:10 Labs: Laboratory Results - last 24 hr 07/23/20 07/23/20 07/23/20 00:10 00:10 00:10 WBC 4.6 RBC 4.34 L Hgb 13.7 Hct 41.5 MCV 95.6 MCH 31.5 MCHC 32.9 RDW 13.4 Plt Count 221 Neut % (Auto) 54.2 Lymph % (Auto) 31.5 Isabela % (Auto) 8.7 Eos % (Auto) 4.1 H Baso % (Auto) 1.5 Neut # (Auto) 2500 Lymph # (Auto) 1500 Isabela # (Auto) 400 Eos # (Auto) 200 Baso # (Auto) 100 PT 15.3 H INR 1.3 APTT 31 Sodium Potassium Chloride Carbon Dioxide BUN Creatinine Estimated GFR BUN/Creatinine Ratio Glucose Calcium Magnesium Total Bilirubin AST ALT Alkaline Phosphatase Total Creatine Kinase CK-MB (CK-2) CK-MB (CK-2) Rel Index Troponin I NT-Pro-B Natriuret Pep 39 Total Protein Albumin Globulin Albumin/Globulin Ratio Triglycerides Cholesterol LDL Cholesterol, Calc HDL Cholesterol Amylase Lipase SARS-CoV-2 (PCR) 07/23/20 07/23/20 07/23/20 00:10 00:10 00:10 WBC RBC Hgb Hct MCV MCH MCHC RDW Plt Count Neut % (Auto) Lymph % (Auto) Isabela % (Auto) Eos % (Auto) Baso % (Auto) Neut # (Auto) Lymph # (Auto) Isabela # (Auto) Eos # (Auto) Baso # (Auto) PT INR APTT Sodium 140 Potassium 3.8 Chloride 105 Carbon Dioxide 23 BUN 15 Creatinine 0.82 Estimated GFR > 60.0 BUN/Creatinine Ratio 18.3 Glucose 105 Calcium 9.2 Magnesium 2.1 Total Bilirubin 0.3 AST 22 ALT 19 Alkaline Phosphatase 101 Total Creatine Kinase 69 CK-MB (CK-2) TNP CK-MB (CK-2) Rel Index TNP Troponin I < 0.012 NT-Pro-B Natriuret Pep Total Protein 7.2 Albumin 4.0 Globulin 3.2 Albumin/Globulin Ratio 1.3 Triglycerides Cholesterol LDL Cholesterol, Calc HDL Cholesterol Amylase 95 Lipase 412 H SARS-CoV-2 (PCR) 07/23/20 07/23/20 07/23/20 02:27 03:38 05:55 WBC RBC Hgb Hct MCV MCH MCHC RDW Plt Count Neut % (Auto) Lymph % (Auto) Isabela % (Auto) Eos % (Auto) Baso % (Auto) Neut # (Auto) Lymph # (Auto) Isabela # (Auto) Eos # (Auto) Baso # (Auto) PT INR APTT Sodium Potassium Chloride Carbon Dioxide BUN Creatinine Estimated GFR BUN/Creatinine Ratio Glucose Calcium Magnesium Total Bilirubin AST ALT Alkaline Phosphatase Total Creatine Kinase CK-MB (CK-2) CK-MB (CK-2) Rel Index Troponin I 0.039 H 0.063 H NT-Pro-B Natriuret Pep 46 Total Protein Albumin Globulin Albumin/Globulin Ratio Triglycerides Cholesterol LDL Cholesterol, Calc HDL Cholesterol Amylase Lipase SARS-CoV-2 (PCR) Negative 07/23/20 07/23/20 05:55 12:30 WBC RBC Hgb Hct MCV MCH MCHC RDW Plt Count Neut % (Auto) Lymph % (Auto) Isabela % (Auto) Eos % (Auto) Baso % (Auto) Neut # (Auto) Lymph # (Auto) Isabela # (Auto) Eos # (Auto) Baso # (Auto) PT INR APTT Sodium Potassium Chloride Carbon Dioxide BUN Creatinine Estimated GFR BUN/Creatinine Ratio Glucose Calcium Magnesium Total Bilirubin AST ALT Alkaline Phosphatase Total Creatine Kinase CK-MB (CK-2) CK-MB (CK-2) Rel Index Troponin I 0.032 NT-Pro-B Natriuret Pep Total Protein Albumin Globulin Albumin/Globulin Ratio Triglycerides 70 Cholesterol 120 L LDL Cholesterol, Calc 69 HDL Cholesterol 37 L Amylase Lipase SARS-CoV-2 (PCR) PFSH Medical History BPH (benign prostatic hyperplasia) CVA (cerebral vascular accident) Degenerative disease of nervous system Dementia without behavioral disturbance Dysphagia, oropharyngeal Generalized seizure GERD (gastroesophageal reflux disease) 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 This was likely musculoskeletal in nature based on presenting history. The patient had borderline elevated troponins but an unremarkable EKG. Troponin ultimately peaked at 0.063 and then down trended. Echocardiogram was repeated as per recommendations from Cardiology whom was consulted in the emergency room. He was also noted to have a small right upper anterior chest wound which is currently growing Gram-positive cocci. He will be discharged on a short course of antibiotics for this anterior chest wound. Discharge orders & Medications Discharge Orders: Discharge (Order); Ordered 07/23/20 Ordered By: Noble Saha Prescriptions: New doxycycline hyclate 100 mg tablet 100 mg PO BID 3 Days Qty: 6 RF: 0 Continued atorvastatin 40 mg tablet 40 mg PO BEDTIME RF: 0 acetaminophen 325 mg Tablet 650 mg PO BID RF: 0 aspirin 81 mg Tablet,Chewable 81 mg PO DAILY RF: 0 lidocaine HCl [Aspercreme (lidocaine HCl)] 4 % Cream 1 applic TOPICAL BID RF: 0 ketoconazole 2 % Shampoo 1 applic TOPICAL 2XW PRN (Reason: Dry Skin) RF: 0 donepezil 10 mg Tablet 10 mg PO DAILY RF: 0 lorazepam 0.5 mg Tablet 0.5 mg PO DAILY PRN (Reason: unknown) RF: 0 diphenhydramine HCl 25 mg Capsule 25 mg PO Q6H PRN (Reason: unknown) RF: 0 carbidopa-levodopa 25-100 mg Tablet 1 tab PO TID RF: 0 CeraVe Cream 1 applic TOPICAL BID RF: 0 Eliquis 5 mg Tablet 5 mg PO BID RF: 0 Follow up/Referrals: Karen Hallman ARNP [Primary Care Provider] - Discharge Health Status Multidrug resistant organism: MRSA MDRO Verified by culture: No Precautions: Contact Diet/Activity/Treatments Diet: Diet as Tolerated Activity: As tolerated Visit Report/Discharge Packet Instructions: DI for Atypical Chest Pain, Doxycycline Discharge Data Primary Care Provider: Karen Hallman Attending Provider: Lydia Cheng
--- NOTE | 2020-07-23 14:14 | CM.DANOTE ---
Discharge Planning/Care Management DCP: assessment: case received and discussed with Dr. Saha. Pt is a 75 year old male who resides at [facility]. He carries multiple comorbidities and is almost completely dependent on staff for his care needs. POA: daughter Melva Can/Brenda. [phone]. Pt admitted at 0400 this morning: admission status: OBS: per [facility]. Payer: [facility] Dr. Saha has cleared him for d/c today. Have spoken with Neha and JUSTIN Bernal at [facility] both confirm ability to accept pt back today. New medication order and other d/c information is faxed now to [facility]: [phone]. Called Melva with update on the d/c. She plans to be right over in order to see pt in person before he returns to the facility. Will also fax recent COVID test to [facility]. JUSTIN Luciano is updated. CM Discharge Assessment Start: 07/23/20 14:11 Freq: Status: Active Protocol: Document 07/23/20 14:11 ITV (Rec: 07/23/20 14:14 ITV [id number]) Discharge Planning Assessment Advance Directives? Yes Advance Directives on File Yes History Provided By Patient,Medical Record Prior Living Arrangements Assisted Living Type of transportation used prior to Relies on Others admit Facility Name Admitted From: [facility] Willing to Return to Facility? Yes Independent with ADL's No Is patient alert and oriented? No Comment is a keith lift transfer at [facility]. Discharge Plan Assisted Living Facility Transportation Arrangement [facility] staff will bring pt's chair and a keith sling and pick pt up today at 1500, per Neha/BLAYNE
--- NOTE | 2020-07-23 15:21 | PC.NURSE ---
Pt ready for discharge back to [facility]. Guillaumeed Pt to his personal w/c and he was discharged out by [facility] personnel with Packet.
--- NOTE | 2020-07-23 15:23 | PC.NURSE ---
Discharge Note Patient assisted to transfer to at change of shift w/ day shift nurse and this RN. All belongings packed and given to facility staff along with discharge packet. Patient taken via wheelchair by facility staff.
== END 2020-07-23 15:15 ==
LOC: ED 07-23 04:44 → AC 07-23 04:47
PROVIDERS: Internal Medicine; Admitting Provider Nurse Practitioner Family; Emergency Provider Emergency Medicine; PCP Nurse Practitioner Family; Referring Provider Emergency Medicine; Visit Provider Nurse Practitioner Family
DX: R07.89 Other chest pain (principal); M54.2 Cervicalgia; S20.301A Unspecified superficial injuries of right front wall of thorax, initial encounter; B95.8 Unspecified staphylococcus as the cause of diseases classified elsewhere; G40.909 Epilepsy, unspecified, not intractable, without status epilepticus; I48.0 Paroxysmal atrial fibrillation; N40.0 Benign prostatic hyperplasia without lower urinary tract symptoms; Z86.73 Personal history of transient ischemic attack (TIA), and cerebral infarction without residual deficits; I10 Essential (primary) hypertension; E78.5 Hyperlipidemia, unspecified; Z20.822 Contact with and (suspected) exposure to COVID-19
CPT/HCPCS: 36415; 71045; 80053; 80061; 82150; 82550; 83690; 83735; 83880; 84484; 85025; 85610; 85730; 87070; 87075; 87077; 87147; 87186; 87205; 87635; 93005; 93306; 96360; 96361; 99284; G0378

== ENCOUNTER → 2020-08-03 07:55 | Outpatient (ROUT) | payer OTHER, SELFPAY ==
[2020-07-23 05:34] VITALS: BMI 20.7
[2020-08-03 08:41] LABS: Add Manual Diff / Slide Review NO; Basophils Absolute Auto 0 /uL (0-100); Basophils Percent Auto 1.2 % (0-2); Eosinophils Absolute Auto 200 /uL (0-450); Eosinophils Percent Auto 6.4 % (2-4); Hematocrit 37.3 % (41-53); Hemoglobin 12.4 g/dL (13.5-17.5); Lymphocytes Absolute Auto 1100 /uL (1100-4500); Lymphocytes Percent Auto 28.9 % (25-40); Mean Corpuscular HGB Conc 33.3 % (30-36); Mean Corpuscular Hemoglobin 31.4 PG (26-34); Mean Corpuscular Volume 94.3 fL (80-100); Monocytes Absolute Auto 400 /uL (0-900); Monocytes Percent Auto 9.8 % (3-14); Neutrophils Absolute Auto 2000 /uL (1500-7000); Neutrophils Percent Auto 53.7 % (50-75); Platelet Count 162 X10^3/uL (150-400); Red Blood Cell Count 3.96 X10^6/uL (4.5-5.9); Red Cell Distribution Width 13.5 % (11.6-14.8); White Blood Cell Count 3.7 X10^3/uL (4.5-11.0)
[2020-08-03 09:02] LABS: Alanine Aminotransferase 16 IU/L (<50); Albumin 3.5 g/dL (3.5-5.0); Albumin Globulin Ratio 1.1 (1.0-2.8); Alkaline Phosphatase 95 U/L (38-126); Aspartate Aminotransferase 22 IU/L (17-59); BUN Creatinine Ratio 16.5 (6-22); Bilirubin Total 0.3 mg/dL (0.2-1.3); Blood Urea Nitrogen 13 mg/dL (9-20); Calcium 8.9 mg/dL (8.4-10.2); Carbon Dioxide 29 mmol/L (22-32); Chloride 104 mmol/L (98-107); Estimated Glomerular Filt Rate > 60.0 mL/min (>60); Globulin 3.2 g/dL (1.7-4.1); Glucose 89 mg/dL (80-110); HEMOLYSIS < 15 (0-50); Lipase 1152 U/L (23-300); Potassium 3.7 mmol/L (3.4-5.1); Sodium 138 mmol/L (137-145); Total Protein 6.7 g/dL (6.3-8.2)
== END ==
PROVIDERS: PCP Nurse Practitioner Family; Visit Provider Nurse Practitioner Family
DX: T14.8XXA Other injury of unspecified body region, initial encounter (principal); R74.8 Abnormal levels of other serum enzymes
CPT/HCPCS: 36415; 80053; 83690; 85025

== ENCOUNTER → 2020-08-15 10:56 | Outpatient (CLI) | payer OTHER, SELFPAY ==
[2020-07-23 05:34] VITALS: BMI 20.7
== END ==
PROVIDERS: PCP Nurse Practitioner Family; Referring Provider Nurse Practitioner Family; Visit Provider Family Medicine
DX: S21.102A Unspecified open wound of left front wall of thorax without penetration into thoracic cavity, initial encounter (principal); L08.9 Local infection of the skin and subcutaneous tissue, unspecified; Z87.891 Personal history of nicotine dependence; G20 Parkinson's disease
CPT/HCPCS: 11042; 87070; 87077; 87147; 87186; 87205; 99204; 99213

== ENCOUNTER → 2020-08-22 11:09 | Outpatient (CLI) | payer OTHER, SELFPAY ==
[2020-07-23 05:34] VITALS: BMI 20.7
== END ==
PROVIDERS: PCP Nurse Practitioner Family; Referring Provider Nurse Practitioner Family; Visit Provider Family Medicine
DX: S21.90XA Unspecified open wound of unspecified part of thorax, initial encounter (principal)
CPT/HCPCS: 99214

== ENCOUNTER → 2020-08-29 09:23 | Outpatient (CLI) | payer OTHER, SELFPAY ==
[2020-07-23 05:34] VITALS: BMI 20.7
== END ==
PROVIDERS: PCP Nurse Practitioner Family; Referring Provider Nurse Practitioner Family; Visit Provider Family Medicine
DX: L02.233 Carbuncle of chest wall (principal); S21.102A Unspecified open wound of left front wall of thorax without penetration into thoracic cavity, initial encounter; L08.9 Local infection of the skin and subcutaneous tissue, unspecified
CPT/HCPCS: 11042; 87070; 87075; 87077; 87186; 87205; 99213

== ENCOUNTER → 2020-09-05 09:37 | Outpatient (CLI) | payer OTHER, SELFPAY ==
[2020-07-23 05:34] VITALS: BMI 20.7
== END ==
PROVIDERS: PCP Nurse Practitioner Family; Referring Provider Registered Nurse; Visit Provider Family Medicine
DX: S21.102D Unspecified open wound of left front wall of thorax without penetration into thoracic cavity, subsequent encounter (principal)
CPT/HCPCS: 99213

== ENCOUNTER → 2020-10-26 08:05 | Outpatient (ROUT) | payer OTHER, SELFPAY ==
[2020-07-23 05:34] VITALS: BMI 20.7
[2020-10-26 08:23] LABS: Add Manual Diff / Slide Review NO; Basophils Absolute Auto 0 /uL (0-100); Basophils Percent Auto 0.9 % (0-2); Eosinophils Absolute Auto 200 /uL (0-450); Eosinophils Percent Auto 3.3 % (2-4); Hemoglobin 12.7 g/dL (13.5-17.5); Lymphocytes Absolute Auto 1100 /uL (1100-4500); Lymphocytes Percent Auto 22.7 % (25-40); Mean Corpuscular HGB Conc 33.4 % (30-36); Mean Corpuscular Hemoglobin 31.2 PG (26-34); Mean Corpuscular Volume 93.4 fL (80-100); Monocytes Absolute Auto 400 /uL (0-900); Monocytes Percent Auto 8.1 % (3-14); Neutrophils Absolute Auto 3100 /uL (1500-7000); Platelet Count 164 X10^3/uL (150-400); Red Blood Cell Count 4.07 X10^6/uL (4.5-5.9); Red Cell Distribution Width 14.1 % (11.6-14.8); White Blood Cell Count 4.7 X10^3/uL (4.5-11.0)
[2020-10-26 09:02] LABS: BUN Creatinine Ratio 23.4 (6-22); Blood Urea Nitrogen 18 mg/dL (9-20); Calcium 8.8 mg/dL (8.4-10.2); Carbon Dioxide 27 mmol/L (22-32); Chloride 107 mmol/L (98-107); Estimated Glomerular Filt Rate > 60.0 mL/min (>60); Glucose 93 mg/dL (80-110); HEMOLYSIS < 15 (0-50); Potassium 3.9 mmol/L (3.4-5.1); Sodium 141 mmol/L (137-145)
== END ==
PROVIDERS: PCP Nurse Practitioner Family; Visit Provider Nurse Practitioner Family
DX: R31.9 Hematuria, unspecified (principal)
CPT/HCPCS: 36415; 80048; 85025

== ENCOUNTER → 2021-03-22 08:48 | Outpatient (ROUT) | payer OTHER, SELFPAY ==
[2020-07-23 05:34] VITALS: BMI 20.7
[2021-03-22 10:23] LABS: Add Manual Diff / Slide Review NO; Basophils Absolute Auto 0 /uL (0-100); Basophils Percent Auto 1.1 % (0-2); Eosinophils Absolute Auto 200 /uL (0-450); Eosinophils Percent Auto 5.3 % (2-4); Hematocrit 40.7 % (41-53); Hemoglobin 13.8 g/dL (13.5-17.5); Lymphocytes Absolute Auto 1000 /uL (1100-4500); Lymphocytes Percent Auto 25.3 % (25-40); Mean Corpuscular Hemoglobin 31.8 PG (26-34); Mean Corpuscular Volume 93.7 fL (80-100); Monocytes Absolute Auto 200 /uL (0-900); Monocytes Percent Auto 6.2 % (3-14); Neutrophils Absolute Auto 2400 /uL (1500-7000); Neutrophils Percent Auto 62.1 % (50-75); Platelet Count 166 X10^3/uL (150-400); Red Blood Cell Count 4.34 X10^6/uL (4.5-5.9); Red Cell Distribution Width 13.9 % (11.6-14.8); White Blood Cell Count 3.9 X10^3/uL (4.5-11.0)
[2021-03-22 10:25] LABS: BUN Creatinine Ratio 24.7 (6-22); Blood Urea Nitrogen 19 mg/dL (9-20); Calcium 8.7 mg/dL (8.4-10.2); Carbon Dioxide 32 mmol/L (22-32); Chloride 101 mmol/L (98-107); Estimated Glomerular Filt Rate > 60.0 mL/min (>60); Glucose 115 mg/dL (80-110); HEMOLYSIS < 15 (0-50); Lipase 348 U/L (23-300); Potassium 3.5 mmol/L (3.4-5.1); Sodium 139 mmol/L (137-145)
== END ==
PROVIDERS: PCP Nurse Practitioner Family; Visit Provider Nurse Practitioner Family
DX: R74.8 Abnormal levels of other serum enzymes (principal); Z79.899 Other long term (current) drug therapy
CPT/HCPCS: 36415; 80048; 83690; 85025

== ENCOUNTER → 2021-03-29 07:59 | Outpatient (ROUT) | payer OTHER, SELFPAY ==
[2020-07-23 05:34] VITALS: BMI 20.7
[2021-03-29 08:55] LABS: Lipase 1605 U/L (23-300)
== END ==
PROVIDERS: PCP Nurse Practitioner Family; Visit Provider Internal Medicine
DX: R74.8 Abnormal levels of other serum enzymes (principal)
CPT/HCPCS: 36415; 83690

== ENCOUNTER 2021-08-05 22:37 | Emergency (ER) | payer OTHER, SELFPAY ==
[2020-07-23 05:34] VITALS: BMI 20.7
[2021-08-05] VITALS (7 sets, daily range): BP systolic 141–159; BP diastolic 91–96; PULSE 77–88; RESP 16–19; TEMP 36.5; O2SAT 93–95
--- NOTE | 2021-08-05 22:39 | DI.CT.S_ITS ---
PROCEDURE: CT HEAD/BRAIN WO CON INDICATIONS: new onset seizure TECHNIQUE: Noncontrast 4.5 mm thick angled axial sections acquired from the foramen magnum to the vertex, with coronal and sagittal reformats. For radiation dose reduction, the following was used: automated exposure control, adjustment of mA and/or kV according to patient size. COMPARISON: [facility], CT, CT HEAD/BRAIN WO CON, 10/12/2019, 19:04. FINDINGS: Image quality: Excellent. CSF spaces: Basal cisterns are patent. No extra-axial fluid collections. Ventricles are normal in size and shape. Brain: Severe atrophy and multifocal white matter chronic ischemic change. Right frontal cystic encephalomalacia and gliosis. No intracranial hemorrhage or mass effect. Moderate calcified atherosclerotic plaque noted involving the cavernous portions of both internal carotid arteries. Skull and face: Calvarium and visualized facial bones are intact, without suspicious lesions. Debris in the left external auditory canal(s) can be correlated with direct visualization Sinuses: Visualized sinuses and mastoids are clear. IMPRESSION: 1. Atrophy and white matter chronic ischemic change without acute hemorrhage or mass effect. 2. Right frontal TIA territorial infarct, stable. Approved by: Matt Schroeder M.D. on 08/05/2021 at 22:41
[2021-08-05 22:50] LABS: Add Manual Diff / Slide Review NO; Basophils Absolute Auto 0 /uL (0-100); Basophils Percent Auto 0.6 % (0-2); Eosinophils Absolute Auto 200 /uL (0-450); Eosinophils Percent Auto 3.3 % (2-4); Hematocrit 45.3 % (41-53); Hemoglobin 14.9 g/dL (13.5-17.5); Lymphocytes Absolute Auto 2900 /uL (1100-4500); Lymphocytes Percent Auto 42.5 % (25-40); Mean Corpuscular HGB Conc 32.8 % (30-36); Mean Corpuscular Hemoglobin 31.9 PG (26-34); Mean Corpuscular Volume 97.2 fL (80-100); Monocytes Absolute Auto 600 /uL (0-900); Monocytes Percent Auto 8.5 % (3-14); Neutrophils Absolute Auto 3000 /uL (1500-7000); Neutrophils Percent Auto 45.1 % (50-75); Platelet Count 172 X10^3/uL (150-400); Red Blood Cell Count 4.66 X10^6/uL (4.5-5.9); Red Cell Distribution Width 13.9 % (11.6-14.8); White Blood Cell Count 6.7 X10^3/uL (4.5-11.0)
--- NOTE | 2021-08-05 22:56 | ED_ITS ---
HPI - Seizure General Chief Complaint: Seizure Stated Complaint: Seizure Time Seen by Provider: 08/05/21 22:39 Source: EMS Mode of arrival: EMS Limitations: altered mental status History of Present Illness HPI Narrative: 76-year-old male former smoker with history of hypertension, hyperlipidemia, prior stroke, Parkinson's and previous seizures presents by EMS for evaluation of 2 seizures this evening. Patient was observed at [facility] to have a 62nd seizure in which his extremities were ?twitching? and he became unresponsive. There was a few minute episode of postictal type behavior in the aftermath and then soon thereafter and other shorter seizure with shorter postictal phase was noted. At this time EMS was activated. He has had no recent trauma or injury and denies fever or chills. He has had no nausea, vomiting or diarrhea. His symptoms have resolve at the time of his arrival. He has had no dietary change or new medications. Patient had previously been on Keppra but did not tolerate it and is followed by Dr. sanchez at [facility] Related Data Home Medications Medication Instructions Recorded Confirmed acetaminophen 325 mg tablet 650 mg PO BID 10/13/19 07/23/20 aspirin 81 mg chewable tablet 81 mg PO DAILY 10/13/19 07/23/20 atorvastatin 40 mg tablet 40 mg PO BEDTIME 10/13/19 07/23/20 lidocaine HCl 4 % topical cream 1 applic TOPICAL BID 10/13/19 07/23/20 (Aspercreme (lidocaine HCl)) apixaban 5 mg tablet (Eliquis) 5 mg PO BID 07/23/20 07/23/20 carbidopa 25 mg-levodopa 100 mg 1 tab PO TID 07/23/20 07/23/20 tablet ceramides 1,3,6-II (CeraVe) 1 applic TOPICAL BID 07/23/20 07/23/20 diphenhydramine HCl 25 mg capsule 25 mg PO Q6H PRN 07/23/20 07/23/20 donepezil 10 mg tablet 10 mg PO DAILY 07/23/20 07/23/20 ketoconazole 2 % shampoo 1 applic TOPICAL 2XW PRN 07/23/20 07/23/20 lorazepam 0.5 mg tablet 0.5 mg PO DAILY PRN 07/23/20 07/23/20 Allergies Allergy/AdvReac Type Severity Reaction Status Date / Time antivenin,crotalidae Allergy Verified 10/12/19 19:41 polyvalent imm Review of Systems Review of Systems Narrative: GENERAL: Denies chills, fatigue, malaise, fever, sweats. HEENT: Denies sinus pain, ear pain, sore throat, difficulty swallowing, dizziness. RESPIRATORY: Denies dyspnea, cough, wheezing, hemoptysis, sputum. CARDIOVASCULAR: Denies chest pain, palpitations, orthopnea, edema, GASTROINTESTINAL: Denies nausea, vomiting, abdominal pain, diarrhea, constipation, melena. : Denies dysuria, frequency, incontinence, hematuria, urinary retention. MUSCULOSKELETAL: denies weakness, joint pain, or bony pain SKIN: Denies rash, skin lesions, or other NEUROLOGIC: See HPI PSYCHIATRIC: No concerning psychosocial issues. 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 Well-developed patient, in no obvious distress, alert and oriented x3 HEAD: Atraumatic. Normocephalic. EYES: Pupils equal round and reactive. Extraocular motions intact. No scleral icterus. No injection or drainage. ENT: Nose without bleeding, purulent drainage. Throat without erythema, tonsillar hypertrophy or exudate. Airway patent. NECK: Trachea midline. Non tender CARDIOVASCULAR: Regular rate and rhythm without murmurs, gallops, or rubs. RESPIRATORY: Clear to auscultation. Breath sounds equal bilaterally. No wheezes, rales, or rhonchi. GASTROINTESTINAL: Abdomen soft, non-tender, nondistended. EXTREMITIES: No edema or joint tenderness. BACK: Nontender without deformity or crepitance. No flank tenderness. NEURO: Cranial nerves 2-12 grossly intact persistent left-sided weakness consistent with prior stroke SKIN: No rash or erythema of visible areas Initial Vital Signs Initial Vital Signs: Vital Signs Pulse Rate 84 08/05/21 22:41 Pulse Oximetry 95 08/05/21 22:41 Course Orders Ordered: ED Orders 08/05/21 22:39 CT head/brain wo con Stat 08/05/21 22:40 Complete Blood Count AUTO DIFF Stat Comprehensive Metabolic Panel Stat Magnesium Stat Troponin & CK Cardiac Panel Stat Discontinued Medications Sodium Chloride (Normal Saline 0.9%) 1,000 mls @ 1,000 mls/hr IV BOLUS ONE Stop: 08/05/21 23:38 Last Infusion: 08/06/21 00:58 Dose: 0 mls/hr Documented by: Admin: 08/05/21 23:15 Dose: 1,000 mls/hr Documented by: TEDDY Consultations Consultation #1: Discussed with his PCP, we sure the opinion it is no additional evaluation or therapies are needed. She encouraged his discharge and will get patient to follow-up with neurology as an outpatient Vital Signs Vital signs: Vital Signs - 8 hr 08/05/21 22:41 08/05/21 22:42 08/05/21 22:43 Temperature Pulse Rate 84 88 80 Respiratory Rate Blood Pressure 149/96 H Pulse Oximetry 95 94 94 08/05/21 22:47 08/05/21 22:57 08/05/21 23:00 Temperature 97.7 F Pulse Rate 84 82 77 Respiratory Rate 18 16 17 Blood Pressure 141/95 H 159/96 H 144/91 H Pulse Oximetry 95 94 93 08/05/21 23:30 08/06/21 00:00 08/06/21 00:01 Temperature Pulse Rate 79 70 70 Respiratory Rate 19 15 15 Blood Pressure 151/91 H 173/88 H Pulse Oximetry 95 96 96 08/06/21 00:30 Temperature Pulse Rate 66 Respiratory Rate 15 Blood Pressure 167/88 H Pulse Oximetry 96 MDM - Seizure Lab Data Result diagrams: 08/05/21 22:40 08/05/21 22:40 Labs: Lab Results 08/05/21 08/05/21 Range/Units 22:40 22:40 WBC 6.7 (4.5-11.0) X10^3/uL RBC 4.66 (4.5-5.9) X10^6/uL Hgb 14.9 (13.5-17.5) g/dL Hct 45.3 (41-53) % MCV 97.2 (80-100) fL MCH 31.9 (26-34) PG MCHC 32.8 (30-36) % RDW 13.9 (11.6-14.8) % Plt Count 172 (150-400) X10^3/uL Neut % (Auto) 45.1 L (50-75) % Lymph % (Auto) 42.5 H (25-40) % [place] % (Auto) 8.5 (3-14) % Eos % (Auto) 3.3 (2-4) % Baso % (Auto) 0.6 (0-2) % Neut # (Auto) 3000 (6320-8941) /uL Lymph # (Auto) 2900 (6234-6572) /uL [place] # (Auto) 600 (0-900) /uL Eos # (Auto) 200 (0-450) /uL Baso # (Auto) 0 (0-100) /uL Sodium 140 (137-145) mmol/L Potassium 3.9 (3.4-5.1) mmol/L Chloride 105 (98-107) mmol/L Carbon Dioxide 15 L (22-32) mmol/L BUN 13 (9-20) mg/dL Creatinine 0.84 (0.66-1.25) mg/dL Estimated GFR > 60 (>60) mL/min BUN/Creatinine Ratio 15.5 (6-22) Glucose 105 (80-110) mg/dL Calcium 8.8 (8.4-10.2) mg/dL Magnesium 2.1 (1.6-2.3) mg/dL Total Bilirubin 0.6 (0.2-1.3) mg/dL AST 36 (17-59) IU/L ALT 17 (<50) IU/L Alkaline Phosphatase 75 (38-126) U/L Total Creatine Kinase 97 (55-170) U/L CK-MB (CK-2) TNP CK-MB (CK-2) Rel Index TNP Troponin I < 0.012 (0.01-0.034) ng/mL Total Protein 7.8 (6.3-8.2) g/dL Albumin 4.4 (3.5-5.0) g/dL Globulin 3.4 (1.7-4.1) g/dL Albumin/Globulin Ratio 1.3 (1.0-2.8) Imaging Data CT scan - head: Radiologist's Impression: [address] [address] [address] Scan Report Signed Patient: Tian Rosas MR#: [id number] : 1945 Acct:[id number] Age/Sex: 76 / M Date of Service: 08/05/21 Loc: ED Accession Number: [id number] ?? Procedure: CT head/brain wo con Ordering Provider: Milan Mujica D.O. PROCEDURE:? CT HEAD/BRAIN WO CON ? INDICATIONS:? new onset seizure ? TECHNIQUE:? Noncontrast 4.5 mm thick angled axial sections acquired from the foramen magnum to the vertex, with coronal and sagittal reformats.? For radiation dose reduction, the following was used:? automated exposure control, adjustment of mA and/or kV according to patient size.? ? COMPARISON:? [facility], CT, CT HEAD/BRAIN WO CON, 10/12/2019, 19:04. ? FINDINGS:? Image quality:? Excellent.? ? CSF spaces:? Basal cisterns are patent.? No extra-axial fluid collections.? Ventricles are normal in size and shape.? ? Brain:? Severe atrophy and multifocal white matter chronic ischemic change.? Right frontal cystic encephalomalacia and gliosis.? No intracranial hemorrhage or mass effect.? Moderate calcified atherosclerotic plaque noted involving the cavernous portions of both internal carotid arteries.? ? Skull and face:? Calvarium and visualized facial bones are intact, without suspicious lesions.? Debris in the left external auditory canal(s) can be correlated with direct visualization ? Sinuses:? Visualized sinuses and mastoids are clear.? ? IMPRESSION:? ? 1. Atrophy and white matter chronic ischemic change without acute hemorrhage or mass effect. ? 2. Right frontal TIA territorial infarct, stable. ? ? ? Approved by: Matt Schroeder M.D. on 08/05/2021 at 22:41? Discharge Plan Departure Patient Disposition: Home Clinical Impression: Generalized seizure Instructions: DI for Seizure Disorder -- Adult Activity Restrictions/Additional Instructions: *You have been diagnosed with [seizure, resolved. Thankfully, your history, physical exam labs and imaging are reassuring *What to do: *Please continue to take your regular medications as directed. [ ] New medication prescriptions sent to your pharmacy: [ ] [ ] New medication written as a paper prescription [ x] No new medications given *Please follow up with your primary care provider in 2-3 days, call for an appointment. Let them know you were seen in the Emergency Department and that we ask that you be seen in follow up. We will electronically transmit a record of today's note if your PCP is in our system *If you do not have a primary care provider please contact the [facility] Resource line at [phone]. They will ask some questions about your medical history and help get you set up with a doctor in the community. *Return to Emergency Department if you should have any new, worsening or concerning symptoms, such as [fever greater than 101 F, shaking chills, worsening pain, persistent vomiting or other bothersome symptoms] Prescriptions: No Action atorvastatin 40 mg tablet 40 mg PO BEDTIME 0RF acetaminophen 325 mg Tablet 650 mg PO BID 0RF aspirin 81 mg Tablet,Chewable 81 mg PO DAILY 0RF lidocaine HCl [Aspercreme (lidocaine HCl)] 4 % Cream 1 applic TOPICAL BID 0RF Rx Instructions: Apply topically to left shoulder twice daily ketoconazole 2 % Shampoo 1 applic TOPICAL 2XW PRN (Reason: Dry Skin) 0RF donepezil 10 mg Tablet 10 mg PO DAILY 0RF lorazepam 0.5 mg Tablet 0.5 mg PO DAILY PRN (Reason: unknown) 0RF diphenhydramine HCl 25 mg Capsule 25 mg PO Q6H PRN (Reason: unknown) 0RF carbidopa-levodopa 25-100 mg Tablet 1 tab PO TID 0RF CeraVe Cream 1 applic TOPICAL BID 0RF Rx Instructions: to heels Eliquis 5 mg Tablet 5 mg PO BID 0RF Referrals: Karen Hallman ARNP [Primary Care Provider] -
[2021-08-05 23:00] LABS: Albumin 4.4 g/dL (3.5-5.0); Albumin Globulin Ratio 1.3 (1.0-2.8); Alkaline Phosphatase 75 U/L (38-126); Aspartate Aminotransferase 36 IU/L (17-59); BUN Creatinine Ratio 15.5 (6-22); Bilirubin Total 0.6 mg/dL (0.2-1.3); Blood Urea Nitrogen 13 mg/dL (9-20); Calcium 8.8 mg/dL (8.4-10.2); Carbon Dioxide 15 mmol/L (22-32); Chloride 105 mmol/L (98-107); Creatine Kinase 97 U/L (55-170); Estimated Glomerular Filt Rate > 60 mL/min (>60); Globulin 3.4 g/dL (1.7-4.1); Glucose 105 mg/dL (80-110); Magnesium 2.1 mg/dL (1.6-2.3); Potassium 3.9 mmol/L (3.4-5.1); Sodium 140 mmol/L (137-145); Total Protein 7.8 g/dL (6.3-8.2)
[2021-08-05 23:06] LABS: Alanine Aminotransferase 17 IU/L (<50); HEMOLYSIS 17 (0-50)
[2021-08-05 23:11] LABS: Troponin I < 0.012 ng/mL (0.01-0.034)
[2021-08-05] MEDS: SODIUM CHLORIDE 0.9% 1,000 ML 1000 ML IV (23:15)
[2021-08-06] VITALS: PULSE 70; RESP 15; O2SAT 96
[2021-08-06 00:01] VITALS: BP 173/88; PULSE 70; RESP 15; O2SAT 96
[2021-08-06 00:30] VITALS: BP 167/88; PULSE 66; RESP 15; O2SAT 96
== END 2021-08-06 00:59 | disposition home or self-care (01) ==
PROVIDERS: Emergency Provider Emergency Medicine; PCP Nurse Practitioner Family
DX: G40.89 Other seizures (principal); Z87.891 Personal history of nicotine dependence
CPT/HCPCS: 70450; 80053; 82550; 82553; 83735; 84484; 85025; 93005; 96360; 96361; 99284

== ENCOUNTER → 2022-05-18 11:18 | Outpatient (CLI) | payer OTHER, SELFPAY ==
[2020-07-23 05:34] VITALS: BMI 20.7
[2022-05-18 12:21] LABS: Add Manual Diff / Slide Review NO; Basophils Absolute Auto 100 /uL (0-100); Eosinophils Absolute Auto 200 /uL (0-450); Eosinophils Percent Auto 3.5 % (2-4); Hematocrit 39.5 % (41-53); Hemoglobin 12.9 g/dL (13.5-17.5); Lymphocytes Absolute Auto 1000 /uL (1100-4500); Lymphocytes Percent Auto 18.6 % (25-40); Mean Corpuscular HGB Conc 32.7 % (30-36); Mean Corpuscular Hemoglobin 31.2 PG (26-34); Mean Corpuscular Volume 95.4 fL (80-100); Monocytes Absolute Auto 400 /uL (0-900); Monocytes Percent Auto 7.3 % (3-14); Neutrophils Absolute Auto 3800 /uL (1500-7000); Neutrophils Percent Auto 69.6 % (50-75); Platelet Count 210 X10^3/uL (150-400); Red Blood Cell Count 4.14 X10^6/uL (4.5-5.9); Red Cell Distribution Width 14.5 % (11.6-14.8); White Blood Cell Count 5.5 X10^3/uL (4.5-11.0)
[2022-05-18 12:28] LABS: Alanine Aminotransferase 11 IU/L (<50); Albumin 3.5 g/dL (3.5-5.0); Albumin Globulin Ratio 1.2 (1.0-2.8); Alkaline Phosphatase 90 U/L (38-126); Aspartate Aminotransferase 17 IU/L (17-59); BUN Creatinine Ratio 15.9 (6-22); Bilirubin Total 0.5 mg/dL (0.2-1.3); Blood Urea Nitrogen 13 mg/dL (9-20); Calcium 8.4 mg/dL (8.4-10.2); Carbon Dioxide 32 mmol/L (22-32); Chloride 103 mmol/L (98-107); Estimated Glomerular Filt Rate > 60 mL/min (>60); Glucose 115 mg/dL (80-110); HEMOLYSIS < 15 (0-50); Potassium 3.9 mmol/L (3.4-5.1); Sodium 142 mmol/L (137-145); Total Protein 6.5 g/dL (6.3-8.2)
== END ==
PROVIDERS: PCP Nurse Practitioner Family; Referring Provider Nurse Practitioner Family; Visit Provider Nurse Practitioner Family
DX: I10 Essential (primary) hypertension (principal); Z79.01 Long term (current) use of anticoagulants
CPT/HCPCS: 80053; 85025

== ENCOUNTER 2023-02-20 08:44 | Emergency (ER) | payer OTHER, SELFPAY ==
[2020-07-23 05:34] VITALS: BMI 20.7
[2023-02-20] VITALS (10 sets, daily range): BP systolic 131–166; BP diastolic 79–92; PULSE 69–149; RESP 17–25; TEMP 37.2–37.6; O2SAT 91–99; BMI 23.9
--- NOTE | 2023-02-20 08:52 | DI.RAD.S_ITS ---
PROCEDURE: XR CHEST 1V INDICATIONS: gen weakness, ams, hypoxia TECHNIQUE: One view of the chest was acquired. COMPARISON: [facility], CR, XR CHEST 1V, 07/22/2020, 23:57. [facility], CR, XR CHEST 1V, 10/12/2019, 18:58. FINDINGS: Surgical changes and devices: None. Lungs and pleura: Lungs are clear. No pleural effusions or pneumothorax. Mediastinum: Mediastinal contours appear normal. Heart size is normal. The aorta is tortuous. Bones and chest wall: No suspicious bony lesions. Overlying soft tissues appear unremarkable. IMPRESSION: Portable chest within normal limits for age. Dictated by: Rom Nation M.D. on 02/20/2023 at 9:14 Approved by: Rom Nation M.D. on 02/20/2023 at 9:15
--- NOTE | 2023-02-20 08:54 | DI.CT.S_ITS ---
PROCEDURE: CT HEAD/BRAIN WO CON INDICATIONS: altered mental status TECHNIQUE: Noncontrast 4.5 mm thick angled axial sections acquired from the foramen magnum to the vertex, with coronal and sagittal reformats. For radiation dose reduction, the following was used: automated exposure control, adjustment of mA and/or kV according to patient size. COMPARISON: [facility], CT, CT HEAD/BRAIN WO CON, 08/05/2021, 22:44. FINDINGS: Image quality: Excellent. CSF spaces: Basal cisterns are patent. No extra-axial fluid collections. The ventricles are symmetric in size and shape. Brain: No intracranial bleeds or masses. There is cerebral volume loss for age, with resultant ventricular and sulcal prominence. There are periventricular and deep white matter chronic small vessel ischemic changes. There is intracranial internal carotid artery atherosclerosis. Skull and face: Calvarium and visualized facial bones appear intact, without suspicious lesions. Sinuses: Visualized sinuses and mastoids are clear. IMPRESSION: 1. No acute intracranial abnormality. 2. Remote right TIA territory infarct involving the frontal lobe. 3. Small vessel ischemic change. Dictated by: Rom Nation M.D. on 02/20/2023 at 9:16 Approved by: Rom Nation M.D. on 02/20/2023 at 9:20
[2023-02-20 09:03] LABS: Add Manual Diff / Slide Review NO; Basophils Absolute Auto 0 /uL (0-100); Basophils Percent Auto 0.7 % (0-2); Eosinophils Absolute Auto 0 /uL (0-450); Eosinophils Percent Auto 0.3 % (2-4); Hemoglobin 13.5 g/dL (13.5-17.5); Lymphocytes Absolute Auto 900 /uL (1100-4500); Lymphocytes Percent Auto 17.7 % (25-40); Mean Corpuscular HGB Conc 33.6 % (30-36); Mean Corpuscular Hemoglobin 31.7 PG (26-34); Mean Corpuscular Volume 94.4 fL (80-100); Monocytes Absolute Auto 800 /uL (0-900); Monocytes Percent Auto 15.3 % (3-14); Neutrophils Absolute Auto 3400 /uL (1500-7000); Platelet Count 143 X10^3/uL (150-400); Red Blood Cell Count 4.24 X10^6/uL (4.5-5.9); Red Cell Distribution Width 14.3 % (11.6-14.8); White Blood Cell Count 5.2 X10^3/uL (4.5-11.0)
[2023-02-20 09:04] LABS: INR 1.8 (0.9-1.3); Prothrombin Time 20.7 SECONDS (10.1-12.7)
[2023-02-20 09:09] LABS: Alanine Aminotransferase 24 IU/L (<50); Albumin Globulin Ratio 1.2 (1.0-2.8); Alkaline Phosphatase 93 U/L (38-126); Aspartate Aminotransferase 26 IU/L (17-59); BUN Creatinine Ratio 19.2 (6-22); Bilirubin Total 0.9 mg/dL (0.2-1.3); Blood Urea Nitrogen 15 mg/dL (9-20); Calcium 8.8 mg/dL (8.4-10.2); Carbon Dioxide 26 mmol/L (22-32); Chloride 99 mmol/L (98-107); Creatine Kinase 128 U/L (55-170); Estimated Glomerular Filt Rate > 60 mL/min (>60); Globulin 3.4 g/dL (1.7-4.1); Glucose 101 mg/dL (80-110); Lactate (Lactic Acid) 1.3 mmol/L (0.7-2.1); Sodium 135 mmol/L (137-145); Total Protein 7.4 g/dL (6.3-8.2)
[2023-02-20 09:11] LABS: HEMOLYSIS 55 (0-50)
[2023-02-20 09:12] LABS: Potassium 4.1 mmol/L (3.4-5.1)
[2023-02-20 09:13] LABS: PTT Partial Thromboplastin Tim 36 SECONDS (26-36)
[2023-02-20 09:21] LABS: NT-proBNP (BNP-Adult 18+) 210 pg/mL (<450); Troponin I 0.012 ng/mL (0.01-0.034)
[2023-02-20 09:25] LABS: Procalcitonin 0.09 ng/mL (<0.5)
--- NOTE | 2023-02-20 09:38 | ED_ITS ---
HPI - Altered Mental Status General Chief Complaint: Altered Mental Status Stated Complaint: Altered Mental Status, Weakness Time Seen by Provider: 02/20/23 08:47 Source: EMS Mode of arrival: EMS History of Present Illness HPI narrative: 77-year-old male with history of Parkinson's disease, dementia, CVA with residual left-sided weakness presents for possible altered mental status. Patient has reported baseline is ?confused but conversant? with staff, but this morning he was much sleepier than usual and not nearly as talkative. EMS was called to bring patient to the ER for evaluation. On arrival patient does appear to be sleeping, arouses easily when his name is called. Able to answer yes and no questions, states ?no? when asked if he has any pain. Related Data Home Medications Medication Instructions Recorded Confirmed acetaminophen 325 mg tablet 650 mg PO BID 10/13/19 07/23/20 aspirin 81 mg chewable tablet 81 mg PO DAILY 10/13/19 07/23/20 atorvastatin 40 mg tablet 40 mg PO BEDTIME 10/13/19 07/23/20 lidocaine HCl 4 % topical cream 1 applic topical BID 10/13/19 07/23/20 (Aspercreme (lidocaine HCl)) apixaban 5 mg tablet (Eliquis) 5 mg PO BID 07/23/20 07/23/20 carbidopa 25 mg-levodopa 100 mg 1 tab PO TID 07/23/20 07/23/20 tablet ceramides 1,3,6-II (CeraVe topical 1 applic topical BID 07/23/20 07/23/20 cream) diphenhydramine HCl 25 mg capsule 25 mg PO Q6H PRN unknown 07/23/20 07/23/20 donepezil 10 mg tablet 10 mg PO DAILY 07/23/20 07/23/20 ketoconazole 2 % shampoo 1 applic topical 2XW PRN Dry Skin 07/23/20 07/23/20 lorazepam 0.5 mg tablet 0.5 mg PO DAILY PRN unknown 07/23/20 07/23/20 Allergies Allergy/AdvReac Type Severity Reaction Status Date / Time antivenin,crotalidae Allergy Verified 10/12/19 19:41 polyvalent imm Review of Systems Review of Systems Narrative: Limited due to advanced dementia 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 Paroxysmal atrial fibrillation Postherpetic geniculate ganglionitis Tremor Surgical History History of esophagogastroduodenoscopy (EGD) Social History household members: other Smoking Status: Former smoker alcohol intake: current Smoking Status: Former smoker alcohol intake frequency: a few times a month Alcohol type: beer Substance Use Type: does not use Exam Initial Vital Signs Initial Vital Signs: Vital Signs Temperature 99.7 F H 02/20/23 08:48 Pulse Rate 77 02/20/23 08:48 Blood Pressure 166/92 H 02/20/23 08:48 Pulse Oximetry 93 02/20/23 08:48 Const: Somnolent, arouses easily to voice, frail, debilitated Eyes: PERRL, EOMI, conjunctiva normal ENT: Atraumatic, patent, mucous membranes moist Cardiac: regular rate, regular rhythm RESP: unlabored, clear bilaterally, no wheezing GI: Atraumatic, soft, nontender, nondistended Skin: Warm, Dry, intact, no rashes Neuro: AO x1, CN II-XII grossly intact Course Course Course Narrative: Decreased activity in patient with advanced dementia and Parkinson's disease. Able to answer yes and no questions, denies complaint. Vital signs unremarkable. Orders Ordered: ED Orders 02/20/23 08:51 Complete Blood Count AUTO DIFF Stat Comprehensive Metabolic Panel Stat Lactate (Lactic Acid) Stat NT-proBNP (BNP-Adult 18+) Stat PTT Partial Thromboplastin Anthony Stat Procalcitonin Stat Prothrombin Time INR Stat Troponin & CK Cardiac Panel Stat 02/20/23 08:52 XR chest 1V Stat EKG-12 Lead Stat 02/20/23 08:54 CT head/brain wo con Stat Covid-19 + FLU A/B + RSV - PCR Stat 02/20/23 09:28 Blood Culture Stat 02/20/23 10:43 Urinalysis and Microscopic Stat Discontinued Medications Ceftriaxone Sodium 2,000 mg/ (Sodium Chloride) 100 mls @ 200 mls/hr IV NOW ONE Stop: 02/20/23 08:53 Last Infusion: 02/20/23 10:29 Dose: Infused Documented By: Admin: 02/20/23 09:56 Dose: 200 mls/hr Documented By: GARY Sodium Chloride (Normal Saline 0.9%) 2,100 mls @ 700 mls/hr 30 ml/kg infuse over 3 hr (2100 ml) IV NOW ONE Stop: 02/20/23 11:51 Last Infusion: 02/20/23 11:35 Dose: Infused Documented By: Admin: 02/20/23 09:56 Dose: 700 mls/hr Documented By: GARY Azithromycin 500 mg/ Dextrose 250 mls @ 250 mls/hr IV NOW ONE Stop: 02/20/23 08:55 Last Infusion: 02/20/23 11:35 Dose: Infused Documented By: Admin: 02/20/23 10:28 Dose: 250 mls/hr Documented By: GARY Reevaluation(s) Reevaluation #1: Laboratory work is reviewed, appear to be at baseline. X-ray imaging negative for acute findings. Patient tested positive for COVID-19. No indication for admission at this time, patient takes medications that would make him not a candidate for Paxlovid. Patient discharged back to his nursing facility in stable condition. Vital Signs Vital signs: Vital Signs - 8 hr 02/20/23 08:48 02/20/23 08:48 02/20/23 09:05 Temperature 99.7 F H 99.7 F H Pulse Rate 77 149 H Respiratory Rate 25 H Blood Pressure 166/92 H Pulse Oximetry 93 92 Oxygen Delivery Method Room Air 02/20/23 09:09 02/20/23 09:10 02/20/23 09:10 Temperature Pulse Rate 86 Respiratory Rate 21 Blood Pressure 131/81 Pulse Oximetry 91 93 Oxygen Delivery Method 02/20/23 09:30 02/20/23 09:30 02/20/23 10:00 Temperature Pulse Rate 70 Respiratory Rate 19 Blood Pressure 149/79 H 150/79 H Pulse Oximetry 92 Oxygen Delivery Method 02/20/23 10:00 02/20/23 10:30 02/20/23 10:30 Temperature Pulse Rate 69 70 Respiratory Rate 17 17 Blood Pressure 160/84 H Pulse Oximetry 98 99 Oxygen Delivery Method 02/20/23 11:00 02/20/23 11:00 02/20/23 11:30 Temperature Pulse Rate 80 75 Respiratory Rate 19 21 Blood Pressure 144/83 H Pulse Oximetry 98 98 Oxygen Delivery Method 02/20/23 11:30 02/20/23 11:37 Temperature 98.9 F Pulse Rate Respiratory Rate Blood Pressure 142/79 H Pulse Oximetry Oxygen Delivery Method MDM - Altered Mental Status Differential Diagnosis Differential diagnosis: Likely altered mental status, delirium and dementia Lab Data 02/20/23 08:51 02/20/23 08:51 Labs: Lab Results 02/20/23 02/20/23 02/20/23 Range/Units 08:51 08:54 10:43 WBC 5.2 (4.5-11.0) X10^3/uL RBC 4.24 L (4.5-5.9) X10^6/uL Hgb 13.5 (13.5-17.5) g/dL Hct 40.0 L (41-53) % MCV 94.4 (80-100) fL MCH 31.7 (26-34) PG MCHC 33.6 (30-36) % RDW 14.3 (11.6-14.8) % Plt Count 143 L (150-400) X10^3/uL Neut % (Auto) 66.0 (50-75) % Lymph % (Auto) 17.7 L (25-40) % [place] % (Auto) 15.3 H (3-14) % Eos % (Auto) 0.3 L (2-4) % Baso % (Auto) 0.7 (0-2) % Neut # (Auto) 3400 (5880-9026) /uL Lymph # (Auto) 900 L (0133-8312) /uL [place] # (Auto) 800 (0-900) /uL Eos # (Auto) 0 (0-450) /uL Baso # (Auto) 0 (0-100) /uL PT 20.7 H (10.1-12.7) SECONDS INR 1.8 H (0.9-1.3) APTT 36 (26-36) SECONDS Sodium 135 L (137-145) mmol/L Potassium 4.1 (3.4-5.1) mmol/L Chloride 99 (98-107) mmol/L Carbon Dioxide 26 (22-32) mmol/L BUN 15 (9-20) mg/dL Creatinine 0.78 (0.66-1.25) mg/dL Estimated GFR > 60 (>60) mL/min BUN/Creatinine Ratio 19.2 (6-22) Glucose 101 (80-110) mg/dL Lactate 1.3 (0.7-2.1) mmol/L Calcium 8.8 (8.4-10.2) mg/dL Total Bilirubin 0.9 (0.2-1.3) mg/dL AST 26 (17-59) IU/L ALT 24 (<50) IU/L Alkaline Phosphatase 93 (38-126) U/L Total Creatine Kinase 128 (55-170) U/L Troponin I 0.012 (0.01-0.034) ng/mL NT-Pro-B Natriuret Pep 210 (<450) pg/mL Total Protein 7.4 (6.3-8.2) g/dL Albumin 4.0 (3.5-5.0) g/dL Globulin 3.4 (1.7-4.1) g/dL Albumin/Globulin Ratio 1.2 (1.0-2.8) Procalcitonin 0.09 (<0.5) ng/mL Urine Color Yellow Urine Appearance Clear Urine pH 7.0 (4.5-8.0) Ur Specific [place] 1.020 (1.000-1.035) Urine Protein 1+ H (Negative) Urine Glucose (UA) Negative (Negative) g/dL Urine Ketones Negative (NEGATIVE) Urine Occult Blood 2+ H (Negative) Urine Nitrate Negative (Negative) Urine Bilirubin Negative (NEGATIVE) Urine Urobilinogen 2.0 H (0.2) E.U./dL Ur Leukocyte Esterase Negative (NEGATIVE) Urine RBC 5-10/hpf H (0-5/HPF) Urine WBC 1-5/hpf (0-5/HPF) Ur Squamous Epith Cells 0-1 /hpf (0-5/HPF) Urine Bacteria Occasional (0-1) (None) Ur Culture Indicated? Cult not indicated SARS-CoV-2 (PCR) Positive H (Negative) Influenza A (RT-PCR) Flu a negative (NEGATIVE) Influenza B (RT-PCR) Flu b negative (NEGATIVE) RSV (PCR) Negative (Negative) Discharge Plan Departure Patient Disposition: Home Clinical Impression: COVID Fatigue Qualifiers: Fatigue type: unspecified Qualified Code(s): R53.83 - Other fatigue Instructions: DI for Altered Mental Status Prescriptions: No Action atorvastatin 40 mg tablet 40 mg PO BEDTIME acetaminophen 325 mg Tablet 650 mg PO BID aspirin 81 mg Tablet,Chewable 81 mg PO DAILY lidocaine HCl [Aspercreme (lidocaine HCl)] 4 % Cream 1 applic TOPICAL BID Rx Instructions: Apply topically to left shoulder twice daily ketoconazole 2 % Shampoo 1 applic TOPICAL 2XW PRN (Reason: Dry Skin) donepezil 10 mg Tablet 10 mg PO DAILY lorazepam 0.5 mg Tablet 0.5 mg PO DAILY PRN (Reason: unknown) diphenhydramine HCl 25 mg Capsule 25 mg PO Q6H PRN (Reason: unknown) carbidopa-levodopa 25-100 mg Tablet 1 tab PO TID CeraVe Cream 1 applic TOPICAL BID Rx Instructions: to heels Eliquis 5 mg Tablet 5 mg PO BID Referrals: Karen Hallman ARNP [Primary Care Provider] - Stand Alone Forms: Patient Portal/API
[2023-02-20] MEDS: SODIUM CHLORIDE 0.9% 2,100 ML 700 ML IV (09:56)
[2023-02-20] MEDS: cefTRIAXone 2,000 MG in SODIUM CHLORIDE 0.9% 100 ML 200 MG IV (09:56)
[2023-02-20 09:57] LABS: Influenza A - CEPHEID Flu A NEGATIVE (NEGATIVE); Influenza B - CEPHEID Flu B NEGATIVE (NEGATIVE); Respiratory Syncytial Virus Negative (Negative)
[2023-02-20 10:00] LABS: COVID-19 CEPHEID 4-PLEX PCR POSITIVE (Negative)
[2023-02-20] MEDS: AZITHROMYCIN 500 MG in DEXTROSE 5% IN WATER 250 ML 250 MG IV (10:28)
[2023-02-20 10:53] LABS: Appearance Urine UA CLEAR; Bilirubin Urine UA NEGATIVE (NEGATIVE); Color Urine UA YELLOW; Glucose Urine UA NEGATIVE (Negative); Ketones Urine UA NEGATIVE (NEGATIVE); Leukocyte Esterase Urine UA NEGATIVE (NEGATIVE); Nitrite Urine UA NEGATIVE (Negative); Occult Blood Urine UA 2+ (Negative); Protein Urine UA 1+ (Negative)
[2023-02-20 11:06] LABS: Bacteria Urine Occasional (0-1); Culture Indicated Urine Cult Not Indicated; RBC Urine 5-10/HPF (0-5/HPF); Squamous Epithelial Cell Urine 0-1 /HPF (0-5/HPF); WBC Urine 1-5/HPF (0-5/HPF)
--- NOTE | 2023-02-20 11:37 | PC.NURSE ---
dc report given to Canid hood at [facility].
== END 2023-02-20 11:58 | disposition home or self-care (01) ==
PROVIDERS: Emergency Provider Emergency Medicine; PCP Nurse Practitioner Family
DX: U07.1 COVID-19 (principal); R53.83 Other fatigue; R07.9 Chest pain, unspecified; Z79.01 Long term (current) use of anticoagulants; Z79.899 Other long term (current) drug therapy; G20.A1 Parkinson's disease without dyskinesia, without mention of fluctuations; F02.80 Dementia in other diseases classified elsewhere, unspecified severity, without behavioral disturbance, psychotic disturbance, mood disturbance, and anxiety
CPT/HCPCS: 0241U; 36415; 70450; 71045; 80053; 81001; 82550; 83605; 83880; 84145; 84484; 85025; 85610; 85730; 87040; 93005; 96365; 96367; 99284; J0696

== ENCOUNTER → 2023-02-21 16:30 | Outpatient (ROUT) | payer OTHER, SELFPAY ==
[2020-07-23 05:34] VITALS: BMI 20.7
[2023-02-21 17:10] LABS: Creatinine Urine Random 193.2 mg/dL
[2023-02-21 17:14] LABS: Microalbumi Creatinin Ratio Ur 79.1 ug/mg CR (<30); Microalbumin Urine Random 15.3 mg/dL (0-1.6)
== END ==
PROVIDERS: PCP Nurse Practitioner Family; Visit Provider Nurse Practitioner Family
DX: R31.9 Hematuria, unspecified (principal)
CPT/HCPCS: 82043; 82570; 87086

== ENCOUNTER → 2023-03-19 14:33 | Outpatient (CLI) | payer OTHER, SELFPAY ==
[2020-07-23 05:34] VITALS: BMI 20.7
--- NOTE | 2023-03-19 14:37 | DI.CT.S_ITS ---
PROCEDURE: CT ABDOMEN PELVIS WO/W CON INDICATIONS: Hematuria, unspecified TECHNIQUE: Optional 5 mm thick noncontrast images acquired from the diaphragm to the symphysis pubis. After the administration of intravenous contrast, 5 mm thick images acquired from the diaphragm to the symphysis pubis after a 10-minute delay. 2 mm thick coronal and sagittal reformats were then performed of the kidneys and ureters. For radiation dose reduction, the following was used: automated exposure control, adjustment of mA and/or kV according to patient size. COMPARISON: None. FINDINGS: Image quality: Excellent. There are small bilateral nonobstructing renal calculi present. The largest on the right is in the 2-3 mm range. No solid renal mass lesion is identified. Visualized portions of the collecting systems ureters and bladder appear within normal limits other than some mild diffuse bladder wall thickening suggesting some degree of bladder outlet obstruction. There is enlarged prostate gland present at the bladder base. There are small bilateral renal cysts present. Multiple gallstones are present within the patient's gallbladder. Liver, spleen, adrenals, pancreas, and visualized large and small bowel appear within normal limits other than some increased stool noted throughout the patient's colon and colonic diverticulosis. No adenopathy is identified within the abdomen or pelvis. No free fluid is present. Coronary artery and atherosclerotic vascular calcifications are present. The lung bases are clear. IMPRESSION: 1. Multiple bilateral small non-obstructing renal calculi the largest on the right measures 2-3 mm. 2. Small less than 1 cm bilateral renal cysts. 3. Mild diffuse bladder wall thickening and enlarged prostate gland suggesting a some degree of bladder outlet obstruction. 4. Cholelithiasis. 5. Coronary artery and atherosclerotic vascular calcifications. 6. Mild colonic diverticulosis. 7. Increased stool noted throughout the patient's colon. Dictated by: Dereje Haddad M.D. on 03/19/2023 at 16:10 Approved by: Dereje Haddad M.D. on 03/19/2023 at 16:16
[2023-03-19 14:58] LABS: Estimated Glomerular Filt Rate > 60 mL/min (>60)
[2023-03-19 14:58] LABS: Add Manual Diff / Slide Review NO; Basophils Absolute Auto 100 /uL (0-100); Basophils Percent Auto 1.3 % (0-2); Eosinophils Absolute Auto 300 /uL (0-450); Eosinophils Percent Auto 4.5 % (2-4); Hematocrit 39.6 % (41-53); Hemoglobin 13.2 g/dL (13.5-17.5); Lymphocytes Absolute Auto 1200 /uL (1100-4500); Lymphocytes Percent Auto 22.5 % (25-40); Mean Corpuscular HGB Conc 33.4 % (30-36); Mean Corpuscular Hemoglobin 31.8 PG (26-34); Mean Corpuscular Volume 95.1 fL (80-100); Monocytes Absolute Auto 300 /uL (0-900); Monocytes Percent Auto 6.1 % (3-14); Neutrophils Absolute Auto 3600 /uL (1500-7000); Neutrophils Percent Auto 65.6 % (50-75); Platelet Count 174 X10^3/uL (150-400); Red Blood Cell Count 4.16 X10^6/uL (4.5-5.9); Red Cell Distribution Width 13.9 % (11.6-14.8); White Blood Cell Count 5.5 X10^3/uL (4.5-11.0)
== END ==
PROVIDERS: Radiology Diagnostic Radiology; PCP Nurse Practitioner Family; Referring Provider Nurse Practitioner Family; Visit Provider Nurse Practitioner Family
DX: R31.9 Hematuria, unspecified (principal); K92.1 Melena; R41.82 Altered mental status, unspecified; N20.0 Calculus of kidney; N28.1 Cyst of kidney, acquired; N40.0 Benign prostatic hyperplasia without lower urinary tract symptoms; K80.20 Calculus of gallbladder without cholecystitis without obstruction; I25.10 Atherosclerotic heart disease of native coronary artery without angina pectoris; K57.30 Diverticulosis of large intestine without perforation or abscess without bleeding
CPT/HCPCS: 36415; 74178; 82565; 85025

== ENCOUNTER → 2023-08-16 10:19 | Outpatient (CLI) | payer OTHER, SELFPAY ==
[2020-07-23 05:34] VITALS: BMI 20.7
[2023-08-16 10:55] LABS: Add Manual Diff / Slide Review NO; Basophils Absolute Auto 0 /uL (0-100); Basophils Percent Auto 0.7 % (0-2); Eosinophils Absolute Auto 200 /uL (0-450); Hematocrit 39.5 % (41-53); Hemoglobin 13.4 g/dL (13.5-17.5); Lymphocytes Absolute Auto 1000 /uL (1100-4500); Lymphocytes Percent Auto 19.1 % (25-40); Mean Corpuscular HGB Conc 33.9 % (30-36); Mean Corpuscular Hemoglobin 31.9 PG (26-34); Monocytes Absolute Auto 500 /uL (0-900); Monocytes Percent Auto 9.4 % (3-14); Neutrophils Absolute Auto 3600 /uL (1500-7000); Neutrophils Percent Auto 67.8 % (50-75); Platelet Count 156 X10^3/uL (150-400); Red Cell Distribution Width 13.5 % (11.6-14.8); White Blood Cell Count 5.3 X10^3/uL (4.5-11.0)
[2023-08-16 11:13] LABS: HEMOLYSIS < 15 (0-50); Iron 84 ug/dL (49-181)
[2023-08-16 11:17] LABS: Alanine Aminotransferase 10 IU/L (<50); Albumin 3.9 g/dL (3.5-5.0); Albumin Globulin Ratio 1.1 (1.0-2.8); Alkaline Phosphatase 86 U/L (38-126); Aspartate Aminotransferase 21 IU/L (17-59); BUN Creatinine Ratio 19.7 (6-22); Bilirubin Total 0.7 mg/dL (0.2-1.3); Blood Urea Nitrogen 14 mg/dL (9-20); Calcium 8.6 mg/dL (8.4-10.2); Carbon Dioxide 29 mmol/L (22-32); Chloride 105 mmol/L (98-107); Estimated Glomerular Filt Rate > 60 mL/min (>60); Globulin 3.4 g/dL (1.7-4.1); Glucose 108 mg/dL (80-110); HEMOLYSIS < 15 (0-50); Potassium 3.7 mmol/L (3.4-5.1); Sodium 139 mmol/L (137-145); Total Protein 7.3 g/dL (6.3-8.2)
[2023-08-16 11:26] LABS: Percent Iron Saturation 39 % (20-50); Total Iron Binding Capacity 213 ug/dL (261-462); Transferrin 148 mg/dL (206-381)
[2023-08-16 11:45] LABS: Thyroid Stimulating Hormone 1.77 uIU/mL (0.47-4.68)
[2023-08-16 11:49] LABS: Carcinoembryonic Antigen 3.9 ng/mL (0.1-3.0)
== END ==
PROVIDERS: PCP Nurse Practitioner Family; Referring Provider Nurse Practitioner Family; Visit Provider Nurse Practitioner Family
DX: R53.81 Other malaise (principal); K92.2 Gastrointestinal hemorrhage, unspecified
CPT/HCPCS: 36415; 80053; 82378; 83540; 83550; 84443; 85025

== ENCOUNTER 2023-12-18 12:35 | Emergency (ER) | payer OTHER, SELFPAY ==
[2020-07-23 05:34] VITALS: BMI 20.7
[2023-12-18] VITALS (13 sets, daily range): BP systolic 141–176; BP diastolic 68–97; PULSE 70–88; RESP 16–22; TEMP 37.2; O2SAT 91–96; BMI 21.7
--- NOTE | 2023-12-18 12:37 | ED_ITS ---
HPI - General Adult General Chief complaint: Weakness Stated complaint: weakness/diff swallowing Time Seen by Provider: 12/18/23 12:36 History of Present Illness HPI narrative: 78-year-old gentleman brought in by medics from [facility] facility with concerns from staff that he has been more lethargic over the last couple of days. He does have a POLST form that indicates no code with interventions as indicated. Additional problems include prior stroke, Parkinson's. Patient is not complaining of pain at this time. He is able to remember his name, date and recognizes he is in the hospital. Per [facility] facility staff he did have a fever a couple of days ago Related Data Home Medications Medication Instructions Recorded Confirmed acetaminophen 325 mg tablet 650 mg PO BID 10/13/19 07/23/20 aspirin 81 mg chewable tablet 81 mg PO DAILY 10/13/19 07/23/20 atorvastatin 40 mg tablet 40 mg PO BEDTIME 10/13/19 07/23/20 lidocaine HCl 4 % topical cream 1 applic topical BID 10/13/19 07/23/20 (Aspercreme (lidocaine HCl)) apixaban 5 mg tablet (Eliquis) 5 mg PO BID 07/23/20 07/23/20 carbidopa 25 mg-levodopa 100 mg 1 tab PO TID 07/23/20 07/23/20 tablet ceramides 1,3,6-II (CeraVe topical 1 applic topical BID 07/23/20 07/23/20 cream) diphenhydramine HCl 25 mg capsule 25 mg PO Q6H PRN unknown 07/23/20 07/23/20 donepezil 10 mg tablet 10 mg PO DAILY 07/23/20 07/23/20 ketoconazole 2 % shampoo 1 applic topical 2XW PRN Dry Skin 07/23/20 07/23/20 lorazepam 0.5 mg tablet 0.5 mg PO DAILY PRN unknown 07/23/20 07/23/20 Allergies Allergy/AdvReac Type Severity Reaction Status Date / Time antivenin,crotalidae Allergy Verified 10/12/19 19:41 polyvalent imm Review of Systems Review of Systems Narrative: Pertinent positive and negative findings as per HPI Patient History Medical History Degenerative disease of nervous system Tremor Major depressive disorder with single episode Dysphagia, oropharyngeal 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 Dementia without behavioral disturbance BPH (benign prostatic hyperplasia) Paroxysmal atrial fibrillation Generalized seizure CVA (cerebral vascular accident) GERD (gastroesophageal reflux disease) Surgical History History of esophagogastroduodenoscopy (EGD) Social History household members: other Smoking Status: Former smoker alcohol intake: current Smoking Status: Former smoker alcohol intake frequency: a few times a month Alcohol type: beer Substance Use Type: does not use Exam Initial Vital Signs Initial Vital Signs: Vital Signs Pulse Rate 84 12/18/23 12:39 Respiratory Rate 17 12/18/23 12:39 Pulse Oximetry 91 12/18/23 12:39 General: Older, chronically ill-appearing, heels are in padding for protection HEENT: Dry mucous membranes, normal sclera with reactive pupils, Neck: No JVD, Respiratory: Lungs are clear to auscultation, no wheezing no rales no rhonchi. Full and symmetrical air movement Cardiac: Regular rate and rhythm no murmurs no bruits Abdomen: Soft, nontender with deep palpation, no flank pain Skin: Pale but no significant skin breakdown or signs of infection Neurologic: significant muscle rigidity from Parkinson's, left-sided weakness from a stroke, Extremities: No lower extremity edema, heels in padded heel protectors Psych: Cooperative, he is able to answer simple direct questions Course Orders Ordered: ED Orders 12/18/23 12:48 Complete Blood Count AUTO DIFF Stat Comprehensive Metabolic Panel Stat 12/18/23 12:56 Respiratory Panel (Film Array) Stat 12/18/23 13:02 Urine Microscopic Stat 12/18/23 13:20 XR chest 1V Stat Discontinued Medications Sodium Chloride (Normal Saline 0.9%) 1,000 mls @ 1,000 mls/hr IV BOLUS ONE Stop: 12/18/23 13:38 Last Infusion: 12/18/23 14:01 Dose: Infused Documented By: Admin: 12/18/23 13:04 Dose: 1,000 mls/hr Documented By: Vital Signs Vital signs: Vital Signs - 8 hr 12/18/23 12:39 12/18/23 13:00 12/18/23 13:00 Temperature Pulse Rate 84 81 Respiratory Rate 17 20 Blood Pressure 163/91 H Pulse Oximetry 91 93 Oxygen Delivery Method 12/18/23 13:04 12/18/23 13:30 12/18/23 13:30 Temperature 99 F Pulse Rate 76 70 Respiratory Rate 16 18 Blood Pressure 163/91 H 141/77 H Pulse Oximetry 94 95 Oxygen Delivery Method Room Air 12/18/23 14:00 12/18/23 14:00 12/18/23 14:30 Temperature Pulse Rate 78 78 Respiratory Rate 18 18 Blood Pressure 176/83 H Pulse Oximetry 96 96 Oxygen Delivery Method 12/18/23 14:30 12/18/23 15:00 12/18/23 15:00 Temperature Pulse Rate 85 Respiratory Rate 21 Blood Pressure 167/97 H 172/81 H Pulse Oximetry 92 Oxygen Delivery Method 12/18/23 15:30 12/18/23 15:30 Temperature Pulse Rate 88 Respiratory Rate 21 Blood Pressure 161/80 H Pulse Oximetry 92 Oxygen Delivery Method Medical Decision Making Lab Data 12/18/23 12:48 12/18/23 12:48 Labs: Lab Results 12/18/23 12/18/23 12/18/23 Range/Units 12:48 12:56 13:02 WBC 14.2 H (4.5-11.0) X10^3/uL RBC 4.50 (4.5-5.9) X10^6/uL Hgb 14.2 (13.5-17.5) g/dL Hct 42.6 (41-53) % MCV 94.8 (80-100) fL MCH 31.7 (26-34) PG MCHC 33.4 (30-36) % RDW 14.5 (11.6-14.8) % Plt Count 247 (150-400) X10^3/uL Neut % (Auto) 88.3 H (50-75) % Lymph % (Auto) 5.0 L (25-40) % [place] % (Auto) 6.4 (3-14) % Eos % (Auto) 0.1 L (2-4) % Baso % (Auto) 0.2 (0-2) % Neut # (Auto) 43664 H (8704-2183) /uL Lymph # (Auto) 700 L (0329-2422) /uL [place] # (Auto) 900 (0-900) /uL Eos # (Auto) 0 (0-450) /uL Baso # (Auto) 0 (0-100) /uL Sodium 143 (137-145) mmol/L Potassium 4.3 (3.4-5.1) mmol/L Chloride 107 (98-107) mmol/L Carbon Dioxide 29 (22-32) mmol/L BUN 29 H (9-20) mg/dL Creatinine 0.99 (0.66-1.25) mg/dL Estimated GFR > 60 (>60) mL/min BUN/Creatinine Ratio 29.3 H (6-22) Glucose 144 H (80-110) mg/dL Calcium 9.0 (8.4-10.2) mg/dL Total Bilirubin 0.6 (0.2-1.3) mg/dL AST 120 H (17-59) IU/L ALT 39 (<50) IU/L Alkaline Phosphatase 141 H (38-126) U/L Total Protein 7.6 (6.3-8.2) g/dL Albumin 3.6 (3.5-5.0) g/dL Globulin 4.0 (1.7-4.1) g/dL Albumin/Globulin Ratio 0.9 L (1.0-2.8) Urine RBC 0-1/hpf (0-5/HPF) Urine WBC 0-1/hpf (0-5/HPF) Ur Squamous Epith Cells None seen (0-5/HPF) Urine Bacteria None seen (None) Ur Culture Indicated? Cult not indicated Vol Urine Centrifuged 10ml (spun) Chlamy pneumoniae PCR Not detected (Not Detect) Adenovirus (PCR) Not detected (Not Detect) B.parapertussis DNA PCR Not detected (Not Detecte) Coronavirus OC43 (PCR) Not detected (Not Detect) Coronavirus HKU1 (PCR) Not detected (Not Detect) Coronavirus 229E (PCR) Not detected (Not Detect) SARS-CoV-2 (PCR) Not detected (Not Detecte) Coronavirus NL63 (PCR) Not detected (Not Detect) Human Metapneumovir PCR Not detected (Not Detect) Influenza Type A (PCR) Not detected (Not Detect) Influenza Type B (PCR) Not detected (Not Detect) M. pneumoniae (PCR) Not detected (Not Detect) Parainfluenza 1 (PCR) Not detected (Not Detect) Parainfluenza 2 (PCR) Not detected (Not Detect) Parainfluenza 3 (PCR) Not detected (Not Detect) Parainfluenza 4 (PCR) Not detected (Not Detect) RSV (PCR) Not detected (Not Detect) Entero/Rhino (PCR) Not detected (Not Detect) Urine Dip Bedside Urine Glucose Negative Bedside Urine Bilirubin - Negative Bedside Urine Ketone - Negative Urine Specific [place] 1.020 Bedside Urine Occult Blood + Bedside Urine pH 5.5 Bedside Urine Protein ++ 100 Bedside Urine Urobilinogen - Negative Bedside Urine Nitrite - Negative Bedside Urine Leukocytes - Negative Esterase Point of care testing: Urine Dip Bedside Urine Glucose Negative Bedside Urine Bilirubin - Negative Bedside Urine Ketone - Negative Urine Specific [place] 1.020 Bedside Urine Occult Blood + Bedside Urine pH 5.5 Bedside Urine Protein ++ 100 Bedside Urine Urobilinogen - Negative Bedside Urine Nitrite - Negative Bedside Urine Leukocytes - Negative Esterase MDM Narrative Medical decision making narrative: CC: Increasing lethargy difficulty swallowing per [facility] Complicating co-morbidities: Advanced dementia, Parkinson's, stroke with left- sided deficits Data collected from: Medics, written records Social determinants of health that may influence the patients condition: In a dementia care facility Medical records reviewed: Emergency room notes are reviewed he had COVID in February of 2023, seizure in July 1921, last admission was July of 2020 for atypical chest pain Differential considered: Progressive dementia/Parkinson's disease, COVID, other infection, electrolyte abnormalities Exam documented above, pertinent findings include: Chronically ill-appearing gentleman with significant neurologic baseline abnormalities. No rhonchi or rales, he has not tachycardic I hear no murmurs there was no pain behaviors with palpation of his abdomen. Lab Test results independently reviewed as above. Pertinent findings: CBC shows mild leukocytosis at 14.2 no anemia, left shift is noted Chemistries show normal renal function, slightly elevated AST and alkaline phosphatase with normal ALT and bilirubin Urine does not suggest infection Respiratory panel is unremarkable Imaging studies independently reviewed: Chest x-ray does not show any new findings Discussion: 78-year-old gentleman with dementia who is more lethargic presents for further evaluation. I am not finding an obvious source of infection, he has not complaining of headache I do not suggest meningitis, no evidence of pneumonia, full respiratory panel is unremarkable, urine does not suggest infection, his belly is nontender I do not suspect an acute surgical abdomen or abdominal source for his infection at this time and with Skin exam I am not finding any suggestion of cellulitis. He has been given a L of fluid at this point I think we need to simply watch and see if his body declares itself. I do not think antibiotics are indicated with no source of infection at this time. We did do a swallow evaluation in the emergency department with no concerns identified. We will arrange for returned to his dementia facility Discharge Plan Departure Patient Disposition: Home Clinical Impression: Lethargic, Elevated liver enzymes Dementia Qualifiers: Dementia type: unspecified type Dementia severity: severe Dementia behavioral or psychological symptom: without behavioral, psychotic, or mood disturbance or anxiety Qualified Code(s): F03.C0 - Unspecified dementia, severe, without behavioral disturbance, psychotic disturbance, mood disturbance, and anxiety Activity Restrictions/Additional Instructions: Mr. Rosas was evaluated in the emergency department today He was given a L of fluid Workup does not show any infectious etiology. I am not seeing evidence for meningitis, pneumonia, intra-abdominal abscess or need for surgery, urinary tract infection,or cellulitis We did do every swallow evaluation in the emergency department and did not find acute evidence of aspiration, he seems to be doing well at this time If you have further concerns or he develops localizing signs to suggest appropriate further evaluation or antibiotic coverage feel free to have him return to the emergency department Prescriptions: No Action atorvastatin 40 mg tablet 40 mg PO BEDTIME acetaminophen 325 mg Tablet 650 mg PO BID aspirin 81 mg Tablet,Chewable 81 mg PO DAILY lidocaine HCl [Aspercreme (lidocaine HCl)] 4 % Cream 1 applic TOPICAL BID Rx Instructions: Apply topically to left shoulder twice daily ketoconazole 2 % Shampoo 1 applic TOPICAL 2XW PRN (Reason: Dry Skin) donepezil 10 mg Tablet 10 mg PO DAILY lorazepam 0.5 mg Tablet 0.5 mg PO DAILY PRN (Reason: unknown) diphenhydramine HCl 25 mg Capsule 25 mg PO Q6H PRN (Reason: unknown) carbidopa-levodopa 25-100 mg Tablet 1 tab PO TID CeraVe Cream 1 applic TOPICAL BID Rx Instructions: to heels Eliquis 5 mg Tablet 5 mg PO BID Referrals: Karen Hallman ARNP [Primary Care Provider] - Stand Alone Forms: Patient Portal/API
[2023-12-18 12:57] LABS: Add Manual Diff / Slide Review NO; Basophils Absolute Auto 0 /uL (0-100); Basophils Percent Auto 0.2 % (0-2); Eosinophils Absolute Auto 0 /uL (0-450); Eosinophils Percent Auto 0.1 % (2-4); Hematocrit 42.6 % (41-53); Hemoglobin 14.2 g/dL (13.5-17.5); Lymphocytes Absolute Auto 700 /uL (1100-4500); Mean Corpuscular HGB Conc 33.4 % (30-36); Mean Corpuscular Hemoglobin 31.7 PG (26-34); Mean Corpuscular Volume 94.8 fL (80-100); Monocytes Absolute Auto 900 /uL (0-900); Monocytes Percent Auto 6.4 % (3-14); Neutrophils Absolute Auto 12500 /uL (1500-7000); Neutrophils Percent Auto 88.3 % (50-75); Platelet Count 247 X10^3/uL (150-400); Red Cell Distribution Width 14.5 % (11.6-14.8); White Blood Cell Count 14.2 X10^3/uL (4.5-11.0)
[2023-12-18] MEDS: SODIUM CHLORIDE 0.9% 1,000 ML 1000 ML IV (13:04)
[2023-12-18 13:19] LABS: Alanine Aminotransferase 39 IU/L (<50); Albumin 3.6 g/dL (3.5-5.0); Albumin Globulin Ratio 0.9 (1.0-2.8); Alkaline Phosphatase 141 U/L (38-126); Aspartate Aminotransferase 120 IU/L (17-59); BUN Creatinine Ratio 29.3 (6-22); Bilirubin Total 0.6 mg/dL (0.2-1.3); Blood Urea Nitrogen 29 mg/dL (9-20); Carbon Dioxide 29 mmol/L (22-32); Chloride 107 mmol/L (98-107); Estimated Glomerular Filt Rate > 60 mL/min (>60); Glucose 144 mg/dL (80-110); HEMOLYSIS < 15 (0-50); Potassium 4.3 mmol/L (3.4-5.1); Sodium 143 mmol/L (137-145); Total Protein 7.6 g/dL (6.3-8.2)
--- NOTE | 2023-12-18 13:20 | DI.RAD.S_ITS ---
PROCEDURE: XR CHEST 1V INDICATIONS: lethargy, difficulty swallowing TECHNIQUE: One view of the chest was acquired. COMPARISON: [facility], CR, XR CHEST 1V, 02/20/2023, 8:56. FINDINGS: Surgical changes and devices: None. Lungs and pleura: Lungs are clear. No pleural effusions or pneumothorax. Mediastinum: Mediastinal contours appear normal. Heart size is normal. Bones and chest wall: No suspicious bony lesions. Overlying soft tissues appear unremarkable. IMPRESSION: Stable radiographic evaluation of the chest without acute cardiopulmonary abnormalities or focal consolidation. Dictated by: Jay Ayoub M.D. on 12/18/2023 at 15:38 Approved by: Jay Ayoub M.D. on 12/18/2023 at 15:40
[2023-12-18 13:25] LABS: Urine Volume 10mL (spun)
[2023-12-18 13:28] LABS: Bacteria Urine None Seen; RBC Urine 0-1/HPF (0-5/HPF); Squamous Epithelial Cell Urine None Seen (0-5/HPF); WBC Urine 0-1/HPF (0-5/HPF)
[2023-12-18 13:29] LABS: Culture Indicated Urine Cult Not Indicated
[2023-12-18 13:52] LABS: Adenovirus Not Detected (Not Detect); B. parapertussis Not Detected (Not Detecte); Bordetella pertussis Not Detected (Not Detect); Chlamydophila pneumoniae Not Detected (Not Detect); Coronavirus 229E Not Detected (Not Detect); Coronavirus HKU1 Not Detected (Not Detect); Coronavirus NL 63 Not Detected (Not Detect); Coronavirus OC43 Not Detected (Not Detect); Human Metapneumovirus Not Detected (Not Detect); Human Rhinovirus/Enterovirus Not Detected (Not Detect); Influenza A Not Detected (Not Detect); Influenza B Not Detected (Not Detect); Mycoplasma pneumoniae Not Detected (Not Detect); Parainfluenza Virus 1 Not Detected (Not Detect); Parainfluenza Virus 2 Not Detected (Not Detect); Parainfluenza Virus 3 Not Detected (Not Detect); Parainfluenza Virus 4 Not Detected (Not Detect); Respiratory Syncytial Virus Not Detected (Not Detect); SARS- CoV-2 Not Detected (Not Detecte)
--- NOTE | 2023-12-18 14:16 | PC.NURSE ---
Pt passed swallow screen. Able to tolerate thin liquids and apple sauce with no evidence of choking. Pt also tolerated ensure shake. Provider made aware.
--- NOTE | 2023-12-18 15:19 | PC.NURSE ---
Spoke with JUSTIN Colby at [facility] and gave update.
--- NOTE | 2023-12-18 15:50 | PC.NURSE ---
Pt incontinent of stool. Pt with complete linen change, cleaned, new gown, new depends placed.
== END 2023-12-18 18:07 | disposition home or self-care (01) ==
PROVIDERS: Emergency Provider Emergency Medicine; PCP Nurse Practitioner Family
DX: R74.8 Abnormal levels of other serum enzymes (principal); F03.C0 Unspecified dementia, severe, without behavioral disturbance, psychotic disturbance, mood disturbance, and anxiety; R53.83 Other fatigue; Z79.01 Long term (current) use of anticoagulants; Z79.899 Other long term (current) drug therapy; Z11.52 Encounter for screening for COVID-19
CPT/HCPCS: 36415; 71045; 80053; 81003; 81015; 85025; 87633; 96360; 99284

== ENCOUNTER 2024-06-14 05:14 | Emergency (ER) | payer MEDICARE, SELFPAY ==
[2020-07-23 05:34] VITALS: BMI 20.7
[2024-06-14] VITALS (7 sets, daily range): BP systolic 163–181; BP diastolic 97–104; PULSE 71–80; RESP 18; TEMP 36.3–37; O2SAT 94–97
--- NOTE | 2024-06-14 05:18 | ED_ITS ---
HPI - Fever General Chief Complaint: Fever Stated Complaint: fever Time Seen by Provider: 06/14/24 05:18 History of Present Illness HPI Narrative: Patient is a 79-year-old male past medical history of severe dementia, hypertension hyperlipidemia Parkinson's comes into the ED via EMS from [facility] for fever. I did receive a call from the nurse practitioner who sent the patient in given the fact that patient was noted to have a fever at 102? F today. They state that they did not give any medications for this, states that yesterday they noted hematuria and did prescribe antibiotics for this but states that they are unsure if patient actually received 1st dose. Patient is at his baseline history of dementia intermittently alert to self place, at time of evaluation he is alert to self and place but pleasantly confused. According to the nurse practitioner patient is DNR limited code limited intervention was recently taken off hospice but known goals of care by patient's power of attorney at law who is his daughter is limited intervention however she states that they have not been able to contact her again touch with the daughter therefore sent patient in for further evaluation and treatment. At evaluation here patient is at baseline non febrile not complaining of any symptoms at this time. However additional ROS HPI limited secondary to patient's history of severe dementia. Did attempt to call patient's daughter who has power of attorney at law immediately upon arrival of the patient here in the emergency department but did not answer left HIPPA compliant voicemail Related Data Home Medications Medication Instructions Recorded Confirmed acetaminophen 325 mg tablet 650 mg PO BID 10/13/19 07/23/20 aspirin 81 mg chewable tablet 81 mg PO DAILY 10/13/19 07/23/20 atorvastatin 40 mg tablet 40 mg PO BEDTIME 10/13/19 07/23/20 lidocaine HCl 4 % topical cream 1 applic topical BID 10/13/19 07/23/20 (Aspercreme (lidocaine HCl)) apixaban 5 mg tablet (Eliquis) 5 mg PO BID 07/23/20 07/23/20 carbidopa 25 mg-levodopa 100 mg 1 tab PO TID 07/23/20 07/23/20 tablet ceramides 1,3,6-II (CeraVe topical 1 applic topical BID 07/23/20 07/23/20 cream) diphenhydramine HCl 25 mg capsule 25 mg PO Q6H PRN unknown 07/23/20 07/23/20 donepezil 10 mg tablet 10 mg PO DAILY 07/23/20 07/23/20 ketoconazole 2 % shampoo 1 applic topical 2XW PRN Dry Skin 07/23/20 07/23/20 lorazepam 0.5 mg tablet 0.5 mg PO DAILY PRN unknown 07/23/20 07/23/20 Previous Rx's Medication Instructions Recorded cefpodoxime 200 mg tablet 200 mg PO BID 1 week #14 tabs 06/14/24 Allergies Allergy/AdvReac Type Severity Reaction Status Date / Time antivenin,crotalidae Allergy Verified 10/12/19 19:41 polyvalent imm Review of Systems Review of Systems ROS Unobtainable: Other (History of dementia at baseline, sent in for fever and hematuria) Patient History Medical History Degenerative disease of nervous system Tremor Major depressive disorder with single episode Dysphagia, oropharyngeal 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 Dementia without behavioral disturbance BPH (benign prostatic hyperplasia) Paroxysmal atrial fibrillation Generalized seizure CVA (cerebral vascular accident) GERD (gastroesophageal reflux disease) Surgical History History of esophagogastroduodenoscopy (EGD) Social History household members: other Smoking Status: Former smoker alcohol intake: current Smoking Status: Former smoker alcohol intake frequency: a few times a month Alcohol type: beer Exam Narrative Exam Narrative: General: At baseline history of dementia Cooperative, well-developed, not in acute distress HEENT: Normocephalic, atraumatic, PERRLA, normal sclera, eyelids normal, Neck: Active full range of motion, atraumatic Chest: Normal to inspection, negative crepitus, no overlying erythema ecchymosis Respiratory: Normal respiratory effort, not in acute respiratory distress, clear to auscultation bilaterally negative cough, wheeze, tachypnea, rhonchi, rales Cardiology: Regular rate rhythm negative gallop, murmur, rubs GI/: Normal to inspection, soft, nonrigid, no tenderness to palpation, exam deferred MSK: No tenderness to palpation of any bony prominences atraumatic Skin: No rashes lesions noted Neuro: Patient history of dementia pleasantly confused intermittently alert to self place and time is able to move extremities spontaneously however is bed- bound at baseline Psych: Cooperative, negative suicidal or homicidal ideations Initial Vital Signs Initial Vital Signs: Vital Signs Temperature 97.4 F L 06/14/24 05:24 Pulse Rate 73 06/14/24 05:24 Respiratory Rate 18 06/14/24 05:24 Blood Pressure 173/102 H 06/14/24 05:24 Pulse Oximetry 97 06/14/24 05:24 Oxygen Delivery Method Room Air 06/14/24 05:24 Course Orders Ordered: ED Orders 06/14/24 05:25 Covid-19 + FLU A/B + RSV - PCR Stat 06/14/24 05:32 CBC Auto Diff [Complete Blood Count AUTO DIFF] Stat CMP [Comprehensive Metabolic Panel] Stat 06/14/24 06:10 Ictotest Urine Stat Urinalysis and Microscopic Stat Urine Culture Stat Vital Signs Vital signs: Vital Signs - 8 hr 06/14/24 05:24 06/14/24 06:21 Temperature 97.4 F L Pulse Rate 73 73 Respiratory Rate 18 Blood Pressure 173/102 H Pulse Oximetry 97 95 Oxygen Delivery Method Room Air Room Air MDM - Fever Differential Diagnosis Differential diagnosis: Likely cellulitis and other (COVID, flu, urinary tract infection) Lab Data 06/14/24 05:32 06/14/24 05:32 Labs: Lab Results 06/14/24 06/14/24 06/14/24 Range/Units 05:25 05:32 06:10 WBC 10.4 (4.5-11.0) X10^3/uL RBC 4.64 (4.5-5.9) X10^6/uL Hgb 14.6 (13.5-17.5) g/dL Hct 43.8 (41-53) % MCV 94.3 (80-100) fL MCH 31.3 (26-34) PG MCHC 33.2 (30-36) % RDW 13.8 (11.6-14.8) % Plt Count 177 (150-400) X10^3/uL Neut % (Auto) 77.5 H (50-75) % Lymph % (Auto) 12.0 L (25-40) % [place] % (Auto) 9.7 (3-14) % Eos % (Auto) 0.3 L (2-4) % Baso % (Auto) 0.5 (0-2) % Neut # (Auto) 8100 H (9238-8860) /uL Lymph # (Auto) 1200 (8032-2120) /uL [place] # (Auto) 1000 H (0-900) /uL Eos # (Auto) 0 (0-450) /uL Baso # (Auto) 100 (0-100) /uL Sodium 139 (137-145) mmol/L Potassium 4.2 (3.4-5.1) mmol/L Chloride 103 (98-107) mmol/L Carbon Dioxide 27 (22-32) mmol/L BUN 21 H (9-20) mg/dL Creatinine 1.13 (0.66-1.25) mg/dL Estimated GFR > 60 (>60) mL/min BUN/Creatinine Ratio 18.6 (6-22) Glucose 117 H (80-110) mg/dL Calcium 8.9 (8.4-10.2) mg/dL Total Bilirubin 1.0 (0.2-1.3) mg/dL AST 19 (17-59) IU/L ALT 17 (<50) IU/L Alkaline Phosphatase 108 (38-126) U/L Total Protein 7.6 (6.3-8.2) g/dL Albumin 4.1 (3.5-5.0) g/dL Globulin 3.5 (1.7-4.1) g/dL Albumin/Globulin Ratio 1.2 (1.0-2.8) Urine Color Red Urine Appearance Turbid Urine pH 8.0 (4.5-8.0) Ur Specific [place] 1.020 (1.000-1.035) Urine Protein 3+ H (Negative) Urine Glucose (UA) Negative (Negative) g/dL Urine Ketones Trace H (NEGATIVE) Urine Occult Blood 3+ H (Negative) Urine Nitrate Positive H (Negative) Urine Bilirubin 1+ H (NEGATIVE) Ur Bilirubin Confirm Negative (Negative) Urine Urobilinogen 1.0 (0.2) E.U./dL Ur Leukocyte Esterase 2+ H (NEGATIVE) Urine RBC 30-100/hpf H (0-5/HPF) Urine WBC 30-100/hpf H (0-5/HPF) Ur Squamous Epith Cells 1-5 /hpf (0-5/HPF) Urine Bacteria Many (>30) H (None) Ur Culture Indicated? Specimen cultured Vol Urine Centrifuged 10ml (spun) SARS-CoV-2 (PCR) Negative (Negative) Influenza A (RT-PCR) Flu a negative (NEGATIVE) Influenza B (RT-PCR) Flu b negative (NEGATIVE) RSV (PCR) Negative (Negative) MDM Narrative Medical decision making narrative: 79-year-old male with a history of end-stage dementia, Parkinson's, hypertension hyperlipidemia presents from [facility] via EMS for evaluation of fever hematuria. Patient was sent in by nurse practitioner for fever and hematuria started today, facility provider who called before patient was sent in states patient has already been prescribed Keflex for possible urinary tract infection, however they state that they were not able to get a urine sample before prescribing this. They state that he had fever this morning and given the fact that patient is DNR with limited intervention and they could not get in contact with patient's daughter who is POA sent patient in, she states that then known agreed upon interventions at this time is limited interventions per patient's POLST form, which was verified by me upon arrival here stating DNR DNI, limited intervention including antibiotics. Did attempt to call patient's daughter Melva at [phone], however she did not answer therefore left HIPPA compliant voicemail. Did obtain basic lab work urinalysis as well as respiratory panel here in the emergency department. Patient without any leukocytosis, Chem panel unremarkable, urinalysis that was obtained with straight catheterization positive for urinary tract infection, did give dose of IV Rocephin we will send patient home with prescription for oral antibiotics. Given patient without any other overt signs of abnormalities no further workup indicated at this time. Discharge Plan Departure Patient Disposition: Home Clinical Impression: Dementia, Urinary tract infection Activity Restrictions/Additional Instructions: Please follow-up with your primary care doctor Please read the discharge instructions sheet carefully and bring all papers to all doctor follow-up visits, as it may contain information that your doctor may want to see. Disease processes change and evolve, if your symptoms worsen or if you develop any new symptoms that are concerning to you please return for evaluation. Your evaluation today does not show any evidence of any life- threatening/serious illnesses requiring admission to the hospital or surgery. Please follow-up with your doctor for re-evaluation in approximately 1 day. Seek immediate medical attention for any worrisome symptoms. *If you do not have a primary care provider please contact the [facility] Resource line at [phone]. They will ask some questions about your medical history and help get you set up with a doctor in the community. Prescriptions: New cefpodoxime 200 mg tablet 200 mg PO BID 7 Days Qty: 14 0RF Rx Instructions: must administer with a meal/food No Action atorvastatin 40 mg tablet 40 mg PO BEDTIME acetaminophen 325 mg Tablet 650 mg PO BID aspirin 81 mg Tablet,Chewable 81 mg PO DAILY lidocaine HCl [Aspercreme (lidocaine HCl)] 4 % Cream 1 applic TOPICAL BID Rx Instructions: Apply topically to left shoulder twice daily ketoconazole 2 % Shampoo 1 applic TOPICAL 2XW PRN (Reason: Dry Skin) donepezil 10 mg Tablet 10 mg PO DAILY lorazepam 0.5 mg Tablet 0.5 mg PO DAILY PRN (Reason: unknown) diphenhydramine HCl 25 mg Capsule 25 mg PO Q6H PRN (Reason: unknown) carbidopa-levodopa 25-100 mg Tablet 1 tab PO TID CeraVe Cream 1 applic TOPICAL BID Rx Instructions: to heels Eliquis 5 mg Tablet 5 mg PO BID Referrals: Karen Hallman ARNP [Primary Care Provider] - Stand Alone Forms: Patient Portal/API/Survey
[2024-06-14 05:47] LABS: Add Manual Diff / Slide Review NO; Basophils Absolute Auto 100 /uL (0-100); Basophils Percent Auto 0.5 % (0-2); Eosinophils Absolute Auto 0 /uL (0-450); Eosinophils Percent Auto 0.3 % (2-4); Hematocrit 43.8 % (41-53); Hemoglobin 14.6 g/dL (13.5-17.5); Lymphocytes Absolute Auto 1200 /uL (1100-4500); Mean Corpuscular HGB Conc 33.2 % (30-36); Mean Corpuscular Hemoglobin 31.3 PG (26-34); Mean Corpuscular Volume 94.3 fL (80-100); Monocytes Absolute Auto 1000 /uL (0-900); Monocytes Percent Auto 9.7 % (3-14); Neutrophils Absolute Auto 8100 /uL (1500-7000); Neutrophils Percent Auto 77.5 % (50-75); Platelet Count 177 X10^3/uL (150-400); Red Blood Cell Count 4.64 X10^6/uL (4.5-5.9); Red Cell Distribution Width 13.8 % (11.6-14.8); White Blood Cell Count 10.4 X10^3/uL (4.5-11.0)
[2024-06-14 06:13] LABS: Influenza A - CEPHEID Flu A NEGATIVE (NEGATIVE); Influenza B - CEPHEID Flu B NEGATIVE (NEGATIVE); Respiratory Syncytial Virus Negative (Negative)
[2024-06-14 06:14] LABS: COVID-19 CEPHEID 4-PLEX PCR Negative (Negative)
[2024-06-14 06:14] LABS: Alanine Aminotransferase 17 IU/L (<50); Albumin 4.1 g/dL (3.5-5.0); Albumin Globulin Ratio 1.2 (1.0-2.8); Alkaline Phosphatase 108 U/L (38-126); Aspartate Aminotransferase 19 IU/L (17-59); BUN Creatinine Ratio 18.6 (6-22); Blood Urea Nitrogen 21 mg/dL (9-20); Calcium 8.9 mg/dL (8.4-10.2); Carbon Dioxide 27 mmol/L (22-32); Chloride 103 mmol/L (98-107); Estimated Glomerular Filt Rate > 60 mL/min (>60); Globulin 3.5 g/dL (1.7-4.1); Glucose 117 mg/dL (80-110); HEMOLYSIS 19 (0-50); Potassium 4.2 mmol/L (3.4-5.1); Sodium 139 mmol/L (137-145); Total Protein 7.6 g/dL (6.3-8.2)
--- NOTE | 2024-06-14 06:20 | PC.NURSE ---
cath urine obtained, noted, hematuria, cloudy urine
[2024-06-14 06:27] LABS: Appearance Urine UA TURBID; Bilirubin Urine UA 1+ (NEGATIVE); Color Urine UA RED; Glucose Urine UA NEGATIVE (Negative); Ketones Urine UA TRACE (NEGATIVE); Leukocyte Esterase Urine UA 2+ (NEGATIVE); Nitrite Urine UA POSITIVE (Negative); Occult Blood Urine UA 3+ (Negative); Protein Urine UA 3+ (Negative)
[2024-06-14 06:34] LABS: Bacteria Urine Many (>30); Culture Indicated Urine Specimen Cultured; Ictotest Urine Negative (Negative); RBC Urine 30-100/HPF (0-5/HPF); Squamous Epithelial Cell Urine 1-5 /HPF (0-5/HPF); Urine Volume 10mL (spun); WBC Urine 30-100/HPF (0-5/HPF)
[2024-06-14] MEDS: cefTRIAXone 1,000 MG in SODIUM CHLORIDE 0.9% 100 ML 200 MG IV (06:42)
--- NOTE | 2024-06-14 07:55 | PC.NURSE ---
Called [facility]# [phone] , unable to reach staff members, no answer - multiple attempts to call - left voicemail message
--- NOTE | 2024-06-14 08:00 | PC.NURSE ---
this RN spoke with Candi at [facility]. updated Candi that the patient is on his way back with discharge paperwork and prescription. patient aware.
== END 2024-06-14 08:03 | disposition home or self-care (01) ==
PROVIDERS: Emergency Provider Student in an Organized Health Care Education/Training Program; PCP Nurse Practitioner Family
DX: N39.0 Urinary tract infection, site not specified (principal); B96.4 Proteus (mirabilis) (morganii) as the cause of diseases classified elsewhere; F03.90 Unspecified dementia, unspecified severity, without behavioral disturbance, psychotic disturbance, mood disturbance, and anxiety; R31.9 Hematuria, unspecified
CPT/HCPCS: 0241U; 36415; 80053; 81001; 85025; 87077; 87086; 87186; 96365; 99284; J0696